=== PATIENT | female | born 1960 | race Two or more races ===

== ENCOUNTER 2024-07-08 17:43 | Inpatient (IN) | payer BC, OTHER ==
[~2024-07-08] VITALS: Ht 160 cm; Wt 73.6 kg
[2024-07-08 17:43] VITALS: PULSE 0; RESP 0; O2SAT 0
[~2024-07-08 17:43] MED LIST: ALBU108A5 IN; ALPR1TAB PO; DIGO0.25 PO; DILT60TA PO; ESCI5TAB PO; FURO20TA3 PO; GABA-1308 PO; HYDR-4798 PO; IPRA0.00 NEB; LOSA-534 PO; MONT-8 PO; TRAZ-228 PO; WARF-115 PO
--- NOTE | 2024-07-08 18:02 | ED.PDOC ---
CPR-HPI HPI Comments PMHx: Unkown. PSHx: Unknown. Social hx: Unknown. Meds: Unknown. Allergies: Unknown. Vitals T: Unobtainable. RR: Unobtainable. HR: 33, 60 after pacing BP: Unobtainable. O2: 96% on nonrebreather mask EMS received call at 1712, arrived on scene at 1723. EMS arrived to ED at 1743. BS on scene 87. GCS 3. Pt was found in front of a house on the concrete. Patient arrived not in a C-collar and not intubated. Patient did not receive any medications in route. They said that the heart rate was in the 30s and they started cardiac pacing right away. Blood pressure was not measurable in route REVIEW OF SYSTEMS: Unknown PHYSICAL EXAM: General: Unresponsive, GCS three Head: normocephalic, atraumatic. Neck: supple, trachea is midline, no swelling. Throat: Dry oral mucosa Eyes:, no erythema, no purulent discharge, no proptosis, no icterus. Pupils are fixed and dilated and nonreactive to light Heart: No pulse and CPR was initiated immediately. Please see code sheet. Lungs: Patient arrived not in a C-collar and not intubated, Clear to auscultation bilaterally. Abdomen: Slightly distended, soft, Noted old abdominal surgical scar and sternotomy and bilateral breast implants. Neuro: GCS 3 unresponsive Skin: no petechia, no purpura, no cyanosis, slightly-pale, slightly jaundice. Lower extremities: --no - Pitting edema no deformity, no focal swelling, no calf TTP. Face: no apparent facial droop. Patient was evaluated immediately upon arrival. Patient was immediately intubated with a GlideScope ET tube placed successfully from 1st attempt. We were unable to palpate a pulse, CPR was initiated and epinephrine was given. Please see code sheet. Patient was given atropine throughout her code process goes after she has rock her heart rate started to drop quickly. Given that she was already very bradycardic in the field and no atropine was given, we gave 1 mg here in the ED. we do not know her medication list. Patient was given 1 g of glucagon IV for treatment of bradycardia. EKG was obtained and case discussed with Dr. Diaz to the core loader. No apparent heart block. We continued our resuscitation effort. Patient required eventually multiple pressors to maintain her blood pressure. She was 1st started on dopamine then dobutamine was added then epinephrine then Levophed. She had an episode of VFib that required shocking one time. Patient received amiodarone bolus of 300 mg IV. She was very hypotensive and received a L of normal saline bolus during initial resuscitation. ROSC was obtained. Schmidt scans were obtained. Patient was given a dose of empiric antibiotics. There was a major delay in lab results return. Patient never required any sedation as she continued to be GCS three with a fixed and dilated pupils that are not reactive to light. No family members available at bedside. No records available on our computer system. The catheter and NG tube were placed. Rectal temperature obtained. Later repeat rectal temperature was low per nurse. Bear hugger was placed. CT scan of maxillofacial was obtained later per radiologist's recommendation. Findings state possibly iatrogenic foci in the vasculature. Patient had IV access in the field an IV access here in the ED. no other vasculature access was obtained prior to this maxillofacial. Right femoral central line was placed after the CT scan report. Patient has not produce any urine in the Allen catheter bag after the 1 L of fluids. Given the chest x-ray findings to suggest possible vascular congestion, I ordered some Lasix and added an additional bag of 1 L normal saline bolus to help with hydration and urine production. Chief Complaint: CPR Time Seen by MD: 17:43 Reviewed Notes: Nurses Notes, Sled Maker Notes, Medications, Allergies Allergies: Coded Allergies: UNOBTAINABLE (Unverified , 07/08/24) Information Source: Emergency Med Personnel Mode of Arrival: EMS Brought in by: EMS Timing: Minutes Duration: Down time prior EMS: (unknown) Onset: Unknown Available Hx: Unknown Inital rhythm: PEA Treatment: CPR, Other Associated signs and symptoms: Other Past Medical History PAST MEDICAL HISTORY: Unknown Surgical History: Unknown MANAGER STAFFING History: Unknown Family History Family History: Unknown Social History Smoker: Unknown Alcohol: Unknown Drugs: Unknown Lives In: Unknown Was a procedure done? 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), Name of refrigeration brazer/solderer (Dr Mtz) Indication: Other (on multiple vasopressors) Room prepared for procedure: Yes Train Master performed hand hygien: Yes Maximal sterile barrier precau: Mask/Eye shield, Sterile gown, Cap, Sterlie gloves, Large sterlie drape Skin Preparation: Chlorhexidine gluconate Skin preparation completely dr: Yes Insertion site: Right, Femoral Central line catheter type: Mec-[id number]-cca dialysis Number of lumens: 3 Central line exchanged over a: No Post Assessment: Proper placement Informed consent obtained: No (pt unresponsive, emergency, no family available) Risks/benefits/alt described: No (pt unresponsive) Notes Dr Manning was present during all critical points of this procedure. Intubation Indication: Respiratory Insufficiency, Altered Mental Status, Airway Protection Prep: Preoxygenation Pretreated with: Nothing Medicated with: Nothing Intubation Approach: Orotracheal Informed consent obtained: No (pt unresponsive, emergency, no family available) Risks/benefits/alt described: No (pt unresponsive) Differential Dx CPR Differential Diagnosis: Cardiopulmonary arrest, Cardiogenic shock, Electrolyte disorder, Heart Block, Myocardial Infarction, Pneumothorax, Pulmonary Embolus, Respiratory Failure, Ruptured Aortic Aneurysm X-Ray, Labs, Meds, VS Vital Signs Date Time Temp Pulse Resp B/P (MAP) Pulse Ox O2 Delivery O2 Flow Rate FiO2 07/08/24 22:15 115 24 126/67 (86) 100 30 07/08/24 21:01 102 20 107/61 (76) 100 40 07/08/24 21:00 106 07/08/24 20:15 105/49 07/08/24 20:00 95/50 07/08/24 19:48 Ambu-Bag 07/08/24 19:41 110 Ambu-Bag 07/08/24 19:30 79/55 07/08/24 19:20 88 16 99 Mechanical Ventilator+ 50 50 07/08/24 19:15 93.6 86 16 84/46 (59) 100 93.6 07/08/24 19:00 84/58 07/08/24 19:00 84/58 07/08/24 19:00 84/45 07/08/24 19:00 93.6 86 16 84/45 (58) 100 93.6 07/08/24 18:58 86 07/08/24 18:45 85 16 83/39 (54) 100 07/08/24 18:25 71 16 69/26 (40) 100 07/08/24 18:22 65 16 65/25 (38) 100 07/08/24 18:20 55 16 71/23 (39) 100 07/08/24 18:20 77 16 83/39 (54) 100 07/08/24 18:18 73/56 07/08/24 18:16 55 16 76/30 (45) 07/08/24 18:07 55/21 07/08/24 18:06 98.1 51 55/21 (32) 98.1 07/08/24 18:05 55/21 07/08/24 18:01 57 07/08/24 17:44 0 0 0/0 (0) 0 07/08/24 17:43 0 0 0 T-piece 15 N/A Lab Test 07/08/24 22:00 07/08/24 19:30 07/08/24 19:00 07/08/24 18:01 Range/Units Urine Color Colorless Yellow Urine Clarity Turbid H Clear Urine pH 8.5 5.0-9.0 Urine Specific [place] 1.006 1.001-1.035 Urine Protein 2+ H Negative Urine Ketones Negative Negative Urine Blood 3+ H Negative /uL Urine Nitrite Negative Negative Urine Bilirubin Negative Negative Urine Urobilinogen Normal Negative mg/dL Urine Leukocyte Esterase Negative Negative /uL Urine RBC 22 0 - 4 /hpf Urine WBC 26 0 - 5 /hpf Urine Squamous Epithelial Cells Few <5 /hpf Urine Bacteria Few H None Seen /hpf Urine Glucose 3+ H Normal mg/dL Lactic Acid Level 6.3 *H 13.8 *H 0.4-2.0 mmol/L Troponin I High Sensitivity 1154 *H 135 *H 19 </=34 ng/L Urine Opiates Screen Neg NEGATIVE Urine Fentanyl Screen Neg NEGATIVE Urine Barbiturates Screen Neg NEGATIVE Urine Phencyclidine Screen Neg NEGATIVE Urine Amphetamines Screen Neg NEGATIVE Urine Benzodiazepines Screen Neg NEGATIVE Urine Cocaine Screen Neg NEGATIVE Urine Cannabinoids Screen Pos NEGATIVE Sodium Level 137 136-145 mmol/L Potassium Level 4.4 3.5-5.1 mmol/L Chloride Level 101 98-107 mmol/L Carbon Dioxide Level 19 L 20-31 mmol/L Anion Gap 17 H 5-15 Blood Urea Nitrogen 13 9-23 mg/dL Creatinine 1.15 H 0.550-1.02 mg/dL Glomerular Filtration Rate Calc 54 >90 mL/min BUN/Creatinine Ratio 11.3 10.0-20.0 Serum Glucose 348 H 74-106 mg/dL Calcium Level 8.8 8.7-10.4 mg/dL Total Bilirubin 2.8 H 0.2-1.0 mg/dL Aspartate Amino Transferase (AST) 146 H 13-40 U/L Alanine Aminotransferase (ALT) 72 H 7-40 U/L Alkaline Phosphatase 58 46-116 U/L Total Protein 6.2 5.7-8.2 g/dL Albumin 3.8 3.2-4.8 g/dL Blood Gas Specimen Type Arterial Blood Gas Sample Site Left radial Blood Gas Patient Temperature 37.0 Arterial Blood Date Drawn [id number] Arterial Blood pH 7.168 *L 7.350-7.450 Arterial Blood Partial Pressure CO2 53.8 H 32.0-45.0 mmHg Arterial Blood Partial Pressure O2 > 529.9 *H 83.0-108.0 mmHg Arterial Blood HCO3 19.1 L 21.0-28.0 mmol/L Arterial Blood Oxygen Saturation 99.7 H 94.0-98.0 % Arterial Blood Base Excess -9.3 L -2.0-3.0 mmol/L Arterial Blood Oxyhemoglobin 97.6 94.0-98.0 % Arterial Blood Carboxyhemoglobin 1.2 0.5-1.5 % Arterial Blood Methemoglobin 0.9 0.0-1.5 % Luiz Test Modified Blood Gas Total Hemoglobin 9.90 L 12.0-16.0 g/dL Blood Gas Set Respiration Rate 16.0 Blood Gas Modality Vent - ac FiO2 % 100.0 Blood Gas Tidal Volume 400.0 Blood Gas PEEP or CPAP 0 Blood Gas Critical Value Read Back Yes Blood Gas Notified Whom Dr. shanique manning Blood Gas Notified Time [id number] Blood Gas Notified By Rt sherry crowley White Blood Count 6.4 4.4-10.8 10^3/uL Red Blood Count 2.96 L 4.0-5.20 10^6/uL Hemoglobin 9.2 L 12.2-16.2 g/dL Hematocrit 29.3 L 36.0-46.0 % Mean Corpuscular Volume 99.1 80.0-100.0 fL Mean Corpuscular Hemoglobin 31.0 28.0-32.0 pg Mean Corpuscular Hemoglobin Concent 31.3 L 32.0-36.0 g/dL Red Cell Distribution Width 16.6 H 11.8-14.3 % Platelet Count 167 140-450 10^3/uL Mean Platelet Volume 9.3 6.9-10.8 fL Neutrophils (%) (Auto) 45.1 37.0-80.0 % Lymphocytes (%) (Auto) 45.3 10.0-50.0 % Monocytes (%) (Auto) 7.3 0.0-12.0 % Eosinophils (%) (Auto) 1.6 0.0-7.0 % Basophils (%) (Auto) 0.7 0.0-2.0 % Neutrophils # (Auto) 2.9 1.6-8.6 10 ^3/uL Lymphocytes # (Auto) 2.9 0.4-5.4 10 ^3/uL Monocytes # (Auto) 0.5 0-1.3 10 ^3/uL Eosinophils # (Auto) 0.1 0-0.8 10 ^3/uL Basophils # (Auto) 0 0-0.2 10 ^3/uL Nucleated Red Blood Cells 1.2 % Magnesium Level 2.6 1.6-2.6 mg/dL Current Medications Medications (Trade) Dose Ordered Sig/Perez Route Start Time Stop Time Status Last Admin Dopamine HCl/ Dextrose 250 ml @ 13.125 mls/ hr Q19H3M ONCE IV 07/08/24 18:15 07/09/24 13:17 07/08/24 18:05 Sodium Bicarbonate 100 ml ONCE ONCE IV 07/08/24 19:15 07/08/24 19:39 DC 07/08/24 19:15 Dobutamine HCl/ Dextrose 250 ml @ 21 mls/hr [id number] IV 07/08/24 19:30 07/08/24 18:07 Epinephrine HCl 250 ml @ 7.5 mls/hr Q24H IV 07/08/24 19:30 07/08/24 18:18 Norepinephrine Bitartrate 250 ml @ 3.75 mls/hr Q24H IV 07/08/24 20:00 07/08/24 20:00 Ceftriaxone Sodium 50 ml @ 100 mls/hr ONCE ONCE IV 07/08/24 20:15 07/08/24 20:44 DC 07/08/24 20:15 Sodium Chloride 1,000 ml @ 1,000 mls/hr Q1H ONCE IV 07/08/24 20:15 07/08/24 21:14 DC 07/08/24 20:15 Furosemide (Lasix Injection) 40 mg ONCE ONCE IV 07/08/24 20:15 07/08/24 20:17 DC 07/08/24 20:[address] [address] Ph: [phone] DIAGNOSTIC IMAGING Diagnostic Imaging Report : [id number] Signed PATIENT: Elizabeth Wren ACCT: [id number] UNIT: [id number] : 1960 LOC: ER ROOM / BED: / AGE / SEX: 63 / F ADM STATUS: REG ER SERVICE 18 ORDERING PHYSICIAN: ANEUDY MANNING DO PROCEDURE(s): CXR1 - CHEST XRAY 1 VIEW REASON: POST INTUBATION ORDER NUMBER(s): [id number], ACCESSION NUMBER(s): [id number] CHEST RADIOGRAPH Indication: POST INTUBATION Technique: Single frontal view of the chest was obtained Comparison: No prior chest x-rays for comparison FINDINGS: Lines and Tubes: Endotracheal tube in place 4.4 cm above the zachary. Enteric tube below the diaphragm in the stomach. Sternal wire sutures in place. Lungs: Increased pulmonary vascular in extending from the hilar regions bilaterally. Pleura: No effusion. No pneumothorax. Cardiomediastinal contours: Cardiac size upper normal. Bones: No acute osseous abnormality. IMPRESSION: 1. Endotracheal tube 4.4 cm above the zachary. 2. Enteric tube below the left diaphragm in the stomach. 3. Cardiac size upper limits of normal with probable findings of congestive failure. ATED BY: JAYLIN TUCKER Jr., DO DICTATED DATE/TIME: 07/08/241850 SIGNED BY: JAYLIN TUCKER Jr., SIGNED DATE/TIME: 07/08/241850 CC: [address] [id number] Ph: [phone] DIAGNOSTIC IMAGING Diagnostic Imaging Report : [id number] Signed PATIENT: Elizabeth Wren ACCT: [id number] UNIT: [id number] : 1960 LOC: ER ROOM / BED: / AGE / SEX: 63 / F ADM STATUS: REG ER SERVICE 19 ORDERING PHYSICIAN: ANEUDY MANNING DO PROCEDURE(s): HWOCT - HEAD WITHOUT CONTRAST REASON: aloc ORDER NUMBER(s): [id number], ACCESSION NUMBER(s): [id number] EXAM: CT HEAD WITHOUT CONTRAST INDICATION: aloc TECHNIQUE: CT of the head without intravenous contrast. Radiation Dose Information: CT Dose: CTDI volume is 53.11 mGy. Dose-length product is 940.46 mGy*cm The dose indicators for CT are the volume Computed Tomography (CT) Dose Index (CTDIvol) and the Dose Length Product (DLP), and are measured in units of mGy and mGy-cm, respectively. These indicators are not patient dose, but values generated from the CT scanner acquisition factors. The report includes radiation exposure data for exposures received during this examination. COMPARISON: None FINDINGS: There is no evidence of acute intracranial hemorrhage, extra-axial collection, mass effect, midline shift, herniation or hydrocephalus. The ventricles, sulci and cisterns are age appropriate. The mendoza-white differentiation is intact. Patchy periventricular and subcortical white matter hypoattenuation is nonspecific but may be related to small vessel ischemic disease. The visualized paranasal sinuses and mastoid air cells are clear. The surrounding soft tissues and osseous structures are unremarkable. IMPRESSION: 1. No acute intracranial hemorrhage. 2. No CT findings of territorial ischemia. ATED BY: JAYLIN TUCKER Jr., DO DICTATED DATE/TIME: 07/08/241911 SIGNED BY: JAYLIN TUCKER Jr., SIGNED DATE/TIME: 07/08/241911 CC: [place] [address] Ph: [phone] DIAGNOSTIC IMAGING Diagnostic Imaging Report : [id number] Signed PATIENT: Elizabeth Wren ACCT: [id number] UNIT: [id number] : 1960 LOC: ER ROOM / BED: / AGE / SEX: 63 / F ADM STATUS: REG ER SERVICE 19 ORDERING PHYSICIAN: ANEUDY MANNING DO PROCEDURE(s): CS2 - CERVICAL WITHOUT CONTRAST REASON: aloc ORDER NUMBER(s): [id number], ACCESSION NUMBER(s): [id number] EXAM: CT CERVICAL WITHOUT CONTRAST INDICATION: aloc EXAM DATE: 07/08/2024 06:39 PM COMPARISON: None TECHNIQUE: Multiple axial CT images of the cervical spine were obtained using bone algorithm. Axial and coronal reformatting was done. Bone and soft tissue windows were reviewed. Radiation Dose Information: CT Dose: CTDI volume is 13.25 mGy. Dose-length product is 314.43 mGy*cm FINDINGS: Minimal dextrocurvature of the cervical spine, possibly positional. No acute cervical spine fracture is identified. The vertebral body heights are intact. No suspicious osseous lesions are identified. Multilevel mild intervertebral disc space narrowing with vacuum phenomenon. Posterior disc osteophyte complex at C5-6. Small calcification of the anterior longitudinal ligament at C6-7. Mild degenerative changes of the atlantoaxial j oint. There is no prevertebral soft tissue swelling. Partially visualized endotracheal and enteric tubes. Tiny foci of subcutaneous emphysema noted adjacent to the left lateral pterygoid process and left maxillary sinus wall. IMPRESSION: 1. No evidence of acute cervical spine fracture or traumatic malalignment. 2. Tiny foci of subcutaneous emphysema adjacent to the left pterygoid process in the left maxillary sinus wall. Findings raise suspicion for possible facial fracture versus other. Recommend correlation with maxillofacial CT. 3. Degenerative changes as described. 4. All CT scans at this medical facility are performed using dose modulation techniques as appropriate to a performed exam including the following: Automated exposure control was utilized; adjustment of the MA and/or KV according to patient size; and use of iterative reconstruction technique. HS:Y ATED BY: KYARA VICKERS DO DICTATED DATE/TIME: 07/08/241913 SIGNED BY: KYARA VICKERS DO SIGNED DATE/TIME: 07/08/241913 CC: [place] [address] Ph: [phone] DIAGNOSTIC IMAGING Diagnostic Imaging Report : [id number] Signed PATIENT: Elizabeth Wren ACCT: [id number] UNIT: [id number] : 1960 LOC: ER ROOM / BED: / AGE / SEX: 63 / F ADM STATUS: REG ER SERVICE 1820 ORDERING PHYSICIAN: ANEUDY MANNING DO PROCEDURE(s): CTCAP - CHST AB PEL WO CON-NO IV/ORAL REASON: aloc ORDER NUMBER(s): [id number], ACCESSION NUMBER(s): [id number] Exam: CT CHST AB PEL WO CON-NO IV/ORAL History: aloc Comparison Study: None Technique: Multidetector spiral CT of the chest, abdomen and pelvis without contrast. Axial, coronal and sagittal multiplanar reformats were obtained from the axial data set by the technologist. Radiation Dose : Chest/ Abdomen/Pelvis: CTDIvol 6.14 mGy, DLP 434.64 mGy*cm. Findings: Chest: The thyroid gland is unremarkable. Endotracheal tube terminates above the zachary. Enteric tube terminates within the stomach. Severe cardiomegaly with significant prominence of the right and left atrium. Aortic aneurysm. Dilatation of the pulmonary trunk up to 38 mm. Mediastinal lymphadenopathy measuring up to 1.1 cm. Mild emphysematous changes of the bilateral lungs. Scattered bilateral lung atelectasis /scarring. Scattered calcified granulomas within the lungs. Left lateral upper lobe pleural nodularity trace right-sided pleural effusion with associated atelectasis. No pneumothorax. Bilateral breast implants with peripheral calcifications. Midline sternotomy wires are noted. Abdomen and pelvis: Hepatosplenomegaly. Otherwise liver, spleen, gallbladder, adrenal glands unremarkable. Limited evaluation of the pancreas given noncontrast imaging. 1 cm hypodense lesion measuring up to -7 Hounsfield units which may represent a cyst versus angiomyolipoma. No hydronephrosis bilaterally. No renal calculi. Urinary bladder is decompressed with Allen catheter looped within the urinary bladder. Uterus is not definitely visualized. Question hysterectomy. Stomach is unremarkable. Small bowel loops unremarkable. Appendix is not definitely visualized. Large amount of fecal material within the ascending and transverse colons. The large bowel is otherwise unremarkable. No evidence of intraperitoneal free air or free fluid. No evidence of aortic aneurysm. Mild atherosclerotic calcification of the aorta. No significant lymphadenopathy. Mild soft tissue edema. Right sided paraumbilical subcutaneous fat thickening extending to the skin and adjacent ventral abdominal musculature. No destructive osseous lesions are noted. IMPRESSION: Limited noncontrast imaging . Trace right-sided pleural effusion with associated atelectasis. Scattered b ilateral lung atelectasis/scarring with scattered bilateral lung calcified granulomas pleural nodularity of the left upper lobe. Mediastinal lymphadenopathy which may be reactive/neoplastic. Severe cardiomegaly with prominence of the right atrium and right ventricle. No evidence of acute abdominopelvic abnormalities. The appendix is not definitely visualized. Without visualization of the appendix, can not exclude acute appendicitis. Additional findings as above. ATED BY: LEYLA HERNANDEZ DO DICTATED DATE/TIME: 07/08/241932 SIGNED BY: LEYLA HERNANDEZ DO SIGNED DATE/TIME: 07/08/241932 CC: [place] [address] Ph: [phone] DIAGNOSTIC IMAGING Diagnostic Imaging Report : [id number] Signed PATIENT: ELIZABETH WREN ACCT: [id number] UNIT: [id number] : 1960 LOC: ER ROOM / BED: / AGE / SEX: 63 / F ADM STATUS: REG ER SERVICE 26 ORDERING PHYSICIAN: ANEUDY MANNING DO PROCEDURE(s): FAC2C - MAXILLOFACIAL WITHOUT REASON: ALOC ORDER NUMBER(s): [id number], ACCESSION NUMBER(s): [id number] Procedure: CT MAXILLOFACIAL WITHOUT Study Date and Requested Time: 07/08/2024 06:39 PM History: ALOC Comparison: CT cervical spine 07/08/2024 Dose: CTDI: 13.25 mGy DLP: 314.43 mGycm Technique: Multiplanar images obtained through the face without intravenous contrast. Findings: No evidence of acute fracture or other significant osseous abnormality. Orbits and globes grossly unremarkable. Paranasal sinuses and mastoids clear. Nasal septum midline position. Nasal cavity and visualized nasopharynx and oropharynx grossly unremarkable with no evidence of focal lesion. Endotracheal tube is partially visualized. Foci of air over posterior to the left submandibular gland region , over the left pterygoid muscle and posterior to the left maxillary sinus Minimal soft tissue. Impression: No evidence of acute traumatic fractures. The foci of air over the left pterygoid musculature, posterior to the left maxillary sinus and posterior to the left submandibular gland appear to be within vasculatures and may represent iatrogenic foci of air within venous struc tures. Additional foci of air are noted posterior to bilateral clavicles on the comparison CT cervical spine which also appear to be within vasculature. Minimal soft tissue edema ATED BY: LEYLA HERNANDEZ DO DICTATED DATE/TIME: 07/08/242117 SIGNED BY: LEYLA HERNANDEZ DO SIGNED DATE/TIME: 07/08/242117 CC: Time of 1ST Reevaluation: 18:13 Reevaluation 1ST: Unchanged Time of 2ND Reevaluation: 23:12 (Patient started to make urine. Patient has not required any sedation or paralytics. ) Reevaluation 2ND: Unchanged Patient Education/Counseling: Pt Unresponsive Family Education/Counseling: No Family Present Departure 1 Departure Time of Disposition: 19:14 Impression: Primary Impression: Cardiopulmonary arrest Additional Impressions: Cardiomegaly Hepatosplenomegaly Lymphadenopathy Abnormal finding on CT scan Elevated troponin Anemia Elevated lactic acid level NSTEMI (non-ST elevated myocardial infarction) Disposition: ADMITTED INPATIENT Admit to: ICU Condition: Critical Discharged With: Self Critical Care Note Critical Care Time?: Yes (90 min-critical care time only) Heart Score Heart Score: Heart Score Response (Comments) Value History N/A 0 EKG Normal 0 Age 45-64 1 Risk Factors N/A 0 Troponin >3 x's Normal limit 2 Total 3 I personally scribed for ANEUDY MANNING DO ([email or web address]) on 07/08/24 at 18:02. Electronically submitted by Ysabel Ortiz ([facility]). I personally scribed for ANEUDY MANNING DO ([email or web address]) on 07/08/24 at 18:11. Electronically submitted by Ysabel Ortiz ([facility]). I personally scribed for ANEUDY MANNING DO ([email or web address]) on 07/08/24 at 19:43. Electronically submitted by Ysabel Ortiz ([facility]). I personally scribed for ANEUDY MANNING DO ([email or web address]) on 07/08/24 at 21:08. Electronically submitted by Ysabel Ortiz ([facility]). I personally scribed for ANEUDY MANNING DO ([facility]) on 07/08/24 at 21:45. Electronically submitted by Ysabel Ortiz ([facility]). I personally scribed for ANEUDY MANNING DO ([facility]) on 07/08/24 at 22:03. Electronically submitted by Ysabel Ortiz ([facility]). ANEUDY MANNING DO Jul 08, 2024 18:02
[2024-07-08] MEDS: DOBUTamine 1000MCG/ML 250 ML IV ONE (18:04)
[2024-07-08] MEDS: DOPamine 1600MCG/ML D5W 250 ML IV ONE (18:05)
[2024-07-08] MEDS: DOBUTamine 1000MCG/ML 250 ML IV SCH (18:07)
[2024-07-08] MEDS: GLUCAGON EMERG KIT 1mg/1ml ONE (18:07)
[2024-07-08] MEDS: EPINEPHrine HCL 250 ML IV ONE (18:12)
[2024-07-08] MEDS: EPINEPHrine HCL 250 ML IV SCH (18:18)
[2024-07-08 18:26] LABS: Basophils # (auto) 0 10 ^3/uL (0-0.2); Basophils % (auto) 0.7 % (0.0-2.0); Eosinophils # (auto) 0.1 10 ^3/uL (0-0.8); Eosinophils % (auto) 1.6 % (0.0-7.0); Hematocrit 29.3 % (36.0-46.0); Hemoglobin 9.2 g/dL (12.2-16.2); Lymphocytes # (auto) 2.9 10 ^3/uL (0.4-5.4); Lymphocytes % (auto) 45.3 % (10.0-50.0); Mean Corpuscular Hgb Conc. 31.3 g/dL (32.0-36.0); Mean Corpuscular Volume 99.1 fL (80.0-100.0); Monocytes # (auto) 0.5 10 ^3/uL (0-1.3); Monocytes % (auto) 7.3 % (0.0-12.0); Neutrophils # (auto) 2.9 10 ^3/uL (1.6-8.6); Neutrophils % (auto) 45.1 % (37.0-80.0); Nucleated Red Blood Cells % 1.2 %; Platelet Count (auto) 167 10^3/uL (140-450); Red Blood Cells 2.96 10^6/uL (4.0-5.20); Red Cell Distribution Width 16.6 % (11.8-14.3); White Blood Cell 6.4 10^3/uL (4.4-10.8)
--- NOTE | 2024-07-08 18:53 | DVH ---
CHEST RADIOGRAPH Indication: POST INTUBATION Technique: Single frontal view of the chest was obtained Comparison: No prior chest x-rays for comparison FINDINGS: Lines and Tubes: Endotracheal tube in place 4.4 cm above the zachary. Enteric tube below the diaphrag m in the stomach. Sternal wire sutures in place. Lungs: Increased pulmonary vascular in extending from the hilar regions bilaterally. Pleura: No effusion. No pneumothorax. Cardiomediastinal contours: Cardiac size upper normal. Bones: No acute osseous abnormality. IMPRESSION: 1. Endotracheal tube 4.4 cm above the zachary. 2. Enteric tube below the left diaphragm in the stomach. 3. Cardiac size upper limits of normal with probable findings of congestive failure.
[2024-07-08 19:09] LABS: Base Excess -9.3 mmol/L (-2.0-3.0)
[2024-07-08] MEDS: SODIUM BICARB 8.4% 50Meq/50ml SYR Vial IV ONE (19:15)
--- NOTE | 2024-07-08 19:15 | DVH ---
EXAM: CT HEAD WITHOUT CONTRAST INDICATION: aloc TECHNIQUE: CT of the head without intravenous contrast. Radiation Dose Information: CT Dose: CTDI volume is 53.11 mGy. Dose-length product is 940.46 mGy*cm The dose indicators for CT are the volume Computed Tomography (CT) Dose Index (CTDIvol) and the Dose Length Product (DLP), and are measured in units of mGy and mGy-cm, respectively. These indicators are not patient dose, but values generated from the CT scanner acquisition factors. The report includes radiation exposure data for exposures received during this examination. COMPARISON: None FINDINGS: There is no evidence of acute intracranial hemorrhage, extra-axial collection, mass effect, midline s hift, herniation or hydrocephalus. The ventricles, sulci and cisterns are age appropriate. The mendoza-white differentiation is intact. Patchy periventricular and subcortical white matter hypoattenuation is nonspecific but may be related to small vessel ischemic disease. The visualized paranasal sinuses and mastoid air cells are clear. The surrounding soft tissues and osseous structures are unremarkable. IMPRESSION: 1. No acute intracranial hemorrhage. 2. No CT findings of territorial ischemia.
--- NOTE | 2024-07-08 19:17 | DVH ---
EXAM: CT CERVICAL WITHOUT CONTRAST INDICATION: aloc EXAM DATE: 07/08/2024 06:39 PM COMPARISON: None TECHNIQUE: Multiple axial CT images of the cervical spine were obtained using bone algorithm. Axial a nd coronal reformatting was done. Bone and soft tissue windows were reviewed. Radiation Dose Information: CT Dose: CTDI volume is 13.25 mGy. Dose-length product is 314.43 mGy*cm FINDINGS: Minimal dextrocurvature of the cervical spine, possibly positional. No acute cervical spine fracture is identified. The vertebral body heights are intact. No suspicious osseous lesions are identified. Multilevel mild intervertebral disc space narrowing with vacuum phenomenon. Posterior disc osteophyte complex at C5-6. Small calcification of the anterior longitudinal ligament at C6-7. Mild degenerativ e changes of the atlantoaxial joint. There is no prevertebral soft tissue swelling. Partially visualized endotracheal and enteric tubes. Tiny foci of subcutaneous emphysema noted adjacent to the left lateral pterygoid process and left max illary sinus wall. IMPRESSION: 1. No evidence of acute cervical spine fracture or traumatic malalignment. 2. Tiny foci of subcutaneous emphysema adjacent to the left pterygoid process in the left maxillary s inus wall. Findings raise suspicion for possible facial fracture versus other. Recommend correlation with maxillofacial CT. 3. Degenerative changes as described. 4. All CT scans at this medical facility are performed using dose modulation techniques as appropriat e to a performed exam including the following: Automated exposure control was utilized; adjustment of the MA and/or KV according to patient size; and use of iterative reconstruction technique. HS:Y
[2024-07-08 19:20] VITALS: PULSE 88; RESP 16; O2SAT 99
--- NOTE | 2024-07-08 19:26 | ECG ---
[facility] Test Date: 2024-07-08 Test Time: 18:01:38 Pat Name: ELIZABETH ROUSSEAU Department: er Room: [address] [place] [address] Gender: F Time Study Technician: dr AWAD: 1960 Requested By: ANEUDY MANNING Order Number: [id number] Reading MD: Lamont Cheng Measurements Intervals [place] Rate: 57 P: 0 OK: 0 QRS: -43 QRSD: 118 T: 126 QT: 401 QTc: 391 Interpretive Statements AV block, complete (third degree) Nonspecific IVCD with LAD Low voltage, precordial leads Abnrm T, consider ischemia, anterolateral lds Minimal ST elevation, lateral leads Baseline wander in lead(s) V1 Electronically Signed On 07-09-2024 8:28:13 PST by Lamont Cheng Please click the below link to view image of tracing.
[2024-07-08] MEDS: NOREPINEPHRINE 8 MG/250ML KIT 250 ML IV SCH (19:30)
[2024-07-08] MEDS: NOREPINEPHRINE 8 MG/250ML KIT 250 ML IV ONE (19:34)
--- NOTE | 2024-07-08 19:35 | DVH ---
Exam: CT CHST AB PEL WO CON-NO IV/ORAL History: aloc Comparison Study: None Technique: Multidetector spiral CT of the chest, abdomen and pelvis without contrast. Axial, coronal and sagittal multiplanar reformats were obtained from the axial data set by the technologist. Radiation Dose : Chest/ Abdomen/Pelvis: CTDIvol 6.14 mGy, DLP 434.64 mGy*cm. Findings: Chest: The thyroid gland is unremarkable. Endotracheal tube terminates above the zachary. Enteric tube terminates within the stomach. Severe cardiomegaly with significant prominence of the right and left atrium. Aortic aneurysm. Dilata tion of the pulmonary trunk up to 38 mm. Mediastinal lymphadenopathy measuring up to 1.1 cm. Mild emphysematous changes of the bilateral lungs. Scattered bilateral lung atelectasis /scarring. S cattered calcified granulomas within the lungs. Left lateral upper lobe pleural nodularity trace righ t-sided pleural effusion with associated atelectasis. No pneumothorax. Bilateral breast implants with peripheral calcifications. Midline sternotomy wires are noted. Abdomen and pelvis: Hepatosplenomegaly. Otherwise liver, spleen, gallbladder, adrenal glands unremarkable. Limited eval uation of the pancreas given noncontrast imaging. 1 cm hypodense lesion measuring up to -7 Hounsfield units which may represent a cyst versus angiomyol ipoma. No hydronephrosis bilaterally. No renal calculi. Urinary bladder is decompressed with Allen catheter looped within the urinary bladder. Uterus is not definitely visualized. Question hysterectomy. Stomach is unremarkable. Small bowel loops unremarkable. Appendix is not definitely visualized. Larg e amount of fecal material within the ascending and transverse colons. The large bowel is otherwise u nremarkable. No evidence of intraperitoneal free air or free fluid. No evidence of aortic aneurysm. Mild atherosclerotic calcification of the aorta. No significant lymphadenopathy. Mild soft tissue edema. Right sided paraumbilical subcutaneous fat thickening extending to the skin a nd adjacent ventral abdominal musculature. No destructive osseous lesions are noted. IMPRESSION: Limited noncontrast imaging . Trace right-sided pleural effusion with associated atelectasis. Scattered bilateral lung atelectasis /scarring with scattered bilateral lung calcified granulomas pleural nodularity of the left upper lob e. Mediastinal lymphadenopathy which may be reactive/neoplastic. Severe cardiomegaly with prominence of the right atrium and right ventricle. No evidence of acute abdominopelvic abnormalities. The appendix is not definitely visualized. Without visualization of the appendix, can not exclude acu te appendicitis. Additional findings as above.
--- NOTE | 2024-07-08 19:41 | RESUS ---
CODE BLUE ASSESSSMENT History of Events History of Events: INITIAL CALL TO EMS WAS REPORTED UNRESPONSIVE PATIENT, BRADYCARDIC. PER EMS, PATIENT BECAME PULSELESS UPON ARRIVAL TO ER. PATIENT TO ER BED 9, CPR CONTINUED. DR MANNING, NURSING STAFF AND RT STAFF AT BEDSIDE Initial Information Date: Jul 08, 2024 Time: 17:46 Location of Arrest: In Field Arrest Witnessed: Yes CPR started by whom: EMS Pre-Hospital Care: ACLS Type of arrest: Cardiac Spontaneous Respirations: No Pulse Present: No Monitoring: Pulse Oximetry, Capnography Crash Cart Opened and Supplies: Yes Airway Ventilation Breathing at Onset: Apneic Oxygen Delivery Method: Ambu-Bag Intubation Time: 17:47 Intubation Size: 8.0 cuffed Intubated by: DR MANNING Intubation Attempts: 1 Intubated orally: Yes Tube secured at: 24 CO2 indicator used: Yes Confirmation: Auscultation, Exhaled CO2 Suctioning (Oral/Tracheal): Yes Circulation Circulation #1: Time: 17:48 Circulation Comment: PEA Circulation #2: Time: 17:50 Circulation Comment: PEA (DOPPLER USED) Circulation #3: Time: 17:52 Pulse Rate (adult): 110 Circulation Comment: SINUS TACHYCARDIA Medications & Response Medications and Responses #1: Medication Time: 17:47 ADULT Medications Given ADULT: Epinephrine 1 mg, Sodium Bacarbinate 50 meq Route of Administration: IV EKG Rhythm: PEA Medications and Responses #2: Medication Time: 17:50 ADULT Medications Given ADULT: Epinephrine 1 mg Route of Administration: IV EKG Rhythm: PEA Medications and Responses #3: ADULT Medications Given ADULT: Narcan 1 mg Route of Administration: IV Medication Comment: NARCAN 2 MG GIVEN Nurses Notes [place] Coma Scale Eye Opening: None (1) [place] Coma Scale Verbal: None (1) [place] Coma Scale Motor: None (1) Pupil Reaction: Non Reactive Bedside Blood Glucose: 160 EKG Rhythm: Sinus Tachycardia Time Code Ended Time Code Ended: 17:52 Post Arrest Status: Ventilated Outcome of code: Successful Code Team Present: DR NIGEL PASTRANA RN Post Resuscitation [facility] Pupil Size: 6 Comment: 6MM ROSC Time of ROSC: 17:52 Duyen Phipps Jul 08, 2024 19:41
--- NOTE | 2024-07-08 19:48 | RESUS ---
CODE BLUE ASSESSSMENT History of Events History of Events: 2ND CODE FOR THIS PATIENT AFTER ROSC. REFER TO PREVIOUS CODE SHEET Initial Information Date: Jul 08, 2024 Time: 17:53 Location of Arrest: ER Arrest Witnessed: Yes CPR started by whom: Hospital Staff Pre-Hospital Care: ACLS Type of arrest: Cardiac Spontaneous Respirations: No Pulse Present: No Monitoring: Pulse Oximetry, Telemetry Crash Cart Opened and Supplies: Yes Airway Ventilation Breathing at Onset: Assisted Oxygen Delivery Method: Ambu-Bag Artificial Ventilation: Bag/Mask Comments: 2ND CODE. PATIENT WAS INTUBATED DURING INITIAL CODE BLUE. REFER TO PREVIOUS CODE BLUE SHEET Circulation Circulation : Time: 17:53 Circulation Comment: V FIB NOTED ON MONITOR Defibrillation Defbrillation : EKG Rhythm: V-Fibrillation Compressions: Manual Time Defibrillator Shocked Pt.: 17:53 Defib. Joules: 120 Pulse Present: Yes EKG Rhythm: Sinus Bradycardia Medications & Response Medications and Responses #1: Medication Time: 17:54 ADULT Medications Given ADULT: Atropine 1 mg Route of Administration: IV EKG Rhythm: Sinus Bradycardia Medications and Responses #2: Medication Time: 17:56 ADULT Medications Given ADULT: Magnesium Sulfate 2 gm Route of Administration: IV EKG Rhythm: Sinus Rhythm Nurses Notes [place] Coma Scale Eye Opening: None (1) [place] Coma Scale Verbal: None (1) [place] Coma Scale Motor: None (1) Pupil Reaction: Non Reactive Bedside Blood Glucose: 160 EKG Rhythm: Sinus Rhythm, Sinus Tachycardia Time Code Ended Time Code Ended: 17:56 Post Arrest Status: Unconscious, Ventilated Outcome of code: Successful Code Team Present: DR NIGEL RAYMUNDO Post Resuscitation [facility]rolog[facility] Pupil Size: 6 Comment: 6MM ROSC Time of ROSC: 17:56 Duyen Phipps Jul 08, 2024 19:48
[2024-07-08 20:02] LABS: Lactic Acid w/Reflex 13.8 mmol/L (0.4-2.0)
[2024-07-08] MEDS: SODIUM CHLORIDE 0.9% 1,000 ML IV ONE (20:15)
[2024-07-08] MEDS: FUROSEMIDE 40 MG/4 ML VIAL IV ONE (20:15)
[2024-07-08] MEDS: cefTRIAXone 1GM/50ML D5W 50 ML IV ONE (20:15)
[2024-07-08 20:32] LABS: Chloride 101 mmol/L (98-107); Potassium 4.4 mmol/L (3.5-5.1); Sodium 137 mmol/L (136-145)
[2024-07-08 20:34] LABS: Anion Gap 17 (5-15); Carbon Dioxide 19 mmol/L (20-31)
[2024-07-08 20:35] LABS: Calcium 8.8 mg/dL (8.7-10.4)
[2024-07-08 20:40] LABS: Alkaline Phosphatase 58 U/L (46-116); BUN/Creatinine Ratio 11.3 (10.0-20.0); Blood Urea Nitrogen 13 mg/dL (9-23); Glucose 348 mg/dL (74-106)
[2024-07-08 20:41] LABS: Alanine Aminotransferase 72 U/L (7-40); Aspartate Aminotransferase 146 U/L (13-40)
[2024-07-08 20:42] LABS: Albumin 3.8 g/dL (3.2-4.8); Bilirubin, Total 2.8 mg/dL (0.2-1.0); Total Protein 6.2 g/dL (5.7-8.2)
--- NOTE | 2024-07-08 21:21 | DVH ---
Procedure: CT MAXILLOFACIAL WITHOUT Study Date and Requested Time: 07/08/2024 06:39 PM History: ALOC Comparison: CT cervical spine 07/08/2024 Dose: CTDI: 13.25 mGy DLP: 314.43 mGycm Technique: Multiplanar images obtained through the face without intravenous contrast. Findings: No evidence of acute fracture or other significant osseous abnormality. Orbits and globes grossly unr emarkable. Paranasal sinuses and mastoids clear. Nasal septum midline position. Nasal cavity and visu alized nasopharynx and oropharynx grossly unremarkable with no evidence of focal lesion. Endotracheal tube is partially visualized. Foci of air over posterior to the left submandibular gland region , over the left pterygoid muscle an d posterior to the left maxillary sinus Minimal soft tissue. Impression: No evidence of acute traumatic fractures. The foci of air over the left pterygoid musculature, posterior to the left maxillary sinus and heel burnisher ior to the left submandibular gland appear to be within vasculatures and may represent iatrogenic foc i of air within venous structures. Additional foci of air are noted posterior to bilateral clavicles on the comparison CT cervical spine which also appear to be within vasculature. Minimal soft tissue edema
[2024-07-08 22:41] LABS: Urine Bacteria FEW /hpf (None Seen); Urine Blood 3+ /uL (Negative); Urine Clarity Turbid (Clear); Urine Color Colorless (Yellow); Urine Protein, UAD 2+ (Negative); Urine Specific Gravity 1.006 (1.001-1.035); Urine Squamous Epithelial Cell FEW /hpf (<5); Urine Urobilinogen Normal (Negative); Urine WBC 26 /hpf (0 - 5); Urine pH 8.5 (5.0-9.0)
[2024-07-08 22:42] LABS: Amphetamine Screen, Urine Neg (NEGATIVE); Barbiturate Scree,Urine Neg (NEGATIVE); Benzodiazephine Screen, Urine Neg (NEGATIVE); Cocaine Screen, Urine Neg (NEGATIVE); Opiate Scree,Urine Neg (NEGATIVE)
[2024-07-08 22:43] LABS: Cannabinoid Screen, Urine Pos (NEGATIVE); Phencyclidine Screen, Urine Neg (NEGATIVE)
[2024-07-08] MEDS ORDERED: ONDANSETRON HCL 4 MG/2 ML VIAL IV PRN (22:45)
[2024-07-08] MEDS ORDERED: MORPHINE SULFATE INJ 2 MG/ml SYRG IV PRN (22:45)
[2024-07-08] MEDS ORDERED: NITROGLYCERIN 0.4 MG SL TAB SL PRN (22:45)
[2024-07-08] MEDS: SODIUM CHLORIDE 0.9% 1,000 ML IV SCH (22:45)
[2024-07-08 23:44] LABS: INR 1.56 (0.9-1.15); Partial Thromboplastin Time 26.8 SEC (24.5-34.5)
[2024-07-09] VITALS (15 sets, daily range): BP systolic 78–126; BP diastolic 39–72; PULSE 115–130; RESP 17–29; TEMP 93.6; O2SAT 91–100
--- NOTE | 2024-07-09 00:34 | DVH ---
CHEST RADIOGRAPH Indication: intubated Technique: Single frontal view of the chest was obtained Comparison: XY CHEST XRAY 1 VIEW on DOS: 07/08/24 Findings/ IMPRESSION: Endotracheal tube is projected 6.5 cm superior to the zachary. Enteric tube is projecting below the GE junction without visualization of side port or tip. Overlying breast tissue limits evaluation. No fo tutu consolidation or pneumothorax. No pleural effusions.
[2024-07-09] MEDS: MIDAZOLAM DRIP 50 mg/50mL 50 ML IV SCH (02:30)
[2024-07-09] MEDS: DOPamine 1600MCG/ML D5W 250 ML IV SCH (03:00)
[2024-07-09] MEDS: DOPamine 1600MCG/ML D5W 250 ML IV ONE ×2 (03:09→09:17)
[2024-07-09] MEDS: ACETAMINOPHEN 325 MG TAB PO PRN (04:34)
[2024-07-09] MEDS: PIPERACILLIN-TAZOB 3.375GM 100 ML IV SCH (06:03)
[2024-07-09 06:25] LABS: Base Excess 3.3 mmol/L (-2.0-3.0)
--- NOTE | 2024-07-09 06:28 | DVHHP2 ---
History of Present Illness Reason for Visit: Altered mental status History of Present Illness 63-year-old female presents for evaluation of cardiopulmonary arrest. Patient was found unresponsive in front of a house. Patient was coded EN route per ACLS protocol. Patient arrived intubated. Patient currently off sedation pupils dilated and fixed. No further history could be obtained at the moment. Past Medical History Unknown Past Surgical History Unknown Family History Unknown Review of Systems Review of Systems Unable to complete review of systems patient is sedated and intubated. Allergies: Coded Allergies: UNOBTAINABLE (Unverified , 07/08/24) Medications Current Medications Medications Dose Ordered Sig/Perez Route Start Time Stop Time Status Last Admin Dose Admin Dobutamine HCl/ Dextrose 250 ml @ 21 mls/hr [id number] IV 07/08/24 19:30 07/08/24 18:07 84 MLS/HR Epinephrine HCl 250 ml @ 7.5 mls/hr Q24H IV 07/08/24 19:30 07/08/24 18:18 37.5 MLS/HR Norepinephrine Bitartrate 250 ml @ 3.75 mls/hr Q24H IV 07/08/24 20:00 07/08/24 20:00 11.25 MLS/HR Piperacillin Sod/ Tazobactam Sod 100 ml @ 25 mls/hr Q8HR IV 07/09/24 06:00 07/09/24 06:03 25 MLS/HR Sodium Chloride 1,000 ml @ 80 mls/hr [id number] IV 07/08/24 22:45 07/08/24 22:45 80 MLS/HR Ondansetron HCl 4 mg Q4HP PRN IV 07/08/24 22:45 Enoxaparin Sodium 40 mg DAILY SC 07/09/24 10:00 Acetaminophen 650 mg Q6HP PRN PO 07/08/24 22:45 07/09/24 04:34 650 MG Nitroglycerin 0.4 mg Q5MINP PRN SL 07/08/24 22:45 Morphine Sulfate 2 mg Q30M PRN IV 07/08/24 22:45 Midazolam HCl 50 ml @ 1 mls/hr Q24H IV 07/09/24 02:30 07/09/24 02:30 1 MLS/HR Dopamine HCl/ Dextrose 250 ml @ 13.125 mls/ hr Q19H3M IV 07/09/24 03:00 07/09/24 03:00 52.5 MLS/HR Exam Vital Signs Vital Signs Date Time Temp Pulse Resp B/P (MAP) Pulse Ox O2 Delivery O2 Flow Rate FiO2 07/09/24 05:56 122 26 98/60 (73) 99 30 07/09/24 05:34 98.8 07/08/24 19:48 Ambu-Bag 07/08/24 17:43 15 Exam Gen: 63-year-old female in moderate distress Skin: Warm, dry, normal color and texture, no rash. HEENT: Normocephalic atraumatic, mucous membranes moist and pink. Neck: Cervical and supraclavicular nodes normal without enlargement, trachea is midline, thyroid gland is normal without masses. Pulmonary: Intubated, diminished breath sounds bilaterally Cardiac: Regular rate and rhythm. No murmur Abdomen: Soft, nontender, nondistended, bowel sounds present all 4 quadrants, no guarding, no rigidity, no organomegaly. Extremities: No cyanosis, clubbing, no edema Neuro: Patient is currently sedated Labs/Xrays ORDERING PHYSICIAN: ANEUDY MANNING DO PROCEDURE(s): CS2 - CERVICAL WITHOUT CONTRAST REASON: [facility] ORDER NUMBER(s): [id number], ACCESSION NUMBER(s): [id number] EXAM: CT CERVICAL WITHOUT CONTRAST INDICATION: [facility] EXAM DATE: 07/08/2024 06:39 PM COMPARISON: None TECHNIQUE: Multiple axial CT images of the cervical spine were obtained using bone algorithm. Axial and coronal reformatting was done. Bone and soft tissue windows were reviewed. Radiation Dose Information: CT Dose: CTDI volume is 13.25 mGy. Dose-length product is 314.43 mGy*cm FINDINGS: Minimal dextrocurvature of the cervical spine, possibly positional. No acute cervical spine fracture is identified. The vertebral body heights are intact. No suspicious osseous lesions are identified. Multilevel mild intervertebral disc space narrowing with vacuum phenomenon. Posterior disc osteophyte complex at C5-6. Small calcification of the anterior longitudinal ligament at C6-7. Mild degenerative changes of the atlantoaxial joint. There is no prevertebral soft tissue swelling. Partially visualized endotracheal and enteric tubes. Tiny foci of subcutaneous emphysema noted adjacent to the left lateral pterygoid process and left maxillary sinus wall. IMPRESSION: 1. No evidence of acute cervical spine fracture or traumatic malalignment. 2. Tiny foci of subcutaneous emphysema adjacent to the left pterygoid process in the left maxillary sinus wall. Findings raise suspicion for possible facial fracture versus other. Recommend correlation with maxillofacial CT. 3. Degenerative changes as described. 4. All CT scans at this medical facility are performed using dose modulation techniques as appropriate to a performed exam including the following: Automated exposure control was utilized; adjustment of the MA and/or KV according to patient size; and use of iterative reconstruction technique. HS:Y RING PHYSICIAN: ANEUDY MANNING DO PROCEDURE(s): HWOCT - HEAD WITHOUT CONTRAST REASON: [facility] ORDER NUMBER(s): [id number], ACCESSION NUMBER(s): [id number] EXAM: CT HEAD WITHOUT CONTRAST INDICATION: [facility] TECHNIQUE: CT of the head without intravenous contrast. Radiation Dose Information: CT Dose: CTDI volume is 53.11 mGy. Dose-length product is 940.46 mGy*cm The dose indicators for CT are the volume Computed Tomography (CT) Dose Index (CTDIvol) and the Dose Length Product (DLP), and are measured in units of mGy and mGy-cm, respectively. These indicators are not patient dose, but values generated from the CT scanner acquisition factors. The report includes radiation exposure data for exposures received during this examination. COMPARISON: None FINDINGS: There is no evidence of acute intracranial hemorrhage, extra-axial collection, mass effect, midline shift, herniation or hydrocephalus. The ventricles, sulci and cisterns are age appropriate. The mendoza-white differentiation is intact. Patchy periventricular and subcortical white matter hypoattenuation is nonspecific but may be related to small vessel ischemic disease. The visualized paranasal sinuses and mastoid air cells are clear. The surrounding soft tissues and osseous structures are unremarkable. IMPRESSION: 1. No acute intracranial hemorrhage. 2. No CT findings of territorial ischemia. ATED BY: JAYLIN TUCKER Jr., DO DICTATED DATE/TIME: 07/08/241911 ORDERING PHYSICIAN: ANEUDY MANNING DO PROCEDURE(s): CTCAP - CHST AB PEL WO CON-NO IV/ORAL REASON: [facility] ORDER NUMBER(s): [id number], ACCESSION NUMBER(s): [id number] Exam: CT CHST AB PEL WO CON-NO IV/ORAL History: aloc Comparison Study: None Technique: Multidetector spiral CT of the chest, abdomen and pelvis without contrast. Axial, coronal and sagittal multiplanar reformats were obtained from the axial data set by the technologist. Radiation Dose : Chest/ Abdomen/Pelvis: CTDIvol 6.14 mGy, DLP 434.64 mGy*cm. Findings: Chest: The thyroid gland is unremarkable. Endotracheal tube terminates above the zachary. Enteric tube terminates within the stomach. Severe cardiomegaly with significant prominence of the right and left atrium. Aortic aneurysm. Dilatation of the pulmonary trunk up to 38 mm. Mediastinal lymphadenopathy measuring up to 1.1 cm. Mild emphysematous changes of the bilateral lungs. Scattered bilateral lung atelectasis /scarring. Scattered calcified granulomas within the lungs. Left lateral upper lobe pleural nodularity trace right-sided pleural effusion with associated atelectasis. No pneumothorax. Bilateral breast implants with peripheral calcifications. Midline sternotomy wires are noted. Abdomen and pelvis: Hepatosplenomegaly. Otherwise liver, spleen, gallbladder, adrenal glands unremarkable. Limited evaluation of the pancreas given noncontrast imaging. 1 cm hypodense lesion measuring up to -7 Hounsfield units which may represent a cyst versus angiomyolipoma. No hydronephrosis bilaterally. No renal calculi. Urinary bladder is decompressed with Allen catheter looped within the urinary bladder. Uterus is not definitely visualized. Question hysterectomy. Stomach is unremarkable. Small bowel loops unremarkable. Appendix is not definitely visualized. Large amount of fecal material within the ascending and transverse colons. The large bowel is otherwise unremarkable. No evidence of intraperitoneal free air or free fluid. No evidence of aortic aneurysm. Mild atherosclerotic calcification of the aorta. No significant lymphadenopathy. Mild soft tissue edema. Right sided paraumbilical subcutaneous fat thickening extending to the skin and adjacent ventral abdominal musculature. No destructive osseous lesions are noted. IMPRESSION: Limited noncontrast imaging . Trace right-sided pleural effusion with associated atelectasis. Scattered bilateral lung atelectasis/scarring with scattered bilateral lung calcified granulomas pleural nodularity of the left upper lobe. Mediastinal lymphadenopathy which may be reactive/neoplastic. Severe cardiomegaly with prominence of the right atrium and right ventricle. No evidence of acute abdominopelvic abnormalities. The appendix is not definitely visualized. Without visualization of the appendix, can not exclude acute appendicitis. Additional findings as above. ATED BY: LEYLA HERNANDEZ DO Labs Test 07/08/24 23:34 07/08/24 22:00 07/08/24 19:30 07/08/24 19:00 Range/Units POC Glucose 306 H 70-106 mg/dl Urine Color Colorless Yellow Urine Clarity Turbid H Clear Urine pH 8.5 5.0-9.0 Urine Specific Marcellus 1.006 1.001-1.035 Urine Protein 2+ H Negative Urine Ketones Negative Negative Urine Blood 3+ H Negative /uL Urine Nitrite Negative Negative Urine Bilirubin Negative Negative Urine Urobilinogen Normal Negative mg/dL Urine Leukocyte Esterase Negative Negative /uL Urine RBC 22 0 - 4 /hpf Urine WBC 26 0 - 5 /hpf Urine Squamous Epithelial Cells Few <5 /hpf Urine Bacteria Few H None Seen /hpf Urine Glucose 3+ H Normal mg/dL Lactic Acid Level 6.3 *H 0.4-2.0 mmol/L Troponin I High Sensitivity 1154 *H </=34 ng/L Urine Opiates Screen Neg NEGATIVE Urine Fentanyl Screen Neg NEGATIVE Urine Barbiturates Screen Neg NEGATIVE Urine Phencyclidine Screen Neg NEGATIVE Urine Amphetamines Screen Neg NEGATIVE Urine Benzodiazepines Screen Neg NEGATIVE Urine Cocaine Screen Neg NEGATIVE Urine Cannabinoids Screen Pos NEGATIVE Prothrombin Time 16.0 H 9.3-11.8 sec Prothrombin Time INR 1.56 H 0.9-1.15 Activated Partial Thromboplast Time 26.8 24.5-34.5 SEC Sodium Level 137 136-145 mmol/L Potassium Level 4.4 3.5-5.1 mmol/L Chloride Level 101 98-107 mmol/L Carbon Dioxide Level 19 L 20-31 mmol/L Anion Gap 17 H 5-15 Blood Urea Nitrogen 13 9-23 mg/dL Creatinine 1.15 H 0.550-1.02 mg/dL Glomerular Filtration Rate Calc 54 >90 mL/min BUN/Creatinine Ratio 11.3 10.0-20.0 Serum Glucose 348 H 74-106 mg/dL Calcium Level 8.8 8.7-10.4 mg/dL Total Bilirubin 2.8 H 0.2-1.0 mg/dL Aspartate Amino Transferase (AST) 146 H 13-40 U/L Alanine Aminotransferase (ALT) 72 H 7-40 U/L Alkaline Phosphatase 58 46-116 U/L Total Protein 6.2 5.7-8.2 g/dL Albumin 3.8 3.2-4.8 g/dL Blood Gas Specimen Type Arterial Blood Gas Sample Site Left radial Blood Gas Patient Temperature 37.0 Arterial Blood Date Drawn [id number] Arterial Blood pH 7.168 *L 7.350-7.450 Arterial Blood Partial Pressure CO2 53.8 H 32.0-45.0 mmHg Arterial Blood Partial Pressure O2 > 529.9 *H 83.0-108.0 mmHg Arterial Blood HCO3 19.1 L 21.0-28.0 mmol/L Arterial Blood Oxygen Saturation 99.7 H 94.0-98.0 % Arterial Blood Base Excess -9.3 L -2.0-3.0 mmol/L Arterial Blood Oxyhemoglobin 97.6 94.0-98.0 % Arterial Blood Carboxyhemoglobin 1.2 0.5-1.5 % Arterial Blood Methemoglobin 0.9 0.0-1.5 % Luiz Test Modified Blood Gas Total Hemoglobin 9.90 L 12.0-16.0 g/dL Blood Gas Set Respiration Rate 16.0 Blood Gas Modality Vent - ac FiO2 % 100.0 Blood Gas Tidal Volume 400.0 Blood Gas PEEP or CPAP 0 Blood Gas Critical Value Read Back Yes Blood Gas Notified Whom Dr. shanique manning Blood Gas Notified Time [id number] Blood Gas Notified By Rt sherry crowley Test 07/08/24 18:01 Range/Units White Blood Count 6.4 4.4-10.8 10^3/uL Red Blood Count 2.96 L 4.0-5.20 10^6/uL Hemoglobin 9.2 L 12.2-16.2 g/dL Hematocrit 29.3 L 36.0-46.0 % Mean Corpuscular Volume 99.1 80.0-100.0 fL Mean Corpuscular Hemoglobin 31.0 28.0-32.0 pg Mean Corpuscular Hemoglobin Concent 31.3 L 32.0-36.0 g/dL Red Cell Distribution Width 16.6 H 11.8-14.3 % Platelet Count 167 140-450 10^3/uL Mean Platelet Volume 9.3 6.9-10.8 fL Neutrophils (%) (Auto) 45.1 37.0-80.0 % Lymphocytes (%) (Auto) 45.3 10.0-50.0 % Monocytes (%) (Auto) 7.3 0.0-12.0 % Eosinophils (%) (Auto) 1.6 0.0-7.0 % Basophils (%) (Auto) 0.7 0.0-2.0 % Neutrophils # (Auto) 2.9 1.6-8.6 10 ^3/uL Lymphocytes # (Auto) 2.9 0.4-5.4 10 ^3/uL Monocytes # (Auto) 0.5 0-1.3 10 ^3/uL Eosinophils # (Auto) 0.1 0-0.8 10 ^3/uL Basophils # (Auto) 0 0-0.2 10 ^3/uL Nucleated Red Blood Cells 1.2 % Magnesium Level 2.6 1.6-2.6 mg/dL Assessment/Plan Assessment/Plan Assessment Cardiopulmonary arrest Questionable enoxaparin injury Possible sepsis Plan Admit the patient to ICU to the hospitalist Cardiology consultation Nephrology consult Zosyn Maintenance IV fluids Continue treatment per orders. Total critical care time excluding procedures performed this 55 minutes. Plan discussed with: Other My Orders Orders - MONE SANTIAGOStefan Procedure Category Date Status Time Blood Culture ANH 07/08/24 In Process 22:39 Piperacillin-Tazob PHA 07/09/24 In Process 3.375gm (Zosyn 3.375g 06:00 Sodium Chloride 0.9% PHA 07/08/24 In Process 22:45 * Cardiology Consult CONS 07/08/24 Transmitted 22:39 * Neurology Consult CONS 07/08/24 Transmitted 22:39 Chest Xray 1 View XY 07/09/24 Resulted 04:00 Accucheck BD 07/09/24 Transmitted 00:00 Accucheck BD 07/09/24 Transmitted 06:00 Accucheck BD 07/09/24 Transmitted 12:00 Accucheck BD 07/09/24 Transmitted 18:00 Admit ADMIT 07/08/24 Transmitted 22:39 Ondansetron Hcl PHA 07/08/24 In Process (Zofran) 22:45 Enoxaparin Sodium PHA 07/09/24 In Process (Lovenox) 10:00 Complete Blood Count LAB 07/09/24 Logged 04:00 Comprehensive LAB 07/09/24 Logged Metabolic Panel 04:00 Echo 2d Mode Cardiac US 07/08/24 Logged DOP 22:39 Condition: Unstable KALPESH 07/08/24 In Process 22:39 Acetaminophen Tablet PHA 07/08/24 In Process (Tylenol Tablet) 22:45 Maintain Bed Rest KALPESH 07/08/24 In Process 22:39 Sequential KALPESH 07/08/24 In Process Compression Device Nitroglycerin PHA 07/08/24 In Process Sublingual (Ntrostat 22:45 Morphine Sulfate PHA 07/08/24 In Process Injection 22:45 Stat Ekg For Chest [facility]ALPES[facility] 07/08/24 In Process Pain 22:39 Notify Of Changes [facility] 07/08/24 In Process From Base 22:39 Safety And Health Manager For [facility] 07/08/24 In Process 24 Hours 22:39 Emergency Dysrhythmia [facility] 07/08/24 In Process Protocol 22:39 Rhythm Strips Once [facility] 07/08/24 In Process Every Shift 22:39 Oxygen By Nasal RT 07/08/24 Transmitted Cannula 22:39 Midazolam Drip 50 PHA 07/09/24 In Process Mg/50ml (Versed Drip 5 02:30 Rass Sedation Scale [facility] 07/09/24 In Process 02:26 Date of Service: Jul 08, 2024 Billing Provider: MONE SANTIAGO Common Visit Codes: [id number] CARE 30-74 MIN MONE SANTIAGO Jul 09, 2024 06:28
[2024-07-09 07:20] LABS: Basophils # (auto) 0.1 10 ^3/uL (0-0.2); Basophils % (auto) 0.4 % (0.0-2.0); Eosinophils # (auto) 0 10 ^3/uL (0-0.8); Hematocrit 32.9 % (36.0-46.0); Hemoglobin 11.1 g/dL (12.2-16.2); Lymphocytes # (auto) 0.5 10 ^3/uL (0.4-5.4); Lymphocytes % (auto) 2.4 % (10.0-50.0); Mean Corpuscular Hemoglobin 30.8 pg (28.0-32.0); Mean Corpuscular Hgb Conc. 33.6 g/dL (32.0-36.0); Mean Corpuscular Volume 91.7 fL (80.0-100.0); Monocytes # (auto) 1.9 10 ^3/uL (0-1.3); Monocytes % (auto) 9.2 % (0.0-12.0); Neutrophils # (auto) 18.7 10 ^3/uL (1.6-8.6); Nucleated Red Blood Cells % 0.1 %; Platelet Count (auto) 212 10^3/uL (140-450); Red Blood Cells 3.59 10^6/uL (4.0-5.20); Red Cell Distribution Width 15.9 % (11.8-14.3); White Blood Cell 21.2 10^3/uL (4.4-10.8)
[2024-07-09 07:34] LABS: Alanine Aminotransferase 84 U/L (7-40); Albumin 3.6 g/dL (3.2-4.8); Alkaline Phosphatase 53 U/L (46-116); Anion Gap 11 (5-15); Aspartate Aminotransferase 256 U/L (13-40); BUN/Creatinine Ratio 12.3 (10.0-20.0); Bilirubin, Total 1.7 mg/dL (0.2-1.0); Calcium 8.6 mg/dL (8.7-10.4); Carbon Dioxide 28 mmol/L (20-31); Chloride 100 mmol/L (98-107); Glucose 109 mg/dL (74-106); Potassium 3.2 mmol/L (3.5-5.1); Sodium 139 mmol/L (136-145); Total Protein 6.1 g/dL (5.7-8.2)
[2024-07-09 07:36] LABS: Blood Urea Nitrogen 24 mg/dL (9-23)
[2024-07-09] MEDS: SODIUM CHLORIDE 0.9% 1,000 ML IV ONE (10:00)
[2024-07-09] MEDS ORDERED: VANCOMYCIN PER PHARMACY 0 MG IV SCH (10:00)
--- NOTE | 2024-07-09 10:21 | DVHINCON2 ---
Date Seen: Jul 09, 2024 Referring Physician JESUS Watts Reason for Consultation Cardiac arrest History of Present Illness This is a 63-year-old female patient who presents to the emergency room with cardiopulmonary arrest. At the time of assessment, there is no family at bedside. The patient is chemically sedated and mechanically ventilated. Attempted to call next of kin: daughter (Alie) and mother (Shena) as these numbers are listed in patient's chart, no answer when attempted to call both numbers. Per ER documentation, the patient was found unresponsive by neighbors in front of her house. Unknown downtime per EMS report. Patient was brought to the emergency room without a pulse, it was unclear what kind of rhythm the patient was in at time of emergency room arrival. CPR was initiated at time of emergency room arrival. The patient was also emergently intubated. Return of spontaneous circulation was achieved. Cardiology has now been consulted for further evaluation. Initial twelve lead electrocardiogram reveals sinus bradycardia with nonspecific ST depression to lateral leads (machine reads EKG as complete heart block). Initial troponin level of 19ng/L with significant up trend thereafter and peak level at 1154ng/L. Unable to obtain accurate significant past medical history given that patient is chemically sedated and mechanically intubated and no family at bedside. Patient noted to have midsternal scar. Unclear what kind of surgery patient has had. Patient has no previous visits to this facility per medical records. External medication list notable for Warfarin, digoxin, diltiazem, and losartan. We will confirm with family when able to reach them. Past Medical History Unable to obtain at this time Past Surgical History Unable to obtain at this time Family History Unable to obtain Social History Toxicology report positive for cannabinoids. Allergies: Coded Allergies: UNOBTAINABLE (Unverified , 07/08/24) Current Medications Current Medications Medications (Trade) Dose Ordered Sig/Perez Route PRN Reason Start Time Stop Time Status Last Admin Dobutamine HCl/ Dextrose 250 ml @ 21 mls/hr [id number] IV 07/08/24 19:30 07/09/24 08:49 Epinephrine HCl 250 ml @ 7.5 mls/hr Q24H IV 07/08/24 19:30 07/08/24 18:18 Norepinephrine Bitartrate 250 ml @ 3.75 mls/hr Q24H IV 07/08/24 20:00 07/09/24 08:20 Piperacillin Sod/ Tazobactam Sod 100 ml @ 25 mls/hr Q8HR IV 07/09/24 06:00 07/09/24 06:03 Sodium Chloride 1,000 ml @ 80 mls/hr [id number] IV 07/08/24 22:45 07/08/24 22:45 Ondansetron HCl (Zofran) 4 mg Q4HP PRN IV NAUSEA / VOMITING 07/08/24 22:45 Enoxaparin Sodium (Lovenox) 40 mg DAILY SC 07/09/24 10:00 Acetaminophen (Tylenol Tablet) 650 mg Q6HP PRN PO PAIN SCALE 1-3 OR TEMP>100.4 07/08/24 22:45 07/09/24 04:34 Nitroglycerin (Ntrostat Sublingual) 0.4 mg Q5MINP PRN SL FOR CHEST PAIN 07/08/24 22:45 Morphine Sulfate 2 mg Q30M PRN IV FOR CHEST PAIN 07/08/24 22:45 Midazolam HCl 50 ml @ 1 mls/hr Q24H IV 07/09/24 02:30 07/09/24 02:30 Dopamine HCl/ Dextrose 250 ml @ 13.125 mls/ hr Q19H3M IV 07/09/24 03:00 07/09/24 08:15 Pantoprazole Sodium (Protonix) 40 mg DAILY IV 07/09/24 10:00 UNV Vancomycin HCl 0 ml @ 0 mls/hr UD IV 07/09/24 10:00 UNV Review of Systems Constitutional: No symptom reported Ears, Nose, & Throat: No symptom reported Eyes: No symptom reported Neurological: No symptoms reported Pulmonary/Respiratory: Cardiopulmonary arrest Cardiovascular: Cardiopulmonary arrest Gastrointestinal: No symptom reported Genitourinary: No symptom reported Musculoskeletal: No symptom reported Skin: No symptom reported Psychiatric: No symptom reported Endocrine: No symptom reported Hematologic/Lymphatic: No symptom reported Vital Signs Vital Signs Date Time Temp Pulse Resp B/P (MAP) Pulse Ox O2 Delivery O2 Flow Rate FiO2 07/09/24 09:38 128 24 84/51 (62) 98 30 07/09/24 07:50 99.7 99.7 07/09/24 07:50 Mechanical Ventilator+ 07/08/24 17:43 15 Physical Exam General Appearance: Calm, relaxed. Pulmonary/Respiratory: Mechanically ventilated, clear bilateral lung sounds. Cardiovascular/Chest: Regular rate and rhythm. Peripheral Pulses: 2+ Radial (R). 2+ Radial (L). 2+ Pedal (R). 2+ Pedal (L) Abdominal Exam: Normal bowel sounds. Ankle Exam: Negative ankle edema Lower extremities: Negative lower extremity edema Neuro/Mental Status: Chemically sedated. Pupils 3mm and fixed bilaterally. No cough or gag reflex Thoughts/Psych: Deferred Appearance: No acute distress. Skin Exam: Normal inspection. Vertical midsternal scar noted. Normal color. Warm and dry. Labs/Diagnostic Data Labs Test 07/09/24 06:34 07/09/24 06:18 07/08/24 23:34 07/08/24 22:00 Range/Units White Blood Count 21.2 #H 4.4-10.8 10^3/uL Red Blood Count 3.59 L 4.0-5.20 10^6/uL Hemoglobin 11.1 #L 12.2-16.2 g/dL Hematocrit 32.9 #L 36.0-46.0 % Mean Corpuscular Volume 91.7 # 80.0-100.0 fL Mean Corpuscular Hemoglobin 30.8 28.0-32.0 pg Mean Corpuscular Hemoglobin Concent 33.6 32.0-36.0 g/dL Red Cell Distribution Width 15.9 H 11.8-14.3 % Platelet Count 212 140-450 10^3/uL Mean Platelet Volume 8.3 6.9-10.8 fL Neutrophils (%) (Auto) 88.0 H 37.0-80.0 % Lymphocytes (%) (Auto) 2.4 L 10.0-50.0 % Monocytes (%) (Auto) 9.2 0.0-12.0 % Eosinophils (%) (Auto) 0.0 0.0-7.0 % Basophils (%) (Auto) 0.4 0.0-2.0 % Neutrophils # (Auto) 18.7 H 1.6-8.6 10 ^3/uL Lymphocytes # (Auto) 0.5 0.4-5.4 10 ^3/uL Monocytes # (Auto) 1.9 H 0-1.3 10 ^3/uL Eosinophils # (Auto) 0 0-0.8 10 ^3/uL Basophils # (Auto) 0.1 0-0.2 10 ^3/uL Nucleated Red Blood Cells 0.1 % Sodium Level 139 136-145 mmol/L Potassium Level 3.2 L 3.5-5.1 mmol/L Chloride Level 100 98-107 mmol/L Carbon Dioxide Level 28 20-31 mmol/L Anion Gap 11 5-15 Blood Urea Nitrogen 24 #H 9-23 mg/dL Creatinine 1.95 #H 0.550-1.02 mg/dL Glomerular Filtration Rate Calc 29 >90 mL/min BUN/Creatinine Ratio 12.3 10.0-20.0 Serum Glucose 109 H 74-106 mg/dL Calcium Level 8.6 L 8.7-10.4 mg/dL Total Bilirubin 1.7 H 0.2-1.0 mg/dL Aspartate Amino Transferase (AST) 256 H 13-40 U/L Alanine Aminotransferase (ALT) 84 H 7-40 U/L Alkaline Phosphatase 53 46-116 U/L Total Protein 6.1 5.7-8.2 g/dL Albumin 3.6 3.2-4.8 g/dL Blood Gas Specimen Type Arterial Blood Gas Sample Site Right radial Blood Gas Patient Temperature 37.0 Arterial Blood Date Drawn [id number] Arterial Blood pH 7.508 H 7.350-7.450 Arterial Blood Partial Pressure CO2 33.6 32.0-45.0 mmHg Arterial Blood Partial Pressure O2 89.3 83.0-108.0 mmHg Arterial Blood HCO3 26.1 21.0-28.0 mmol/L Arterial Blood Oxygen Saturation 96.9 94.0-98.0 % Arterial Blood Base Excess 3.3 H -2.0-3.0 mmol/L Arterial Blood Oxyhemoglobin 94.7 94.0-98.0 % Arterial Blood Carboxyhemoglobin 1.4 0.5-1.5 % Arterial Blood Methemoglobin 0.9 0.0-1.5 % Luiz Test Modified Blood Gas Total Hemoglobin 11.30 L 12.0-16.0 g/dL Blood Gas Set Respiration Rate 16.0 Blood Gas Modality Vent - ac FiO2 % 30.0 Blood Gas Tidal Volume 400.0 Blood Gas PEEP or CPAP 0 POC Glucose 306 H 70-106 mg/dl Urine Color Colorless Yellow Urine Clarity Turbid H Clear Urine pH 8.5 5.0-9.0 Urine Specific Condon 1.006 1.001-1.035 Urine Protein 2+ H Negative Urine Ketones Negative Negative Urine Blood 3+ H Negative /uL Urine Nitrite Negative Negative Urine Bilirubin Negative Negative Urine Urobilinogen Normal Negative mg/dL Urine Leukocyte Esterase Negative Negative /uL Urine RBC 22 0 - 4 /hpf Urine WBC 26 0 - 5 /hpf Urine Squamous Epithelial Cells Few <5 /hpf Urine Bacteria Few H None Seen /hpf Urine Glucose 3+ H Normal mg/dL Lactic Acid Level 6.3 *H 0.4-2.0 mmol/L Troponin I High Sensitivity 1154 *H </=34 ng/L Urine Opiates Screen Neg NEGATIVE Urine Fentanyl Screen Neg NEGATIVE Urine Barbiturates Screen Neg NEGATIVE Urine Phencyclidine Screen Neg NEGATIVE Urine Amphetamines Screen Neg NEGATIVE Urine Benzodiazepines Screen Neg NEGATIVE Urine Cocaine Screen Neg NEGATIVE Urine Cannabinoids Screen Pos NEGATIVE Test 07/08/24 19:30 07/08/24 19:00 07/08/24 18:01 Range/Units Prothrombin Time 16.0 H 9.3-11.8 sec Prothrombin Time INR 1.56 H 0.9-1.15 Activated Partial Thromboplast Time 26.8 24.5-34.5 SEC Blood Gas Critical Value Read Back Yes Blood Gas Notified Whom Dr. shanique santa Blood Gas Notified Time [id number] Blood Gas Notified By Rt sherry crowley Magnesium Level 2.6 1.6-2.6 mg/dL Assessment Cardiopulmonary arrest status post CPR with return of spontaneous circulation NSTEMI type II secondary to above Rule out structural heart disease Possible sepsis Hypokalemia Acute kidney injury Plan/Recommendation We will continue with following plan/recommendations (Dr. Batista): * Echocardiogram to evaluate cardiac function * Vasopressors for hemodynamic support * Cardiac surveillance: Notify cardio team immediately for any arrhythmias or AV blocks * Monitor and replete electrolytes as needed * DVT/VTE prophylaxis * Consider brain MRI Patient seen and examined at bedside with . Patient has fixed pupils and no cough or gag reflex. We will recommend a brain MRI to rule out anoxic brain injury. At this time we will continue with conservative medical management. Thank you for allowing us to care for this patient. Please call with any questions or concerns. Critical care time spent: 41 minutes This medical document was created using an electronic medical record system with voice recognition software and computerized dictation system. Although this d ocument has been carefully reviewed, there might still be some phonetic and typographical errors. Occasional wrong-word or ``sound-alike substitutions may have occurred due to the inherent limitations of voice recognition software. These areas are purely typographical due to imperfections of the software programs and do not reflect any compromise in the patient's medical care. Please read the chart carefully and recognize, using context, where these substitutions have occurred. Plan discussed with: Other (Bedside RN) Date of Service: Jul 09, 2024 Billing Provider: MG BATISTA MD Cardiology Common Codes: 16784-PQUOZJE INP/OBS CARE (High) Cardiology Consultation Codes: 66816-JDHJWRSSM CONSULT <45MIN LEOBARDO DARNELL Jul 09, 2024 10:21
[2024-07-09 10:53] LABS: Triglycerides 49 mg/dL (< 150)
[2024-07-09 10:54] LABS: LDL Cholesterol 59 mg/dL (< 100)
[2024-07-09 10:55] LABS: Cholesterol 163 mg/dL (< 200); HDL Cholesterol 81 mg/dL (40-59)
[2024-07-09] MEDS: PANTOPRAZOLE 40 MG/10 ML VIAL INJ IV SCH ×2 (11:00→17:50)
[2024-07-09] MEDS: ENOXAPARIN SOD 40 MG/0.4 ML SYRINGE SC SCH (11:01)
[2024-07-09] MEDS: POTASSIUM CHL 20MEQ/100ML 100 ML IV SCH (11:03)
[2024-07-09] MEDS: VANCOMYCIN 1GM/250ML KIT 200 ML IV ONE (11:24)
--- NOTE | 2024-07-09 11:26 | DVHSR ---
APPROVED REPORT EXAM: Two-dimensional and M-mode echocardiogram with Doppler and color Doppler. Blood Pressure: 93/48 mmHg INDICATION EF RISK FACTORS Height: 63, Weight: 154 DIMENSIONS LVDd3.7 (3.8-5.7cm)LA (2D)5.8 (1.9-4.0cm)Aortic Root3.6 (2.0-3.7cm) LVDs2.5 (2.5-4.0cm)LA (MM) (1.9-4.0cm)Aortic Cusp Exc1.9 (1.5-2.0cm) EF (%) 63.0 (55-70%)Rt. Atrium3.7 (1.9-4.0cm)Asc. Aorta cm IVSd1.3 (0.7-1.1cm)RV (D) (1.8-2.4cm) PWd1.3 (0.7-1.1cm) Mitral Valve MitralMitral Stenosis E wavem/sMV Mean GR.4mmHg A wavem/sMV Peak GR.65mmHg E/A ratio0.02D MVAcm2 Aortic Valve Aortic ValveAortic Stenosis V11.11m/Felipa Mean GR.4mmHg V21.51m/Felipa Peak GR.9mmHg LVOT Diameter2.0 (1.8-2.4cm)Doppler AVA2.31cm2 Pulmonic Valve V20.99m/s Tricuspid Valve TR Velocity2.73m/s [id number] Other Information Technically limited study due to body habitus, patient position, high heart rate, patient had large breast implants and on a vent. Conclusion Normal left ventricular size and dimension. Borderline Normal left ventricular systolic function est imated ejection [id number]%. Normal right ventricular size and dimension. Normal right ventricular systolic function. Moderately elevated right ventricular systolic pressure 40 mm of mercury. Severely dilated right and left atria. The aortic valve is mildly thickened and sclerotic no significant stenosis or regurgitation. The mitral valve appears to have old mitral annular ring as well as mitral valve repair there is no s ignificant stenosis or regurgitation. The pulmonary valve is grossly normal. No pericardial effusion.
[2024-07-09 12:25] LABS: COVID19 ANTIGEN SOFIA FIA NEGATIVE (NEGATIVE); Rapid Influenza A Negative (Negative); Rapid Influenza B Negative (Negative)
--- NOTE | 2024-07-09 12:25 | ECG ---
[facility] Test Date: 2024-07-08 Test Time: 18:58:44 Pat Name: ELIZABETH ROUSSEAU Department: er Room: [address] [place] [address] A Gender: F Transplanter Orchid: dr AWAD: 1960 Requested By: ANEUDY MANNING Order Number: [id number] Reading MD: Lamont Cheng Measurements Intervals Gary Rate: 86 P: 266 MN: 114 QRS: -9 QRSD: 100 T: 118 QT: 458 QTc: 548 Interpretive Statements Sinus or ectopic atrial rhythm Borderline short MN interval LVH with secondary repolarization abnormality Prolonged QT interval Baseline wander in lead(s) I,II,aVR Electronically Signed On 07-10-2024 14:13:32 PST by Lamont Cheng Please click the below link to view image of tracing.
[2024-07-09] MEDS: VASOPRESSIN 40 UNITS in D5W 5% 198 ML IV SCH (13:26)
--- NOTE | 2024-07-09 13:42 | DVH ---
Date: 07/09/2024 12:19 PM Examination: XY KUB ABDOMEN SINGLE VIEW History: Abd distention Comparison: None TECHNIQUE: Frontal views of the abdomen was obtained. FINDINGS: Bowel gas pattern is unremarkable. NG tube in stomach. Right CVC Right aspect of l5 The lung bases are unremarkable. No acute osseous abnormality identified. IMPRESSION: Nonobstructive bowel gas pattern.
[2024-07-09] MEDS: ACCU-CHEK COMFORT CURVE STRIP VI ONE (14:30)
[2024-07-09] MEDS: PANTOPRAZOLE 40mg/50ML NS AE 50 ML IV SCH (15:00)
[2024-07-09] MEDS: fentaNYL Drip 2500mCg/250mlNS 250 ML IV SCH (15:00)
[2024-07-09] MEDS: InsuLIN REG 1unit/0.01ml Soln (100units/ml) SC ONE (15:25)
[2024-07-09] MEDS: VASOPRESSIN 20 UNITS in SODIUM CHL 0.9% 99 ML IV SCH (15:38)
[2024-07-09] MEDS: ACETAMINOPHEN 650 MG RECT SUPP PR PRN (15:54)
--- NOTE | 2024-07-09 16:06 | DVHPNRES ---
Progress Note Date Seen: Jul 09, 2024 Resident Creating Document: EDGAR CÁRDENAS THADDEUS Has the PT tested + for MRSA If YES, has PT been informed?: No Medical Necessity Reason Pt with a Central, PICC or Fol: Yes The following are medically ne: Central Line Subjective Review of Systems This is a 63-year-old female with past medical history of asthma, COPD, tension, paroxysmal atrial fibrillation, IBS, generalized anxiety, chronic pain and insomnia brought to the hospital after loss of consciousness. Per the patient's daughter, she had lost consciousness out of house, witnessed by the bystanders, called EMS, which found asystole, performed CPR for 20 minutes. As per bystander the patient had shortness of breaths before passing out. On arrival to the emergency room the patient had BP of 50s, and put on mechanical ventilation. PMHx: Asthma, COPD, tension, paroxysmal atrial fibrillation, IBS, generalized anxiety, chronic pain and insomnia PSHx: Noncontributing Family history: Noncontributing Social history: She lives with the daughter at home Home medication: Escitalopram 5 mg, gabapentin 100 mg, warfarin 10 mg, ferrous sulfate 325 mg, budesonide/glycopyrrolate/formoterol, losartan 50 mg, digoxin 0.25 mg, albuterol nebulizer, hydrocodone/acetaminophen, furosemide 40 mg, diltiazem 1 Unique entity mg, cetirizine 10 mg, cholecalciferol 25 mcg, dicyclomine 10 mg, Entresto , Allergic history: Patient has history of allergic asthma Patient reports: No new complaints Changes from previous H/P or p: No Changes Objective vital signs Vital Sign Date Time Temp Pulse Resp B/P (MAP) Pulse Ox O2 Delivery O2 Flow Rate FiO2 07/09/24 15:54 101.9 07/09/24 15:38 102/59 07/09/24 15:00 121 16 100 07/09/24 13:48 40 07/09/24 07:50 Mechanical Ventilator+ 07/08/24 17:43 15 Total Intake and Output 07/08/24 07/08/24 07/09/24 15:00 23:00 07:00 Intake Total 1727.20 ml 1718.35 ml Output Total 1100 ml Balance 1727.20 ml 618.35 ml medications Current Medications Medications Dose Ordered Sig/Perez Route Start Time Stop Time Status Last Admin Dose Admin Epinephrine HCl 250 ml @ 7.5 mls/hr Q24H IV 07/08/24 19:30 07/08/24 18:18 37.5 MLS/HR Norepinephrine Bitartrate 250 ml @ 3.75 mls/hr Q24H IV 07/08/24 20:00 07/09/24 15:21 56.25 MLS/HR Piperacillin Sod/ Tazobactam Sod 100 ml @ 25 mls/hr Q8HR IV 07/09/24 06:00 07/09/24 15:36 25 MLS/HR Ondansetron HCl 4 mg Q4HP PRN IV 07/08/24 22:45 Enoxaparin Sodium 40 mg DAILY SC 07/09/24 10:00 07/09/24 11:01 40 MG Acetaminophen 650 mg Q6HP PRN PO 07/08/24 22:45 07/09/24 04:34 650 MG Nitroglycerin 0.4 mg Q5MINP PRN SL 07/08/24 22:45 Morphine Sulfate 2 mg Q30M PRN IV 07/08/24 22:45 Midazolam HCl 50 ml @ 1 mls/hr Q24H IV 07/09/24 02:30 07/09/24 02:30 1 MLS/HR Pantoprazole Sodium 40 mg DAILY IV 07/09/24 10:00 07/09/24 11:00 40 MG Vancomycin HCl 0 ml @ 0 mls/hr UD IV 07/09/24 10:00 Acetaminophen 650 mg Q6HP PRN NM 07/09/24 11:00 07/09/24 15:54 650 MG Fentanyl Citrate 250 ml @ 2.5 mls/hr Q24H IV 07/09/24 12:15 07/09/24 15:00 2.5 MLS/HR Vasopressin 20 units/Sodium Chloride 100 ml @ 9 mls/hr Q11H7M IV 07/09/24 14:00 07/09/24 15:38 9 MLS/HR Hydrocortisone Sodium Succinate 100 mg Q12HR IV 07/09/24 22:00 Insulin Glargine 15 units HS SC 07/09/24 22:00 Examination General Appearance: Patient is intubated and on mechanical ventilation, rise minus HEENT: Atraumatic, PERRLA, EOMI, Mucous membrane moist/pink Respiratory: Clear to auscultation, Normal air movement Cardiovascular: Regular rate, Normal S1, Normal S2, No murmurs, no chest wall tenderness Abdominal: Normal bowel sounds, Soft, No tenderness, No hepatospenomegaly, No masses Extremities: No clubbing, No cyanosis, No edema, Normal pulses, No tenderness/swelling Skin: No rashes, No breakdown, No significant lesion Neuro: Bilateral pupils are mid dilated and fixed, nonreactive to light laboratory and microbiology Laboratory Tests 07/09/24 06:34 Test 07/09/24 06:34 Range/Units Serum Glucose 109 H 74-106 mg/dL Labs and/or images reviewed: Labs reviewed by me, Image(s) reviewed by me Problem List/Assessment/Plan Problem List/Assessment/Plan NEURO: Acute metabolic encephalopathy, likely due to sepsis/possible anoxic brain injury due to cardiac arrest Patient is sedated, and on mechanical ventilation Status post cardiac arrest Possible Cerebral edema, likely due to cardiac arrest Head CT scan shows less prominent sulci, likely due to cerebral edema We will consider head CT scan after 48 hour for the monitoring of possible cerebral edema Neurology is on the board CARDIOVASCULAR: Status post cardiac arrest Patient has history of paroxysmal atrial fibrillation Non ST-elevation GA, type 2, likely due to cardiac arrest and CPR Circulation shock, likely septic likely due to pneumonia Troponin is raised, up trending EKG shows sinus tachycardia, with no significant ST or T-wave changes Cardiology on the board, recommended conservative management Echocardiogram shows Borderline Normal left ventricular systolic function estimated ejection [id number] Moderately elevated right ventricular systolic pressure 40 mm of mercury. Cardiology Is on the board, suggested conservative management Patient is on Levophed, vasopressin and epinephrine PULMONARY: Patient is sedated, and on mechanical ventilator, RASS (-4, unresponsive) with ventilator setting of( Vt 350, RR 16, FiO2 30%, peep 5) Acute hypoxic respiratory failure likely due to pneumonia/COPD exacerbation Pneumonia likely due to Gram-positive/Gram-negative Septic shock likely due to pneumonia ABGs showed respiratory alkalosis with (pH 7.5, pCO2 33.6, PO2 99.3, HC03 26.1) Chest x-ray shows prominent bronchovascular marking WBCs raised at 21.2 Lactate is raised at 13.8, downtrending Patient is on Levophed, vasopressin and epinephrine Discontinued Dobutamine and dopamine Continue normal saline at 125 mL/hour Continue vancomycin and Zosyn Hydrocortisone 100 mg b.i.d. Albuterol and ipratropium nebulization every 6 hours COVID-19 and influenza antigens are negative MRSA nares screening Sputum culture Blood culture GI: Possible Upper GI bleeding, unspecified location Transaminitis, likely due to ischemia secondary to cardiac arrest NG tube shows black drainage likely due to upper GI bleeding GI consulted Gastric occult blood test Protonix b.i.d. Discontinue Lovenox RENAL: NAOMI, no previous records available Nephrology on the board IV fluid Hypokalemia Supplemented Magnesium is within normal limits UTI, unspecified location UA shows UTI picture Patient is on vancomycin and Zosyn Urine culture DVT prophylaxis Due to possible upper GI bleeding, Lovenox is not indicated SCD LINES/DRAINS/ACCESS: ETT tube, intubated on 07/08/2024 Transurethral catheter, placed on 07/08/2024 IV Access through right femoral vein (CVC), placed on 07/08/2024 Levophed 30 Vasopressin 0.03 Epinephrine 10 Fentanyl 25 CODE STATUS: Full code Case discussed with the daughter of the patient at the bedside, the daughter was also consulted regarding unfavorable prognosis due to possible cerebral edema and post cardiac arrest status Critical time spent more than 45 minutes, including patient care, chart review and updating the family. excluding any procedures. Case discussed with Dr. De Souza Plan discussed with: Patient, Daughter My Orders My Orders Orders - EDGAR CÁRDENAS RESDIANASTASIA Procedure Category Date Status Time Mrsa Screen ANH 07/09/24 In Process 09:46 Pantoprazole PHA 07/09/24 In Process (Protonix) 10:00 Vancomycin Per PHA 07/09/24 In Process Pharmacy 10:00 Sodium Chloride 0.9% PHA 07/09/24 In Process 11:00 Acetaminophen PHA 07/09/24 In Process Suppository (Tylenol 11:00 Sodium Chl 0.9% PHA 07/09/24 In Process (So... W/Vasopressin 14:00 Hydrocortisone PHA 07/09/24 In Process Succinate Inj 22:00 Insulin Lantus PHA 07/09/24 In Process (Glargine) (Lantus) 22:00 Full Code KALPESH 07/09/24 In Process 14:33 Code Status CODE 07/09/24 Transmitted 14:33 Date of Service: Jul 09, 2024 Billing Provider: MARIE DE SOUZA MD Common Visit Codes: [id number] CARE 30-74 MIN EDGAR CÁRDENAS Jul 09, 2024 16:06 MARIE DE SOUZA MD Jul 11, 2024 13:39
[2024-07-09] MEDS: DEXTROSE (50%) 50ML SYRG IV ONE (16:19)
[2024-07-09 17:10] LABS: Hematocrit 30.1 % (36.0-46.0); Hemoglobin 9.8 g/dL (12.2-16.2); Mean Corpuscular Hemoglobin 30.3 pg (28.0-32.0); Mean Corpuscular Hgb Conc. 32.6 g/dL (32.0-36.0); Mean Corpuscular Volume 92.8 fL (80.0-100.0); Platelet Count (auto) 231 10^3/uL (140-450); Red Blood Cells 3.25 10^6/uL (4.0-5.20); Red Cell Distribution Width 16.2 % (11.8-14.3); White Blood Cell 20.8 10^3/uL (4.4-10.8)
[2024-07-09 17:14] LABS: Basophils % (manual) 0 (0.0-2.0); Blast Cells 0; Eosinophils % (manual) 0 (0-7); Myelocytes % 0; Promyelocytes % 0; Reactive Lymphocytes 0
[2024-07-09 17:46] LABS: Band Neutrophils % (manual) 33; Lymphocytes % (manual) 7 (10.0-50.0); Monocytes % (manual) 8 (0-12)
[2024-07-09 17:47] LABS: Metamyelocytes % 1; Platelet Estimate Adequate
[2024-07-09] MEDS: SODIUM CHLORIDE 0.9% 1,500 ML IV ONE (18:15)
[2024-07-09] MEDS: HYDROCORTISONE SOD SUCC 100 MG/2ML INJ VIAL IV SCH (18:42)
[2024-07-09] MEDS ORDERED: HYDROCORTISONE SOD SUCC 100 MG/2ML INJ VIAL IV SCH ×2 (22:00)
[2024-07-09] MEDS: INSULIN LANTUS (GLARGINE) 1 /0.01ml (100units/ml) SC SCH (22:55)
[2024-07-09] MEDS: PHENYLEPHRINE IV 250 ML IV SCH (23:30)
[2024-07-10] VITALS (83 sets, daily range): BP systolic 87–129; BP diastolic 35–73; PULSE 100–129; RESP 15–32; TEMP 96.5–103.3; O2SAT 88–100
[2024-07-10] MEDS: ALBUTEROL SULF 2.5 MG/0.5ML(0.5%) NEB SOLN NEB SCH (00:35)
[2024-07-10] MEDS: IPRATROPIUM BROM 0.5 MG/2.5ML INH SOL NEB SCH (00:35)
[2024-07-10 04:21] LABS: Hematocrit 29.5 % (36.0-46.0); Hemoglobin 9.6 g/dL (12.2-16.2); Mean Corpuscular Hemoglobin 30.2 pg (28.0-32.0); Mean Corpuscular Hgb Conc. 32.6 g/dL (32.0-36.0); Mean Corpuscular Volume 92.8 fL (80.0-100.0); Platelet Count (auto) 240 10^3/uL (140-450); Red Blood Cells 3.18 10^6/uL (4.0-5.20); Red Cell Distribution Width 16.3 % (11.8-14.3); White Blood Cell 27.2 10^3/uL (4.4-10.8)
[2024-07-10 04:24] LABS: Basophils % (manual) 0 (0.0-2.0); Blast Cells 0; Eosinophils % (manual) 0 (0-7); Metamyelocytes % 0; Myelocytes % 0; Promyelocytes % 0; Reactive Lymphocytes 0
[2024-07-10 04:41] LABS: Alanine Aminotransferase 78 U/L (7-40); Albumin 3.2 g/dL (3.2-4.8); Alkaline Phosphatase 33 U/L (46-116); Anion Gap 11 (5-15); Aspartate Aminotransferase 228 U/L (13-40); BUN/Creatinine Ratio 11.8 (10.0-20.0); Carbon Dioxide 24 mmol/L (20-31); Chloride 102 mmol/L (98-107); Glucose 104 mg/dL (74-106); Sodium 137 mmol/L (136-145)
[2024-07-10 04:42] LABS: Bilirubin, Total 1.3 mg/dL (0.2-1.0); Total Protein 5.4 g/dL (5.7-8.2)
[2024-07-10 04:44] LABS: Blood Urea Nitrogen 47 mg/dL (9-23); Potassium 5.3 mmol/L (3.5-5.1)
[2024-07-10] MEDS: SODIUM CHLORIDE 0.9% 1,000 ML IV SCH (04:48)
--- NOTE | 2024-07-10 05:48 | DVHINCON2 ---
GI Consult Consult Note Date of Consultation: 07/10/2024 Chief Complaint: GI bleed Referring Physician: Renate H&P: Patient was a 63-year-old female with a known past medical history, unknown past surgical history, unknown medication usage who was found down and brought in by EMS. Patient coded. Underwent CPR and was resuscitated. Patient was currently intubated, nonresponsive despite being off sedation with dilated and fixed pupils. GI consultation was obtained for anemia and dark NG tube output. There was no family at bedside. Past Medical History: Not known Past Surgical History: Not known Social History: Not known Family History: Unobtainable Review of Systems: Unobtainable at this time Current Medications Medications (Trade) Dose Ordered Sig/Perez Route PRN Reason Start Time Stop Time Status Last Admin Piperacillin Sod/ Tazobactam Sod 100 ml @ 25 mls/hr Q8HR IV 07/09/24 06:00 07/09/24 22:13 Enoxaparin Sodium (Lovenox) 40 mg DAILY SC 07/09/24 10:00 07/09/24 16:36 DC 07/09/24 11:01 Pantoprazole Sodium (Protonix) 40 mg DAILY IV 07/09/24 10:00 07/09/24 16:36 DC 07/09/24 11:00 Vancomycin HCl 0 ml @ 0 mls/hr UD IV 07/09/24 10:00 Potassium Chloride 100 ml @ 50 mls/hr Q2H IV 07/09/24 10:15 07/09/24 14:14 DC 07/09/24 13:12 Acetaminophen (Tylenol Suppository) 650 mg Q6HP PRN AK TEMP GREATER THAN 100.4 07/09/24 11:00 07/09/24 15:54 Vasopressin 40 units/Dextrose 200 ml @ 60 mls/hr Q3H20M IV 07/09/24 12:15 07/09/24 14:17 DC 07/09/24 13:26 Fentanyl Citrate 250 ml @ 2.5 mls/hr Q24H IV 07/09/24 12:15 07/09/24 15:00 Hydrocortisone Sodium Succinate (Solu-CORTEF INJECTION) 120 mg Q12HR IV 07/09/24 22:00 07/09/24 14:17 DC Vasopressin 20 units/Sodium Chloride 100 ml @ 9 mls/hr Q11H7M IV 07/09/24 14:00 07/10/24 01:00 Hydrocortisone Sodium Succinate (Solu-CORTEF INJECTION) 100 mg Q12HR IV 07/09/24 22:00 07/09/24 18:14 DC Insulin Glargine (Lantus) 15 units HS SC 07/09/24 22:00 Pantoprazole Sodium (Protonix) 40 mg Q12HP IV 07/09/24 16:45 07/09/24 18:26 DC 07/09/24 17:50 Hydrocortisone Sodium Succinate (Solu-CORTEF INJECTION) 100 mg Q12HR IV 07/09/24 18:15 07/09/24 22:12 Pantoprazole Sodium 50 ml @ 10 mls/hr Q5H IV 07/09/24 10:00 07/09/24 21:00 Albuterol (Ventolin Medneb) 1.25 mg Q6HR NEB 07/10/24 00:00 07/10/24 00:35 Ipratropium [place] (Atrovent Medneb) 0.5 mg Q6HR NEB 07/10/24 00:00 07/10/24 00:35 Phenylephrine HCl 250 ml @ 30 mls/hr Q8H20M IV 07/09/24 23:30 07/09/24 23:30 Sodium Chloride 1,000 ml @ 125 mls/hr Q8H IV 07/10/24 04:45 08/09/24 04:40 07/10/24 04:48 Vital Signs Date Time Temp Pulse Resp B/P (MAP) Pulse Ox O2 Delivery O2 Flow Rate FiO2 07/10/24 05:00 117 17 91/55 (67) 95 07/10/24 04:27 35 07/10/24 01:00 102.0 102.0 07/09/24 21:15 Mechanical Ventilator+ 07/08/24 17:43 15 Physical exam: General: Intubated unresponsive HEENT: Normocephalic atraumatic, pupils fixed and dilated Neck: Supple without enlargement of the thyroid, or lymphadenopathy. Chest: Clear to auscultation Heart: RRR, Abdomen: non-distended, no ascites Extremities: no edema, no cyanosis Neurological: Nonresponsive Skin: No rashes, No jaundice Labs: Labs Test 07/10/24 03:55 07/09/24 22:06 07/09/24 10:30 07/09/24 06:34 Range/Units White Blood Count 27.2 #H 4.4-10.8 10^3/uL Red Blood Count 3.18 L 4.0-5.20 10^6/uL Hemoglobin 9.6 L 12.2-16.2 g/dL Hematocrit 29.5 L 36.0-46.0 % Mean Corpuscular Volume 92.8 80.0-100.0 fL Mean Corpuscular Hemoglobin 30.2 28.0-32.0 pg Mean Corpuscular Hemoglobin Concent 32.6 32.0-36.0 g/dL Red Cell Distribution Width 16.3 H 11.8-14.3 % Platelet Count 240 140-450 10^3/uL Mean Platelet Volume 8.4 6.9-10.8 fL Neutrophils (%) (Auto) 37.0-80.0 % Lymphocytes (%) (Auto) 10.0-50.0 % Monocytes (%) (Auto) 0.0-12.0 % Basophils (%) (Auto) 0.0-2.0 % Neutrophils # (Auto) 1.6-8.6 10 ^3/uL Lymphocytes # (Auto) 0.4-5.4 10 ^3/uL Monocytes # (Auto) 0-1.3 10 ^3/uL Sodium Level 137 136-145 mmol/L Potassium Level 5.3 #H 3.5-5.1 mmol/L Chloride Level 102 98-107 mmol/L Carbon Dioxide Level 24 20-31 mmol/L Anion Gap 11 5-15 Blood Urea Nitrogen 47 #H 9-23 mg/dL Creatinine 3.99 #H 0.550-1.02 mg/dL Glomerular Filtration Rate Calc 12 >90 mL/min BUN/Creatinine Ratio 11.8 10.0-20.0 Serum Glucose 104 74-106 mg/dL Calcium Level 7.0 L 8.7-10.4 mg/dL Total Bilirubin 1.3 H 0.2-1.0 mg/dL Aspartate Amino Transferase (AST) 228 H 13-40 U/L Alanine Aminotransferase (ALT) 78 H 7-40 U/L Alkaline Phosphatase 33 L 46-116 U/L Total Protein 5.4 L 5.7-8.2 g/dL Albumin 3.2 3.2-4.8 g/dL Random Vancomycin Level < 3.0 L 5-10 ug/mL POC Glucose 98 70-106 mg/dl Influenza Type A Antigen Negative Negative Influenza Type B Antigen Negative Negative SARS-CoV-2 Antigen (Rapid) Negative NEGATIVE Eosinophils (%) (Auto) 0.0 0.0-7.0 % Eosinophils # (Auto) 0 0-0.8 10 ^3/uL Basophils # (Auto) 0.1 0-0.2 10 ^3/uL Nucleated Red Blood Cells 0.1 % Hemoglobin A1c < 3.8 <5.7 % A1C Triglycerides Level 49 < 150 mg/dL Cholesterol Level 163 < 200 mg/dL LDL Cholesterol 59 < 100 mg/dL HDL Cholesterol 81 H 40-59 mg/dL Thyroid Stimulating Hormone (TSH) 0.92 0.55-4.78 uIU/mL Test 07/09/24 06:18 07/08/24 22:00 07/08/24 19:30 07/08/24 19:00 Range/Units Blood Gas Specimen Type Arterial Blood Gas Sample Site Right radial Blood Gas Patient Temperature 37.0 Arterial Blood Date Drawn [id number] Arterial Blood pH 7.508 H 7.350-7.450 Arterial Blood Partial Pressure CO2 33.6 32.0-45.0 mmHg Arterial Blood Partial Pressure O2 89.3 83.0-108.0 mmHg Arterial Blood HCO3 26.1 21.0-28.0 mmol/L Arterial Blood Oxygen Saturation 96.9 94.0-98.0 % Arterial Blood Base Excess 3.3 H -2.0-3.0 mmol/L Arterial Blood Oxyhemoglobin 94.7 94.0-98.0 % Arterial Blood Carboxyhemoglobin 1.4 0.5-1.5 % Arterial Blood Methemoglobin 0.9 0.0-1.5 % Luiz Test Modified Blood Gas Total Hemoglobin 11.30 L 12.0-16.0 g/dL Blood Gas Set Respiration Rate 16.0 Blood Gas Modality Vent - ac FiO2 % 30.0 Blood Gas Tidal Volume 400.0 Blood Gas PEEP or CPAP 0 Urine Color Colorless Yellow Urine Clarity Turbid H Clear Urine pH 8.5 5.0-9.0 Urine Specific [place] 1.006 1.001-1.035 Urine Protein 2+ H Negative Urine Ketones Negative Negative Urine Blood 3+ H Negative /uL Urine Nitrite Negative Negative Urine Bilirubin Negative Negative Urine Urobilinogen Normal Negative mg/dL Urine Leukocyte Esterase Negative Negative /uL Urine RBC 22 0 - 4 /hpf Urine WBC 26 0 - 5 /hpf Urine Squamous Epithelial Cells Few <5 /hpf Urine Bacteria Few H None Seen /hpf Urine Glucose 3+ H Normal mg/dL Lactic Acid Level 6.3 *H 0.4-2.0 mmol/L Troponin I High Sensitivity 1154 *H </=34 ng/L Urine Opiates Screen Neg NEGATIVE Urine Fentanyl Screen Neg NEGATIVE Urine Barbiturates Screen Neg NEGATIVE Urine Phencyclidine Screen Neg NEGATIVE Urine Amphetamines Screen Neg NEGATIVE Urine Benzodiazepines Screen Neg NEGATIVE Urine Cocaine Screen Neg NEGATIVE Urine Cannabinoids Screen Pos NEGATIVE Prothrombin Time 16.0 H 9.3-11.8 sec Prothrombin Time INR 1.56 H 0.9-1.15 Activated Partial Thromboplast Time 26.8 24.5-34.5 SEC Blood Gas Critical Value Read Back Yes Blood Gas Notified Whom Dr. shanique santa Blood Gas Notified Time [id number] Blood Gas Notified By Rt b keo Test 07/08/24 18:01 Range/Units Magnesium Level 2.6 1.6-2.6 mg/dL Microbiology Date/Time Source Procedure Growth Status 07/09/24 00:07 Blood Blood Culture - Preliminary NO GROWTH AFTER 24 HOURS OF INCUBATION. Resulted Imaging: Vital Signs Date Time Temp Pulse Resp B/P (MAP) Pulse Ox O2 Delivery O2 Flow Rate FiO2 07/10/24 05:00 117 17 91/55 (67) 95 07/10/24 05:00 91/55 07/10/24 05:00 91/55 07/10/24 04:45 99/55 07/10/24 04:45 117 17 99/55 (70) 93 07/10/24 04:40 97/57 07/10/24 04:30 117 16 97/53 (68) 93 07/10/24 04:27 117 27 102/58 (73) 94 35 07/10/24 04:25 93/52 07/10/24 04:25 93/52 07/10/24 04:15 117 17 89/52 (64) 93 07/10/24 04:00 117 17 87/55 (66) 93 07/10/24 04:00 87/55 07/10/24 04:00 87/55 07/10/24 04:00 87/55 07/10/24 03:55 97/53 07/10/24 03:45 117 17 93/58 (70) 91 07/10/24 03:30 116 18 94/58 (70) 88 07/10/24 03:15 117 17 102/56 (71) 88 07/10/24 03:00 117 17 101/60 (74) 90 07/10/24 03:00 96/59 07/10/24 03:00 96/59 07/10/24 03:00 96/59 07/10/24 02:45 118 18 93/56 (68) 91 07/10/24 02:30 118 18 103/60 (74) 97 07/10/24 02:29 117 27 103/56 (72) 94 30 07/10/24 02:15 118 18 103/60 (74) 97 07/10/24 02:00 118 18 103/62 (76) 95 07/10/24 02:00 107/61 07/10/24 02:00 107/61 07/10/24 02:00 107/61 07/10/24 01:45 119 17 100/63 (75) 96 07/10/24 01:30 108/65 07/10/24 01:30 120 18 108/65 (79) 97 07/10/24 01:15 120 18 109/64 (79) 97 07/10/24 01:00 102.0 119 18 111/58 (75) 96 102.0 07/10/24 01:00 110/67 07/10/24 01:00 111/58 07/10/24 01:00 110/67 07/10/24 00:45 118 18 109/70 (83) 99 07/10/24 00:35 118 28 117/70 (86) 97 40 07/10/24 00:30 119 18 117/68 (84) 98 07/10/24 00:15 119 18 117/69 (85) 98 07/10/24 00:00 118/73 07/10/24 00:00 118/73 07/10/24 00:00 118/73 07/10/24 00:00 118/73 07/10/24 00:00 101.8 119 18 118/73 (88) 97 101.8 07/09/24 23:55 118/73 07/09/24 23:50 119/70 07/09/24 23:45 118/69 07/09/24 23:40 116/69 07/09/24 23:35 116/71 07/09/24 23:32 101.5 07/09/24 23:30 116/71 07/09/24 23:30 115/70 07/09/24 23:25 114/69 07/09/24 23:20 117/66 07/09/24 23:15 114/68 07/09/24 23:15 114/68 07/09/24 23:00 115/70 07/09/24 23:00 115/70 07/09/24 23:00 115/70 07/09/24 23:00 115/70 07/09/24 22:45 120 18 115/70 (85) 97 07/09/24 22:41 120 24 113/63 (80) 97 40 07/09/24 22:30 120 18 113/63 (80) 97 07/09/24 22:29 101.3 07/09/24 22:15 121 18 103/60 (74) 96 07/09/24 22:00 101.3 121 18 105/57 (73) 96 101.3 07/09/24 22:00 105/57 07/09/24 22:00 105/57 07/09/24 22:00 105/57 07/09/24 22:00 105/57 07/09/24 21:45 121 18 100/56 (71) 95 07/09/24 21:30 121 18 99/55 (70) 95 07/09/24 21:15 121 18 98/53 (68) 95 07/09/24 21:15 98/53 07/09/24 21:15 98/53 07/09/24 21:15 98/53 07/09/24 21:15 98/53 07/09/24 21:15 121 18 95 Mechanical Ventilator+ 40 40 07/09/24 21:00 101.1 120 18 95/52 (66) 94 101.1 07/09/24 20:45 120 18 94/47 (63) 93 07/09/24 20:30 120 18 100/50 (67) 92 07/09/24 20:15 120 18 94/48 (63) 92 07/09/24 20:00 101.1 120 17 94/49 (64) 95 101.1 07/09/24 20:00 120 24 95/50 (65) 95 40 07/09/24 20:00 120 22 Mechanical Ventilator+ 40 40 07/09/24 19:45 120 17 94/50 (65) 95 07/09/24 19:31 90/51 07/09/24 19:30 101.5 120 17 82/45 (57) 95 101.5 07/09/24 19:30 90/51 07/09/24 19:15 101.5 121 17 89/44 (59) 94 101.5 07/09/24 19:00 80/45 07/09/24 19:00 80/45 07/09/24 19:00 80/45 07/09/24 19:00 80/45 07/09/24 19:00 101.8 120 18 80/45 (57) 94 101.8 07/09/24 18:45 102.2 121 17 78/37 (51) 94 102.2 07/09/24 18:30 102.6 121 17 77/37 (50) 100 102.6 07/09/24 18:15 121 20 78/42 (54) 97 40 07/09/24 18:15 102.7 122 18 71/34 (46) 100 102.7 07/09/24 18:00 102.9 121 17 68/38 (48) 100 102.9 07/09/24 18:00 68/38 07/09/24 18:00 68/38 07/09/24 18:00 68/38 07/09/24 18:00 68/38 07/09/24 17:48 64/34 07/09/24 17:45 102.9 121 17 64/28 (40) 100 102.9 07/09/24 17:45 64/28 07/09/24 17:43 64/28 07/09/24 17:40 60/30 07/09/24 17:34 64/28 07/09/24 17:30 102.7 121 17 70/35 (47) 100 102.7 07/09/24 17:15 102.6 122 17 65/37 (46) 100 102.6 07/09/24 17:00 102.6 121 17 147/111 (123) 100 102.6 07/09/24 17:00 65/37 07/09/24 17:00 65/37 07/09/24 17:00 65/37 07/09/24 16:54 102.6 07/09/24 16:45 102.4 121 17 79/39 (52) 100 102.4 07/09/24 16:30 102.2 120 16 90/42 (58) 100 102.2 07/09/24 16:15 102.2 120 17 94/53 (67) 100 102.2 07/09/24 16:00 102.0 119 17 92/57 (69) 100 102.0 07/09/24 16:00 120 07/09/24 16:00 92/57 07/09/24 16:00 92/57 07/09/24 16:00 92/57 07/09/24 15:54 101.9 07/09/24 15:46 119 17 97/53 (68) 91 40 07/09/24 15:45 101.8 119 17 106/63 (77) 100 101.8 07/09/24 15:38 102/59 07/09/24 15:35 102/59 07/09/24 15:30 101.6 120 17 106/63 (77) 100 101.6 07/09/24 15:21 81/47 07/09/24 15:15 101.3 120 16 106/63 (77) 100 101.3 07/09/24 15:00 111/64 07/09/24 15:00 121 16 111/64 (80) 100 07/09/24 14:45 121 16 108/55 (72) 100 07/09/24 14:30 122 16 108/55 (72) 100 07/09/24 14:30 116/54 07/09/24 14:20 54/34 07/09/24 14:15 123 16 108/55 (72) 100 07/09/24 14:00 120/58 07/09/24 14:00 120/58 07/09/24 14:00 100.0 124 19 120/58 (78) 100 100.0 07/09/24 13:48 123 18 95/62 (73) 91 40 07/09/24 13:45 100.4 124 19 105/63 (77) 96 100.4 07/09/24 13:30 97.9 129 17 75/37 (50) 96 97.9 07/09/24 13:30 75/37 07/09/24 13:26 75/37 07/09/24 13:15 97.9 129 16 77/40 (52) 97 97.9 07/09/24 13:12 77/40 07/09/24 13:06 78/36 07/09/24 13:00 73/39 07/09/24 13:00 73/39 07/09/24 13:00 98.0 130 16 73/39 (50) 95 98.0 07/09/24 12:51 73/36 07/09/24 12:45 98.1 130 17 69/34 (46) 94 98.1 07/09/24 12:35 67/37 07/09/24 12:30 67/37 07/09/24 12:30 97.9 131 19 70/34 (46) 93 97.9 07/09/24 12:15 99.7 131 14 78/43 (55) 94 99.7 07/09/24 12:00 129 07/09/24 12:00 78/40 07/09/24 12:00 81/45 07/09/24 12:00 99.9 129 17 78/40 (53) 92 99.9 07/09/24 11:53 130 22 81/39 (53) 94 40 07/09/24 11:52 81/39 07/09/24 11:52 81/39 07/09/24 11:45 99.9 130 17 77/46 (56) 94 99.9 07/09/24 11:31 85/46 07/09/24 11:31 85/46 07/09/24 11:31 85/46 07/09/24 11:30 99.7 128 17 77/40 (52) 90 99.7 07/09/24 11:15 99.9 129 14 78/42 (54) 88 99.9 07/09/24 11:00 79/45 07/09/24 11:00 83/47 07/09/24 11:00 99.9 130 14 79/45 (56) 98 99.9 07/09/24 10:55 79/45 07/09/24 10:45 100.6 128 21 80/44 (56) 98 100.6 07/09/24 10:30 100.7 128 18 85/48 (60) 98 100.7 07/09/24 10:30 90/46 07/09/24 10:15 100.6 129 18 86/45 (59) 98 100.6 07/09/24 10:00 100.6 128 20 85/49 (61) 98 100.6 07/09/24 10:00 86/47 07/09/24 10:00 86/47 07/09/24 10:00 86/47 07/09/24 10:00 86/47 07/09/24 09:45 100.6 128 22 81/49 (60) 98 100.6 07/09/24 09:38 128 24 84/51 (62) 98 30 07/09/24 09:30 100.4 127 24 82/52 (62) 98 100.4 07/09/24 09:23 80/51 07/09/24 09:15 100.2 127 25 82/51 (61) 100 100.2 07/09/24 09:05 78/48 07/09/24 09:00 84/51 07/09/24 09:00 80/49 07/09/24 09:00 100.0 127 27 84/51 (62) 100 100.0 07/09/24 08:49 77/47 07/09/24 08:45 100.0 126 25 83/48 (60) 100 100.0 07/09/24 08:42 83/48 07/09/24 08:30 83/48 07/09/24 08:30 99.9 125 26 79/45 (56) 100 99.9 07/09/24 08:20 77/47 07/09/24 08:15 77/47 07/09/24 08:15 99.7 125 28 79/55 (63) 100 99.7 07/09/24 08:00 89/50 07/09/24 08:00 125 07/09/24 08:00 99.7 125 24 89/50 (63) 100 99.7 07/09/24 07:50 99.7 124 22 93/48 (63) 100 99.7 07/09/24 07:50 124 22 100 Mechanical Ventilator+ 30 30 11/26/24 07:30 99.7 124 21 91/54 (66) 100 99.7 07/09/24 07:30 91/54 07/09/24 07:30 91/54 07/09/24 07:30 91/54 07/09/24 07:25 124 29 91/54 (66) 100 30 07/09/24 07:00 99.7 117 20 88/55 (66) 100 99.7 07/09/24 06:45 99.7 115 18 96/58 (71) 100 99.7 07/09/24 06:30 96/71 07/09/24 06:30 91/76 07/09/24 06:30 96/71 07/09/24 06:30 96/58 07/09/24 06:30 99.7 118 20 96/58 (71) 99 99.7 07/09/24 06:15 99.5 122 21 96/63 (74) 99 99.5 07/09/24 06:00 98/60 07/09/24 06:00 98.6 122 22 98/60 (73) 99 98.6 07/09/24 05:56 122 26 98/60 (73) 99 30 Lab Test 07/10/24 03:55 07/09/24 22:06 07/09/24 17:00 07/09/24 15:26 Range/Units White Blood Count 27.2 #H 20.8 H 4.4-10.8 10^3/uL Red Blood Count 3.18 L 3.25 L 4.0-5.20 10^6/uL Hemoglobin 9.6 L 9.8 L 12.2-16.2 g/dL Hematocrit 29.5 L 30.1 L 36.0-46.0 % Mean Corpuscular Volume 92.8 92.8 80.0-100.0 fL Mean Corpuscular Hemoglobin 30.2 30.3 28.0-32.0 pg Mean Corpuscular Hemoglobin Concent 32.6 32.6 32.0-36.0 g/dL Red Cell Distribution Width 16.3 H 16.2 H 11.8-14.3 % Platelet Count 240 231 140-450 10^3/uL Mean Platelet Volume 8.4 8.1 6.9-10.8 fL Neutrophils (%) (Auto) 37.0-80.0 % Lymphocytes (%) (Auto) 10.0-50.0 % Monocytes (%) (Auto) 0.0-12.0 % Basophils (%) (Auto) 0.0-2.0 % Neutrophils # (Auto) 1.6-8.6 10 ^3/uL Lymphocytes # (Auto) 0.4-5.4 10 ^3/uL Monocytes # (Auto) 0-1.3 10 ^3/uL Differential Total Cells Counted Pending 100.0 100 Neutrophils % (Manual) Pending 51 37.0-80.0 Band Neutrophils % (Manual) Pending 33 Lymphocytes % (Manual) Pending 7 L 10.0-50.0 Monocytes % (Manual) Pending 8 0-12 Eosinophils % (Manual) Pending 0 0-7 Basophils % (Manual) Pending 0 0.0-2.0 Metamyelocytes % (manual) Pending 1 Myelocytes % (Manual) Pending 0 Promyelocytes % (Manual) Pending 0 Blast Cells % (Manual) Pending 0 Reactive Lymphocytes Pending 0 Platelet Estimate Pending Adequate Sodium Level 137 136-145 mmol/L Potassium Level 5.3 #H 3.5-5.1 mmol/L Chloride Level 102 98-107 mmol/L Carbon Dioxide Level 24 20-31 mmol/L Anion Gap 11 5-15 Blood Urea Nitrogen 47 #H 9-23 mg/dL Creatinine 3.99 #H 0.550-1.02 mg/dL Glomerular Filtration Rate Calc 12 >90 mL/min BUN/Creatinine Ratio 11.8 10.0-20.0 Serum Glucose 104 74-106 mg/dL Calcium Level 7.0 L 8.7-10.4 mg/dL Total Bilirubin 1.3 H 0.2-1.0 mg/dL Aspartate Amino Transferase (AST) 228 H 13-40 U/L Alanine Aminotransferase (ALT) 78 H 7-40 U/L Alkaline Phosphatase 33 L 46-116 U/L Total Protein 5.4 L 5.7-8.2 g/dL Albumin 3.2 3.2-4.8 g/dL Random Vancomycin Level < 3.0 L 5-10 ug/mL POC Glucose 98 122 H 70-106 mg/dl Test 07/09/24 10:30 07/09/24 06:34 07/09/24 06:18 Range/Units Influenza Type A Antigen Negative Negative Influenza Type B Antigen Negative Negative SARS-CoV-2 Antigen (Rapid) Negative NEGATIVE White Blood Count 21.2 #H 4.4-10.8 10^3/uL Red Blood Count 3.59 L 4.0-5.20 10^6/uL Hemoglobin 11.1 #L 12.2-16.2 g/dL Hematocrit 32.9 #L 36.0-46.0 % Mean Corpuscular Volume 91.7 # 80.0-100.0 fL Mean Corpuscular Hemoglobin 30.8 28.0-32.0 pg Mean Corpuscular Hemoglobin Concent 33.6 32.0-36.0 g/dL Red Cell Distribution Width 15.9 H 11.8-14.3 % Platelet Count 212 140-450 10^3/uL Mean Platelet Volume 8.3 6.9-10.8 fL Neutrophils (%) (Auto) 88.0 H 37.0-80.0 % Lymphocytes (%) (Auto) 2.4 L 10.0-50.0 % Monocytes (%) (Auto) 9.2 0.0-12.0 % Eosinophils (%) (Auto) 0.0 0.0-7.0 % Basophils (%) (Auto) 0.4 0.0-2.0 % Neutrophils # (Auto) 18.7 H 1.6-8.6 10 ^3/uL Lymphocytes # (Auto) 0.5 0.4-5.4 10 ^3/uL Monocytes # (Auto) 1.9 H 0-1.3 10 ^3/uL Eosinophils # (Auto) 0 0-0.8 10 ^3/uL Basophils # (Auto) 0.1 0-0.2 10 ^3/uL Nucleated Red Blood Cells 0.1 % Sodium Level 139 136-145 mmol/L Potassium Level 3.2 L 3.5-5.1 mmol/L Chloride Level 100 98-107 mmol/L Carbon Dioxide Level 28 20-31 mmol/L Anion Gap 11 5-15 Blood Urea Nitrogen 24 #H 9-23 mg/dL Creatinine 1.95 #H 0.550-1.02 mg/dL Glomerular Filtration Rate Calc 29 >90 mL/min BUN/Creatinine Ratio 12.3 10.0-20.0 Serum Glucose 109 H 74-106 mg/dL Hemoglobin A1c < 3.8 <5.7 % A1C Calcium Level 8.6 L 8.7-10.4 mg/dL Total Bilirubin 1.7 H 0.2-1.0 mg/dL Aspartate Amino Transferase (AST) 256 H 13-40 U/L Alanine Aminotransferase (ALT) 84 H 7-40 U/L Alkaline Phosphatase 53 46-116 U/L Total Protein 6.1 5.7-8.2 g/dL Albumin 3.6 3.2-4.8 g/dL Triglycerides Level 49 < 150 mg/dL Cholesterol Level 163 < 200 mg/dL LDL Cholesterol 59 < 100 mg/dL HDL Cholesterol 81 H 40-59 mg/dL Thyroid Stimulating Hormone (TSH) 0.92 0.55-4.78 uIU/mL Blood Gas Specimen Type Arterial Blood Gas Sample Site Right radial Blood Gas Patient Temperature 37.0 Arterial Blood Date Drawn [id number] Arterial Blood pH 7.508 H 7.350-7.450 Arterial Blood Partial Pressure CO2 33.6 32.0-45.0 mmHg Arterial Blood Partial Pressure O2 89.3 83.0-108.0 mmHg Arterial Blood HCO3 26.1 21.0-28.0 mmol/L Arterial Blood Oxygen Saturation 96.9 94.0-98.0 % Arterial Blood Base Excess 3.3 H -2.0-3.0 mmol/L Arterial Blood Oxyhemoglobin 94.7 94.0-98.0 % Arterial Blood Carboxyhemoglobin 1.4 0.5-1.5 % Arterial Blood Methemoglobin 0.9 0.0-1.5 % Luiz Test Modified Blood Gas Total Hemoglobin 11.30 L 12.0-16.0 g/dL Blood Gas Set Respiration Rate 16.0 Blood Gas Modality Vent - ac FiO2 % 30.0 Blood Gas Tidal Volume 400.0 Blood Gas PEEP or CPAP 0 Current Medications Medications (Trade) Dose Ordered Sig/Perez Route Start Time Stop Time Status Last Admin Piperacillin Sod/ Tazobactam Sod 100 ml @ 25 mls/hr Q8HR IV 07/09/24 06:00 07/09/24 22:13 Enoxaparin Sodium (Lovenox) 40 mg DAILY SC 07/09/24 10:00 07/09/24 16:36 DC 07/09/24 11:01 Pantoprazole Sodium (Protonix) 40 mg DAILY IV 07/09/24 10:00 07/09/24 16:36 DC 07/09/24 11:00 Potassium Chloride 100 ml @ 50 mls/hr Q2H IV 07/09/24 10:15 07/09/24 14:14 DC 07/09/24 13:12 Vancomycin HCl 200 ml @ 200 mls/hr ONCE ONCE IV 07/09/24 11:00 07/09/24 11:59 DC 07/09/24 11:24 Sodium Chloride 1,000 ml @ 125 mls/hr Q8H ONCE IV 07/09/24 11:00 07/09/24 18:59 DC 07/09/24 10:00 Acetaminophen (Tylenol Suppository) 650 mg Q6HP PRN AK 07/09/24 11:00 07/09/24 15:54 Vasopressin 40 units/Dextrose 200 ml @ 60 mls/hr Q3H20M IV 07/09/24 12:15 07/09/24 14:17 DC 07/09/24 13:26 Fentanyl Citrate 250 ml @ 2.5 mls/hr Q24H IV 07/09/24 12:15 07/09/24 15:00 Vasopressin 20 units/Sodium Chloride 100 ml @ 9 mls/hr Q11H7M IV 07/09/24 14:00 07/10/24 01:00 Diagnostic Test (Pha) (Accu-Chek Comfort Curve T) 1 strip ONCE ONCE 07/09/24 14:30 07/09/24 14:40 DC 07/09/24 14:30 Pantoprazole Sodium (Protonix) 40 mg Q12HP IV 07/09/24 16:45 07/09/24 18:26 DC 07/09/24 17:50 Hydrocortisone Sodium Succinate (Solu-CORTEF INJECTION) 100 mg Q12HR IV 07/09/24 18:15 07/09/24 22:12 Pantoprazole Sodium 50 ml @ 10 mls/hr Q5H IV 07/09/24 10:00 07/09/24 21:00 Sodium Chloride 1,500 ml @ 1,000 mls/hr Q1H30M ONCE IV 07/09/24 18:15 07/09/24 19:44 DC 07/09/24 18:15 Albuterol (Ventolin Medneb) 1.25 mg Q6HR NEB 07/10/24 00:00 07/10/24 00:35 Ipratropium [place] (Atrovent Medneb) 0.5 mg Q6HR NEB 07/10/24 00:00 07/10/24 00:35 Phenylephrine HCl 250 ml @ 30 mls/hr Q8H20M IV 07/09/24 23:30 07/09/24 23:30 Sodium Chloride 1,000 ml @ 125 mls/hr Q8H IV 07/10/24 04:45 08/09/24 04:40 07/10/24 04:48 CT scan findings IMPRESSION: Limited noncontrast imaging . Trace right-sided pleural effusion with associated atelectasis. Scattered bila teral lung atelectasis/scarring with scattered bilateral lung calcified granulomas pleural nodularity of the left upper lobe. Mediastinal lymphadenopathy which may be reactive/neoplastic. Severe cardiomegaly with prominence of the right atrium and right ventricle. No evidence of acute abdominopelvic abnormalities. The appendix is not definitely visualized. Without visualization of the appendix, can not exclude acute appendicitis. Additional findings as above. Assessment: # cardiopulmonary arrest # GI bleed # cardiomegaly # NSTEMI Plan: 1. Neurology consultation patient's overall prognosis is poor, consider supportive care/comfort care 2. Continue Protonix 3.Follow H&H 4. No GI intervention at this time Date of Service: Jul 10, 2024 Billing Provider: JEAN PIERRE FONSECA MD Common Visit Codes: [id number] INP/OBS CARE (HIGH) Consultation Codes: [id number] CONSULT <60MIN JEAN PIERRE FONSECA MD Jul 10, 2024 05:48
[2024-07-10 06:29] LABS: Base Excess -5.1 mmol/L (-2.0-3.0)
[2024-07-10 06:55] LABS: Band Neutrophils % (manual) 18; Lymphocytes % (manual) 1 (10.0-50.0); Monocytes % (manual) 2 (0-12)
[2024-07-10 06:56] LABS: Platelet Estimate Adequate
[2024-07-10 06:57] LABS: Giant Platelets Few
[2024-07-10] MEDS: FUROSEMIDE 20 MG/2 ML VIAL IV ONE (07:02)
[2024-07-10] MEDS: CALCIUM GLUC 1,000mg/50ml-NS 50 ML IV ONE (07:03)
--- NOTE | 2024-07-10 07:33 | DVH ---
CLINICAL INFORMATION: 63 years old, Female; pneumonia. TECHNIQUE: Single AP portable chest radiograph was obtained. COMPARISON: XY CHEST XRAY 1 VIEW on DOS: 07/09/24, XY CHEST XRAY 1 VIEW on DOS: 07/08/24 FINDINGS: Stable satisfactory positioning of the endotracheal tube and enteric tube. Overlying soft tissue dens ity from the patient's breasts, partially obscures visualization of the lungs. There are mild interst itial opacities. No dense focal consolidation visualized. No pneumothorax. Grossly stable appearing cardiomegaly and stable postsurgical changes. No other significant interval change. IMPRESSION: No significant interval change as detailed above.
--- NOTE | 2024-07-10 09:20 | DVHPN2 ---
Consult Progress Note Date Seen: Jul 10, 2024 Subjective Other Systems: No overnight cardiac events reported Objective vital signs Vital Sign Date Time Temp Pulse Resp B/P (MAP) Pulse Ox O2 Delivery O2 Flow Rate FiO2 07/10/24 07:12 110 30 105/63 (77) 95 35 07/10/24 07:00 101.7 101.7 07/09/24 21:15 Mechanical Ventilator+ 07/08/24 17:43 15 Total Intake and Output 07/09/24 07/09/24 07/10/24 15:00 23:00 07:00 Intake Total 1338.105 ml 2653.875 ml 1467.00 ml Output Total 800 ml Balance 538.105 ml 2653.875 ml 1467.00 ml medications Current Medications Medications Dose Ordered Sig/Perez Route Start Time Stop Time Status Last Admin Dose Admin Epinephrine HCl 250 ml @ 7.5 mls/hr Q24H IV 07/08/24 19:30 07/09/24 17:34 7.5 MLS/HR Norepinephrine Bitartrate 250 ml @ 3.75 mls/hr Q24H IV 07/08/24 20:00 07/10/24 04:45 56.25 MLS/HR Piperacillin Sod/ Tazobactam Sod 100 ml @ 25 mls/hr Q8HR IV 07/09/24 06:00 07/10/24 05:58 25 MLS/HR Ondansetron HCl 4 mg Q4HP PRN IV 07/08/24 22:45 Acetaminophen 650 mg Q6HP PRN PO 07/08/24 22:45 07/09/24 22:29 650 MG Nitroglycerin 0.4 mg Q5MINP PRN SL 07/08/24 22:45 Morphine Sulfate 2 mg Q30M PRN IV 07/08/24 22:45 Midazolam HCl 50 ml @ 1 mls/hr Q24H IV 07/09/24 02:30 07/09/24 02:30 1 MLS/HR Vancomycin HCl 0 ml @ 0 mls/hr UD IV 07/09/24 10:00 Acetaminophen 650 mg Q6HP PRN VA 07/09/24 11:00 07/09/24 15:54 650 MG Fentanyl Citrate 250 ml @ 2.5 mls/hr Q24H IV 07/09/24 12:15 07/09/24 15:00 2.5 MLS/HR Vasopressin 20 units/Sodium Chloride 100 ml @ 9 mls/hr Q11H7M IV 07/09/24 14:00 07/10/24 01:00 9 MLS/HR Insulin Glargine 15 units HS SC 07/09/24 22:00 Hydrocortisone Sodium Succinate 100 mg Q12HR IV 07/09/24 18:15 07/09/24 22:12 100 MG Pantoprazole Sodium 50 ml @ 10 mls/hr Q5H IV 07/09/24 10:00 07/10/24 05:57 10 MLS/HR Albuterol 1.25 mg Q6HR NEB 07/10/24 00:00 07/10/24 05:53 1.25 MG Ipratropium [place] 0.5 mg Q6HR NEB 07/10/24 00:00 07/10/24 05:52 0.5 MG Phenylephrine HCl 250 ml @ 30 mls/hr Q8H20M IV 07/09/24 23:30 07/09/24 23:30 30 MLS/HR Sodium Chloride 1,000 ml @ 125 mls/hr Q8H IV 07/10/24 04:45 08/09/24 04:40 07/10/24 04:48 125 MLS/HR Examination: GENERAL:Abnormal, LUNGS:Abnormal (Mechanically ventilated FiO2 at 35% PEEP 5.0), CVS:Abnormal (On multiple vasopressors), NEURO:Abnormal (Bilateral blown dilated pupils L>R, -cough reflex, +clenching of hands) laboratory and microbiology Laboratory Tests 07/10/24 03:55 Test 07/10/24 03:55 Range/Units Serum Glucose 104 74-106 mg/dL Problem List/Assessment/Plan Problem List/Assessment/Plan Cardiopulmonary arrest status post CPR with ROSC NSTEMI type II secondary to above Rule out anoxic brain injury Paroxysmal atrial fibrillation, on Cardizem and digoxin Status post mitral valve repair, ?mechanical, on Coumadin Elevated LFTs Acute kidney injury Plan/Recommendation (Dr. Batista) Echocardiogram revealed LVEF of 50%. Moderately elevated right ventricular systolic pressures at 40 mmHg. Severely dilated right and left atria. The aortic valve is mildly thickened and sclerotic with no significant stenosis or regurgitation. 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 as well as mitral valve repair, there is no significant stenosis or regurgitation. Continue vasopressors for hemodynamic support. Initiate cooling measures given temperature above [address] given signs of anoxic brain injury. Initiate therapeutic Lovenox, renal dose. Consider goals of care. Critical prognosis. Thank you for allowing us to participate in this patient's care. Please call if you have any questions or concerns. Critical care time: 30 min. This medical document was created using an electronic medical record system with voice recognition software and computerized dictation system. Although this document has been carefully reviewed, there might still be some phonetic and typographical errors. Occasional wrong-word or ``sound-alike substitutions may have occurred due to the inherent limitations of voice recognition software. These areas are purely typographical due to imperfections of the software programs and do not reflect any compromise in the patient's medical care. Please read the chart carefully and recognize, using context, where these substitutions have occurred. Plan discussed with: Other Date of Service: Jul 10, 2024 Billing Provider: MG BATISTA MD Cardiology Common Codes: 39123-[id number] CARE 30-74 MIN RADHA FRANCIS [facility] Jul 10, 2024 09:20
--- NOTE | 2024-07-10 09:30 | DVH ---
EXAM: CT HEAD WITHOUT CONTRAST HISTORY: Rule out brain anoxia COMPARISON: CT CERVICAL WITHOUT CONTRAST on DOS: 07/08/24, CT HEAD WITHOUT CONTRAST on DOS: 07/08/24 TECHNIQUE: Axial images of the head were obtained and reformatted in coronal and sagittal planes. All CT scans at this medical facility are performed using dose modulation techniques as appropriate t o a performed exam including the following: Automated exposure control was utilized; adjustment of th e MA and/or KV according to patient size; and use of iterative reconstruction technique. CT Dose: CTDI volume is 52.78 mGy. Dose-length product is 934.77 mGy*cm FINDINGS: There are hypodense changes of the bilateral lentiform nuclei which is new in comparison to prior jazmine dy. There is no evidence of acute intracranial hemorrhage. There is no mass, mass effect or midline s hift. There is no hydrocephalus or significant extra-axial fluid collection. Again seen are a few sma ll calcifications in the right basal ganglia. There is no evidence of acute intracranial hemorrhage, mass, mass effect midline shift. There is no h ydrocephalus or extra-axial fluid collection. Saha-white matter differentiation is maintained.. The visualized paranasal sinuses and mastoid air cells are clear. The calvarium is intact. IMPRESSION: 1. Interval hypodense changes of the bilateral lentiform nuclei. The etiology is nonspecific. Clinica l correlation and further evaluation with MRI brain with contrast is recommended. HS:Y
[2024-07-10] MEDS: ENOXAPARIN SOD 80 MG/0.8ML SYRINGE SC SCH (10:20)
[2024-07-10] MEDS: SODIUM CHLORIDE 0.9% 1,000 ML IV ONE (11:45)
--- NOTE | 2024-07-10 11:47 | ECG ---
[facility] Test Date: 2024-07-08 Test Time: 21:00:31 Pat Name: ELIZABETH ROUSSEAU Department: ED Room: [address] [place] [address] Gender: F Hepatology Physician: AMELIE : 1960 Requested By: ANEUDY MANNING Order Number: [id number] Reading MD: Lamont Cheng Measurements Intervals [place] Rate: 106 P: 0 OH: 0 QRS: 26 QRSD: 84 T: 206 QT: 376 QTc: 500 Interpretive Statements Junctional tachycardia Repol abnrm suggests ischemia, anterolateral Baseline wander in lead(s) V5 Electronically Signed On 07-10-2024 14:13:37 PST by Lamont Cheng Please click the below link to view image of tracing.
[2024-07-10] MEDS: VANCOMYCIN 750mg/150ml 150 ML IV ONE (12:16)
--- NOTE | 2024-07-10 13:20 | DVHCONRES ---
Date Seen: Jul 10, [address] Dewitt Reason for Consultation NAOMI History of Present Illness Patient is 63-year-old female with past medical history of asthma, Chronic obstructive pulmonary disease, paroxysmal AFib, IBS, surgical history of mitral valve repair who brought to the hospital via EMS after she was found to have loss of consciousness. At the initial evaluation EMS, patient found to ER s ystolic, CPR was done for 20 minutes and patient was intubated in emergency department. Over the course of last three days of hospitalization, patient coded three time, ROSC achieved all three time. Patient has been ICU status, nephrology consultation was done for acute kidney injury. All medical information obtained from EMR. Home medication: Furosemide, Entresto, losartan, digoxin, [place], diltiazem, warfarin, gabapentin, escitalopram. Past Medical History Asthma, Chronic obstructive pulmonary disease, paroxysmal atrial fibrillation, IBS, valvular disease. Past Surgical History Mitral valve repair Allergies: Coded Allergies: UNOBTAINABLE (Unverified , 07/08/24) Current Medications Current Medications Medications (Trade) Dose Ordered Sig/Perez Route PRN Reason Start Time Stop Time Status Last Admin Hydrocortisone Sodium Succinate (Solu-CORTEF INJECTION) 120 mg Q12HR IV 07/09/24 22:00 07/09/24 14:17 DC Vasopressin 20 units/Sodium Chloride 100 ml @ 9 mls/hr Q11H7M IV 07/09/24 14:00 07/10/24 01:00 Hydrocortisone Sodium Succinate (Solu-CORTEF INJECTION) 100 mg Q12HR IV 07/09/24 22:00 07/09/24 18:14 DC Insulin Glargine (Lantus) 15 units HS SC 07/09/24 22:00 Pantoprazole Sodium (Protonix) 40 mg Q12HP IV 07/09/24 16:45 07/09/24 18:26 DC 07/09/24 17:50 Hydrocortisone Sodium Succinate (Solu-CORTEF INJECTION) 100 mg Q12HR IV 07/09/24 18:15 07/10/24 10:07 Albuterol (Ventolin Medneb) 1.25 mg Q6HR NEB 07/10/24 00:00 07/10/24 11:08 Ipratropium [place] (Atrovent Medneb) 0.5 mg Q6HR NEB 07/10/24 00:00 07/10/24 11:08 Phenylephrine HCl 250 ml @ 30 mls/hr Q8H20M IV 07/09/24 23:30 07/09/24 23:30 Sodium Chloride 1,000 ml @ 125 mls/hr Q8H IV 07/10/24 04:45 08/09/24 04:40 07/10/24 04:48 Enoxaparin Sodium (Lovenox) 70 mg DAILY SC 07/10/24 10:20 Review of Systems ROS can not be obtained given patient is intubated Vital Signs Vital Signs Date Time Temp Pulse Resp B/P (MAP) Pulse Ox O2 Delivery O2 Flow Rate FiO2 07/10/24 11:08 104 28 112/60 (77) 99 50 07/10/24 07:00 101.7 101.7 07/09/24 21:15 Mechanical Ventilator+ 07/08/24 17:43 15 Physical Exam General Appearance: Sedated, intubated on ventilator. Head Exam: Normal inspection Neck Exam: Normal inspection. Non-tender. Normal alignment Pulmonary/Respiratory: Chest non-tender. Clear bilateral breath sounds Cardiovascular/Chest: Regular rate and rhythm. No murmurs. No JVD. Peripheral Pulses: 2+ Radial (R). 2+ Radial (L). 2+ Pedal (R). 2+ Pedal (L) Abdominal Exam: Normal bowel sounds. Soft. Nontender. No hepatospenomegaly. No masses Ankle Exam: Negative ankle edema Lower extremities: Negative lower extremity edema Neuro/Mental Status: Fixed, dilated pupils, no pupillary reflex. Labs/Diagnostic Data Labs Test 07/10/24 06:20 07/10/24 03:55 07/09/24 22:06 07/09/24 10:30 Range/Units Blood Gas Specimen Type Arterial Blood Gas Sample Site Left radial Blood Gas Patient Temperature 37.0 Arterial Blood Date Drawn [id number] Arterial Blood pH 7.237 *L 7.350-7.450 Arterial Blood Partial Pressure CO2 54.1 H 32.0-45.0 mmHg Arterial Blood Partial Pressure O2 49.0 *L 83.0-108.0 mmHg Arterial Blood HCO3 22.5 21.0-28.0 mmol/L Arterial Blood Oxygen Saturation 79.2 *L 94.0-98.0 % Arterial Blood Base Excess -5.1 L -2.0-3.0 mmol/L Arterial Blood Oxyhemoglobin 77.1 L 94.0-98.0 % Arterial Blood Carboxyhemoglobin 1.7 H 0.5-1.5 % Arterial Blood Methemoglobin 1.0 0.0-1.5 % Luiz Test Modified Blood Gas Total Hemoglobin 10.60 L 12.0-16.0 g/dL Blood Gas Set Respiration Rate 16.0 Blood Gas Modality Vent - ac FiO2 % 35.0 Blood Gas Tidal Volume 350.0 Blood Gas PEEP or CPAP 5.0 Blood Gas Critical Value Read Back Yes Blood Gas Notified Whom Atilio mills np Blood Gas Notified Time [id number] Blood Gas Notified By Jamilah carpenter rt White Blood Count 27.2 #H 4.4-10.8 10^3/uL Red Blood Count 3.18 L 4.0-5.20 10^6/uL Hemoglobin 9.6 L 12.2-16.2 g/dL Hematocrit 29.5 L 36.0-46.0 % Mean Corpuscular Volume 92.8 80.0-100.0 fL Mean Corpuscular Hemoglobin 30.2 28.0-32.0 pg Mean Corpuscular Hemoglobin Concent 32.6 32.0-36.0 g/dL Red Cell Distribution Width 16.3 H 11.8-14.3 % Platelet Count 240 140-450 10^3/uL Mean Platelet Volume 8.4 6.9-10.8 fL Neutrophils (%) (Auto) 37.0-80.0 % Lymphocytes (%) (Auto) 10.0-50.0 % Monocytes (%) (Auto) 0.0-12.0 % Basophils (%) (Auto) 0.0-2.0 % Neutrophils # (Auto) 1.6-8.6 10 ^3/uL Lymphocytes # (Auto) 0.4-5.4 10 ^3/uL Monocytes # (Auto) 0-1.3 10 ^3/uL Differential Total Cells Counted 100.0 100 Neutrophils % (Manual) 79 37.0-80.0 Band Neutrophils % (Manual) 18 Lymphocytes % (Manual) 1 L 10.0-50.0 Monocytes % (Manual) 2 0-12 Eosinophils % (Manual) 0 0-7 Basophils % (Manual) 0 0.0-2.0 Metamyelocytes % (manual) 0 Myelocytes % (Manual) 0 Promyelocytes % (Manual) 0 Blast Cells % (Manual) 0 Reactive Lymphocytes 0 Platelet Estimate Adequate Giant Platelets Few Schistocytes Many Sodium Level 137 136-145 mmol/L Potassium Level 5.3 #H 3.5-5.1 mmol/L Chloride Level 102 98-107 mmol/L Carbon Dioxide Level 24 20-31 mmol/L Anion Gap 11 5-15 Blood Urea Nitrogen 47 #H 9-23 mg/dL Creatinine 3.99 #H 0.550-1.02 mg/dL Glomerular Filtration Rate Calc 12 >90 mL/min BUN/Creatinine Ratio 11.8 10.0-20.0 Serum Glucose 104 74-106 mg/dL Calcium Level 7.0 L 8.7-10.4 mg/dL Total Bilirubin 1.3 H 0.2-1.0 mg/dL Aspartate Amino Transferase (AST) 228 H 13-40 U/L Alanine Aminotransferase (ALT) 78 H 7-40 U/L Alkaline Phosphatase 33 L 46-116 U/L Total Protein 5.4 L 5.7-8.2 g/dL Albumin 3.2 3.2-4.8 g/dL Random Vancomycin Level < 3.0 L 5-10 ug/mL POC Glucose 98 70-106 mg/dl Influenza Type A Antigen Negative Negative Influenza Type B Antigen Negative Negative SARS-CoV-2 Antigen (Rapid) Negative NEGATIVE Test 07/09/24 06:34 07/08/24 22:00 07/08/24 19:30 07/08/24 18:01 Range/Units Eosinophils (%) (Auto) 0.0 0.0-7.0 % Eosinophils # (Auto) 0 0-0.8 10 ^3/uL Basophils # (Auto) 0.1 0-0.2 10 ^3/uL Nucleated Red Blood Cells 0.1 % Hemoglobin A1c < 3.8 <5.7 % A1C Triglycerides Level 49 < 150 mg/dL Cholesterol Level 163 < 200 mg/dL LDL Cholesterol 59 < 100 mg/dL HDL Cholesterol 81 H 40-59 mg/dL Thyroid Stimulating Hormone (TSH) 0.92 0.55-4.78 uIU/mL Urine Color Colorless Yellow Urine Clarity Turbid H Clear Urine pH 8.5 5.0-9.0 Urine Specific [place] 1.006 1.001-1.035 Urine Protein 2+ H Negative Urine Ketones Negative Negative Urine Blood 3+ H Negative /uL Urine Nitrite Negative Negative Urine Bilirubin Negative Negative Urine Urobilinogen Normal Negative mg/dL Urine Leukocyte Esterase Negative Negative /uL Urine RBC 22 0 - 4 /hpf Urine WBC 26 0 - 5 /hpf Urine Squamous Epithelial Cells Few <5 /hpf Urine Bacteria Few H None Seen /hpf Urine Glucose 3+ H Normal mg/dL Lactic Acid Level 6.3 *H 0.4-2.0 mmol/L Troponin I High Sensitivity 1154 *H </=34 ng/L Urine Opiates Screen Neg NEGATIVE Urine Fentanyl Screen Neg NEGATIVE Urine Barbiturates Screen Neg NEGATIVE Urine Phencyclidine Screen Neg NEGATIVE Urine Amphetamines Screen Neg NEGATIVE Urine Benzodiazepines Screen Neg NEGATIVE Urine Cocaine Screen Neg NEGATIVE Urine Cannabinoids Screen Pos NEGATIVE Prothrombin Time 16.0 H 9.3-11.8 sec Prothrombin Time INR 1.56 H 0.9-1.15 Activated Partial Thromboplast Time 26.8 24.5-34.5 SEC Magnesium Level 2.6 1.6-2.6 mg/dL Microbiology Date/Time Source Procedure Growth Status 07/09/24 10:30 Nose MRSA Screen - Final Complete 07/09/24 00:07 Blood Blood Culture - Preliminary NO GROWTH AFTER 24 HOURS OF INCUBATION. Resulted Assessment NAOMI secondary to hemodynamically mediated likely ischemic ATN Septic shock due to pneumonia Pneumonia NSTEMI type 2 likely due to above Cardiopulmonary arrest status post CPR with ROSC Paroxysmal atrial fibrillation Elevated liver function ? Anoxic brain injury Upper GI bleeding Plan/recommendation Dr. Haywood -continue IV fluid with 125 mL/hour, recommended 1 L bolus and one time dose of Lasix 80 mg. -currently on vasopressor Levophed, vasopressin, phenylephrine for hemodynamic support -currently on antibiotics Zosyn, vancomycin, monitor vancomycin serum level. -strict I&O -continue to monitor kidney function, electrolytes -possible anoxic brain injury, neurology consultation recommended -given possible anoxic brain injury, poor prognosis, dialysis is not recommended at this point. Patient seen and examined by myself with the medicien resident, I agree with the assessment and plan documented in the consult note Plan discussed with: Other YO CEJA Jul 10, 2024 13:20 ASIF HAYWOOD MD Jul 10, 2024 13:31
[2024-07-10] MEDS: FUROSEMIDE 100 MG/10ML VIAL IV ONE (13:48)
[2024-07-10 14:07] LABS: Base Excess -10.1 mmol/L (-2.0-3.0)
--- NOTE | 2024-07-10 15:08 | BSKYNEURO ---
[place] [facility] Note # Demographics Consult Type: General Neurology Patient Location: Emergency Room First Name: ELIZABETH Last Name: ONELIA Date of : 1960 Age: 63 Gender: Female Facility: [facility] Time of Initial Page (): 07/10/2024, 12:11 Time of Return Call (): 07/10/2024, 12:15 Phone Only Consult: 63F with recent cardiac arrest with ROSC after 20 minutes, with course complicated by septic shock, NAOMI, and upper GI bleed, with CT head showing signs of cerebral edema. On exam, pupils are 5mm and non-reactive, no reflexes on brainstem exam or movement to noxious stimulation. Phone Agreement: - phone consult deemed mutually sufficient for patient care # Data Time Head CT personally read by me (): 07/10/2024, 12:[address]: Diffuse loss of hernandez-white differentiation, consistent with a severe anoxic brain injury # Assessment Impression: Hypoxic ischemic encephalopathy/anoxic brain injury Cardiac arrest Concern for possible progression to brain # Plan Additional Recommendations: - The declaration of brain cannot be made via telemedicine examination. I would recommend proceeding with brain declaration in accordance with state law and hospital policy once the following conditions are met: [employer] depressant drug effects are absent, no evidence of residual paralytics, absence of severe acid-base, electrolyte, and endocrine abnormalities, core temperature maintained above 36C, SBP >100mmHg, no spontaneous respirations. Use of ancillary testing is acceptable if allowed by hospital policy and state law. # Logistics Attestation of consult completion: The patient is located at: [facility]. I performed this phone consultation from my offsite office Total time spent in telemedicine encounter: I spent 10 minutes in reviewing clinical data and/or imaging, obtaining history, communicating with the onsite care team, and in preparation of this report. Electronically signed at 07/10/2024 15:08 () by MD Finesse Solis BAXTER B MD Jul 10, 2024 15:08
[2024-07-10 18:04] LABS: Base Excess -10.4 mmol/L (-2.0-3.0)
--- NOTE | 2024-07-10 22:03 | DVHPNRES ---
Progress Note Date Seen: Jul 10, 2024 Resident Creating Document: EDGAR CÁRDENAS THADDEUS Has the PT tested + for MRSA If YES, has PT been informed?: No Medical Necessity Reason Pt with a Central, PICC or Fol: Yes The following are medically ne: Central Line Subjective Review of Systems Patient seen and examined at the bedside. Patient is sedated and on mechanical ventilation. Review of systems could not obtain. Patient reports: No new complaints Changes from previous H/P or p: No Changes Objective vital signs Vital Sign Date Time Temp Pulse Resp B/P (MAP) Pulse Ox O2 Delivery O2 Flow Rate FiO2 07/10/24 20:00 30 07/10/24 20:00 27 97 Mechanical Ventilator+ 07/10/24 20:00 105 07/10/24 19:49 116/56 07/10/24 18:45 99.5 99.5 07/08/24 17:43 15 Total Intake and Output 07/09/24 07/09/24 07/10/24 15:00 23:00 07:00 Intake Total 1338.105 ml 2653.875 ml 1467.00 ml Output Total 800 ml Balance 538.105 ml 2653.875 ml 1467.00 ml medications Current Medications Medications Dose Ordered Sig/Perez Route Start Time Stop Time Status Last Admin Dose Admin Epinephrine HCl 250 ml @ 7.5 mls/hr Q24H IV 07/08/24 19:30 07/09/24 17:34 7.5 MLS/HR Norepinephrine Bitartrate 250 ml @ 3.75 mls/hr Q24H IV 07/08/24 20:00 07/10/24 19:49 37.5 MLS/HR Piperacillin Sod/ Tazobactam Sod 100 ml @ 25 mls/hr Q8HR IV 07/09/24 06:00 07/10/24 15:17 25 MLS/HR Ondansetron HCl 4 mg Q4HP PRN IV 07/08/24 22:45 Acetaminophen 650 mg Q6HP PRN PO 07/08/24 22:45 07/09/24 22:29 650 MG Nitroglycerin 0.4 mg Q5MINP PRN SL 07/08/24 22:45 Morphine Sulfate 2 mg Q30M PRN IV 07/08/24 22:45 Midazolam HCl 50 ml @ 1 mls/hr Q24H IV 07/09/24 02:30 07/10/24 15:30 1 MLS/HR Vancomycin HCl 0 ml @ 0 mls/hr UD IV 07/09/24 10:00 Acetaminophen 650 mg Q6HP PRN ID 07/09/24 11:00 07/09/24 15:54 650 MG Fentanyl Citrate 250 ml @ 2.5 mls/hr Q24H IV 07/09/24 12:15 07/09/24 15:00 2.5 MLS/HR Vasopressin 20 units/Sodium Chloride 100 ml @ 9 mls/hr Q11H7M IV 07/09/24 14:00 07/10/24 15:30 9 MLS/HR Insulin Glargine 15 units HS SC 07/09/24 22:00 Hydrocortisone Sodium Succinate 100 mg Q12HR IV 07/09/24 18:15 07/10/24 10:07 100 MG Pantoprazole Sodium 50 ml @ 10 mls/hr Q5H IV 07/09/24 10:00 07/10/24 21:14 10 MLS/HR Albuterol 1.25 mg Q6HR NEB 07/10/24 00:00 07/10/24 17:31 1.25 MG Ipratropium [place] 0.5 mg Q6HR NEB 07/10/24 00:00 07/10/24 17:31 0.5 MG Phenylephrine HCl 250 ml @ 30 mls/hr Q8H20M IV 07/09/24 23:30 07/09/24 23:30 30 MLS/HR Sodium Chloride 1,000 ml @ 125 mls/hr Q8H IV 07/10/24 04:45 08/09/24 04:40 07/10/24 15:30 125 MLS/HR Examination General Appearance: Sedated and on mechanical ventilation. RASS score -5 HEENT: Atraumatic, PERRLA, EOMI, Mucous membrane moist/pink Respiratory: Clear to auscultation, Normal air movement Cardiovascular: Regular rate, Normal S1, Normal S2, No murmurs, no chest wall tenderness Abdominal: Normal bowel sounds, Soft, No tenderness, No hepatospenomegaly, No masses Extremities: No clubbing, No cyanosis, No edema, Normal pulses, No tenderness/swelling Skin: No rashes, No breakdown, No significant lesion laboratory and microbiology Laboratory Tests 11/27/24 03:55 Test 07/10/24 03:55 Range/Units Serum Glucose 104 74-106 mg/dL Microbiology Date/Time Source Procedure Growth Status 07/09/24 10:30 Nose MRSA Screen - Final Complete 07/09/24 00:07 Blood Blood Culture - Preliminary NO GROWTH AFTER 24 HOURS OF INCUBATION. Resulted 07/08/24 22:00 Voided Urine Urine Culture - Preliminary Resulted Labs and/or images reviewed: Labs reviewed by me, Image(s) reviewed by me Problem List/Assessment/Plan Problem List/Assessment/Plan NEURO: Acute metabolic encephalopathy, likely due to sepsis/possible anoxic brain injury due to cardiac arrest Patient is sedated, and on mechanical ventilation, place, and Status post cardiac arrest Possible Cerebral edema, likely due to cardiac arrest Head CT scan shows less prominent sulci, likely due to cerebral edema We will consider head CT scan after 48 hour for the monitoring of possible cerebral edema Neurology is on the board and has consulted the daughter of the patient regarding poor prognosis CARDIOVASCULAR: Status post cardiac arrest Patient has history of paroxysmal atrial fibrillation Non ST-elevation UT, type 2, likely due to cardiac arrest and CPR Circulation shock, likely septic likely due to pneumonia Troponin is raised, up trending EKG shows sinus tachycardia, with no significant ST or T-wave changes Cardiology on the board, recommended conservative management Echocardiogram shows Borderline Normal left ventricular systolic function estimated ejection [id number]%. Moderately elevated right ventricular systolic pressure 40 mm of mercury. Cardiology Is on the board, suggested conservative management Patient is on Levophed, vasopressin and epinephrine PULMONARY: Patient is sedated, and on mechanical ventilator, RASS (-4, unresponsive) with ventilator setting of( Vt 500, RR 26, FiO2 30%, peep 5) Acute hypoxic respiratory failure likely due to pneumonia/COPD exacerbation Pneumonia likely due to Gram-positive/Gram-negative Septic shock likely due to pneumonia/UTI ABGs showed respiratory alkalosis with (pH 7.5, pCO2 33.6, PO2 99.3, HC03 26.1) Chest x-ray shows prominent bronchovascular marking WBCs raised at 21.2 Lactate is raised at 13.8, downtrending Patient is on Levophed, vasopressin and epinephrine Discontinued Dobutamine and dopamine Continue normal saline at 125 mL/hour Continue vancomycin and Zosyn Hydrocortisone 100 mg b.i.d. Albuterol and ipratropium nebulization every 6 hours DEBBI-19 and influenza antigens are negative MRSA nares screening negative Sputum culture Blood culture after 24 hours shows no growth GI: Possible Upper GI bleeding, unspecified location Transaminitis, likely due to ischemia secondary to cardiac arrest NG tube shows black drainage likely due to upper GI bleeding GI consulted Gastric occult blood test Protonix b.i.d. Discontinue Lovenox RENAL: NAOMI, no previous records available Nephrology on the board, given poor prognosis do not recommended hemodialysis IV fluid at 125 mL/hour Hypokalemia Supplemented Magnesium is within normal limits UTI, unspecified location UA shows UTI picture Patient is on vancomycin and Zosyn Urine culture Cannabinoid use disorder UDS shows cannabis positive DVT prophylaxis Due to possible upper GI bleeding, Lovenox is not indicated SCD LINES/DRAINS/ACCESS: ETT tube, intubated on 07/08/2024 Transurethral catheter, placed on 07/08/2024 IV Access through right femoral vein (CVC), placed on 07/08/2024 Levophed 30 Vasopressin 0.03 Epinephrine 10 Fentanyl 200 Versed 4 CODE STATUS: Full code Case discussed with the daughter of the patient at the bedside, the daughter was also consulted regarding unfavorable prognosis due to possible cerebral edema and post cardiac arrest status Critical time spent more than 55 minutes, including patient care, chart review and updating the family. excluding any procedures. Case discussed with Dr. De Souza Plan discussed with: Patient, Daughter, Other (Mother and RN) My Orders My Orders Orders - EDGAR CÁRDENAS RESDIANASTASIA Procedure Category Date Status Time Sodium Chloride 0.9% PHA 07/10/24 In Process 04:45 Vancomycin,Random LAB 07/11/24 Verified 04:00 Basic Metabolic Panel LAB 07/11/24 Verified 04:00 * Program Associate CONS 07/10/24 Transmitted Consult Mrsa Screen ANH 07/10/24 In Process 13:58 Rapid Influenza A&B LAB 07/10/24 Logged 13:58 Covid19 Antigen Pita LAB 07/10/24 Logged Respiratory Culture ANH 07/10/24 Logged W/ Gs 13:58 Ventilator Orders RT 07/10/24 Transmitted 15:35 Complete Blood Count LAB 07/11/24 Verified 04:00 Comprehensive LAB 07/11/24 Verified Metabolic Panel 04:00 Chest Xray 1 View XY 07/11/24 Logged 04:00 Abg W/ Co-Ox RT 07/11/24 Logged 04:00 Abg W/ Co-Ox RT 07/10/24 Logged 18:00 Date of Service: Jul 10, 2024 Billing Provider: MARIE DE SOUZA MD Common Visit Codes: [id number] CARE 30-74 MIN EDGAR CÁRDENAS RESDIENT Jul 10, 2024 22:03 MARIE DE SOUZA MD Jul 11, 2024 13:53
[2024-07-11] VITALS (106 sets, daily range): BP systolic 93–124; BP diastolic 51–81; PULSE 106–117; RESP 21–30; TEMP 97–100.2; O2SAT 97–100
[2024-07-11 03:59] LABS: Hemoglobin 8.6 g/dL (12.2-16.2)
[2024-07-11 04:02] LABS: Hematocrit 27.5 % (36.0-46.0); Mean Corpuscular Hemoglobin 30.2 pg (28.0-32.0); Mean Corpuscular Hgb Conc. 31.4 g/dL (32.0-36.0); Mean Corpuscular Volume 96.3 fL (80.0-100.0); Platelet Count (auto) 168 10^3/uL (140-450); Red Blood Cells 2.85 10^6/uL (4.0-5.20); Red Cell Distribution Width 16.2 % (11.8-14.3); White Blood Cell 25.2 10^3/uL (4.4-10.8)
[2024-07-11 04:14] LABS: Basophils % (manual) 0 (0.0-2.0); Blast Cells 0; Eosinophils % (manual) 0 (0-7); Metamyelocytes % 0; Myelocytes % 0; Promyelocytes % 0; Reactive Lymphocytes 0
[2024-07-11 04:26] LABS: Anion Gap 16 (5-15); BUN/Creatinine Ratio 12.9 (10.0-20.0); Chloride 105 mmol/L (98-107); Sodium 137 mmol/L (136-145)
[2024-07-11 04:27] LABS: Bilirubin, Total 1.1 mg/dL (0.2-1.0)
[2024-07-11 04:29] LABS: Alanine Aminotransferase 85 U/L (7-40); Albumin 3.1 g/dL (3.2-4.8); Alkaline Phosphatase 26 U/L (46-116); Aspartate Aminotransferase 200 U/L (13-40); Blood Urea Nitrogen 67 mg/dL (9-23); Calcium 6.7 mg/dL (8.7-10.4); Carbon Dioxide 16 mmol/L (20-31); Glucose 117 mg/dL (74-106); Total Protein 5.5 g/dL (5.7-8.2)
[2024-07-11 04:35] LABS: Potassium 5.7 mmol/L (3.5-5.1)
[2024-07-11 04:59] LABS: Band Neutrophils % (manual) 8; Lymphocytes % (manual) 2 (10.0-50.0); Monocytes % (manual) 7 (0-12)
[2024-07-11 05:00] LABS: Platelet Estimate Adequate
[2024-07-11] MEDS: InsuLIN REG 1unit/0.01ml Soln (100units/ml) IV ONE (05:12)
[2024-07-11] MEDS: SODIUM ZIRCONIUM CYCL 10 GM PAK PO ONE (05:12)
[2024-07-11] MEDS: DEXTROSE (50%) 50ML SYRG IV ONE (05:13)
--- NOTE | 2024-07-11 05:42 | DVH ---
CHEST RADIOGRAPH Indication: Pneumonia Technique: Single frontal view of the chest was obtained Comparison: XY CHEST XRAY 1 VIEW on DOS: 07/10/24, XY CHEST XRAY 1 VIEW on DOS: 07/09/24, XY CHEST XR AY 1 VIEW on DOS: 07/08/24 IMPRESSION: There is cardiomegaly with median sternotomy wires and prosthetic cardiac valve. No sizable effusion or airspace opacity. Prominent interstitial markings. Support lines and tubes appear unchanged in sa tisfactory position. No significant interval change.
[2024-07-11 06:44] LABS: Base Excess -11.4 mmol/L (-2.0-3.0)
--- NOTE | 2024-07-11 09:27 | PRN ---
Misceleneous Note Note Note Subjective, no change in patient's neurologic status. No further bleeding. Current Medications Medications (Trade) Dose Ordered Sig/Perez Route Start Time Stop Time Status Last Admin Dose Admin Epinephrine HCl 250 ml @ 7.5 mls/hr Q24H IV 07/08/24 19:30 07/09/24 17:34 7.5 MLS/HR Norepinephrine Bitartrate 250 ml @ 3.75 mls/hr Q24H IV 07/08/24 20:00 07/11/24 03:44 18.75 MLS/HR Piperacillin Sod/ Tazobactam Sod 100 ml @ 25 mls/hr Q8HR IV 07/09/24 06:00 07/11/24 05:39 25 MLS/HR Ondansetron HCl (Zofran) 4 mg Q4HP PRN IV 07/08/24 22:45 Acetaminophen (Tylenol Tablet) 650 mg Q6HP PRN PO 07/08/24 22:45 07/09/24 22:29 650 MG Nitroglycerin (Ntrostat Sublingual) 0.4 mg Q5MINP PRN SL 07/08/24 22:45 Morphine Sulfate 2 mg Q30M PRN IV 07/08/24 22:45 Midazolam HCl 50 ml @ 1 mls/hr Q24H IV 07/09/24 02:30 07/11/24 06:29 6 MLS/HR Vancomycin HCl 0 ml @ 0 mls/hr UD IV 07/09/24 10:00 Acetaminophen (Tylenol Suppository) 650 mg Q6HP PRN OK 07/09/24 11:00 07/09/24 15:54 650 MG Fentanyl Citrate 250 ml @ 2.5 mls/hr Q24H IV 07/09/24 12:15 07/11/24 08:33 22.5 MLS/HR Vasopressin 20 units/Sodium Chloride 100 ml @ 9 mls/hr Q11H7M IV 07/09/24 14:00 07/11/24 02:16 9 MLS/HR Insulin Glargine (Lantus) 15 units HS SC 07/09/24 22:00 Hydrocortisone Sodium Succinate (Solu-CORTEF INJECTION) 100 mg Q12HR IV 07/09/24 18:15 07/10/24 21:59 100 MG Pantoprazole Sodium 50 ml @ 10 mls/hr Q5H IV 07/09/24 10:00 07/11/24 06:28 10 MLS/HR Albuterol (Ventolin Medneb) 1.25 mg Q6HR NEB 07/10/24 00:00 07/11/24 05:37 1.25 MG Ipratropium [place] (Atrovent Medneb) 0.5 mg Q6HR NEB 07/10/24 00:00 07/11/24 05:37 0.5 MG Phenylephrine HCl 250 ml @ 30 mls/hr Q8H20M IV 07/09/24 23:30 07/09/24 23:30 30 MLS/HR Sodium Chloride 1,000 ml @ 125 mls/hr Q8H IV 07/10/24 04:45 08/09/24 04:40 07/11/24 06:31 125 MLS/HR Zirconium Oxide (Lokelma) 10 gm BID PO 07/11/24 10:00 07/13/24 22:01 Vital Signs Date Time Temp Pulse Resp B/P (MAP) Pulse Ox O2 Delivery O2 Flow Rate FiO2 07/11/24 08:36 107/57 07/11/24 08:05 113 26 100 30 07/11/24 07:00 98.4 209.1 07/11/24 06:00 Mechanical Ventilator+ Physical exam: Unchanged, patient unresponsive Labs reviewed: Hemoglobin stable Assessment: Cardiopulmonary arrest Acute kidney injury Respiratory failure GI bleed UTI Recommendations: 1. Consider hospice 2. Continue Protonix 3. Signing off, reconsult. As needed JEAN PIERRE FONSECA MD Jul 11, 2024 09:27
[2024-07-11] MEDS: SODIUM ZIRCONIUM CYCL 10 GM PAK PO SCH (10:00)
[2024-07-11] MEDS: VANCOMYCIN 500mg/100mL 100 ML IV ONE (12:05)
[2024-07-11] MEDS: BUMETANIDE INJECTION 25 MG in GIVE UN-DILUTED 0 ML IV SCH (12:23)
--- NOTE | 2024-07-11 12:45 | DVHPN2 ---
Progress Note Date Seen: Jul 11, 2024 Has the PT tested + for MRSA If YES, has PT been informed?: No Medical Necessity Reason Pt with a Central, PICC or Fol: Yes The following are medically ne: Central Line Subjective Patient reports: Other (Events noted family bedside patient remains intubated and on several pressors, pupils are dilated and fixed no reflexes) Review of Systems: Deferred Objective vital signs Vital Sign Date Time Temp Pulse Resp B/P (MAP) Pulse Ox O2 Delivery O2 Flow Rate FiO2 07/11/24 12:23 99/58 07/11/24 11:45 99.7 114 28 98 211.5 07/11/24 10:07 30 07/11/24 10:00 Mechanical Ventilator+ Total Intake and Output 07/10/24 07/10/24 07/11/24 15:00 23:00 07:00 Intake Total 2792.00 ml 1773.75 ml 1571.00 ml Output Total 450 ml Balance 2792.00 ml 1323.75 ml 1571.00 ml medications Current Medications Medications Dose Ordered Sig/Perez Route Start Time Stop Time Status Last Admin Dose Admin Epinephrine HCl 250 ml @ 7.5 mls/hr Q24H IV 07/08/24 19:30 07/09/24 17:34 7.5 MLS/HR Norepinephrine Bitartrate 250 ml @ 3.75 mls/hr Q24H IV 07/08/24 20:00 07/11/24 03:44 18.75 MLS/HR Piperacillin Sod/ Tazobactam Sod 100 ml @ 25 mls/hr Q8HR IV 07/09/24 06:00 07/11/24 05:39 25 MLS/HR Ondansetron HCl 4 mg Q4HP PRN IV 07/08/24 22:45 Acetaminophen 650 mg Q6HP PRN PO 07/08/24 22:45 07/09/24 22:29 650 MG Nitroglycerin 0.4 mg Q5MINP PRN SL 07/08/24 22:45 Morphine Sulfate 2 mg Q30M PRN IV 07/08/24 22:45 Midazolam HCl 50 ml @ 1 mls/hr Q24H IV 07/09/24 02:30 07/11/24 06:29 6 MLS/HR Vancomycin HCl 0 ml @ 0 mls/hr UD IV 07/09/24 10:00 Acetaminophen 650 mg Q6HP PRN OR 07/09/24 11:00 07/09/24 15:54 650 MG Fentanyl Citrate 250 ml @ 2.5 mls/hr Q24H IV 07/09/24 12:15 07/11/24 08:33 22.5 MLS/HR Vasopressin 20 units/Sodium Chloride 100 ml @ 9 mls/hr Q11H7M IV 07/09/24 14:00 07/11/24 02:16 9 MLS/HR Hydrocortisone Sodium Succinate 100 mg Q12HR IV 07/09/24 18:15 07/11/24 10:36 100 MG Albuterol 1.25 mg Q6HR NEB 07/10/24 00:00 07/11/24 05:37 1.25 MG Ipratropium [place] 0.5 mg Q6HR NEB 07/10/24 00:00 07/11/24 05:37 0.5 MG Phenylephrine HCl 250 ml @ 30 mls/hr Q8H20M IV 07/09/24 23:30 07/09/24 23:30 30 MLS/HR Bumetanide 25 mg/ Miscellaneous 100 ml @ 4 mls/hr Q24H IV 07/11/24 09:45 07/11/24 12:23 4 MLS/HR Pantoprazole Sodium 40 mg BID IV 07/11/24 22:00 UNV Examination: GENERAL:Abnormal, HEENT:Abnormal, LUNGS:Abnormal, MSK:Abnormal, NEURO:Abnormal laboratory and microbiology Laboratory Tests 07/11/24 03:29 Test 07/11/24 03:29 Range/Units Serum Glucose 117 H 74-106 mg/dL Microbiology Date/Time Source Procedure Growth Status 07/09/24 10:30 Nose MRSA Screen - Final Complete 07/09/24 00:07 Blood Blood Culture - Preliminary NO GROWTH AFTER 48 HOURS OF INCUBATION. Resulted 07/08/24 22:00 Voided Urine Urine Culture - Preliminary Resulted Problem List/Assessment/Plan Problem List/Assessment/Plan NAOMI secondary to likely ischemic ATN Septic shock due to pneumonia Hyperkalemia Pneumonia NSTEMI type 2 likely due to above Cardiopulmonary arrest status post CPR with ROSC Paroxysmal atrial fibrillation Transaminitis ? Anoxic brain injury Upper GI bleeding Recommendations DC IV fluids Bumex drip IV as ordered Sodium bicarbonate IV as ordered Poor prognosis Patient has fixed dilated pupils and no reflexes We will not recommend renal replacement therapy given poor prognosis Plan discussed with: Other My Orders My Orders Orders - RADHA LEVIN MD Procedure Category Date Status Time Give Un-Diluted PHA 07/11/24 In Process (Gi... W/Bumetanide 09:45 Sodium Bicarb PHA 07/11/24 Logged 50meq/50ml Vial 12:45 Critical Care Time (mins): 39 RADHA LEVIN MD Jul 11, 2024 12:45
[2024-07-11] MEDS: SODIUM BICARB 8.4% 50Meq/50ml SYR Vial IV ONE (14:44)
--- NOTE | 2024-07-11 16:35 | DVHPN2 ---
Consult Progress Note Date Seen: Jul 11, 2024 Subjective Other Systems: No cardiac events reported Objective vital signs Vital Sign Date Time Temp Pulse Resp B/P (MAP) Pulse Ox O2 Delivery O2 Flow Rate FiO2 07/11/24 16:16 117 28 117/68 (84) 97 30 07/11/24 11:45 99.7 211.5 07/11/24 10:00 Mechanical Ventilator+ Total Intake and Output 07/10/24 07/10/24 07/11/24 15:00 23:00 07:00 Intake Total 2792.00 ml 1773.75 ml 1571.00 ml Output Total 450 ml Balance 2792.00 ml 1323.75 ml 1571.00 ml medications Current Medications Medications Dose Ordered Sig/Perez Route Start Time Stop Time Status Last Admin Dose Admin Epinephrine HCl 250 ml @ 7.5 mls/hr Q24H IV 07/08/24 19:30 07/09/24 17:34 7.5 MLS/HR Norepinephrine Bitartrate 250 ml @ 3.75 mls/hr Q24H IV 07/08/24 20:00 07/11/24 03:44 18.75 MLS/HR Ondansetron HCl 4 mg Q4HP PRN IV 07/08/24 22:45 Acetaminophen 650 mg Q6HP PRN PO 07/08/24 22:45 07/09/24 22:29 650 MG Nitroglycerin 0.4 mg Q5MINP PRN SL 07/08/24 22:45 Morphine Sulfate 2 mg Q30M PRN IV 07/08/24 22:45 Midazolam HCl 50 ml @ 1 mls/hr Q24H IV 07/09/24 02:30 07/11/24 06:29 6 MLS/HR Vancomycin HCl 0 ml @ 0 mls/hr UD IV 07/09/24 10:00 Acetaminophen 650 mg Q6HP PRN [place] 07/09/24 11:00 07/09/24 15:54 650 MG Fentanyl Citrate 250 ml @ 2.5 mls/hr Q24H IV 07/09/24 12:15 07/11/24 08:33 22.5 MLS/HR Vasopressin 20 units/Sodium Chloride 100 ml @ 9 mls/hr Q11H7M IV 07/09/24 14:00 07/11/24 15:02 9 MLS/HR Hydrocortisone Sodium Succinate 100 mg Q12HR IV 07/09/24 18:15 07/11/24 10:36 100 MG Albuterol 1.25 mg Q6HR NEB 07/10/24 00:00 07/11/24 12:45 1.25 MG Ipratropium [place] 0.5 mg Q6HR NEB 07/10/24 00:00 07/11/24 12:45 0.5 MG Phenylephrine HCl 250 ml @ 30 mls/hr Q8H20M IV 07/09/24 23:30 07/09/24 23:30 30 MLS/HR Bumetanide 25 mg/ Miscellaneous 100 ml @ 4 mls/hr Q24H IV 07/11/24 09:45 07/11/24 12:23 4 MLS/HR Pantoprazole Sodium 40 mg BID IV 07/11/24 22:00 Piperacillin Sod/ Tazobactam Sod 100 ml @ 25 mls/hr Q12H IV 07/12/24 02:00 Examination: LUNGS:Abnormal (Mechanically ventilated), CVS:Abnormal (On dual- vasopressor), NEURO:Abnormal (-Cough relex, bilateral blown dilated pupils) laboratory and microbiology Laboratory Tests 07/11/24 03:29 Test 07/11/24 03:29 Range/Units Serum Glucose 117 H 74-106 mg/dL Problem List/Assessment/Plan Problem List/Assessment/Plan Cardiopulmonary arrest status post CPR with ROSC NSTEMI type II secondary to above Rule out anoxic brain injury Paroxysmal atrial fibrillation, on Cardizem and digoxin Status post mitral valve repair, ?mechanical, on Coumadin Elevated LFTs Acute kidney injury Plan/Recommendation (Dr. Batista) Echocardiogram revealed LVEF of 50%. Moderately elevated right ventricular systolic pressures at 40 mmHg. Severely dilated right and left atria. The aortic valve is mildly thickened and sclerotic with no significant stenosis or regurgitation. 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 as well as mitral valve repair, there is no significant stenosis or regurgitation. Continue vasopressors for hemodynamic support. Continue cooling measures as necessary. Continue Neurology and Nephrology recommendations. Hold AC therapy given GI bleed. Given the patient's critical prognosis including a major brain insult, we will hold off from invasive work-up and sign off at this time. Kindly call if in need to re-consult. Thank you for allowing us to participate in this patient's care. Critical care time: 30 min. This medical document was created using an electronic medical record system with voice recognition software and computerized dictation system. Although this document has been carefully reviewed, there might still be some phonetic and typographical errors. Occasional wrong-word or ``sound-alike substitutions may have occurred due to the inherent limitations of voice recognition software. These areas are purely typographical due to imperfections of the software programs and do not reflect any compromise in the patient's medical care. Please read the chart carefully and recognize, using context, where these substitutions have occurred. Plan discussed with: Daughter, Other (Mother) Dietary Evaluation Review Comments: Patient is not receiving nutrition. If GI is accessible, consider EN nutrition - Jevity 1.2 @ 55 mL/hr as tolerated. If patient remains NPO for more than 7 days, initiate TPN to meet 75% of estimated needs. Advance patient diet when medically feasible to a cardiac diet if renal function is sufficient. Expected Outcomes/Goals: Patient to receive nutrition support within 7 days of NPO status. Patient diet to advance F/u in 2-3 days Date of Service: Jul 11, 2024 Billing Provider: MG BATISTA MD Cardiology Common Codes: [id number] CARE 30-74 MIN RADHA FRANCIS Jul 11, 2024 16:35
--- NOTE | 2024-07-11 17:55 | DVHPNRES ---
Progress Note Date Seen: Jul 11, 2024 Resident Creating Document: EDGAR CÁRDENAS THADDEUS Has the PT tested + for MRSA If YES, has PT been informed?: No Medical Necessity Reason Pt with a Central, PICC or Fol: Yes The following are medically ne: Central Line Subjective Review of Systems Patient seen and examined at the bedside. Patient is sedated and on mechanical ventilation. Review of systems could not obtain. Objective vital signs Vital Sign Date Time Temp Pulse Resp B/P (MAP) Pulse Ox O2 Delivery O2 Flow Rate FiO2 07/11/24 17:11 112/71 07/11/24 17:00 100.0 116 27 97 212.0 07/11/24 16:16 30 07/11/24 14:00 Mechanical Ventilator+ Total Intake and Output 07/10/24 07/10/24 07/11/24 15:00 23:00 07:00 Intake Total 2792.00 ml 1773.75 ml 1571.00 ml Output Total 450 ml Balance 2792.00 ml 1323.75 ml 1571.00 ml medications Current Medications Medications Dose Ordered Sig/Perez Route Start Time Stop Time Status Last Admin Dose Admin Epinephrine HCl 250 ml @ 7.5 mls/hr Q24H IV 07/08/24 19:30 07/09/24 17:34 7.5 MLS/HR Norepinephrine Bitartrate 250 ml @ 3.75 mls/hr Q24H IV 07/08/24 20:00 07/11/24 03:44 18.75 MLS/HR Ondansetron HCl 4 mg Q4HP PRN IV 07/08/24 22:45 Acetaminophen 650 mg Q6HP PRN PO 07/08/24 22:45 07/09/24 22:29 650 MG Nitroglycerin 0.4 mg Q5MINP PRN SL 07/08/24 22:45 Morphine Sulfate 2 mg Q30M PRN IV 07/08/24 22:45 Midazolam HCl 50 ml @ 1 mls/hr Q24H IV 07/09/24 02:30 07/11/24 17:11 4 MLS/HR Vancomycin HCl 0 ml @ 0 mls/hr UD IV 07/09/24 10:00 Acetaminophen 650 mg Q6HP PRN OR 07/09/24 11:00 07/09/24 15:54 650 MG Fentanyl Citrate 250 ml @ 2.5 mls/hr Q24H IV 07/09/24 12:15 07/11/24 08:33 22.5 MLS/HR Vasopressin 20 units/Sodium Chloride 100 ml @ 9 mls/hr Q11H7M IV 07/09/24 14:00 07/11/24 15:02 9 MLS/HR Hydrocortisone Sodium Succinate 100 mg Q12HR IV 07/09/24 18:15 07/11/24 10:36 100 MG Albuterol 1.25 mg Q6HR NEB 07/10/24 00:00 07/11/24 12:45 1.25 MG Ipratropium [place] 0.5 mg Q6HR NEB 07/10/24 00:00 07/11/24 12:45 0.5 MG Phenylephrine HCl 250 ml @ 30 mls/hr Q8H20M IV 07/09/24 23:30 07/09/24 23:30 30 MLS/HR Bumetanide 25 mg/ Miscellaneous 100 ml @ 4 mls/hr Q24H IV 07/11/24 09:45 07/11/24 12:23 4 MLS/HR Pantoprazole Sodium 40 mg BID IV 07/11/24 22:00 Piperacillin Sod/ Tazobactam Sod 100 ml @ 25 mls/hr Q12H IV 07/12/24 02:00 Examination General Appearance: Sedated and on mechanical ventilation. RASS score -5 HEENT: Atraumatic, PERRLA, EOMI, Mucous membrane moist/pink Respiratory: Clear to auscultation, Normal air movement Cardiovascular: Regular rate, Normal S1, Normal S2, No murmurs, no chest wall tenderness Abdominal: Normal bowel sounds, Soft, No tenderness, No hepatospenomegaly, No masses Extremities: No clubbing, No cyanosis, No edema, Normal pulses, No tenderness/swelling Skin: No rashes, No breakdown, No significant lesion laboratory and microbiology Laboratory Tests 07/11/24 03:29 Test 07/11/24 03:29 Range/Units Serum Glucose 117 H 74-106 mg/dL Microbiology Date/Time Source Procedure Growth Status 07/10/24 15:20 Nose MRSA Screen - Final Complete 07/09/24 00:07 Blood Blood Culture - Preliminary NO GROWTH AFTER 48 HOURS OF INCUBATION. Resulted 07/08/24 22:00 Voided Urine Urine Culture - Preliminary Resulted Labs and/or images reviewed: Labs reviewed by me, Image(s) reviewed by me Problem List/Assessment/Plan Problem List/Assessment/Plan NEURO: Acute metabolic encephalopathy, likely due to sepsis/possible anoxic brain injury due to cardiac arrest Patient is sedated, and on mechanical ventilation, place, and Status post cardiac arrest Possible Cerebral edema, likely due to cardiac arrest Head CT scan shows less prominent sulci, likely due to cerebral edema We will consider head CT scan after 48 hour for the monitoring of possible cerebral edema Neurology is on the board and has consulted the daughter of the patient regarding poor prognosis Head CT scan for tomorrow morning CARDIOVASCULAR: Status post cardiac arrest Patient has history of paroxysmal atrial fibrillation Non ST-elevation [place], type 2, likely due to cardiac arrest and CPR Circulation shock, likely septic likely due to pneumonia Troponin is raised, up trending EKG shows sinus tachycardia, with no significant ST or T-wave changes Cardiology on the board, recommended conservative management Echocardiogram shows Borderline Normal left ventricular systolic function estimated ejection [id number]%. Moderately elevated right ventricular systolic pressure 40 mm of mercury. Cardiology Is on the board, suggested conservative management Patient is on Levophed, vasopressin and epinephrine PULMONARY: Patient is sedated, and on mechanical ventilator, RASS (-4, unresponsive) with ventilator setting of( Vt 500, RR 26, FiO2 30%, peep 5) Acute hypoxic respiratory failure likely due to pneumonia/COPD exacerbation/asthma exacerbation Pneumonia likely due to Gram-positive/Gram-negative Septic shock likely due to pneumonia/UTI ABGs showed respiratory alkalosis with (pH 7.5, pCO2 33.6, PO2 99.3, HC03 26.1) Chest x-ray shows prominent bronchovascular marking WBCs raised at 21.2 Lactate is raised at 13.8, downtrending Patient is on Levophed, vasopressin and epinephrine Discontinued Dobutamine and dopamine Continue normal saline at 125 mL/hour Stopped vancomycin Continue Zosyn Hydrocortisone 100 mg b.i.d. Albuterol and ipratropium nebulization every 6 hours COVID-19 and influenza antigens are negative MRSA nares screening negative Sputum culture Blood culture after 24 hours shows no growth GI: Possible Upper GI bleeding, unspecified location Transaminitis, likely due to ischemia secondary to cardiac arrest NG tube shows black drainage likely due to upper GI bleeding GI consulted Gastric occult blood test Protonix b.i.d. Discontinue Lovenox RENAL: NAOMI, no previous records available Nephrology on the board, given poor prognosis do not recommended hemodialysis Stopped fluids Bumex drip Bicarbonate Hypokalemia Supplemented Magnesium is within normal limits Hyperkalemia Potassium increased at 5.7 Hyperkalemia protocol including insulin has given UTI, unspecified location UA shows UTI picture Patient is on vancomycin and Zosyn Urine culture Cannabinoid use disorder UDS shows cannabis positive DVT prophylaxis Due to possible upper GI bleeding, Lovenox is not indicated SCD LINES/DRAINS/ACCESS: ETT tube, intubated on 07/08/2024 Transurethral catheter, placed on 07/08/2024 IV Access through right femoral vein (CVC), placed on 07/08/2024 Levophed 30 Vasopressin 0.03 Epinephrine 10 Fentanyl 200 Versed 4 CODE STATUS: Full code Case discussed with the daughter of the patient at the bedside, the daughter was also consulted regarding unfavorable prognosis due to possible cerebral edema and post cardiac arrest status Critical time spent more than 535 minutes, including patient care, chart review and updating the family. excluding any procedures. Case discussed with Dr. De Souza Plan discussed with: Daughter (RN) My Orders My Orders Orders - EDGAR CÁRDENAS RESDIANASTASIA Procedure Category Date Status Time Vancomycin,Random LAB 07/12/24 Verified 04:00 Dietary Evaluation Review Comments: Patient is not receiving nutrition. If GI is accessible, consider EN nutrition - Jevity 1.2 @ 55 mL/hr as tolerated. If patient remains NPO for more than 7 days, initiate TPN to meet 75% of estimated needs. Advance patient diet when medically feasible to a cardiac diet if renal function is sufficient. Expected Outcomes/Goals: Patient to receive nutrition support within 7 days of NPO status. Patient diet to advance F/u in 2-3 days Date of Service: Jul 11, 2024 Billing Provider: MARIE DE SOUZA MD Common Visit Codes: [id number] CARE 30-74 MIN EDGAR CÁRDENAS RESDIENT Jul 11, 2024 17:55 MARIE DE SOUZA MD Jul 12, 2024 13:20
[2024-07-11] MEDS: PANTOPRAZOLE 40 MG/10 ML VIAL INJ IV SCH (21:58)
[2024-07-12] VITALS (105 sets, daily range): BP systolic 99–140; BP diastolic 60–92; PULSE 116–127; RESP 18–36; TEMP 96.4–100.2; O2SAT 99–100
[2024-07-12 01:04] LABS: Lymphocytes # (auto) 0.2 10 ^3/uL (0.4-5.4); Lymphocytes % (auto) 0.9 % (10.0-50.0); Monocytes # (auto) 0.7 10 ^3/uL (0-1.3); Monocytes % (auto) 3.3 % (0.0-12.0); Red Blood Cells 2.75 10^6/uL (4.0-5.20)
[2024-07-12 01:06] LABS: Basophils # (auto) 0.3 10 ^3/uL (0-0.2); Basophils % (auto) 1.2 % (0.0-2.0); Eosinophils # (auto) 0 10 ^3/uL (0-0.8); Hematocrit 25.6 % (36.0-46.0); Hemoglobin 8.2 g/dL (12.2-16.2); Mean Corpuscular Hemoglobin 29.9 pg (28.0-32.0); Mean Corpuscular Hgb Conc. 32.1 g/dL (32.0-36.0); Mean Corpuscular Volume 93.1 fL (80.0-100.0); Neutrophils # (auto) 21.4 10 ^3/uL (1.6-8.6); Neutrophils % (auto) 94.6 % (37.0-80.0); Nucleated Red Blood Cells % 0.1 %; Platelet Count (auto) 104 10^3/uL (140-450); Red Cell Distribution Width 16.1 % (11.8-14.3); White Blood Cell 22.6 10^3/uL (4.4-10.8)
[2024-07-12] MEDS: PIPERACILLIN-TAZOB 3.375GM 100 ML IV SCH (01:32)
[2024-07-12 01:49] LABS: Alanine Aminotransferase 71 U/L (7-40); Albumin 3.2 g/dL (3.2-4.8); Alkaline Phosphatase 26 U/L (46-116); Anion Gap 21 (5-15); Aspartate Aminotransferase 130 U/L (13-40); BUN/Creatinine Ratio 12.9 (10.0-20.0); Blood Urea Nitrogen 76 mg/dL (9-23); Calcium 6.7 mg/dL (8.7-10.4); Carbon Dioxide 13 mmol/L (20-31); Chloride 105 mmol/L (98-107); Glucose 131 mg/dL (74-106); Magnesium 2.2 mg/dL (1.6-2.6); Potassium 4.6 mmol/L (3.5-5.1); Sodium 139 mmol/L (136-145)
[2024-07-12 01:50] LABS: Total Protein 5.5 g/dL (5.7-8.2)
--- NOTE | 2024-07-12 05:57 | DVH ---
CHEST RADIOGRAPH Indication: RE-CHECK CARDIOMEGALY Technique: Single frontal view of the chest was obtained Comparison: XY CHEST XRAY 1 VIEW on DOS: 07/11/24, XY CHEST XRAY 1 VIEW on DOS: 07/10/24, XY CHEST XR AY 1 VIEW on DOS: 07/09/24 IMPRESSION: The cardiac silhouette is enlarged with median sternotomy wires and prosthetic cardiac valve. Suppor t lines and tubes appear unchanged in satisfactory position. No sizable effusion or pneumothorax. Pa tchy airspace opacity in the right mid lung.
[2024-07-12 06:51] LABS: Base Excess -11.4 mmol/L (-2.0-3.0)
--- NOTE | 2024-07-12 11:55 | DVH ---
EXAM: CT HEAD WITHOUT CONTRAST INDICATION: Cerebral edema TECHNIQUE: CT of the head without intravenous contrast. Coronal and sagittal reformatted images are submitted. Radiation Dose : 1. Head: CT Dose: CTDI volume is 53.71 mGy. Dose-length product is 861.04 mGy*cm The dose indicators for CT are the volume Computed Tomography (CT) Dose Index (CTDIvol) and the Dose Length Product (DLP), and are measured in units of mGy and mGy-cm, respectively. These indicators are not patient dose, but values generated from the CT scanner acquisition factors. The report includes radiation exposure data for exposures received during this examination. All CT scans at this medical facility are performed using dose modulation techniques as appropriate to a performed exam including the following: Automated exposure control was utilized; adjustment of the MA and/or KV according to patient size; and use of iterative reconstruction technique. COMPARISON: CT HEAD WITHOUT CONTRAST on DOS: 07/10/24 FINDINGS: There is no evidence of acute intracranial hemorrhage, extra-axial collection, mass effect, midline s hift, herniation or hydrocephalus. The ventricles, sulci and cisterns are age appropriate. There is subtle diffuse loss of mendoza-white matter differentiation when compared to the prior CT from 07/08/2024. There are symmetric hypodensities in the bilateral lentiform nuclei which are similar to the prior CT from 07/10/2024. There is new hypodensity in the bilateral thalami. The visualized paranasal sinuses and mastoid air cells are clear. No depressed calvarial fracture. The surrounding soft tissues are unremarkable. IMPRESSION: 1. Symmetric hypodensities in the lentiform nuclei, similar to prior study. Hypodensities in the bila teral thalami new since prior CT scan of the head from 07/10/2024. Additionally, there is subtle los s of mendoza-white matter differentiation since the prior CT from 07/08/2024 for which intracerebral mita ma is not excluded. Correlation for toxic metabolic or ischemic insult or other etiology is recommend ed. MRI of the brain without contrast is recommended for further evaluation. 2. No evidence of acute intracranial hemorrhage.
[2024-07-12] MEDS: SODIUM BICARB 8.4% 50Meq/50ml SYR Vial IV ONE (13:08)
[2024-07-12] MEDS ORDERED: PROPOFOL 10 MG/ML 20 ML IV ONE (15:15)
[2024-07-12] MEDS: PROPOFOL 100 ML IV SCH (15:32)
--- NOTE | 2024-07-12 17:06 | DVHPNRES ---
Progress Note Date Seen: Jul 12, 2024 Resident Creating Document: EDGAR CÁRDENAS THADDEUS Has the PT tested + for MRSA If YES, has PT been informed?: No Medical Necessity Reason Pt with a Central, PICC or Fol: Yes The following are medically ne: Central Line Subjective Review of Systems Patient seen and examined at the bedside. Patient is sedated and on mechanical ventilation. Review of systems could not obtain. Objective vital signs Vital Sign Date Time Temp Pulse Resp B/P (MAP) Pulse Ox O2 Delivery O2 Flow Rate FiO2 07/12/24 16:00 28 100 Mechanical Ventilator+ 30 30 07/12/24 16:00 99.3 119 133/86 (102) 210.7 Total Intake and Output 07/11/24 07/11/24 07/12/24 15:00 23:00 07:00 Intake Total 849.50 ml 379.75 ml 359.50 ml Output Total 125 ml 210 ml Balance 849.50 ml 254.75 ml 149.50 ml medications Current Medications Medications Dose Ordered Sig/Perez Route Start Time Stop Time Status Last Admin Dose Admin Epinephrine HCl 250 ml @ 7.5 mls/hr Q24H IV 07/08/24 19:30 07/09/24 17:34 7.5 MLS/HR Norepinephrine Bitartrate 250 ml @ 3.75 mls/hr Q24H IV 07/08/24 20:00 07/11/24 18:07 11.25 MLS/HR Ondansetron HCl 4 mg Q4HP PRN IV 07/08/24 22:45 Acetaminophen 650 mg Q6HP PRN PO 07/08/24 22:45 07/09/24 22:29 650 MG Nitroglycerin 0.4 mg Q5MINP PRN SL 07/08/24 22:45 Morphine Sulfate 2 mg Q30M PRN IV 07/08/24 22:45 Midazolam HCl 50 ml @ 1 mls/hr Q24H IV 07/09/24 02:30 07/12/24 04:15 2 MLS/HR Acetaminophen 650 mg Q6HP PRN CA 07/09/24 11:00 07/09/24 15:54 650 MG Fentanyl Citrate 250 ml @ 2.5 mls/hr Q24H IV 07/09/24 12:15 07/12/24 05:50 17.5 MLS/HR Vasopressin 20 units/Sodium Chloride 100 ml @ 9 mls/hr Q11H7M IV 07/09/24 14:00 07/11/24 15:02 9 MLS/HR Hydrocortisone Sodium Succinate 100 mg Q12HR IV 07/09/24 18:15 07/12/24 07:59 100 MG Albuterol 1.25 mg Q6HR NEB 07/10/24 00:00 07/12/24 12:18 1.25 MG Ipratropium [place] 0.5 mg Q6HR NEB 07/10/24 00:00 07/12/24 12:18 0.5 MG Phenylephrine HCl 250 ml @ 30 mls/hr Q8H20M IV 07/09/24 23:30 07/09/24 23:30 30 MLS/HR Bumetanide 25 mg/ Miscellaneous 100 ml @ 4 mls/hr Q24H IV 07/11/24 09:45 07/12/24 05:51 4 MLS/HR Pantoprazole Sodium 40 mg BID IV 07/11/24 22:00 07/12/24 07:59 40 MG Piperacillin Sod/ Tazobactam Sod 100 ml @ 25 mls/hr Q12H IV 07/12/24 02:00 07/12/24 12:01 25 MLS/HR Propofol 100 ml @ 1.902 mls/ hr Q24H IV 07/12/24 15:15 07/12/24 15:32 1.902 MLS/HR Examination General Appearance: Sedated and on mechanical ventilation. RASS score -5 HEENT: Atraumatic, PERRLA, EOMI, Mucous membrane moist/pink Respiratory: Clear to auscultation, Normal air movement Cardiovascular: Regular rate, Normal S1, Normal S2, No murmurs, no chest wall tenderness Abdominal: Normal bowel sounds, Soft, No tenderness, No hepatospenomegaly, No masses Extremities: No clubbing, No cyanosis, No edema, Normal pulses, No tenderness/swelling Skin: No rashes, No breakdown, No significant lesion laboratory and microbiology Laboratory Tests 07/12/24 00:48 Test 07/12/24 00:48 Range/Units Serum Glucose 131 H 74-106 mg/dL Microbiology Date/Time Source Procedure Growth Status 07/10/24 15:20 Nose MRSA Screen - Final Complete 07/09/24 00:07 Blood Blood Culture - Preliminary NO GROWTH AFTER 72 HOURS OF INCUBATION. Resulted 07/08/24 22:00 Voided Urine Urine Culture - Final Complete Labs and/or images reviewed: Labs reviewed by me, Image(s) reviewed by me Problem List/Assessment/Plan Problem List/Assessment/Plan NEURO: Acute metabolic encephalopathy, likely due to sepsis/possible anoxic brain injury due to cardiac arrest Patient is sedated, and on mechanical ventilation, place, and Status post cardiac arrest Possible Cerebral edema, likely due to cardiac arrest Head CT scan shows less prominent sulci, likely due to cerebral edema We will consider head CT scan after 48 hour for the monitoring of possible cerebral edema Neurology is on the board and has consulted the daughter of the patient regarding poor prognosis Head CT scan of 07/12/2024 shows changes but could not exclude brain edema Brain MRI CARDIOVASCULAR: Status post cardiac arrest Patient has history of paroxysmal atrial fibrillation Non ST-elevation [place], type 2, likely due to cardiac arrest and CPR Circulation shock, likely septic likely due to pneumonia Troponin is raised, up trending EKG shows sinus tachycardia, with no significant ST or T-wave changes Cardiology on the board, recommended conservative management Echocardiogram shows Borderline Normal left ventricular systolic function estimated ejection [id number]%. Moderately elevated right ventricular systolic pressure 40 mm of mercury. Cardiology Is on the board, suggested conservative management Patient's blood pressure has been improved, and discontinued vasopressors PULMONARY: Patient is sedated, and on mechanical ventilator, RASS (-4, unresponsive) with ventilator setting of( Vt 500, RR 26, FiO2 30%, peep 5) Acute hypoxic respiratory failure likely due to pneumonia/COPD exacerbation/asthma exacerbation Pneumonia likely due to Gram-positive/Gram-negative Septic shock likely due to pneumonia/UTI Patient has history of multiple hospital admission, including intubated for 2 months in [place] in 2007, mitral valve repair and also has been admitted in [facility] ABGs showed respiratory alkalosis with (pH 7.5, pCO2 33.6, PO2 99.3, HC03 26.1) Chest x-ray shows prominent bronchovascular marking WBCs raised at 21.2 Lactate is raised at 13.8, downtrending Patient is on Levophed, vasopressin and epinephrine Discontinued Dobutamine and dopamine Continue normal saline at 125 mL/hour Stopped vancomycin Continue Zosyn Hydrocortisone 100 mg b.i.d. Albuterol and ipratropium nebulization every 6 hours COVID-19 and influenza antigens are negative MRSA nares screening negative Sputum culture Blood culture after 24 hours shows no growth GI: Possible Upper GI bleeding, unspecified location Transaminitis, likely due to ischemia secondary to cardiac arrest NG tube shows black drainage likely due to upper GI bleeding GI consulted Gastric occult blood test Protonix b.i.d. Discontinue Lovenox RENAL: NAOMI, no previous records available Nephrology on the board, given poor prognosis do not recommended hemodialysis Stopped fluids Bumex drip Bicarbonate Hypokalemia Supplemented Magnesium is within normal limits Hyperkalemia Potassium increased at 5.7 Hyperkalemia protocol including insulin has given UTI, unspecified location UA shows UTI picture Patient is on vancomycin and Zosyn Urine culture Cannabinoid use disorder UDS shows cannabis positive DVT prophylaxis Due to possible upper GI bleeding, Lovenox is not indicated SCD LINES/DRAINS/ACCESS: ETT tube, intubated on 07/08/2024 Transurethral catheter, placed on 07/08/2024 IV Access through right femoral vein (CVC), placed on 07/08/2024 Drips: Fentanyl 200 Versed 4 CODE STATUS: Full code Case discussed with the daughter of the patient at the bedside, the daughter was also consulted regarding unfavorable prognosis due to possible cerebral edema and post cardiac arrest status. Critical time spent more than 535 minutes, including patient care, chart review and updating the family. excluding any procedures. Today CT scan of the head repeated, shows changes and could not exclude brain edema, brain MRI ordered. As per patient's daughter requested psychotherapist social worker has been consulted for arrangement of patient is transferred to the [facility]. Case discussed with Dr. De Souza Plan discussed with: Daughter, Other (Mother and RN) My Orders My Orders Orders - EDGAR CÁRDENAS RESDIANASTASIA Procedure Category Date Status Time Abg W/ Co-Ox RT 07/12/24 Logged 04:[address] 07/12/24 Resulted 08:00 Ventilator Orders RT 07/12/24 Transmitted 05:23 * Business Analyst CONS 07/12/24 Transmitted Consult Brain Head Wo Contrast MRI 07/12/24 Logged 15:02 Propofol (Diprivan) PHA 07/12/24 In Process 15:15 Rass Sedation Scale [id number] 07/12/24 In Process 15:14 Communication Order ORDERS 07/12/24 Transmitted 15:41 Complete Blood Count LAB 07/13/24 Verified 04:00 Comprehensive LAB 07/13/24 Verified Metabolic Panel 04:00 Chest Xray 1 View XY 07/13/24 Logged 04:00 Abg W/ Co-Ox RT 07/13/24 Logged 04:00 Dietary Evaluation Review Comments: Patient is not receiving nutrition. If GI is accessible, consider EN nutrition - Jevity 1.2 @ 55 mL/hr as tolerated. If patient remains NPO for more than 7 days, initiate TPN to meet 75% of estimated needs. Advance patient diet when medically feasible to a cardiac diet if renal function is sufficient. Expected Outcomes/Goals: Patient to receive nutrition support within 7 days of NPO status. Patient diet to advance F/u in 2-3 days Date of Service: Jul 12, 2024 Billing Provider: MARIE DE SOUZA MD Common Visit Codes: [id number] CARE 30-74 MIN EDGAR CÁRDENAS RESDIENT Jul 12, 2024 17:06 MARIE DE SOUZA MD Jul 19, 2024 13:17
--- NOTE | 2024-07-12 19:22 | DVHPN2 ---
Progress Note Date Seen: Jul 12, 2024 Has the PT tested + for MRSA If YES, has PT been informed?: No Medical Necessity Reason Pt with a Central, PICC or Fol: Yes The following are medically ne: Central Line Subjective Patient reports: Other (intubated) Review of Systems: Deferred Objective vital signs Vital Sign Date Time Temp Pulse Resp B/P (MAP) Pulse Ox O2 Delivery O2 Flow Rate FiO2 07/12/24 18:05 119 28 113/78 (90) 100 30 07/12/24 18:00 97.3 207.1 07/12/24 18:00 Mechanical Ventilator+ Total Intake and Output 07/11/24 07/11/24 07/12/24 15:00 23:00 07:00 Intake Total 849.50 ml 379.75 ml 359.50 ml Output Total 125 ml 210 ml Balance 849.50 ml 254.75 ml 149.50 ml medications Current Medications Medications Dose Ordered Sig/Perez Route Start Time Stop Time Status Last Admin Dose Admin Epinephrine HCl 250 ml @ 7.5 mls/hr Q24H IV 07/08/24 19:30 07/09/24 17:34 7.5 MLS/HR Norepinephrine Bitartrate 250 ml @ 3.75 mls/hr Q24H IV 07/08/24 20:00 07/11/24 18:07 11.25 MLS/HR Ondansetron HCl 4 mg Q4HP PRN IV 07/08/24 22:45 Acetaminophen 650 mg Q6HP PRN PO 07/08/24 22:45 07/09/24 22:29 650 MG Nitroglycerin 0.4 mg Q5MINP PRN SL 07/08/24 22:45 Morphine Sulfate 2 mg Q30M PRN IV 07/08/24 22:45 Midazolam HCl 50 ml @ 1 mls/hr Q24H IV 07/09/24 02:30 07/12/24 04:15 2 MLS/HR Acetaminophen 650 mg Q6HP PRN NV 07/09/24 11:00 07/09/24 15:54 650 MG Fentanyl Citrate 250 ml @ 2.5 mls/hr Q24H IV 07/09/24 12:15 07/12/24 05:50 17.5 MLS/HR Vasopressin 20 units/Sodium Chloride 100 ml @ 9 mls/hr Q11H7M IV 07/09/24 14:00 07/11/24 15:02 9 MLS/HR Hydrocortisone Sodium Succinate 100 mg Q12HR IV 07/09/24 18:15 07/12/24 07:59 100 MG Albuterol 1.25 mg Q6HR NEB 07/10/24 00:00 07/12/24 18:24 1.25 MG Ipratropium [place] 0.5 mg Q6HR NEB 07/10/24 00:00 07/12/24 18:24 0.5 MG Phenylephrine HCl 250 ml @ 30 mls/hr Q8H20M IV 07/09/24 23:30 07/09/24 23:30 30 MLS/HR Bumetanide 25 mg/ Miscellaneous 100 ml @ 4 mls/hr Q24H IV 07/11/24 09:45 07/12/24 05:51 4 MLS/HR Pantoprazole Sodium 40 mg BID IV 07/11/24 22:00 07/12/24 07:59 40 MG Piperacillin Sod/ Tazobactam Sod 100 ml @ 25 mls/hr Q12H IV 07/12/24 02:00 07/12/24 12:01 25 MLS/HR Propofol 100 ml @ 1.902 mls/ hr Q24H IV 07/12/24 15:15 07/12/24 15:32 1.902 MLS/HR Examination: HEENT:Abnormal, NEURO:Abnormal laboratory and microbiology Laboratory Tests 07/12/24 00:48 Test 07/12/24 00:48 Range/Units Serum Glucose 131 H 74-106 mg/dL Microbiology Date/Time Source Procedure Growth Status 07/10/24 15:20 Nose MRSA Screen - Final Complete 07/09/24 00:07 Blood Blood Culture - Preliminary NO GROWTH AFTER 72 HOURS OF INCUBATION. Resulted 07/08/24 22:00 Voided Urine Urine Culture - Final Complete Problem List/Assessment/Plan Problem List/Assessment/Plan NAOMI secondary to likely ischemic ATN Septic shock due to pneumonia Hyperkalemia Pneumonia NSTEMI type 2 likely due to above Cardiopulmonary arrest status post CPR with ROSC Paroxysmal atrial fibrillation Transaminitis ? Anoxic brain injury Upper GI bleeding Recommendations DC IV fluids Bumex drip IV as ordered Sodium bicarbonate IV as ordered Poor prognosis Patient has fixed dilated pupils and no reflexes We will not recommend renal replacement therapy given poor prognosis Plan discussed with: Other (mom) Dietary Evaluation Review Comments: Patient is not receiving nutrition. If GI is accessible, consider EN nutrition - Jevity 1.2 @ 55 mL/hr as tolerated. If patient remains NPO for more than 7 days, initiate TPN to meet 75% of estimated needs. Advance patient diet when medically feasible to a cardiac diet if renal function is sufficient. Expected Outcomes/Goals: Patient to receive nutrition support within 7 days of NPO status. Patient diet to advance F/u in 2-3 days RADHA LEVIN MD Jul 12, 2024 19:22
[2024-07-12] MEDS: ALBUTEROL SULF 2.5 MG/0.5ML(0.5%) NEB SOLN NEB PRN (23:56)
[2024-07-13] VITALS (107 sets, daily range): BP systolic 100–145; BP diastolic 65–92; PULSE 120–148; RESP 21–39; TEMP 97.2–99.7; O2SAT 99–100
[2024-07-13 03:50] LABS: Hemoglobin 8.3 g/dL (12.2-16.2)
[2024-07-13 03:56] LABS: Hematocrit 25.3 % (36.0-46.0); Mean Corpuscular Hgb Conc. 32.8 g/dL (32.0-36.0); Mean Corpuscular Volume 91.5 fL (80.0-100.0); Platelet Count (auto) 69 10^3/uL (140-450); Red Blood Cells 2.77 10^6/uL (4.0-5.20)
[2024-07-13 04:04] LABS: Basophils % (manual) 0 (0.0-2.0); Blast Cells 0; Eosinophils % (manual) 0 (0-7); Metamyelocytes % 0; Myelocytes % 0; Promyelocytes % 0; Reactive Lymphocytes 0
[2024-07-13 04:10] LABS: Anion Gap 23 (5-15); BUN/Creatinine Ratio 13.4 (10.0-20.0); Bilirubin, Total 0.9 mg/dL (0.2-1.0); Chloride 104 mmol/L (98-107); Magnesium 2.3 mg/dL (1.6-2.6); Potassium 4.1 mmol/L (3.5-5.1); Sodium 142 mmol/L (136-145)
[2024-07-13 04:11] LABS: Alanine Aminotransferase 63 U/L (7-40); Albumin 3.1 g/dL (3.2-4.8); Alkaline Phosphatase 31 U/L (46-116); Aspartate Aminotransferase 83 U/L (13-40); Calcium 7.1 mg/dL (8.7-10.4); Carbon Dioxide 15 mmol/L (20-31); Glucose 149 mg/dL (74-106); Total Protein 5.4 g/dL (5.7-8.2)
[2024-07-13 04:15] LABS: Blood Urea Nitrogen 94 mg/dL (9-23)
[2024-07-13 05:28] LABS: Band Neutrophils % (manual) 1; Lymphocytes % (manual) 2 (10.0-50.0); Monocytes % (manual) 4 (0-12); Platelet Estimate Decreased
--- NOTE | 2024-07-13 05:59 | DVH ---
CHEST RADIOGRAPH Indication: Pneumonia Technique: Single frontal view of the chest was obtained Comparison: XY CHEST PORTABLE on DOS: 07/12/24, XY CHEST XRAY 1 VIEW on DOS: 07/11/24, XY CHEST XRAY 1 VIEW on DOS: 07/10/24 IMPRESSION: There is cardiomegaly. Median sternotomy wires and prosthetic cardiac valve. No sizable effusion or pneumothorax. Mild pulmonary congestion and interstitial prominence.
[2024-07-13 08:18] LABS: Base Excess -7.5 mmol/L (-2.0-3.0)
--- NOTE | 2024-07-13 10:40 | DVHPN2 ---
Subjective Intubated and sedated Reviewed: Care Plan, H&P, Labs, Medications, Previous Orders, Radiology, Other (Consultations) Changes from previous H/P or p: No Changes (Intubated and sedated) Objective Vitals Vital Signs Date Time Temp Pulse Resp B/P (MAP) Pulse Ox O2 Delivery O2 Flow Rate FiO2 07/13/24 10:01 124 28 124/75 (91) 100 30 07/13/24 09:00 99.1 210.4 07/13/24 08:00 Mechanical Ventilator+ Intake/Output Intake and Output 07/13/24 07:00 Intake Total 877.964 ml Output Total 750 ml Balance 127.964 ml IV Total 877.964 ml Output Urine Total 650 ml Stool Total 0 ml Gastric Drainage Total 0 ml Other 100 ml General Appearance: Other (Intubated and sedated) HEENT: Atraumatic Lungs: Other (Mechanical ventilation breathing sounds) Cardiovascular: Normal S1, Normal S2, Other (Tachycardia) Abdomen: Other (Hypoactive bowel sound) Genitourinary: Other (Allen's catheter) Neuro: Other (Sedated) Psych/Mental Status: Other (Sedated) Medications Current Medications Medications Dose Ordered Sig/Perez Route Start Time Stop Time Status Last Admin Dose Admin Epinephrine HCl 250 ml @ 7.5 mls/hr Q24H IV 07/08/24 19:30 07/09/24 17:34 7.5 MLS/HR Norepinephrine Bitartrate 250 ml @ 3.75 mls/hr Q24H IV 07/08/24 20:00 07/11/24 18:07 11.25 MLS/HR Ondansetron HCl 4 mg Q4HP PRN IV 07/08/24 22:45 Acetaminophen 650 mg Q6HP PRN PO 07/08/24 22:45 07/09/24 22:29 650 MG Nitroglycerin 0.4 mg Q5MINP PRN SL 07/08/24 22:45 Morphine Sulfate 2 mg Q30M PRN IV 07/08/24 22:45 Midazolam HCl 50 ml @ 1 mls/hr Q24H IV 07/09/24 02:30 07/12/24 04:15 2 MLS/HR Acetaminophen 650 mg Q6HP PRN [place] 07/09/24 11:00 07/09/24 15:54 650 MG Fentanyl Citrate 250 ml @ 2.5 mls/hr Q24H IV 07/09/24 12:15 07/13/24 08:46 20 MLS/HR Vasopressin 20 units/Sodium Chloride 100 ml @ 9 mls/hr Q11H7M IV 07/09/24 14:00 07/11/24 15:02 9 MLS/HR Hydrocortisone Sodium Succinate 100 mg Q12HR IV 07/09/24 18:15 07/13/24 09:37 100 MG Albuterol 1.25 mg Q6HR NEB 07/10/24 00:00 07/13/24 06:14 1.25 MG Ipratropium [place] 0.5 mg Q6HR NEB 07/10/24 00:00 07/13/24 06:14 0.5 MG Phenylephrine HCl 250 ml @ 30 mls/hr Q8H20M IV 07/09/24 23:30 07/09/24 23:30 30 MLS/HR Bumetanide 25 mg/ Miscellaneous 100 ml @ 4 mls/hr Q24H IV 07/11/24 09:45 07/13/24 08:41 4 MLS/HR Pantoprazole Sodium 40 mg BID IV 07/11/24 22:00 07/13/24 09:37 40 MG Piperacillin Sod/ Tazobactam Sod 100 ml @ 25 mls/hr Q12H IV 07/12/24 02:00 07/13/24 01:02 25 MLS/HR Propofol 100 ml @ 1.902 mls/ hr Q24H IV 07/12/24 15:15 07/13/24 06:32 13.314 MLS/HR Albuterol 2.5 mg Q4HPRN PRN NEB 07/12/24 22:00 07/13/24 10:01 2.5 MG Laboratory Results Laboratory Tests 07/13/24 03:22 Chemistry Test 07/13/24 03:22 Albumin 3.1 g/dL (3.2-4.8) L Calcium Level 7.1 mg/dL (8.7-10.4) L Magnesium Level 2.3 mg/dL (1.6-2.6) Total Protein 5.4 g/dL (5.7-8.2) L LFT Test 07/13/24 03:22 Alanine Aminotransferase (ALT) 63 U/L (7-40) H Alkaline Phosphatase 31 U/L (46-116) L Aspartate Amino Transferase (AST) 83 U/L (13-40) H Total Bilirubin 0.9 mg/dL (0.2-1.0) Urinalysis Test 07/08/24 22:00 Urine Color Colorless (Yellow) Urine Clarity Turbid (Clear) H Urine pH 8.5 (5.0-9.0) Urine Specific [place] 1.006 (1.001-1.035) Urine Protein 2+ (Negative) H Urine Ketones Negative (Negative) Urine Blood 3+ /uL (Negative) H Urine Nitrite Negative (Negative) Urine Bilirubin Negative (Negative) Urine Urobilinogen Normal mg/dL (Negative) Urine Leukocyte Esterase Negative /uL (Negative) Urine RBC 22 /hpf (0 - 4) Urine WBC 26 /hpf (0 - 5) Urine Squamous Epithelial Cells Few /hpf (<5) Urine Bacteria Few /hpf (None Seen) H Urine Glucose 3+ mg/dL (Normal) H Blood Gas Results Test 07/13/24 07:50 Arterial Blood pH 7.432 (7.350-7.450) FiO2 % 30.0 Microbiology Microbiology Date/Time Source Procedure Growth Status 07/10/24 15:20 Nose MRSA Screen - Final Complete 07/09/24 00:07 Blood Blood Culture - Preliminary NO GROWTH AFTER 72 HOURS OF INCUBATION. Resulted 07/08/24 22:00 Voided Urine Urine Culture - Final Complete Labs and/or images reviewed: Labs reviewed by me, Image(s) reviewed by me Assessment/Plan Assessment/Plan Covering Dr. Ludwig / Dr. Liang: #Cardiopulmonary arrest status post CPR with ROSC #NSTEMI type II secondary to above #Suspected severe anoxic brain injury #Paroxysmal atrial fibrillation, on Cardizem and digoxin #Status post mitral valve repair, ?mechanical, on Coumadin #Septic shock due to suspected aspiration pneumonia #Acute hypoxic respiratory failure due to suspected aspiration pneumonia #Acute metabolic/toxic encephalopathy due to septic shock and cardiopulmonary arrest #Elevated LFTs due to septic shock #NAOMI secondary to likely ischemic ATN/vasomotor nephropathy #Hyperkalemia due to NAOMI #GI bleed Reviewed the available imaging studies including chest x-rays and head CT Reviewed EKGs and follow cardiology recommendations; continue telemetry Reviewed the available studies including ABGs and cultures Continue IV pressors as indicated Continue oxygen therapy via mechanical ventilation as per pulmonology Avoid nephrotoxic agents; correct electrolytes as indicated and follow nephrology recommendations Brain MRI ordered; follow neurology recommendations Continue IV antibiotics Holding anticoagulation; follow GI recommendations Continue close monitoring Goals of care discussed for 20 minutes; full code 120 minutes of critical care time This medical document was created using an electronic medical record system with computerized dictation system. Although this document has been carefully reviewed, there might still be some phonetic and typographical errors. These areas are purely typographical due to imperfections of the software programs, and do not reflect any compromise in the patient's medical care. Plan discussed with: Other (Sister; nurse) Date of Service: Jul 13, 2024 Billing Provider: JANETH DARLING MD Common Visit Codes: 62355-AZACTLFO CARE 30-74 MIN (120 minutes of critical care time), 82092-NRONUXDT CARE-EACH +30MIN Secondary Visit Codes: 66312-OHMGBNQM CARE PLAN 30 MINUTES (20 minutes) JANETH DARLING MD Jul 13, 2024 10:40
[2024-07-13] MEDS: IPRATROPIUM BROM 0.5 MG/2.5ML INH SOL NEB SCH (14:04)
[2024-07-13] MEDS: ALBUTEROL SULF 2.5 MG/0.5ML(0.5%) NEB SOLN NEB SCH (14:05)
--- NOTE | 2024-07-13 15:40 | DVHPN2 ---
Progress Note Date Seen: Jul 13, 2024 Has the PT tested + for MRSA If YES, has PT been informed?: No Medical Necessity Reason Pt with a Central, PICC or Fol: Yes The following are medically ne: Central Line Subjective Patient reports: Other (Events noted remains intubated) Objective vital signs Vital Sign Date Time Temp Pulse Resp B/P (MAP) Pulse Ox O2 Delivery O2 Flow Rate FiO2 07/13/24 14:05 123 28 135/83 (100) 100 30 07/13/24 14:00 99.1 210.4 07/13/24 14:00 Mechanical Ventilator+ Total Intake and Output 07/12/24 07/12/24 07/13/24 15:00 23:00 07:00 Intake Total 253.0 ml 240.472 ml 421.806 ml Output Total 325 ml 425 ml Balance 253.0 ml -84.528 ml -3.194 ml medications Current Medications Medications Dose Ordered Sig/Perez Route Start Time Stop Time Status Last Admin Dose Admin Epinephrine HCl 250 ml @ 7.5 mls/hr Q24H IV 07/08/24 19:30 07/09/24 17:34 7.5 MLS/HR Norepinephrine Bitartrate 250 ml @ 3.75 mls/hr Q24H IV 07/08/24 20:00 07/11/24 18:07 11.25 MLS/HR Ondansetron HCl 4 mg Q4HP PRN IV 07/08/24 22:45 Acetaminophen 650 mg Q6HP PRN PO 07/08/24 22:45 07/09/24 22:29 650 MG Nitroglycerin 0.4 mg Q5MINP PRN SL 07/08/24 22:45 Morphine Sulfate 2 mg Q30M PRN IV 07/08/24 22:45 Midazolam HCl 50 ml @ 1 mls/hr Q24H IV 07/09/24 02:30 07/12/24 04:15 2 MLS/HR Acetaminophen 650 mg Q6HP PRN [place] 07/09/24 11:00 07/09/24 15:54 650 MG Fentanyl Citrate 250 ml @ 2.5 mls/hr Q24H IV 07/09/24 12:15 07/13/24 08:46 20 MLS/HR Vasopressin 20 units/Sodium Chloride 100 ml @ 9 mls/hr Q11H7M IV 07/09/24 14:00 07/11/24 15:02 9 MLS/HR Hydrocortisone Sodium Succinate 100 mg Q12HR IV 07/09/24 18:15 07/13/24 09:37 100 MG Phenylephrine HCl 250 ml @ 30 mls/hr Q8H20M IV 07/09/24 23:30 07/09/24 23:30 30 MLS/HR Bumetanide 25 mg/ Miscellaneous 100 ml @ 4 mls/hr Q24H IV 07/11/24 09:45 07/13/24 08:41 4 MLS/HR Pantoprazole Sodium 40 mg BID IV 07/11/24 22:00 07/13/24 09:37 40 MG Piperacillin Sod/ Tazobactam Sod 100 ml @ 25 mls/hr Q12H IV 07/12/24 02:00 07/13/24 13:15 25 MLS/HR Propofol 100 ml @ 1.902 mls/ hr Q24H IV 07/12/24 15:15 07/13/24 13:28 13.314 MLS/HR Albuterol 2.5 mg Q4HPRN PRN NEB 07/12/24 22:00 07/13/24 10:01 2.5 MG Albuterol 1.25 mg Q4HR NEB 07/13/24 14:00 07/13/24 14:05 1.25 MG Ipratropium [place] 0.5 mg Q4HR NEB 07/13/24 14:00 07/13/24 14:04 0.5 MG Examination: MSK:Abnormal, SKIN:Abnormal, NEURO:Abnormal laboratory and microbiology Laboratory Tests 07/13/24 03:22 Test 07/13/24 03:22 Range/Units Serum Glucose 149 H 74-106 mg/dL Microbiology Date/Time Source Procedure Growth Status 07/10/24 15:20 Nose MRSA Screen - Final Complete 07/09/24 00:07 Blood Blood Culture - Preliminary NO GROWTH AFTER 72 HOURS OF INCUBATION. Resulted 07/08/24 22:00 Voided Urine Urine Culture - Final Complete Problem List/Assessment/Plan Problem List/Assessment/Plan NAOMI secondary to likely ischemic ATN Septic shock due to pneumonia Hyperkalemia Pneumonia NSTEMI type 2 likely due to above Cardiopulmonary arrest status post CPR with ROSC Paroxysmal atrial fibrillation Transaminitis ? Anoxic brain injury Upper GI bleeding Recommendations BUN high secondary to steroids, diuretics Bumex drip IV as ordered--urine output slightly better Sodium bicarbonate IV as ordered Poor prognosis Patient has fixed dilated pupils and no reflexes We will not recommend renal replacement therapy given poor prognosis Plan discussed with: Other Dietary Evaluation Review Comments: Patient is not receiving nutrition. If GI is accessible, consider EN nutrition - Jevity 1.2 @ 55 mL/hr as tolerated. If patient remains NPO for more than 7 days, initiate TPN to meet 75% of estimated needs. Advance patient diet when medically feasible to a cardiac diet if renal function is sufficient. Expected Outcomes/Goals: Patient to receive nutrition support within 7 days of NPO status. Patient diet to advance F/u in 2-3 days RADHA LEVIN MD Jul 13, 2024 15:39
--- NOTE | 2024-07-13 23:23 | DVHINCON2 ---
Date of service: Jul 13, 2024 Referring Physician Denis Pierre MD Reason for Consultation Acute hypoxic respiratory failure requiring vent support History of Present Illness Patient is a 63-year-old woman with past medical history of asthma, chronic obstructive pulmonary disease, paroxysmal AFib, IBS, and mitral valve repair who was brought to the hospital on 07/09/24 via EMS after an episode of unresponsiveness. Patient was coded en route per ACLS protocol. Patient was intubated in the ED. Over the course of three days of hospitalization, patient coded three times, ROSC achieved all three times. Patient has been ICU status. All medical information obtained from EMR. Pulmonary consultation is requested for evaluation and management of acute hypoxic respiratory failure requiring vent support. Review of Systems: Unable to be obtained d/t intubated status. Past Medical History: Asthma, chronic obstructive pulmonary disease, paroxysmal atrial fibrillation, IBS, valvular disease. Past Surgical History: Mitral valve repair Medications: Home medications: Furosemide, Entresto, losartan, digoxin, [place], diltiazem, warfarin, gabapentin, escitalopram. Allergies: No known drug allergies. Family History: No family history of premature CAD. No family history of lung disorders. Social History: Nonsmoker. No alcohol or illicit drug use. Family History: Patient reports no known family medical history. Allergies: Coded Allergies: UNOBTAINABLE (Unverified , 07/08/24) Home Meds Reported Medications Montelukast Sodium (MONTELUKAST SODIUM) 10 Mg Tab, 1 TAB PO QPM for 90 Days, #90 07/10/24 Diltiazem Hcl (Diltiazem Hcl) 60 Mg Tab, 120 MG PO DAILY for 90 Days, #90 07/10/24 Escitalopram Oxalate (Lexapro) 5 Mg Tab, 0.5 TAB PO DAILY for 90 Days, #45 07/10/24 Furosemide (Furosemide) 20 Mg Tab, 1 TAB PO DAILY for 90 Days, #90 07/10/24 Losartan Potassium (Losartan Potassium) 50 Mg Tab, 1 TAB PO DAILY for 90 Days, #90 07/10/24 Hydrocodone-Acetaminophen (Hydrocodone Bitartrate/AC 10-325 mg) 1 Tab Tab, 1 TAB PO Q6HR PRN for CHRONIC PAIN SYNDROME for 30 Days, #120 07/10/24 Warfarin Sodium (Warfarin Sodium) 10 Mg Tab, 1 TAB PO DAILY for 90 Days, #90 07/10/24 Ipratropium-Albuterol (Ipratropium [place]/Albut) 1 Manuela Manuela, 3 ML NEB Q6HR PRN for 30 Days, #360 07/10/24 Albuterol Sulfate (Albuterol Sulfate Hfa) 108 Mcg/Act Aer, 2 PUFF IN Q4HR PRN for WHEEZING/SHORTNESS OF BREATH for 30 Days, #17 07/10/24 Digoxin (Digoxin) 250 Mcg Tab, 1 TAB PO DAILY for 90 Days, #90 07/10/24 Gabapentin (Gabapentin) 100 Mg Cap, 1 TAB PO QID for 30 Days, #90 07/10/24 Trazodone Hcl (Trazodone Hcl) 100 Mg Tab, 2 TAB PO QHSP for 30 Days, #60 07/10/24 Alprazolam (Xanax Xr) 1 Mg Tab, 1 TAB PO DAILY for 30 Days, #30 07/10/24 Current Medications Current Medications Medications (Trade) Dose Ordered Sig/Perez Route PRN Reason Start Time Stop Time Status Last Admin Albuterol (Ventolin Medneb) 1.25 mg Q4HR NEB 07/13/24 14:00 07/13/24 22:09 Ipratropium [place] (Atrovent Medneb) 0.5 mg Q4HR NEB 07/13/24 14:00 07/13/24 22:09 Vital Signs Vital Signs Date Time Temp Pulse Resp B/P (MAP) Pulse Ox O2 Delivery O2 Flow Rate FiO2 07/13/24 22:10 122 28 131/84 (100) 100 30 07/13/24 18:45 99.5 211.1 07/13/24 18:00 Mechanical Ventilator+ Physical Exam Gen.: Patient lying in bed in medical ICU. Sedated, intubated on mechanical ventilator. Head: Normocephalic, atraumatic. Eyes: PERRLA. Ears: Normal external anatomy. Throat: Endotracheal tube and orogastric tube in place. Neck: Supple, trachea midline. Chest: Transmitted breath sounds bilaterally. Decreased air entry bilaterally. No wheezing. Bibasilar crackles. Cardiovascular: Positive S1, positive S2. Regular rate and rhythm. Abdomen: Positive bowel sounds in all 4 quadrants. Soft, nontender, nondistended. : Allen in place. Normal external genitalia. Rectal: Deferred. Skin: Warm, dry. Intact. Extremities: 2+ radial pulses bilaterally. No lower extremity edema. Neuro: Sedated. Labs/Diagnostic Data Labs Test 07/13/24 07:50 07/13/24 03:22 07/12/24 00:48 07/11/24 06:36 Range/Units Blood Gas Specimen Type Arterial Blood Gas Sample Site Left radial Blood Gas Patient Temperature 37.0 Arterial Blood Date Drawn [id number] Arterial Blood pH 7.432 7.350-7.450 Arterial Blood Partial Pressure CO2 24.0 L 32.0-45.0 mmHg Arterial Blood Partial Pressure O2 134.6 H 83.0-108.0 mmHg Arterial Blood HCO3 15.6 L 21.0-28.0 mmol/L Arterial Blood Oxygen Saturation 98.5 H 94.0-98.0 % Arterial Blood Base Excess -7.5 L -2.0-3.0 mmol/L Arterial Blood Oxyhemoglobin 97.5 94.0-98.0 % Arterial Blood Carboxyhemoglobin 0.8 0.5-1.5 % Arterial Blood Methemoglobin 0.2 0.0-1.5 % Luiz Test Modified Blood Gas Total Hemoglobin 8.70 L 12.0-16.0 g/dL Blood Gas Set Respiration Rate 28.0 Blood Gas Modality Vent - ac FiO2 % 30.0 Blood Gas Tidal Volume 500.0 Blood Gas PEEP or CPAP 5.0 White Blood Count 19.0 H 4.4-10.8 10^3/uL Red Blood Count 2.77 L 4.0-5.20 10^6/uL Hemoglobin 8.3 L 12.2-16.2 g/dL Hematocrit 25.3 L 36.0-46.0 % Mean Corpuscular Volume 91.5 80.0-100.0 fL Mean Corpuscular Hemoglobin 30.0 28.0-32.0 pg Mean Corpuscular Hemoglobin Concent 32.8 32.0-36.0 g/dL Red Cell Distribution Width 16.0 H 11.8-14.3 % Platelet Count 69 L 140-450 10^3/uL Mean Platelet Volume 10.2 6.9-10.8 fL Neutrophils (%) (Auto) 37.0-80.0 % Lymphocytes (%) (Auto) 10.0-50.0 % Monocytes (%) (Auto) 0.0-12.0 % Basophils (%) (Auto) 0.0-2.0 % Neutrophils # (Auto) 1.6-8.6 10 ^3/uL Lymphocytes # (Auto) 0.4-5.4 10 ^3/uL Monocytes # (Auto) 0-1.3 10 ^3/uL Differential Total Cells Counted 100.0 100 Neutrophils % (Manual) 93 H 37.0-80.0 Band Neutrophils % (Manual) 1 Lymphocytes % (Manual) 2 L 10.0-50.0 Monocytes % (Manual) 4 0-12 Eosinophils % (Manual) 0 0-7 Basophils % (Manual) 0 0.0-2.0 Metamyelocytes % (manual) 0 Myelocytes % (Manual) 0 Promyelocytes % (Manual) 0 Blast Cells % (Manual) 0 Reactive Lymphocytes 0 Platelet Estimate Decreased Sodium Level 142 136-145 mmol/L Potassium Level 4.1 3.5-5.1 mmol/L Chloride Level 104 98-107 mmol/L Carbon Dioxide Level 15 L 20-31 mmol/L Anion Gap 23 H 5-15 Blood Urea Nitrogen 94 #*H 9-23 mg/dL Creatinine 7.01 H 0.550-1.02 mg/dL Glomerular Filtration Rate Calc 6 >90 mL/min BUN/Creatinine Ratio 13.4 10.0-20.0 Serum Glucose 149 H 74-106 mg/dL Calcium Level 7.1 L 8.7-10.4 mg/dL Magnesium Level 2.3 1.6-2.6 mg/dL Total Bilirubin 0.9 0.2-1.0 mg/dL Aspartate Amino Transferase (AST) 83 H 13-40 U/L Alanine Aminotransferase (ALT) 63 H 7-40 U/L Alkaline Phosphatase 31 L 46-116 U/L Total Protein 5.4 L 5.7-8.2 g/dL Albumin 3.1 L 3.2-4.8 g/dL Eosinophils (%) (Auto) 0.0 0.0-7.0 % Eosinophils # (Auto) 0 0-0.8 10 ^3/uL Basophils # (Auto) 0.3 H 0-0.2 10 ^3/uL Nucleated Red Blood Cells 0.1 % Random Vancomycin Level 19.4 H 5-10 ug/mL Blood Gas Critical Value Read Back Yes Blood Gas Notified Whom tanna Dewitt md Blood Gas Notified Time [id number] Blood Gas Notified By Treasury Assistant tom bazzi Test 07/11/24 03:29 07/10/24 14:00 07/10/24 03:55 07/09/24 22:06 Range/Units Schistocytes Few Blood Gas Spontaneous Rate 26 Giant Platelets Few Creatine Kinase 4345 H 34-145 U/L POC Glucose 98 70-106 mg/dl Test 07/09/24 10:30 07/09/24 06:34 07/08/24 22:00 07/08/24 19:30 Range/Units Influenza Type A Antigen Negative Negative Influenza Type B Antigen Negative Negative SARS-CoV-2 Antigen (Rapid) Negative NEGATIVE Hemoglobin A1c < 3.8 <5.7 % A1C Triglycerides Level 49 < 150 mg/dL Cholesterol Level 163 < 200 mg/dL LDL Cholesterol 59 < 100 mg/dL HDL Cholesterol 81 H 40-59 mg/dL Thyroid Stimulating Hormone (TSH) 0.92 0.55-4.78 uIU/mL Urine Color Colorless Yellow Urine Clarity Turbid H Clear Urine pH 8.5 5.0-9.0 Urine Specific [place] 1.006 1.001-1.035 Urine Protein 2+ H Negative Urine Ketones Negative Negative Urine Blood 3+ H Negative /uL Urine Nitrite Negative Negative Urine Bilirubin Negative Negative Urine Urobilinogen Normal Negative mg/dL Urine Leukocyte Esterase Negative Negative /uL Urine RBC 22 0 - 4 /hpf Urine WBC 26 0 - 5 /hpf Urine Squamous Epithelial Cells Few <5 /hpf Urine Bacteria Few H None Seen /hpf Urine Glucose 3+ H Normal mg/dL Lactic Acid Level 6.3 *H 0.4-2.0 mmol/L Troponin I High Sensitivity 1154 *H </=34 ng/L Urine Opiates Screen Neg NEGATIVE Urine Fentanyl Screen Neg NEGATIVE Urine Barbiturates Screen Neg NEGATIVE Urine Phencyclidine Screen Neg NEGATIVE Urine Amphetamines Screen Neg NEGATIVE Urine Benzodiazepines Screen Neg NEGATIVE Urine Cocaine Screen Neg NEGATIVE Urine Cannabinoids Screen Pos NEGATIVE Prothrombin Time 16.0 H 9.3-11.8 sec Prothrombin Time INR 1.56 H 0.9-1.15 Activated Partial Thromboplast Time 26.8 24.5-34.5 SEC Microbiology Date/Time Source Procedure Growth Status 07/10/24 15:20 Nose MRSA Screen - Final Complete 07/09/24 00:07 Blood Blood Culture - Preliminary NO GROWTH AFTER 72 HOURS OF INCUBATION. Resulted 07/08/24 22:00 Voided Urine Urine Culture - Final Complete Assessment Impression: Acute hypoxic respiratory failure On mechanical ventilator NAOMI secondary to hemodynamically mediated, likely ischemic ATN Septic shock due to pneumonia Pneumonia NSTEMI type 2, likely due to above Cardiopulmonary arrest status post CPR with ROSC Paroxysmal atrial fibrillation Elevated liver function tests ? Anoxic brain injury Upper GI bleed Plan: s/p intubation on mechanical ventilator. On AC mode RR 28, VT 500, PEEP 5, FiO2 30%. Titrate FIO2 to keep O2 saturation above 90%. VAP bundle. Daily ABG and CXR while intubated Sedate for ventilator synchrony - On Propofol, Fentanyl. Off Levophed, hemodynamically stable. Continue bronchodilators q.4 hours Continue antibiotics. Completed steroid course. Diurese w/ Bumex drip. Monitor renal function Monitor electrolytes. Supplement as necessary. Monitor ins and outs. GI prophylaxis. DVT prophylaxis. Prognosis: Poor given patient's multiple co-morbidities. Condition: Critical Rest of plan per hospitalist and other consultants. A total of 35 minutes of critical care time was spent reviewing the patient r ecord, examining the patient, making a diagnostic and therapeutic plan, discussing this plan with the medical personnel, following up on diagnostic studies and following the patient for clinical stability excluding any and all procedures. At least 50% of this time was spent in direct, [id number] contact. Thank you Dr. Denis Pierre MD, for allowing me to participate in this p atient's care. Further recommendations will depend on the patient's clinical course. Please do not hesitate to contact me if you have any questions or concerns. This medical document was created using an electronic medical record system with [employer] dictation system. Although these documentations are being carefully reviewed, there may still be some phonetic and typographical changes. The errors are purely typographical, due to imperfection on the software program, and do not reflect any compromise in the patient's medical care. Plan discussed with: Other (MD Gabby Ortiz) MARISOL CRUZ MD Jul 13, 2024 23:23
[2024-07-14] VITALS (106 sets, daily range): BP systolic 84–132; BP diastolic 48–90; PULSE 121–128; RESP 20–48; TEMP 96.8–98; O2SAT 99–100
[2024-07-14 04:06] LABS: Platelet Count (auto) 70 10^3/uL (140-450)
[2024-07-14 04:09] LABS: Hematocrit 23.8 % (36.0-46.0); Mean Corpuscular Hemoglobin 30.1 pg (28.0-32.0); Mean Corpuscular Hgb Conc. 33.6 g/dL (32.0-36.0); Mean Corpuscular Volume 89.7 fL (80.0-100.0); Red Blood Cells 2.66 10^6/uL (4.0-5.20); Red Cell Distribution Width 15.9 % (11.8-14.3); White Blood Cell 14.8 10^3/uL (4.4-10.8)
[2024-07-14 04:13] LABS: Band Neutrophils % (manual) 0; Basophils % (manual) 0 (0.0-2.0); Blast Cells 0; Eosinophils % (manual) 0 (0-7); Metamyelocytes % 0; Myelocytes % 0; Promyelocytes % 0; Reactive Lymphocytes 0
[2024-07-14 04:24] LABS: Anion Gap 21 (5-15); BUN/Creatinine Ratio 13.8 (10.0-20.0); Chloride 105 mmol/L (98-107); Magnesium 2.4 mg/dL (1.6-2.6); Potassium 3.7 mmol/L (3.5-5.1); Sodium 142 mmol/L (136-145)
[2024-07-14 04:25] LABS: Bilirubin, Total 0.9 mg/dL (0.2-1.0)
[2024-07-14 04:38] LABS: Alanine Aminotransferase 55 U/L (7-40); Albumin 3.1 g/dL (3.2-4.8); Alkaline Phosphatase 28 U/L (46-116); Aspartate Aminotransferase 76 U/L (13-40); Blood Urea Nitrogen 109 mg/dL (9-23); Carbon Dioxide 16 mmol/L (20-31); Glucose 137 mg/dL (74-106); Total Protein 5.3 g/dL (5.7-8.2)
[2024-07-14 05:08] LABS: Lymphocytes % (manual) 2 (10.0-50.0); Monocytes % (manual) 5 (0-12); Platelet Estimate Decreased
--- NOTE | 2024-07-14 07:59 | DVH ---
XY CHEST PORTABLE, HISTORY: Intubated. Thank You! COMPARISON: XY CHEST XRAY 1 VIEW on DOS: 07/13/24, XY CHEST PORTABLE on DOS: 07/12/24, XY CHEST XRAY 1 VIEW on DOS: 07/11/24 XY CHEST XRAY 1 VIEW on DOS: 07/13/24, XY CHEST PORTABLE on DOS: 07/12/24, XY CHEST XRAY 1 VIEW on DO S: 07/11/24 TECHNICAL DATA: 1 view of the chest was obtained. FINDINGS: Lines and tubes: ET in the mid thoracic trachea. NG in stomach. Cardiomediastinal silhouette: prominent Pulmonary vasculature: prominent Lung expansion: normal Lung airspace: normal Lung interstitium: prominent Pleura: normal Pneumothorax: no Bones: Unremarkable Other: no IMPRESSION: Tubes positioned, as above. Similar lung aeration with mild interstitial prominence.
[2024-07-14 08:25] LABS: Base Excess -6.6 mmol/L (-2.0-3.0)
--- NOTE | 2024-07-14 09:07 | ECG ---
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
--- NOTE | 2024-07-14 09:07 | ECG ---
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
--- NOTE | 2024-07-14 09:08 | ECG ---
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
--- NOTE | 2024-07-14 09:08 | ECG ---
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
--- NOTE | 2024-07-14 09:08 | ECG ---
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
[2024-07-14] MEDS ORDERED: BUMETANIDE INJECTION 25 MG in GIVE UN-DILUTED 0 ML IV SCH (12:00)
[2024-07-14] MEDS: BUMETANIDE INJECTION 25 MG in GIVE UN-DILUTED 0 ML IV SCH (15:13)
[2024-07-14] MEDS: SODIUM CHLORIDE 0.9% 1,000 ML IV ONE (15:36)
[2024-07-14] MEDS: SODIUM CHLORIDE 0.9% 1,000 ML IV SCH (15:36)
--- NOTE | 2024-07-14 15:41 | DVH ---
EXAM: MRI BRAIN HEAD WO CONTRAST CLINICAL HISTORY: cerebral edema COMPARISON: CT HEAD WITHOUT CONTRAST on DOS: 07/12/24, CT HEAD WITHOUT CONTRAST on DOS: 07/10/24, CT HEAD WITHOUT CONTRAST on DOS: 07/08/24 TECHNIQUE: Multiplanar, multisequence magnetic resonance imaging of the brain was performed after the administra tion of intravenous contrast. FINDINGS: There is normal brain volume and formation. The cerebral edema noted on prior cTs appears less eviden t on MRI. There is T2/FLAIR hyperintensity of the lentiform nucleus hypothalamic region, cerebral peduncle, andrey vargas midbrain , dorsal liberty and dorsal medulla with symmetric focus of diffusion restriction over the dorsal medulla. There are no hemorrhages, masses, mass effect, midline shift, or herniation. There is no intra-axial or extra-axial fluid collections. There is no evidence of hydrocephalus. The basal cisterns are paten t. The vascular flow voids are maintained. The pituitary gland, sella and parasellar regions unremarkable. The cerebellar tonsils are in normal position. The cerebellum is unremarkable. The orbits and globes are unremarkable. Minimal mucoperiosteal thickening of the posterior ethmoid ai r cells. Otherwise, the paranasal sinuses are clear. Bilateral mastoid effusion. No worrisome calvar ial lesions are noted. Secretions are noted over the nasopharynx. IMPRESSION: There is T2/FLAIR hyperintensity involving the lentiform nucleus, hypothalamic region, cerebral pedun uzma, dorsal midbrain , dorsal liberty and dorsal medulla with symmetric bilateral dorsal medulla small f ocus of diffusion restriction. Findings are nonspecific and may be seen with hypoxic ischemic enceph alopathy, metabolic or toxic disorders. Recommend clinical correlation.
--- NOTE | 2024-07-14 16:38 | DVHPN2 ---
Subjective Intubated and sedated Reviewed: Care Plan, H&P, Labs, Medications, Previous Orders, Radiology, Other (Consultations) Changes from previous H/P or p: No Changes Objective Vitals Vital Signs Date Time Temp Pulse Resp B/P (MAP) Pulse Ox O2 Delivery O2 Flow Rate FiO2 07/14/24 15:59 123 28 102/67 (79) 100 30 07/14/24 14:00 Mechanical Ventilator+ 07/14/24 13:30 97.9 208.2 Intake/Output Intake and Output 07/14/24 07:00 Intake Total 1132.850 ml Output Total 850 ml Balance 282.850 ml IV Total 1132.850 ml Output Urine Total 850 ml General Appearance: Other (Intubated and sedated) HEENT: Atraumatic Lungs: Other (Mechanical ventilation breathing sounds) Cardiovascular: Normal S1, Normal S2, Other (Tachycardia) Abdomen: Other (Hypoactive bowel sound) Genitourinary: Other (Allen's catheter) Neuro: Other (Sedated) Psych/Mental Status: Other (Sedated) Medications Current Medications Medications Dose Ordered Sig/Perez Route Start Time Stop Time Status Last Admin Dose Admin Epinephrine HCl 250 ml @ 7.5 mls/hr Q24H IV 07/08/24 19:30 07/09/24 17:34 7.5 MLS/HR Norepinephrine Bitartrate 250 ml @ 3.75 mls/hr Q24H IV 07/08/24 20:00 07/14/24 09:32 3.75 MLS/HR Ondansetron HCl 4 mg Q4HP PRN IV 07/08/24 22:45 Acetaminophen 650 mg Q6HP PRN PO 07/08/24 22:45 07/09/24 22:29 650 MG Nitroglycerin 0.4 mg Q5MINP PRN SL 07/08/24 22:45 Morphine Sulfate 2 mg Q30M PRN IV 07/08/24 22:45 Midazolam HCl 50 ml @ 1 mls/hr Q24H IV 07/09/24 02:30 07/12/24 04:15 2 MLS/HR Acetaminophen 650 mg Q6HP PRN MI 07/09/24 11:00 07/09/24 15:54 650 MG Fentanyl Citrate 250 ml @ 2.5 mls/hr Q24H IV 07/09/24 12:15 07/14/24 07:35 20 MLS/HR Vasopressin 20 units/Sodium Chloride 100 ml @ 9 mls/hr Q11H7M IV 07/09/24 14:00 07/11/24 15:02 9 MLS/HR Phenylephrine HCl 250 ml @ 30 mls/hr Q8H20M IV 07/09/24 23:30 07/09/24 23:30 30 MLS/HR Pantoprazole Sodium 40 mg BID IV 07/11/24 22:00 07/14/24 07:49 40 MG Piperacillin Sod/ Tazobactam Sod 100 ml @ 25 mls/hr Q12H IV 07/12/24 02:00 07/14/24 15:11 25 MLS/HR Propofol 100 ml @ 1.902 mls/ hr Q24H IV 07/12/24 15:15 07/14/24 09:58 13.314 MLS/HR Albuterol 2.5 mg Q4HPRN PRN NEB 07/12/24 22:00 07/13/24 22:09 2.5 MG Albuterol 1.25 mg Q4HR NEB 07/13/24 14:00 07/14/24 14:37 1.25 MG Ipratropium [place] 0.5 mg Q4HR NEB 07/13/24 14:00 07/14/24 14:37 0.5 MG Bumetanide 25 mg/ Miscellaneous 100 ml @ 1 mls/hr Q24H IV 07/14/24 12:15 07/14/24 15:13 1 MLS/HR Sodium Chloride 1,000 ml @ 75 mls/hr [id number] IV 07/14/24 15:30 07/14/24 15:36 75 MLS/HR Laboratory Results Laboratory Tests 07/14/24 03:15 Chemistry Test 07/14/24 03:15 Albumin 3.1 g/dL (3.2-4.8) L Calcium Level 8.0 mg/dL (8.7-10.4) L Magnesium Level 2.4 mg/dL (1.6-2.6) Total Protein 5.3 g/dL (5.7-8.2) L LFT Test 07/14/24 03:15 Alanine Aminotransferase (ALT) 55 U/L (7-40) H Alkaline Phosphatase 28 U/L (46-116) L Aspartate Amino Transferase (AST) 76 U/L (13-40) H Total Bilirubin 0.9 mg/dL (0.2-1.0) Urinalysis Test 07/08/24 22:00 Urine Color Colorless (Yellow) Urine Clarity Turbid (Clear) H Urine pH 8.5 (5.0-9.0) Urine Specific [place]lap 1.006 (1.001-1.035) Urine Protein 2+ (Negative) H Urine Ketones Negative (Negative) Urine Blood 3+ /uL (Negative) H Urine Nitrite Negative (Negative) Urine Bilirubin Negative (Negative) Urine Urobilinogen Normal mg/dL (Negative) Urine Leukocyte Esterase Negative /uL (Negative) Urine RBC 22 /hpf (0 - 4) Urine WBC 26 /hpf (0 - 5) Urine Squamous Epithelial Cells Few /hpf (<5) Urine Bacteria Few /hpf (None Seen) H Urine Glucose 3+ mg/dL (Normal) H Blood Gas Results Test 07/14/24 07:32 Arterial Blood pH 7.450 (7.350-7.450) FiO2 % 30.0 Microbiology Microbiology Date/Time Source Procedure Growth Status 07/10/24 15:20 Nose MRSA Screen - Final Complete 07/09/24 00:07 Blood Blood Culture - Final NO GROWTH AFTER 5 DAYS OF INCUBATION. Complete 07/08/24 22:00 Voided Urine Urine Culture - Final Complete Labs and/or images reviewed: Labs reviewed by me, Image(s) reviewed by me Assessment/Plan Assessment/Plan Covering Dr. Ludwig / Dr. Liang: #Cardiopulmonary arrest status post CPR with ROSC #NSTEMI type II secondary to above #Suspected severe anoxic brain injury #Paroxysmal atrial fibrillation, on Cardizem and digoxin #Status post mitral valve repair, ?mechanical, on Coumadin #Septic shock due to suspected aspiration pneumonia #Acute hypoxic respiratory failure due to suspected aspiration pneumonia #Acute metabolic/toxic encephalopathy due to septic shock and cardiopulmonary arrest #Elevated LFTs due to septic shock #NAOMI secondary to likely ischemic ATN/vasomotor nephropathy #Hyperkalemia due to NAOMI #GI bleed Reviewed the available imaging studies including chest x-rays and head CT Reviewed EKGs and follow cardiology recommendations; continue telemetry Reviewed the available studies including ABGs and cultures Continue IV pressors as indicated Continue oxygen therapy via mechanical ventilation as per pulmonology Avoid nephrotoxic agents; correct electrolytes as indicated and follow nephrology recommendations Reviewed Brain MRI results that were nonspecific; will follow neurology recommendations Continue IV antibiotics Holding anticoagulation; follow GI recommendations Continue close monitoring July 14, 2024 Brain MRI: There is T2/FLAIR hyperintensity involving the lentiform nucleus, hypothalamic region, cerebral peduncle, dorsal midbrain , dorsal liberty and dorsal medulla with symmetric bilateral dorsal medulla small focus of diffusion restriction. Findings are nonspecific and may be seen with hypoxic ischemic encephalopathy, metabolic or toxic disorders. Recommend clinical correlation. 66 minutes of critical care time Late Entry This medical document was created using an electronic medical record system with computerized dictation system. Although this document has been carefully reviewed, there might still be some phonetic and typographical errors. These areas are purely typographical due to imperfections of the software programs, and do not reflect any compromise in the patient's medical care. Plan discussed with: Other (Nurse) My Orders Orders - JANETH DARLING MD Procedure Category Date Status Time Complete Blood Count LAB 07/15/24 Verified 04:00 Comprehensive LAB 07/15/24 Verified Metabolic Panel 04:00 Magnesium LAB 07/15/24 Verified 04:00 1 View Decubitus XY 07/15/24 Logged Chest Xray 07:00 Abg W/ Co-Ox RT 07/15/24 Logged 06:00 Date of Service: Jul 14, 2024 Billing Provider: JANETH DARLING MD Common Visit Codes: 96661-ONTIYJEA CARE 30-74 MIN (66 minutes) JANETH DARLING MD Jul 14, 2024 16:38
--- NOTE | 2024-07-14 16:53 | DVHPN2 ---
Progress Note Date Seen: Jul 14, 2024 Has the PT tested + for MRSA If YES, has PT been informed?: No Medical Necessity Reason Pt with a Central, PICC or Fol: Yes The following are medically ne: Central Line Subjective Patient reports: Other (intubated) Review of Systems: Deferred Objective vital signs Vital Sign Date Time Temp Pulse Resp B/P (MAP) Pulse Ox O2 Delivery O2 Flow Rate FiO2 07/14/24 16:30 123 28 108/70 (83) 100 07/14/24 16:00 30 07/14/24 16:00 98.0 98.0 07/14/24 16:00 Mechanical Ventilator+ Total Intake and Output 07/13/24 07/13/24 07/14/24 15:00 23:00 07:00 Intake Total 435.826 ml 298.512 ml 398.512 ml Output Total 400 ml 450 ml Balance 435.826 ml -101.488 ml -51.488 ml medications Current Medications Medications Dose Ordered Sig/Perez Route Start Time Stop Time Status Last Admin Dose Admin Epinephrine HCl 250 ml @ 7.5 mls/hr Q24H IV 07/08/24 19:30 07/09/24 17:34 7.5 MLS/HR Norepinephrine Bitartrate 250 ml @ 3.75 mls/hr Q24H IV 07/08/24 20:00 07/14/24 09:32 3.75 MLS/HR Ondansetron HCl 4 mg Q4HP PRN IV 07/08/24 22:45 Acetaminophen 650 mg Q6HP PRN PO 07/08/24 22:45 07/09/24 22:29 650 MG Nitroglycerin 0.4 mg Q5MINP PRN SL 07/08/24 22:45 Morphine Sulfate 2 mg Q30M PRN IV 07/08/24 22:45 Midazolam HCl 50 ml @ 1 mls/hr Q24H IV 07/09/24 02:30 07/12/24 04:15 2 MLS/HR Acetaminophen 650 mg Q6HP PRN LA 07/09/24 11:00 07/09/24 15:54 650 MG Fentanyl Citrate 250 ml @ 2.5 mls/hr Q24H IV 07/09/24 12:15 07/14/24 07:35 20 MLS/HR Vasopressin 20 units/Sodium Chloride 100 ml @ 9 mls/hr Q11H7M IV 07/09/24 14:00 07/11/24 15:02 9 MLS/HR Phenylephrine HCl 250 ml @ 30 mls/hr Q8H20M IV 07/09/24 23:30 07/09/24 23:30 30 MLS/HR Pantoprazole Sodium 40 mg BID IV 07/11/24 22:00 07/14/24 07:49 40 MG Piperacillin Sod/ Tazobactam Sod 100 ml @ 25 mls/hr Q12H IV 07/12/24 02:00 07/14/24 15:11 25 MLS/HR Propofol 100 ml @ 1.902 mls/ hr Q24H IV 07/12/24 15:15 07/14/24 16:42 13.314 MLS/HR Albuterol 2.5 mg Q4HPRN PRN NEB 07/12/24 22:00 07/13/24 22:09 2.5 MG Albuterol 1.25 mg Q4HR NEB 07/13/24 14:00 07/14/24 14:37 1.25 MG Ipratropium [place] 0.5 mg Q4HR NEB 07/13/24 14:00 07/14/24 14:37 0.5 MG Bumetanide 25 mg/ Miscellaneous 100 ml @ 1 mls/hr Q24H IV 07/14/24 12:15 07/14/24 15:13 1 MLS/HR Sodium Chloride 1,000 ml @ 75 mls/hr [id number] IV 07/14/24 15:30 07/14/24 15:36 75 MLS/HR Examination: GENERAL:Abnormal, LUNGS:Abnormal, MSK:Abnormal, NEURO:Abnormal laboratory and microbiology Laboratory Tests 07/14/24 03:15 Test 07/14/24 03:15 Range/Units Serum Glucose 137 H 74-106 mg/dL Microbiology Date/Time Source Procedure Growth Status 07/10/24 15:20 Nose MRSA Screen - Final Complete 07/09/24 00:07 Blood Blood Culture - Final NO GROWTH AFTER 5 DAYS OF INCUBATION. Complete 07/08/24 22:00 Voided Urine Urine Culture - Final Complete Problem List/Assessment/Plan Problem List/Assessment/Plan NAOMI secondary to likely ischemic ATN likely ?hypoxic/Anoxic encephalopathy Septic shock due to pneumonia Hyperkalemia Pneumonia NSTEMI type 2 likely due to above Cardiopulmonary arrest status post CPR with ROSC Paroxysmal atrial fibrillation Transaminitis ? Anoxic brain injury Upper GI bleeding Recommendations BUN high secondary to steroids, diuretics Bumex drip IV as ordered--urine output slightly better with bumex drip---today will give trial of ivf to augment urine volumes Poor prognosis Patient has fixed dilated pupils and no reflexes We will not recommend renal replacement therapy at this point given poor prognosis--informed mother MRI brain today Plan discussed with: Other My Orders My Orders Orders - RADHA LEVIN MD Procedure Category Date Status Time Give Un-Diluted PHA 07/14/24 In Process (Gi... W/Bumetanide 12:15 Sodium Chloride 0.9% PHA 07/14/24 In Process 12:15 Sodium Chloride 0.9% PHA 07/14/24 In Process 15:30 Dietary Evaluation Review Comments: Patient is not receiving nutrition. If GI is accessible, consider EN nutrition - Jevity 1.2 @ 55 mL/hr as tolerated. If patient remains NPO for more than 7 days, initiate TPN to meet 75% of estimated needs. Advance patient diet when medically feasible to a cardiac diet if renal function is sufficient. Expected Outcomes/Goals: Patient to receive nutrition support within 7 days of NPO status. Patient diet to advance F/u in 2-3 days RADHA LEVIN MD Jul 14, 2024 16:53
--- NOTE | 2024-07-14 23:10 | DVHPN2 ---
Progress Note - Dictate Date Seen: Jul 14, 2024 Has the PT tested + for MRSA If YES, has PT been informed?: No Medical Necessity Reason Pt with a Central, PICC or Fol: Yes The following are medically ne: Central Line, Jones Catheter Reason for jones catheter: Strict I&O Subjective Patient seen and examined at bedside. Sedated, intubated on mechanical ventilator. Overnight events reviewed. vital signs Vital Sign Date Time Temp Pulse Resp B/P (MAP) Pulse Ox O2 Delivery O2 Flow Rate FiO2 07/14/24 22:45 123 28 100/70 (80) 100 07/14/24 22:07 30 07/14/24 22:00 Mechanical Ventilator+ 07/14/24 20:00 98.0 98.0 Total Intake and Output 07/13/24 07/13/24 07/14/24 15:00 23:00 07:00 Intake Total 435.826 ml 298.512 ml 398.512 ml Output Total 400 ml 450 ml Balance 435.826 ml -101.488 ml -51.488 ml medications Current Medications Medications Dose Ordered Sig/Perez Route Start Time Stop Time Status Last Admin Dose Admin Epinephrine HCl 250 ml @ 7.5 mls/hr Q24H IV 07/08/24 19:30 07/09/24 17:34 7.5 MLS/HR Norepinephrine Bitartrate 250 ml @ 3.75 mls/hr Q24H IV 07/08/24 20:00 07/14/24 09:32 3.75 MLS/HR Ondansetron HCl 4 mg Q4HP PRN IV 07/08/24 22:45 Acetaminophen 650 mg Q6HP PRN PO 07/08/24 22:45 07/09/24 22:29 650 MG Nitroglycerin 0.4 mg Q5MINP PRN SL 07/08/24 22:45 Morphine Sulfate 2 mg Q30M PRN IV 07/08/24 22:45 Midazolam HCl 50 ml @ 1 mls/hr Q24H IV 07/09/24 02:30 07/12/24 04:15 2 MLS/HR Acetaminophen 650 mg Q6HP PRN MT 07/09/24 11:00 07/09/24 15:54 650 MG Fentanyl Citrate 250 ml @ 2.5 mls/hr Q24H IV 07/09/24 12:15 07/14/24 17:38 20 MLS/HR Vasopressin 20 units/Sodium Chloride 100 ml @ 9 mls/hr Q11H7M IV 07/09/24 14:00 07/11/24 15:02 9 MLS/HR Phenylephrine HCl 250 ml @ 30 mls/hr Q8H20M IV 07/09/24 23:30 07/09/24 23:30 30 MLS/HR Pantoprazole Sodium 40 mg BID IV 07/11/24 22:00 07/14/24 21:47 40 MG Piperacillin Sod/ Tazobactam Sod 100 ml @ 25 mls/hr Q12H IV 07/12/24 02:00 07/14/24 15:11 25 MLS/HR Propofol 100 ml @ 1.902 mls/ hr Q24H IV 07/12/24 15:15 07/14/24 16:42 13.314 MLS/HR Albuterol 2.5 mg Q4HPRN PRN NEB 07/12/24 22:00 07/13/24 22:09 2.5 MG Albuterol 1.25 mg Q4HR NEB 07/13/24 14:00 07/14/24 22:06 1.25 MG Ipratropium [place] 0.5 mg Q4HR NEB 07/13/24 14:00 07/14/24 22:06 0.5 MG Bumetanide 25 mg/ Miscellaneous 100 ml @ 1 mls/hr Q24H IV 07/14/24 12:15 07/14/24 15:13 1 MLS/HR Sodium Chloride 1,000 ml @ 75 mls/hr [id number] IV 07/14/24 15:30 07/14/24 15:36 75 MLS/HR objective Gen.: Patient lying in bed in medical ICU. Sedated, intubated on mechanical ventilator. Head: Normocephalic, atraumatic. Eyes: PERRLA. Ears: Normal external anatomy. Throat: Endotracheal tube and orogastric tube in place. Neck: Supple, trachea midline. Chest: Transmitted breath sounds bilaterally. Decreased air entry bilaterally. No wheezing. Bibasilar crackles. Cardiovascular: Positive S1, positive S2. Regular rate and rhythm. Abdomen: Positive bowel sounds in all 4 quadrants. Soft, nontender, nondistended. : Jones in place. Normal external genitalia. Rectal: Deferred. Skin: Warm, dry. Intact. Extremities: 2+ radial pulses bilaterally. No lower extremity edema. Neuro: Sedated. laboratory and microbiology Laboratory Tests 07/14/24 03:15 Test 07/14/24 03:15 Range/Units Serum Glucose 137 H 74-106 mg/dL Assessment/Plan Impression: Acute hypoxic respiratory failure On mechanical ventilator NAOMI secondary to hemodynamically mediated, likely ischemic ATN Septic shock due to pneumonia Pneumonia NSTEMI type 2, likely due to above Cardiopulmonary arrest status post CPR with ROSC Paroxysmal atrial fibrillation Elevated liver function tests ? Anoxic brain injury Upper GI bleed Events: Remains on vent support On AC mode RR 28, VT 500, PEEP 5, FiO2 30%. Sedated on Propofol, Fentanyl On pressors for hemodynamic support Levophed 2 mcg/min Titrate to keep mean arterial pressure greater than 65 mmHg. Continue antibiotics Bumex drip for diuresis Monitor renal function Labs and imaging reviewed. Rest of plan as noted below. Plan: s/p intubation on mechanical ventilator. On AC mode RR 28, VT 500, PEEP 5, FiO2 30%. Titrate FIO2 to keep O2 saturation above 90%. VAP bundle. Daily ABG and CXR while intubated Sedate for ventilator synchrony Off Levophed, hemodynamically stable. Continue bronchodilators q.4 hours Continue antibiotics. Completed steroid course. Diurese w/ Bumex drip. Monitor renal function Monitor electrolytes. Supplement as necessary. Monitor ins and outs. GI prophylaxis. DVT prophylaxis. Prognosis: Poor given patient's multiple co-morbidities. Condition: Critical Rest of plan per hospitalist and other consultants. A total of 35 minutes of critical care time was spent reviewing the patient record, examining the patient, making a diagnostic and therapeutic plan, discussing this plan with the medical personnel, following up on diagnostic studies and following the patient for clinical stability excluding any and all procedures. At least 50% of this time was spent in direct, [id number] contact. Thank you Dr. Denis Pierre MD, for allowing me to participate in this patient's care. Further recommendations will depend on the patient's clinical course. Please do not hesitate to contact me if you have any questions or concerns. This medical document was created using an electronic medical record system with ownCloudation system. Although these documentations are being carefully reviewed, there may still be some phonetic and typographical changes. The errors are purely typographical, due to imperfection on the software program, and do not reflect any compromise in the patient's medical care. Dietary Evaluation Review Comments: Patient is not receiving nutrition. If GI is accessible, consider EN nutrition - Jevity 1.2 @ 55 mL/hr as tolerated. If patient remains NPO for more than 7 days, initiate TPN to meet 75% of estimated needs. Advance patient diet when medically feasible to a cardiac diet if renal function is sufficient. Expected Outcomes/Goals: Patient to receive nutrition support within 7 days of NPO status. Patient diet to advance F/u in 2-3 days Plan discussed with: Other (MARIO Argueta) Critical Care Time(min): 35 MARISOL CRUZ MD Jul 14, 2024 23:10
[2024-07-15] VITALS (110 sets, daily range): BP systolic 83–154; BP diastolic 45–91; PULSE 122–135; RESP 16–34; TEMP 97.2–99.7; O2SAT 99–100
[2024-07-15 04:10] LABS: Anion Gap 21 (5-15); BUN/Creatinine Ratio 13.7 (10.0-20.0); Glucose 87 mg/dL (74-106); Magnesium 2.3 mg/dL (1.6-2.6); Potassium 3.6 mmol/L (3.5-5.1); Sodium 144 mmol/L (136-145)
[2024-07-15 04:11] LABS: Bilirubin, Total 0.8 mg/dL (0.2-1.0)
[2024-07-15 04:32] LABS: Alanine Aminotransferase 45 U/L (7-40); Albumin 2.8 g/dL (3.2-4.8); Alkaline Phosphatase 31 U/L (46-116); Aspartate Aminotransferase 68 U/L (13-40); Blood Urea Nitrogen 112 mg/dL (9-23); Calcium 8.3 mg/dL (8.7-10.4); Carbon Dioxide 16 mmol/L (20-31); Chloride 107 mmol/L (98-107); Total Protein 4.9 g/dL (5.7-8.2)
[2024-07-15 04:35] LABS: Basophils # (auto) 0 10 ^3/uL (0-0.2); Basophils % (auto) 0.1 % (0.0-2.0); Eosinophils # (auto) 0.2 10 ^3/uL (0-0.8); Eosinophils % (auto) 1.8 % (0.0-7.0); Hematocrit 22.6 % (36.0-46.0); Hemoglobin 7.5 g/dL (12.2-16.2); Lymphocytes # (auto) 0.7 10 ^3/uL (0.4-5.4); Lymphocytes % (auto) 5.8 % (10.0-50.0); Mean Corpuscular Hemoglobin 29.8 pg (28.0-32.0); Mean Corpuscular Hgb Conc. 33.4 g/dL (32.0-36.0); Mean Corpuscular Volume 89.3 fL (80.0-100.0); Monocytes # (auto) 0.7 10 ^3/uL (0-1.3); Monocytes % (auto) 5.6 % (0.0-12.0); Neutrophils % (auto) 86.7 % (37.0-80.0); Nucleated Red Blood Cells % 0.1 %; Platelet Count (auto) 80 10^3/uL (140-450); Red Blood Cells 2.53 10^6/uL (4.0-5.20); Red Cell Distribution Width 16.5 % (11.8-14.3); White Blood Cell 11.5 10^3/uL (4.4-10.8)
--- NOTE | 2024-07-15 04:35 | DVH ---
CHEST RADIOGRAPH Indication: Intubated. Thank You! Technique: Single frontal view of the chest was obtained COMPARISON: XY CHEST PORTABLE on DOS: 07/14/24, XY CHEST XRAY 1 VIEW on DOS: 07/13/24, XY CHEST PORTAB LE on DOS: 07/12/24 FINDINGS: Lines and Tubes: Endotracheal tube, enteric catheter in satisfactory position. Median sternotomy. Lungs: Multifocal airspace disease. Pleura: No effusion. No pneumothorax. Cardiomediastinal contours: Unremarkable Bones: Unremarkable IMPRESSION: Lines and tubes in satisfactory position. No significant interval change.
[2024-07-15 09:46] LABS: Base Excess -6.2 mmol/L (-2.0-3.0)
[2024-07-15] MEDS: SODIUM BICARB 8.4% 50Meq/50ml SYR Vial IV ONE (13:03)
--- NOTE | 2024-07-15 13:04 | DVHPN2 ---
Progress Note Date Seen: Jul 15, 2024 Resident Creating Document: YO CEJA RESIDENT Has the PT tested + for MRSA If YES, has PT been informed?: No Medical Necessity Reason Pt with a Central, PICC or Fol: Yes The following are medically ne: Central Line, Jones Catheter Reason for jones catheter: Strict I&O Subjective Review of Systems Patient is 63-year-old female with past medical history of asthma, Chronic obstructive pulmonary disease, paroxysmal AFib, IBS, surgical history of mitral valve repair who brought to the hospital via EMS after she was found to have loss of consciousness. At the initial evaluation EMS, patient found to ER systolic, CPR was done for 20 minutes and patient was intubated in emergency department. Over the course of last three days of hospitalization, patient coded three time, ROSC achieved all three time. Patient has been ICU status, nephrology consultation was done for acute kidney injury. All medical information obtained from EMR. Home medication: Furosemide, Entresto, losartan, digoxin, [place], diltiazem, warfarin, gabapentin, escitalopram. Past Medical History Asthma, Chronic obstructive pulmonary disease, paroxysmal atrial fibrillation, IBS, valvular disease. Patient seen and examined in ICU. Currently on mechanical ventilator and on vasopressors. Patient continued to have no pupillary reflex. Objective vital signs Vital Sign Date Time Temp Pulse Resp B/P (MAP) Pulse Ox O2 Delivery O2 Flow Rate FiO2 07/15/24 13:02 124/80 07/15/24 12:30 99.1 126 22 100 210.4 07/15/24 12:00 Mechanical Ventilator+ 30 30 07/14/24 22:07 0.0 Total Intake and Output 07/14/24 07/14/24 07/15/24 14:59 22:59 06:59 Intake Total 307.262 ml 1437.012 ml 1017.512 ml Output Total 440 ml 405 ml Balance 307.262 ml 997.012 ml 612.512 ml medications Current Medications Medications Dose Ordered Sig/Perez Route Start Time Stop Time Status Last Admin Dose Admin Epinephrine HCl 250 ml @ 7.5 mls/hr Q24H IV 07/08/24 19:30 07/09/24 17:34 7.5 MLS/HR Norepinephrine Bitartrate 250 ml @ 3.75 mls/hr Q24H IV 07/08/24 20:00 07/14/24 09:32 3.75 MLS/HR Ondansetron HCl 4 mg Q4HP PRN IV 07/08/24 22:45 Acetaminophen 650 mg Q6HP PRN PO 07/08/24 22:45 07/09/24 22:29 650 MG Nitroglycerin 0.4 mg Q5MINP PRN SL 07/08/24 22:45 Morphine Sulfate 2 mg Q30M PRN IV 07/08/24 22:45 Midazolam HCl 50 ml @ 1 mls/hr Q24H IV 07/09/24 02:30 07/12/24 04:15 2 MLS/HR Acetaminophen [address] 07/09/24 11:00 07/09/24 15:54 650 MG Fentanyl Citrate 250 ml @ 2.5 mls/hr Q24H IV 07/09/24 12:15 07/15/24 04:28 25 MLS/HR Vasopressin 20 units/Sodium Chloride 100 ml @ 9 mls/hr Q11H7M IV 07/09/24 14:00 07/11/24 15:02 9 MLS/HR Phenylephrine HCl 250 ml @ 30 mls/hr Q8H20M IV 07/09/24 23:30 07/09/24 23:30 30 MLS/HR Pantoprazole Sodium 40 mg BID IV 07/11/24 22:00 07/15/24 10:38 40 MG Piperacillin Sod/ Tazobactam Sod 100 ml @ 25 mls/hr Q12H IV 07/12/24 02:00 07/15/24 02:39 25 MLS/HR Propofol 100 ml @ 1.902 mls/ hr Q24H IV 07/12/24 15:15 07/15/24 13:02 13.314 MLS/HR Albuterol 2.5 mg Q4HPRN PRN NEB 07/12/24 22:00 07/13/24 22:09 2.5 MG Albuterol 1.25 mg Q4HR NEB 07/13/24 14:00 07/15/24 09:22 1.25 MG Ipratropium [place] 0.5 mg Q4HR NEB 07/13/24 14:00 07/15/24 09:22 0.5 MG Bumetanide 25 mg/ Miscellaneous 100 ml @ 1 mls/hr Q24H IV 07/14/24 12:15 07/14/24 15:13 1 MLS/HR Examination General Appearance: Sedated, intubated on ventilator. Head Exam: Normal inspection Neck Exam: Normal inspection. Non-tender. Normal alignment Pulmonary/Respiratory: Chest non-tender. Clear bilateral breath sounds Cardiovascular/Chest: Regular rate and rhythm. No murmurs. No JVD. Peripheral Pulses: 2+ Radial (R). 2+ Radial (L). 2+ Pedal (R). 2+ Pedal (L) Abdominal Exam: Normal bowel sounds. Soft. Nontender. No hepatospenomegaly. No masses Ankle Exam: Negative ankle edema Lower extremities: Negative lower extremity edema Neuro/Mental Status: Fixed, dilated pupils, no pupillary reflex. laboratory and microbiology Laboratory Tests 07/15/24 03:00 Test 07/15/24 03:00 Range/Units Serum Glucose 87 74-106 mg/dL Microbiology Date/Time Source Procedure Growth Status 07/10/24 15:20 Nose MRSA Screen - Final Complete 07/09/24 00:07 Blood Blood Culture - Final NO GROWTH AFTER 5 DAYS OF INCUBATION. Complete 07/08/24 22:00 Voided Urine Urine Culture - Final Complete Problem List/Assessment/Plan Problem List/Assessment/Plan NAOMI secondary to hemodynamically mediated likely ischemic ATN Septic shock due to pneumonia Pneumonia NSTEMI type 2 likely due to above Cardiopulmonary arrest status post CPR with ROSC Paroxysmal atrial fibrillation Elevated liver function ? Anoxic brain injury Upper GI bleeding Plan/recommendation Dr. Turcios -continue Bumex drip, hold IV fluids. -currently on vasopressor for hemodynamic support -currently on antibiotics Zosyn, vancomycin, monitor vancomycin serum level. -strict I&O -continue to monitor kidney function, electrolytes -possible anoxic brain injury: Brain MRI result showed possible hypoxic encephalopathy. -given possible anoxic brain injury, poor prognosis, dialysis is not recommended at this point. Plan discussed with: Daughter, Other (RN) Dietary Evaluation Review Comments: Patient is not receiving nutrition. If GI is accessible, consider EN nutrition - Jevity 1.2 @ 55 mL/hr as tolerated. If patient remains NPO for more than 7 days, initiate TPN to meet 75% of estimated needs. Advance patient diet when medically feasible to a cardiac diet if renal function is sufficient. Expected Outcomes/Goals: Patient to receive nutrition support within 7 days of NPO status. Patient diet to advance F/u in 2-3 days YO CEJA RESIDENT Jul 15, 2024 13:04
--- NOTE | 2024-07-15 16:13 | DVHINCON2 ---
Date of service: Jul 15, [address] Foster Reason for Consultation Status post CPR History of Present Illness Ms. Wren is a 63 years old female with a history of sthma, COPD, paroxysmal atrial fibrillation, allergy to animal dander, smoking, she was brought to the [facility] on 07/08/2024 with a chief company of altered mental status. At that time, she was intubated, sedated, the history is obtained from her daughter, I have also reviewed the chart and talked to her nurse While she was waiting for her appointment at a [facility], she fell down and became nonresponsive, she was said to be pulseless, ambulance came in about 10 minutes and she was brought to the [facility], where she was coded twice, 07/08/241745 - 07/08/241752 (was intubated), 07/08/20241752 - 07/08/20241755, and was resuscitated, intubated, but since then, the patient was be nonresponsive Her voiced understanding her severe brain edema/injury, and possibly poor prognosis for recovery, but she is seeking for a higher level of care Arrived: 07/08/20241742 Code: 07/08/241745 - 07/08/241752 (was intubated), 07/08/20241752 - 07/08/20241755 UDS, 07/12/2024: Cannabinoids Urinalysis, 07/08/2024: WBC: 26, urine leukocyte esterase: Negative ABG, 07/08/2024: acidosis, WBC/HB/PLT/MCV, 07/15/2024: 11.5/75/80/89.3 PT/INR/PTT, 07/08/2024: 16/1.56/26.8 BUN/CR, 07/15/2024: 112/8.19 TBI/AST/ALT/AP, 07/15/2024: 0.8/68/45/31 CT head, 07/08/2024: 1. No acute intracranial hemorrhage. 2. No CT findings of territorial ischemia CT head, 07/12/2024: 1. Symmetric hypodensities in the lentiform nuclei, similar to prior study. Hypodensities in the bilateral thalami new since prior CT scan of the head from 07/10/2024. Additionally, there is subtle loss of mendoza-white matter differentiation since the prior CT from 07/08/2024 for which intracerebral edema is not excluded. Correlation for toxic metabolic or ischemic insult or other etiology is recommended. MRI of the brain without contrast is recommended for further evaluation. 2. No evidence of acute intracranial hemorrhag MRI head, 07/14/2024: There is T2/FLAIR hyperintensity involving the lentiform nucleus, hypothalamic region, cerebral peduncle, dorsal midbrain , dorsal liberty and dorsal medulla with symmetric bilateral dorsal medulla small focus of diffusion restriction. Findings are nonspecific and may be seen with hypoxic ischemic encephalopathy, metabolic or toxic disorders. Recommend clinical correlation Past Medical History Asthma, COPD, paroxysmal atrial fibrillation, allergy to animal dander, smoking Past Surgical History Mitral valve repair, hysterectomy Family History: Patient reports no known family medical history. Family History Cancer Social History She was a tobacco smoker, no history of alcohol or recreational substance abuse Allergies: Coded Allergies: UNOBTAINABLE (Unverified , 07/08/24) Home Meds Reported Medications Montelukast Sodium (MONTELUKAST SODIUM) 10 Mg Tab, 1 TAB PO QPM for 90 Days, #90 07/10/24 Diltiazem Hcl (Diltiazem Hcl) 60 Mg Tab, 120 MG PO DAILY for 90 Days, #90 07/10/24 Escitalopram Oxalate (Lexapro) 5 Mg Tab, 0.5 TAB PO DAILY for 90 Days, #45 07/10/24 Furosemide (Furosemide) 20 Mg Tab, 1 TAB PO DAILY for 90 Days, #90 07/10/24 Losartan Potassium (Losartan Potassium) 50 Mg Tab, 1 TAB PO DAILY for 90 Days, #90 07/10/24 Hydrocodone-Acetaminophen (Hydrocodone Bitartrate/AC 10-325 mg) 1 Tab Tab, 1 TAB PO Q6HR PRN for CHRONIC PAIN SYNDROME for 30 Days, #120 07/10/24 Warfarin Sodium (Warfarin Sodium) 10 Mg Tab, 1 TAB PO DAILY for 90 Days, #90 07/10/24 Ipratropium-Albuterol (Ipratropium [place]/Albut) 1 Manuela Manuela, 3 ML NEB Q6HR PRN for 30 Days, #360 07/10/24 Albuterol Sulfate (Albuterol Sulfate Hfa) 108 Mcg/Act Aer, 2 PUFF IN Q4HR PRN for WHEEZING/SHORTNESS OF BREATH for 30 Days, #17 07/10/24 Digoxin (Digoxin) 250 Mcg Tab, 1 TAB PO DAILY for 90 Days, #90 07/10/24 Gabapentin (Gabapentin) 100 Mg Cap, 1 TAB PO QID for 30 Days, #90 07/10/24 Trazodone Hcl (Trazodone Hcl) 100 Mg Tab, 2 TAB PO QHSP for 30 Days, #60 07/10/24 Alprazolam (Xanax Xr) 1 Mg Tab, 1 TAB PO DAILY for 30 Days, #30 07/10/24 Current Medications Current Medications Medications (Trade) Dose Ordered Sig/Perez Route PRN Reason Start Time Stop Time Status Last Admin Metoprolol Tartrate (Lopressor Tablet) 12.5 mg BID PO 07/15/24 22:00 Review of Systems As above, the other systems are negative Vital Signs Vital Signs Date Time Temp Pulse Resp B/P (MAP) Pulse Ox O2 Delivery O2 Flow Rate FiO2 07/15/24 15:36 130 24 91/52 (65) 100 30 07/15/24 14:30 99.7 211.5 07/15/24 14:00 Mechanical Ventilator+ 07/14/24 22:07 0.0 Physical Exam The patient is well-nourished and well-developed with no distress. The patient is intubated HEENT: Normocephalic, neck supple, no carotid bruits Lungs: Clear to auscultation Cardiovascular: Regular rate and region, S1, S2, no murmurs Abdomen: Soft, nontender, normal bowel sounds MENTAL STATUS: Not responsive to the surroundings, CRANIAL NERVES: Pupils are equal, round, 6mm and reactive. There are corneal reflexes and doll's eyes phenomenon. No signs of facial weakness. There are gagging or coughing reflexes SENSATION: No responses to pain stimuli. MOTOR: Normal tone in the upper and lower extremity. Normal muscle bulk. No fasciculations. No spontaneous movement. REFLEXES: Deep tendon reflexes are symmetrical. No pathological reflexes. CEREBELLAR/COORDINATION: Deferred GAIT/STATION: deferred. Labs/Diagnostic Data Labs Test 07/15/24 09:41 07/15/24 03:00 07/14/24 03:15 07/12/24 00:48 Range/Units Blood Gas Specimen Type Arterial Blood Gas Sample Site Right radial Blood Gas Patient Temperature 37.0 Arterial Blood Date Drawn Arterial Blood pH 7.457 H 7.350-7.450 Arterial Blood Partial Pressure CO2 24.1 L 32.0-45.0 mmHg Arterial Blood Partial Pressure O2 142.6 H 83.0-108.0 mmHg Arterial Blood HCO3 16.6 L 21.0-28.0 mmol/L Arterial Blood Oxygen Saturation 98.1 H 94.0-98.0 % Arterial Blood Base Excess -6.2 L -2.0-3.0 mmol/L Arterial Blood Oxyhemoglobin 97.2 94.0-98.0 % Arterial Blood Carboxyhemoglobin 0.3 L 0.5-1.5 % Arterial Blood Methemoglobin 0.6 0.0-1.5 % Luiz Test Modified Blood Gas Total Hemoglobin 8.60 L 12.0-16.0 g/dL Blood Gas Set Respiration Rate 28.0 Blood Gas Modality Vent - ac FiO2 % 30.0 Blood Gas Tidal Volume 500.0 Blood Gas PEEP or CPAP 5.0 White Blood Count 11.5 H 4.4-10.8 10^3/uL Red Blood Count 2.53 L 4.0-5.20 10^6/uL Hemoglobin 7.5 L 12.2-16.2 g/dL Hematocrit 22.6 L 36.0-46.0 % Mean Corpuscular Volume 89.3 80.0-100.0 fL Mean Corpuscular Hemoglobin 29.8 28.0-32.0 pg Mean Corpuscular Hemoglobin Concent 33.4 32.0-36.0 g/dL Red Cell Distribution Width 16.5 H 11.8-14.3 % Platelet Count 80 L 140-450 10^3/uL Mean Platelet Volume 10.1 6.9-10.8 fL Neutrophils (%) (Auto) 86.7 H 37.0-80.0 % Lymphocytes (%) (Auto) 5.8 L 10.0-50.0 % Monocytes (%) (Auto) 5.6 0.0-12.0 % Eosinophils (%) (Auto) 1.8 0.0-7.0 % Basophils (%) (Auto) 0.1 0.0-2.0 % Neutrophils # (Auto) 10.0 H 1.6-8.6 10 ^3/uL Lymphocytes # (Auto) 0.7 0.4-5.4 10 ^3/uL Monocytes # (Auto) 0.7 0-1.3 10 ^3/uL Eosinophils # (Auto) 0.2 0-0.8 10 ^3/uL Basophils # (Auto) 0 0-0.2 10 ^3/uL Nucleated Red Blood Cells 0.1 % Sodium Level 144 136-145 mmol/L Potassium Level 3.6 3.5-5.1 mmol/L Chloride Level 107 98-107 mmol/L Carbon Dioxide Level 16 L 20-31 mmol/L Anion Gap 21 H 5-15 Blood Urea Nitrogen 112 *H 9-23 mg/dL Creatinine 8.19 H 0.550-1.02 mg/dL Glomerular Filtration Rate Calc 5 >90 mL/min BUN/Creatinine Ratio 13.7 10.0-20.0 Serum Glucose 87 74-106 mg/dL Calcium Level 8.3 L 8.7-10.4 mg/dL Magnesium Level 2.3 1.6-2.6 mg/dL Total Bilirubin 0.8 0.2-1.0 mg/dL Aspartate Amino Transferase (AST) 68 H 13-40 U/L Alanine Aminotransferase (ALT) 45 H 7-40 U/L Alkaline Phosphatase 31 L 46-116 U/L Total Protein 4.9 L 5.7-8.2 g/dL Albumin 2.8 L 3.2-4.8 g/dL Differential Total Cells Counted 100.0 100 Neutrophils % (Manual) 93 H 37.0-80.0 Band Neutrophils % (Manual) 0 Lymphocytes % (Manual) 2 L 10.0-50.0 Monocytes % (Manual) 5 0-12 Eosinophils % (Manual) 0 0-7 Basophils % (Manual) 0 0.0-2.0 Metamyelocytes % (manual) 0 Myelocytes % (Manual) 0 Promyelocytes % (Manual) 0 Blast Cells % (Manual) 0 Reactive Lymphocytes 0 Platelet Estimate Decreased Random Vancomycin Level 19.4 H 5-10 ug/mL Test 07/11/24 06:36 07/11/24 03:29 07/10/24 14:00 07/10/24 03:55 Range/Units Blood Gas Critical Value Read Back Yes Blood Gas Notified Whom tanna Dewitt md Blood Gas Notified Time [id number] Blood Gas Notified By Railway Equipment Operator tom bazzi Schistocytes Few Blood Gas Spontaneous Rate 26 Giant Platelets Few Creatine Kinase 4345 H 34-145 U/L Test 07/09/24 22:06 07/09/24 10:30 07/09/24 06:34 07/08/24 22:00 Range/Units POC Glucose 98 70-106 mg/dl Influenza Type A Antigen Negative Negative Influenza Type B Antigen Negative Negative SARS-CoV-2 Antigen (Rapid) Negative NEGATIVE Hemoglobin A1c < 3.8 <5.7 % A1C Triglycerides Level 49 < 150 mg/dL Cholesterol Level 163 < 200 mg/dL LDL Cholesterol 59 < 100 mg/dL HDL Cholesterol 81 H 40-59 mg/dL Thyroid Stimulating Hormone (TSH) 0.92 0.55-4.78 uIU/mL Urine Color Colorless Yellow Urine Clarity Turbid H Clear Urine pH 8.5 5.0-9.0 Urine Specific [place] 1.006 1.001-1.035 Urine Protein 2+ H Negative Urine Ketones Negative Negative Urine Blood 3+ H Negative /uL Urine Nitrite Negative Negative Urine Bilirubin Negative Negative Urine Urobilinogen Normal Negative mg/dL Urine Leukocyte Esterase Negative Negative /uL Urine RBC 22 0 - 4 /hpf Urine WBC 26 0 - 5 /hpf Urine Squamous Epithelial Cells Few <5 /hpf Urine Bacteria Few H None Seen /hpf Urine Glucose 3+ H Normal mg/dL Lactic Acid Level 6.3 *H 0.4-2.0 mmol/L Troponin I High Sensitivity 1154 *H </=34 ng/L Urine Opiates Screen Neg NEGATIVE Urine Fentanyl Screen Neg NEGATIVE Urine Barbiturates Screen Neg NEGATIVE Urine Phencyclidine Screen Neg NEGATIVE Urine Amphetamines Screen Neg NEGATIVE Urine Benzodiazepines Screen Neg NEGATIVE Urine Cocaine Screen Neg NEGATIVE Urine Cannabinoids Screen Pos NEGATIVE Test 07/08/24 19:30 Range/Units Prothrombin Time 16.0 H 9.3-11.8 sec Prothrombin Time INR 1.56 H 0.9-1.15 Activated Partial Thromboplast Time 26.8 24.5-34.5 SEC Microbiology Date/Time Source Procedure Growth Status 07/10/24 15:20 Nose MRSA Screen - Final Complete 07/09/24 00:07 Blood Blood Culture - Final NO GROWTH AFTER 5 DAYS OF INCUBATION. Complete 07/08/24 22:00 Voided Urine Urine Culture - Final Complete Assessment Coma/diffuse brain edema Hypoxic encephalopathy Metabolic encephalopathy Cardiopulmonary arrest Acute respiratory failure Plan/Recommendation Monitoring Supportive treatment ICU care EEG Stabilize vitals/pressor drip Respiratory support/vent management Oxygen More recommendation per clinical course The patient is like to have a poor prognosis for meaningful recovery, higher level care transfer is unlike to change progresses Critical care time spent is 45-50 minutes This medical document was created using an electronic medical record system with Science dictation system. Although this document has been carefully reviewed, there may still be some phonetic and typographical errors. These areas are purely typographical due to imperfections of the software programs, and do not reflect any compromise in the patient's medical care. Plan discussed with: SUMAYA Kyle MD Jul 15, 2024 16:13
[2024-07-15] MEDS: METOPROLOL TARTRATE 25 MG TAB PO SCH (21:35)
--- NOTE | 2024-07-15 21:45 | DVHPNRES ---
Progress Note Date Seen: Jul 15, 2024 Resident Creating Document: EDGAR CÁRDENAS THADDEUS Has the PT tested + for MRSA If YES, has PT been informed?: No Medical Necessity Reason Pt with a Central, PICC or Fol: Yes The following are medically ne: Central Line, Jones Catheter Reason for jones catheter: Strict I&O Subjective Review of Systems This is a 63-year-old female with past medical history of allergic asthma, COPD, hypertension, paroxysmal atrial fibrillation, repaired mitral valve, IBS, generalized anxiety, chronic pain and insomnia brought to the hospital after loss of consciousness. Patient had lost consciousness out of house, witnessed by the bystanders, found asystole by EMS, performed CPR for 20 minutes and retained ROSC. Admitted on 07/09/2024. Patient seen and examined at the bedside. Patient is sedated and on mechanical ventilation. Review of system could not performed. Objective vital signs Vital Sign Date Time Temp Pulse Resp B/P (MAP) Pulse Ox O2 Delivery O2 Flow Rate FiO2 07/15/24 21:35 128 121/76 07/15/24 21:15 98.6 24 100 209.5 07/15/24 20:14 30 07/15/24 20:00 Mechanical Ventilator+ 07/14/24 22:07 0.0 Total Intake and Output 07/14/24 07/14/24 07/15/24 15:00 23:00 07:00 Intake Total 308.012 ml 1517.012 ml 1017.512 ml Output Total 440 ml 405 ml Balance 308.012 ml 1077.012 ml 612.512 ml medications Current Medications Medications Dose Ordered Sig/Perez Route Start Time Stop Time Status Last Admin Dose Admin Epinephrine HCl 250 ml @ 7.5 mls/hr Q24H IV 07/08/24 19:30 07/09/24 17:34 7.5 MLS/HR Norepinephrine Bitartrate 250 ml @ 3.75 mls/hr Q24H IV 07/08/24 20:00 07/14/24 09:32 3.75 MLS/HR Ondansetron HCl 4 mg Q4HP PRN IV 07/08/24 22:45 Acetaminophen 650 mg Q6HP PRN PO 07/08/24 22:45 07/09/24 22:29 650 MG Nitroglycerin 0.4 mg Q5MINP PRN SL 07/08/24 22:45 Morphine Sulfate 2 mg Q30M PRN IV 07/08/24 22:45 Acetaminophen 650 mg Q6HP PRN MS 07/09/24 11:00 07/09/24 15:54 650 MG Fentanyl Citrate 250 ml @ 2.5 mls/hr Q24H IV 07/09/24 12:15 07/15/24 04:28 25 MLS/HR Pantoprazole Sodium 40 mg BID IV 07/11/24 22:00 07/15/24 21:35 40 MG Piperacillin Sod/ Tazobactam Sod 100 ml @ 25 mls/hr Q12H IV 07/12/24 02:00 07/15/24 13:25 25 MLS/HR Propofol 100 ml @ 1.902 mls/ hr Q24H IV 07/12/24 15:15 07/15/24 20:25 13.314 MLS/HR Albuterol 2.5 mg Q4HPRN PRN NEB 07/12/24 22:00 07/13/24 22:09 2.5 MG Ipratropium [place] 0.5 mg Q4HR NEB 07/13/24 14:00 07/15/24 18:17 0.5 MG Bumetanide 25 mg/ Miscellaneous 100 ml @ 1 mls/hr Q24H IV 07/14/24 12:15 07/14/24 15:13 1 MLS/HR Metoprolol Tartrate 12.5 mg BID PO 07/15/24 22:00 07/15/24 21:35 12.5 MG Examination General: RASS -5, afebrile, mucosae are moist Cardiovascular: Normal S1 and S2. No murmurs, gallops or rubs Respiratory: Mechanically assisted ventilation, equal bilateral airway entree. Clear lung sounds on auscultation Abdomen: Soft, nontender, no organomegaly, normal bowel sounds MSK/skin: Mobilization of limbs cannot be evaluated. Skin is dry and warm. Neurological: Orientation cannot be assessed. No apparent motor no sensitive deficits. Bilateral pupils are dilated, fixed and nonreactive to the light. No cough reflex on deep suctioning laboratory and microbiology Laboratory Tests 07/15/24 03:00 Test 07/15/24 03:00 Range/Units Serum Glucose 87 74-106 mg/dL Microbiology Date/Time Source Procedure Growth Status 07/10/24 15:20 Nose MRSA Screen - Final Complete 07/09/24 00:07 Blood Blood Culture - Final NO GROWTH AFTER 5 DAYS OF INCUBATION. Complete 07/08/24 22:00 Voided Urine Urine Culture - Final Complete Labs and/or images reviewed: Labs reviewed by me, Image(s) reviewed by me Problem List/Assessment/Plan Problem List/Assessment/Plan This is a 63-year-old female with past medical history of allergic asthma, COPD, hypertension, paroxysmal atrial fibrillation, repaired mitral valve, IBS, generalized anxiety, chronic pain and insomnia brought to the hospital after loss of consciousness. Patient had lost consciousness out of house, witnessed by the bystanders, found asystole by EMS, performed CPR for 20 minutes and retained ROSC. Admitted on 07/09/2024. NEURO: Acute metabolic encephalopathy, likely due to sepsis/possible anoxic brain injury due to cardiac arrest Patient is sedated, and on mechanical ventilation, place, and Status post cardiac arrest Possible Cerebral edema, likely due to cardiac arrest Head CT scan shows less prominent sulci, likely due to cerebral edema We will consider head CT scan after 48 hour for the monitoring of possible cerebral edema Teleneurology consulted on 07/10 and has consulted the daughter of the patient regarding poor prognosis Head CT scan of 07/12/2024 shows changes but could not exclude brain edema Brain MRI shows nonspecific findings may be seen with hypoxic ischemic encephalopathy, metabolic or toxic disorders Neurology consulted back, and we will see the patient on bedside CARDIOVASCULAR: Status post cardiac arrest Patient has history of paroxysmal atrial fibrillation Non ST-elevation GA, type 2, likely due to cardiac arrest and CPR Circulation shock, likely septic likely due to pneumonia Patient has history of open heart surgery for mitral valve repair Troponin is raised, up trending EKG shows sinus tachycardia, with no significant ST or T-wave changes Cardiology on the board, recommended conservative management Echocardiogram shows Borderline Normal left ventricular systolic function estimated ejection [id number] Moderately elevated right ventricular systolic pressure 40 mm of mercury. Cardiology Is on the board, suggested conservative management Sinus tachycardia, started metoprolol 12.5 mg b.i.d. PULMONARY: Patient is sedated, and on mechanical ventilator, RASS (-4, unresponsive) with ventilator setting of( Vt 500, RR 26, FiO2 30%, peep 5) Acute hypoxic respiratory failure likely due to pneumonia/COPD exacerbation/asthma exacerbation Pneumonia likely due to Gram-positive/Gram-negative Septic shock likely due to pneumonia/UTI Patient has history of multiple hospital admission, including intubated for 2 months in [place] in 2007, mitral valve repair and also has been admitted in [facility] ABGs showed respiratory alkalosis with pH of 7.457 and carbon dioxide of 24.3 Chest x-ray shows prominent bronchovascular marking WBCs raised at 21.2, downtrending MRSA nares screening negative and stopped vancomycin COVID-19 and influenza antigens are negative Continue Zosyn, started on 07/12 Continue Hydrocortisone 100 mg b.i.d. Albuterol and ipratropium nebulization every 6 hours GI: Possible Upper GI bleeding, unspecified location Transaminitis, likely due to ischemia secondary to cardiac arrest NG tube showed black drainage on 06/29 and 06/30 likely due to upper GI bleeding GI consulted, recommended conservative management Continue Protonix b.i.d. Discontinue Lovenox due to severe anemia and possible upper GI bleeding RENAL: NAOMI, no previous records available Nephrology on the board, given poor prognosis do not recommended hemodialysis Stopped fluids Bumex drip UTI, unspecified location UA shows UTI picture Continue Zosyn Urine culture showed no bacterial growth ID: Urine and blood culture from 07/08 shows no bacterial growth Blood culture from 07/09 shows no bacterial growth MRSA screening on 07/09 negative, and discontinued vancomycin COVID-19 and influenza screening from 07/09 negative Continue Zosyn, started on 07/12 Cannabinoid use disorder UDS shows cannabis positive Metabolic: Hypokalemia, Supplemented Magnesium is within normal limits Hyperkalemia, normalized DVT prophylaxis Due to possible upper GI bleeding, Lovenox is not indicated SCD LINES/DRAINS/ACCESS: ETT tube, intubated on 07/08/2024 Transurethral catheter, placed on 07/08/2024 IV Access through right femoral vein (CVC), placed on 07/08/2024 Drips: Fentanyl 250 Levophed 2 Bumex drip Disposition: As per family request for the higher level of care transfer(preference [place]), rn social services has been consulted. CODE STATUS: Full code Case discussed with the daughter and mother of the patient at the bedside, the daughter was also consulted regarding unfavorable prognosis due to possible cerebral edema and post cardiac arrest status. Critical time spent more than 87 minutes, including patient care, chart review and updating the family, excluding any procedures. Case discussed with Dr. Hardy Plan discussed with: Patient, Daughter, Other (Mother and RN) My Orders My Orders Orders - EDGAR CÁRDENAS RESDIANASTASIA Procedure Category Date Status Time Ventilator Orders RT 07/15/24 Transmitted 09:59 Complete Blood Count LAB 07/16/24 Verified 04:00 Comprehensive LAB 07/16/24 Verified Metabolic Panel 04:00 Chest Xray 1 View XY 07/16/24 Logged 04:00 Abg W/ Co-Ox RT 07/16/24 Logged 04:00 Dietary Evaluation Review Comments: Patient is not receiving nutrition. If GI is accessible, consider EN nutrition - Jevity 1.2 @ 55 mL/hr as tolerated. If patient remains NPO for more than 7 days, initiate TPN to meet 75% of estimated needs. Advance patient diet when medically feasible to a cardiac diet if renal function is sufficient. Expected Outcomes/Goals: Patient to receive nutrition support within 7 days of NPO status. Patient diet to advance F/u in 2-3 days Date of Service: Jul 15, 2024 Billing Provider: MONE HARDY MD Common Visit Codes: 84526-RNDXNIQI CARE 30-74 MIN, 02034-[id number] CARE-EACH +30MIN EDGAR CÁRDENAS RESDIENT Jul 15, 2024 21:45 MONE HARDY MD Jul 16, 2024 14:28
[2024-07-16] VITALS (103 sets, daily range): BP systolic 73–140; BP diastolic 46–92; PULSE 115–126; RESP 16–32; TEMP 97.8–98.8; O2SAT 100
[2024-07-16 04:14] LABS: Basophils # (auto) 0 10 ^3/uL (0-0.2); Eosinophils # (auto) 0.3 10 ^3/uL (0-0.8); Platelet Count (auto) 120 10^3/uL (140-450)
[2024-07-16 04:28] LABS: Basophils % (auto) 0.1 % (0.0-2.0); Eosinophils % (auto) 2.7 % (0.0-7.0); Hematocrit 22.8 % (36.0-46.0); Hemoglobin 7.5 g/dL (12.2-16.2); Lymphocytes # (auto) 0.8 10 ^3/uL (0.4-5.4); Lymphocytes % (auto) 6.9 % (10.0-50.0); Mean Corpuscular Hemoglobin 29.5 pg (28.0-32.0); Mean Corpuscular Hgb Conc. 32.9 g/dL (32.0-36.0); Mean Corpuscular Volume 89.8 fL (80.0-100.0); Monocytes # (auto) 0.8 10 ^3/uL (0-1.3); Monocytes % (auto) 7.3 % (0.0-12.0); Neutrophils # (auto) 9.2 10 ^3/uL (1.6-8.6); Nucleated Red Blood Cells % 0.1 %; Red Blood Cells 2.54 10^6/uL (4.0-5.20); Red Cell Distribution Width 16.2 % (11.8-14.3); White Blood Cell 11.1 10^3/uL (4.4-10.8)
[2024-07-16 04:30] LABS: Alanine Aminotransferase 39 U/L (7-40); Alkaline Phosphatase 38 U/L (46-116); Anion Gap 22 (5-15); Calcium 8.8 mg/dL (8.7-10.4); Carbon Dioxide 19 mmol/L (20-31); Chloride 106 mmol/L (98-107); Glucose 85 mg/dL (74-106); Potassium 4.2 mmol/L (3.5-5.1); Sodium 147 mmol/L (136-145)
[2024-07-16 04:31] LABS: BUN/Creatinine Ratio 13.6 (10.0-20.0)
[2024-07-16 04:33] LABS: Albumin 2.8 g/dL (3.2-4.8); Aspartate Aminotransferase 68 U/L (13-40); Bilirubin, Total 0.7 mg/dL (0.2-1.0)
[2024-07-16 04:52] LABS: Blood Urea Nitrogen 115 mg/dL (9-23)
--- NOTE | 2024-07-16 04:52 | DVH ---
CHEST RADIOGRAPH Indication: Pneumonia Technique: Single frontal view of the chest was obtained Comparison: XY CHEST XRAY 1 VIEW on DOS: 07/15/24 FINDINGS: Lines and Tubes: The endotracheal tube terminates 4.5 cm above the zachary. The enteric tube courses b elow the left hemidiaphragm and the tip extends outside the field of view. Lungs: Mild bilateral interstitial prominence. Pleura: No effusion. No pneumothorax. Cardiomediastinal contours: Cardiomegaly. Status post median sternotomy. Bones: No acute osseous abnormality. IMPRESSION: 1. Support lines and tubes as described. 2. Mild bilateral interstitial prominence. Findings may reflect edema or atypical pneumonia.
[2024-07-16 07:28] LABS: Base Excess -4.5 mmol/L (-2.0-3.0)
--- NOTE | 2024-07-16 10:28 | DVHPN2 ---
Progress Note - Dictate Date Seen: Jul 16, 2024 Has the PT tested + for MRSA If YES, has PT been informed?: No Medical Necessity Reason Pt with a Central, PICC or Fol: Yes The following are medically ne: Central Line, Jones Catheter Reason for jones catheter: Strict I&O Subjective Ms. Wren is a 63 years old female with a history of asthma, COPD, paroxysmal atrial fibrillation, allergy to animal dander, smoking, she was brought to the [facility] on 07/08/2024 with a chief company of altered mental status. I have seen and examined the patient, I have talked to her nurse, she remained intubated, nonresponsive to stroke painful stimuli I did not meet her daughter this morning The case was discussed with Dr. Azul SPRAGUE, 07/12/2024: Cannabinoids Urinalysis, 07/08/2024: WBC: 26, urine leukocyte esterase: Negative ABG, 07/08/2024: acidosis, WBC/HB/PLT/MCV, 07/15/2024: 11.5/75/80/89.3 PT/INR/PTT, 07/08/2024: 16/1.56/26.8 BUN/CR, 07/15/2024: 112/8.19 TBI/AST/ALT/AP, 07/15/2024: 0.8/68/45/31 CT head, 07/08/2024: 1. No acute intracranial hemorrhage. 2. No CT findings of territorial ischemia CT head, 07/12/2024: 1. Symmetric hypodensities in the lentiform nuclei, similar to prior study. Hypodensities in the bilateral thalami new since prior CT scan of the head from 07/10/2024. Additionally, there is subtle loss of mendoza-white matter differentiation since the prior CT from 07/08/2024 for which intracerebral edema is not excluded. Correlation for toxic metabolic or ischemic insult or other etiology is recommended. MRI of the brain without contrast is recommended for further evaluation. 2. No evidence of acute intracranial hemorrhag MRI head, 07/14/2024: There is T2/FLAIR hyperintensity involving the lentiform nucleus, hypothalamic region, cerebral peduncle, dorsal midbrain , dorsal liberty and dorsal medulla with symmetric bilateral dorsal medulla small focus of diffusion restriction. Findings are nonspecific and may be seen with hypoxic ischemic encephalopathy, metabolic or toxic disorders. Recommend clinical correlation vital signs Vital Sign Date Time Temp Pulse Resp B/P (MAP) Pulse Ox O2 Delivery O2 Flow Rate FiO2 07/16/24 09:47 122 24 101/57 (72) 100 30 07/16/24 08:00 Mechanical Ventilator+ 07/16/24 04:30 98.4 209.1 07/14/24 22:07 0.0 Total Intake and Output 07/15/24 07/15/24 07/16/24 15:00 23:00 07:00 Intake Total 475.762 ml 378.262 ml 432.698 ml Output Total 575 ml 700 ml Balance 475.762 ml -196.738 ml -267.302 ml medications Current Medications Medications Dose Ordered Sig/Perez Route Start Time Stop Time Status Last Admin Dose Admin Epinephrine HCl 250 ml @ 7.5 mls/hr Q24H IV 07/08/24 19:30 07/09/24 17:34 7.5 MLS/HR Norepinephrine Bitartrate 250 ml @ 3.75 mls/hr Q24H IV 07/08/24 20:00 07/16/24 05:49 7.5 MLS/HR Ondansetron HCl 4 mg Q4HP PRN IV 07/08/24 22:45 Acetaminophen 650 mg Q6HP PRN PO 07/08/24 22:45 07/09/24 22:29 650 MG Nitroglycerin 0.4 mg Q5MINP PRN SL 07/08/24 22:45 Morphine Sulfate 2 mg Q30M PRN IV 07/08/24 22:45 Acetaminophen 650 mg Q6HP PRN ND 07/09/24 11:00 07/09/24 15:54 650 MG Fentanyl Citrate 250 ml @ 2.5 mls/hr Q24H IV 07/09/24 12:15 07/16/24 01:32 25 MLS/HR Pantoprazole Sodium 40 mg BID IV 07/11/24 22:00 07/15/24 21:35 40 MG Piperacillin Sod/ Tazobactam Sod 100 ml @ 25 mls/hr Q12H IV 07/12/24 02:00 07/16/24 01:38 25 MLS/HR Propofol 100 ml @ 1.902 mls/ hr Q24H IV 07/12/24 15:15 07/16/24 06:31 13.314 MLS/HR Albuterol 2.5 mg Q4HPRN PRN NEB 07/12/24 22:00 07/13/24 22:09 2.5 MG Ipratropium [place] 0.5 mg Q4HR NEB 07/13/24 14:00 07/16/24 09:46 0.5 MG Bumetanide 25 mg/ Miscellaneous 100 ml @ 1 mls/hr Q24H IV 07/14/24 12:15 07/14/24 15:13 1 MLS/HR Metoprolol Tartrate 12.5 mg BID PO 07/15/24 22:00 07/15/24 21:35 12.5 MG Hydrocortisone Sodium Succinate 100 mg Q12HR IV 07/16/24 10:00 objective The patient is well-nourished and well-developed with no distress. The patient is intubated MENTAL STATUS: For subjective CRANIAL NERVES: Pupils are equal, round, 6mm and reactive. There are corneal reflexes and questionable doll's eyes phenomenon. No signs of facial weakness. There are gagging or coughing reflexes SENSATION: No responses to pain stimuli. MOTOR: Normal tone in the upper and lower extremity. Normal muscle bulk. No fasciculations. No spontaneous movement. REFLEXES: Deep tendon reflexes are symmetrical. No pathological reflexes. CEREBELLAR/COORDINATION: Deferred GAIT/STATION: deferred laboratory and microbiology Laboratory Tests 07/16/24 03:47 Test 07/16/24 03:47 Range/Units Serum Glucose 85 74-106 mg/dL Problem List Coma/diffuse brain edema Hypoxic encephalopathy Metabolic encephalopathy Cardiopulmonary arrest Acute respiratory failure Assessment/Plan Monitoring Supportive treatment ICU care EEG Stabilize vitals/pressor drip Respiratory support/vent management Oxygen More recommendation per clinical course The patient is like to have a poor prognosis for meaningful recovery, higher level care transfer is unlike to change progresses This medical document was created using an electronic medical record system with [employer] dictation system. Although this document has been carefully reviewed, there may still be some phonetic and typographical errors. These areas are purely typographical due to imperfections of the software programs, and do not reflect any compromise in the patient's medical care Prognosis guarded Dietary Evaluation Review Comments: Patient is not receiving nutrition. If GI is accessible, consider EN nutrition - Jevity 1.2 @ 55 mL/hr as tolerated. If patient remains NPO for more than 7 days, initiate TPN to meet 75% of estimated needs. Advance patient diet when medically feasible to a cardiac diet if renal function is sufficient. Expected Outcomes/Goals: Patient to receive nutrition support within 7 days of NPO status. Patient diet to advance F/u in 2-3 days Plan discussed with: Other Critical Care Time(min): 40 SUMAYA ALVAREZ MD Jul 16, 2024 10:28
[2024-07-16] MEDS: METOPROLOL TARTRATE 25 MG TAB PO ONE (11:20)
[2024-07-16] MEDS: HYDROCORTISONE SOD SUCC 100 MG/2ML INJ VIAL IV SCH ×2 (13:03→22:10)
[2024-07-16] MEDS: FUROSEMIDE 100 MG/10ML VIAL IV ONE (13:04)
--- NOTE | 2024-07-16 13:29 | DVHPN2 ---
Progress Note Date Seen: Jul 16, 2024 Resident Creating Document: YO CEJA RESIDENT Has the PT tested + for MRSA If YES, has PT been informed?: No Medical Necessity Reason Pt with a Central, PICC or Fol: Yes The following are medically ne: Central Line, Jones Catheter Reason for jones catheter: Strict I&O Subjective Review of Systems Patient seen in ICU. Continue be on ventilator, requiring one vasopressors. No other new complaints. Objective vital signs Vital Sign Date Time Temp Pulse Resp B/P (MAP) Pulse Ox O2 Delivery O2 Flow Rate FiO2 07/16/24 13:04 116/79 07/16/24 12:00 123 24 100 07/16/24 11:17 30 07/16/24 10:00 Mechanical Ventilator+ 07/16/24 08:00 97.8 97.8 07/14/24 22:07 0.0 Total Intake and Output 07/15/24 07/15/24 07/16/24 15:00 23:00 07:00 Intake Total 475.762 ml 378.262 ml 479.512 ml Output Total 575 ml 700 ml Balance 475.762 ml -196.738 ml -220.488 ml medications Current Medications Medications Dose Ordered Sig/Perez Route Start Time Stop Time Status Last Admin Dose Admin Epinephrine HCl 250 ml @ 7.5 mls/hr Q24H IV 07/08/24 19:30 07/09/24 17:34 7.5 MLS/HR Norepinephrine Bitartrate 250 ml @ 3.75 mls/hr Q24H IV 07/08/24 20:00 07/16/24 05:49 7.5 MLS/HR Ondansetron HCl 4 mg Q4HP PRN IV 07/08/24 22:45 Acetaminophen 650 mg Q6HP PRN PO 07/08/24 22:45 07/09/24 22:29 650 MG Nitroglycerin 0.4 mg Q5MINP PRN SL 07/08/24 22:45 Morphine Sulfate 2 mg Q30M PRN IV 07/08/24 22:45 Acetaminophen 650 mg Q6HP PRN MI 07/09/24 11:00 07/09/24 15:54 650 MG Fentanyl Citrate 250 ml @ 2.5 mls/hr Q24H IV 07/09/24 12:15 07/16/24 11:22 25 MLS/HR Pantoprazole Sodium 40 mg BID IV 07/11/24 22:00 07/16/24 11:17 40 MG Piperacillin Sod/ Tazobactam Sod 100 ml @ 25 mls/hr Q12H IV 07/12/24 02:00 07/16/24 01:38 25 MLS/HR Propofol 100 ml @ 1.902 mls/ hr Q24H IV 07/12/24 15:15 07/16/24 06:31 13.314 MLS/HR Albuterol 2.5 mg Q4HPRN PRN NEB 07/12/24 22:00 07/13/24 22:09 2.5 MG Ipratropium [place] 0.5 mg Q4HR NEB 07/13/24 14:00 07/16/24 13:21 0.5 MG Metoprolol Tartrate 12.5 mg BID PO 07/15/24 22:00 07/15/24 21:35 12.5 MG Hydrocortisone Sodium Succinate 100 mg Q12HR IV 07/16/24 10:00 07/16/24 13:03 100 MG Examination General Appearance: Sedated, intubated on ventilator. Head Exam: Normal inspection Neck Exam: Normal inspection. Non-tender. Normal alignment Pulmonary/Respiratory: Chest non-tender. Clear bilateral breath sounds Cardiovascular/Chest: Regular rate and rhythm. No murmurs. No JVD. Peripheral Pulses: 2+ Radial (R). 2+ Radial (L). 2+ Pedal (R). 2+ Pedal (L) Abdominal Exam: Normal bowel sounds. Soft. Nontender. No hepatospenomegaly. No masses Ankle Exam: Negative ankle edema Lower extremities: Negative lower extremity edema Neuro/Mental Status: Fixed, dilated pupils, no pupillary reflex. laboratory and microbiology Laboratory Tests 07/16/24 03:47 Test 07/16/24 03:47 Range/Units Serum Glucose 85 74-106 mg/dL Microbiology Date/Time Source Procedure Growth Status 07/10/24 15:20 Nose MRSA Screen - Final Complete 07/09/24 00:07 Blood Blood Culture - Final NO GROWTH AFTER 5 DAYS OF INCUBATION. Complete 07/08/24 22:00 Voided Urine Urine Culture - Final Complete Problem List/Assessment/Plan Problem List/Assessment/Plan NAOMI secondary to hemodynamically mediated likely ischemic ATN Septic shock due to pneumonia Pneumonia NSTEMI type 2 likely due to above Cardiopulmonary arrest status post CPR with ROSC Paroxysmal atrial fibrillation Elevated liver function ? Anoxic brain injury Upper GI bleeding Plan/recommendation Dr. Turcios -stopped Bumex drip, start Lasix 80 mg once daily given low GFR, follow with urine output response. -currently on vasopressor for hemodynamic support -currently on antibiotics Zosyn, vancomycin, monitor vancomycin serum level. -strict I&O -continue to monitor kidney function, electrolytes -possible anoxic brain injury: Brain MRI result showed possible hypoxic encephalopathy. -given possible anoxic brain injury, poor prognosis, dialysis is not recommended at this point. -undergoing EEG, neurological evaluation. Plan discussed with: Other (RN) Dietary Evaluation Review Comments: Patient is not receiving nutrition. If GI is accessible, consider EN nutrition - Jevity 1.2 @ 55 mL/hr as tolerated. If patient remains NPO for more than 7 days, initiate TPN to meet 75% of estimated needs. Advance patient diet when medically feasible to a cardiac diet if renal function is sufficient. Expected Outcomes/Goals: Patient to receive nutrition support within 7 days of NPO status. Patient diet to advance F/u in 2-3 days YO CEJA RESIDENT Jul 16, 2024 13:29
--- NOTE | 2024-07-16 16:57 | DVHPN2 ---
Consult Progress Note Subjective Other Systems: Patient remains chemically sedated and mechanically ventilated. Patient in sinus tachycardia at time of assessment. Objective vital signs Vital Sign Date Time Temp Pulse Resp B/P (MAP) Pulse Ox O2 Delivery O2 Flow Rate FiO2 07/16/24 16:00 122 24 135/84 (101) 100 30 07/16/24 14:00 Mechanical Ventilator+ 07/16/24 12:15 98.1 98.1 07/14/24 22:07 0.0 Total Intake and Output 07/15/24 07/15/24 07/16/24 15:00 23:00 07:00 Intake Total 475.762 ml 378.262 ml 479.512 ml Output Total 575 ml 700 ml Balance 475.762 ml -196.738 ml -220.488 ml medications Current Medications Medications Dose Ordered Sig/Perez Route Start Time Stop Time Status Last Admin Dose Admin Epinephrine HCl 250 ml @ 7.5 mls/hr Q24H IV 07/08/24 19:30 07/09/24 17:34 7.5 MLS/HR Acetaminophen 650 mg Q6HP PRN PO 07/08/24 22:45 07/09/24 22:29 650 MG Nitroglycerin 0.4 mg Q5MINP PRN SL 07/08/24 22:45 Morphine Sulfate 2 mg Q30M PRN IV 07/08/24 22:45 Acetaminophen 650 mg Q6HP PRN AL 07/09/24 11:00 07/09/24 15:54 650 MG Fentanyl Citrate 250 ml @ 2.5 mls/hr Q24H IV 07/09/24 12:15 07/16/24 11:22 25 MLS/HR Pantoprazole Sodium 40 mg BID IV 07/11/24 22:00 07/16/24 11:17 40 MG Piperacillin Sod/ Tazobactam Sod 100 ml @ 25 mls/hr Q12H IV 07/12/24 02:00 07/16/24 14:59 25 MLS/HR Propofol 100 ml @ 1.902 mls/ hr Q24H IV 07/12/24 15:15 07/16/24 14:08 11.412 MLS/HR Albuterol 2.5 mg Q4HPRN PRN NEB 07/12/24 22:00 07/13/24 22:09 2.5 MG Ipratropium Castalia 0.5 mg Q4HR NEB 07/13/24 14:00 07/16/24 13:21 0.5 MG Metoprolol Tartrate 12.5 mg BID PO 07/15/24 22:00 Hold 07/15/24 21:35 12.5 MG Hydrocortisone Sodium Succinate 50 mg Q12HR IV 07/16/24 22:00 Enteral Nutritional Formula 1,000 ml 30ML/HR GT 07/16/24 14:45 Norepinephrine Bitartrate 250 ml @ 1.875 mls/ hr Q24H IV 07/16/24 15:45 Examination: GENERAL:Abnormal, LUNGS:Abnormal (Mechanically ventilated), CVS:Abnormal, NEURO:Abnormal (Chemically sedated; pupils fixed) laboratory and microbiology Laboratory Tests 07/16/24 03:47 Test 07/16/24 03:47 Range/Units Serum Glucose 85 74-106 mg/dL Problem List/Assessment/Plan Problem List/Assessment/Plan Cardiopulmonary arrest status post CPR with ROSC NSTEMI type II secondary to above Rule out anoxic brain injury Paroxysmal atrial fibrillation, on Cardizem and digoxin Status post mitral valve repair, ?mechanical, on Coumadin Pneumonia Elevated LFTs Acute kidney injury Plan/Recommendation (Dr. Batista) Echocardiogram revealed LVEF of 50%. Moderately elevated right ventricular systolic pressures at 40 mmHg. Severely dilated right and left atria. The aortic valve is mildly thickened and sclerotic with no significant stenosis or regurgitation. 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 as well as mitral valve repair, there is no significant stenosis or regurgitation. Continue vasopressors for hemodynamic support. Hold AC therapy given GI bleed. Cardiology team re-consulted regarding patient heart rate in 120's. Patient has episodes of atrial fibrillation over night with rapid ventricular response. At time of assessment, patient is in sinus tachycardia. We recommend to treat the underlying cause. If the patient goes back into atrial fibrillation we will recommend Digoxin therapy for rate control. Antibiotics per primary care team. Thank you for allowing us to participate in this patient's care. Critical care time: 30 min. This medical document was created using an electronic medical record system with voice recognition software and computerized dictation system. Although this document has been carefully reviewed, there might still be some phonetic and typographical errors. Occasional wrong-word or ``sound-alike substitutions may have occurred due to the inherent limitations of voice recognition software. These areas are purely typographical due to imperfections of the software programs and do not reflect any compromise in the patient's medical care. Please read the chart carefully and recognize, using context, where these substitutions have occurred. Plan discussed with: Other (Bedside RN Maegan) Dietary Evaluation Review Comments: Patient is not receiving nutrition. If GI is accessible, consider EN nutrition - Jevity 1.2 @ 55 mL/hr as tolerated. If patient remains NPO for more than 7 days, initiate TPN to meet 75% of estimated needs. Advance patient diet when medically feasible to a cardiac diet if renal function is sufficient. Expected Outcomes/Goals: Patient to receive nutrition support within 7 days of NPO status. Patient diet to advance F/u in 2-3 days Date of Service: Jul 16, 2024 Billing Provider: MG BATISTA MD Common Visit Codes: [id number] CARE 30-74 MIN LEOBARDO DARNELL Jul 16, 2024 16:57
--- NOTE | 2024-07-16 18:28 | DVHPNRES ---
Progress Note Date Seen: Jul 16, 2024 Resident Creating Document: EDGAR CÁRDENAS RESZARINA Has the PT tested + for MRSA If YES, has PT been informed?: No Medical Necessity Reason Pt with a Central, PICC or Fol: Yes The following are medically ne: Central Line, Jones Catheter Reason for jones catheter: Strict I&O Objective vital signs Vital Sign Date Time Temp Pulse Resp B/P (MAP) Pulse Ox O2 Delivery O2 Flow Rate FiO2 07/16/24 17:00 121 24 135/88 (104) 100 07/16/24 16:00 30 07/16/24 16:00 Mechanical Ventilator+ 07/16/24 16:00 98.6 98.6 07/14/24 22:07 0.0 Total Intake and Output 07/15/24 07/15/24 07/16/24 15:00 23:00 07:00 Intake Total 475.762 ml 378.262 ml 479.512 ml Output Total 575 ml 700 ml Balance 475.762 ml -196.738 ml -220.488 ml medications Current Medications Medications Dose Ordered Sig/Perez Route Start Time Stop Time Status Last Admin Dose Admin Epinephrine HCl 250 ml @ 7.5 mls/hr Q24H IV 07/08/24 19:30 07/09/24 17:34 7.5 MLS/HR Acetaminophen 650 mg Q6HP PRN PO 07/08/24 22:45 07/09/24 22:29 650 MG Nitroglycerin 0.4 mg Q5MINP PRN SL 07/08/24 22:45 Morphine Sulfate 2 mg Q30M PRN IV 07/08/24 22:45 Acetaminophen 650 mg Q6HP PRN IN 07/09/24 11:00 07/09/24 15:54 650 MG Fentanyl Citrate 250 ml @ 2.5 mls/hr Q24H IV 07/09/24 12:15 07/16/24 11:22 25 MLS/HR Pantoprazole Sodium 40 mg BID IV 07/11/24 22:00 07/16/24 11:17 40 MG Piperacillin Sod/ Tazobactam Sod 100 ml @ 25 mls/hr Q12H IV 07/12/24 02:00 07/16/24 14:59 25 MLS/HR Propofol 100 ml @ 1.902 mls/ hr Q24H IV 07/12/24 15:15 07/16/24 14:08 11.412 MLS/HR Albuterol 2.5 mg Q4HPRN PRN NEB 07/12/24 22:00 07/13/24 22:09 2.5 MG Ipratropium Ingram 0.5 mg Q4HR NEB 07/13/24 14:00 07/16/24 13:21 0.5 MG Metoprolol Tartrate 12.5 mg BID PO 07/15/24 22:00 Hold 07/15/24 21:35 12.5 MG Hydrocortisone Sodium Succinate 50 mg Q12HR IV 07/16/24 22:00 Enteral Nutritional Formula 1,000 ml 30ML/HR GT 07/16/24 14:45 Norepinephrine Bitartrate 250 ml @ 1.875 mls/ hr Q24H IV 07/16/24 15:45 Examination General: RASS -5, afebrile, mucosae are moist Cardiovascular: Normal S1 and S2. No murmurs, gallops or rubs Respiratory: Mechanically assisted ventilation, equal bilateral airway entree. Clear lung sounds on auscultation Abdomen: Soft, nontender, no organomegaly, normal bowel sounds MSK/skin: Mobilization of limbs cannot be evaluated. Skin is dry and warm. Neurological: Orientation cannot be assessed. No apparent motor no sensitive deficits. Bilateral pupils are dilated, fixed and nonreactive to the light. No cough reflex on deep suctioning laboratory and microbiology Laboratory Tests 07/16/24 03:47 Test 07/16/24 03:47 Range/Units Serum Glucose 85 74-106 mg/dL Microbiology Date/Time Source Procedure Growth Status 07/10/24 15:20 Nose MRSA Screen - Final Complete 07/09/24 00:07 Blood Blood Culture - Final NO GROWTH AFTER 5 DAYS OF INCUBATION. Complete 07/08/24 22:00 Voided Urine Urine Culture - Final Complete Labs and/or images reviewed: Labs reviewed by me, Image(s) reviewed by me Problem List/Assessment/Plan Problem List/Assessment/Plan This is a 63-year-old female with past medical history of allergic asthma, COPD, hypertension, paroxysmal atrial fibrillation, repaired mitral valve, IBS, generalized anxiety, chronic pain and insomnia brought to the hospital after loss of consciousness. Patient had lost consciousness out of house, witnessed by the bystanders, found asystole by EMS, performed CPR for 20 minutes and retained ROSC. Admitted on 07/09/2024. NEURO: Acute metabolic encephalopathy, likely due to sepsis/possible anoxic brain injury due to cardiac arrest Patient is sedated, and on mechanical ventilation, place, and Status post cardiac arrest Possible Cerebral edema, likely due to cardiac arrest Head CT scan shows less prominent sulci, likely due to cerebral edema We will consider head CT scan after 48 hour for the monitoring of possible cerebral edema Teleneurology consulted on 07/10 and has consulted the daughter of the patient regarding poor prognosis Head CT scan of 07/12/2024 shows changes but could not exclude brain edema Brain MRI shows nonspecific findings may be seen with hypoxic ischemic encephalopathy, metabolic or toxic disorders Chest x-ray does not shows any acute cardiopulmonary abnormality ABGs shows respiratory alkalosis with metabolic acidosis Neurology consulted back, and recommended that the patient have a poor prognosis for meaningful recovery, higher level care transfer is unlikely to change progresses CARDIOVASCULAR: Status post cardiac arrest Patient has history of paroxysmal atrial fibrillation Non ST-elevation PA, type 2, likely due to cardiac arrest and CPR Circulation shock, likely septic likely due to pneumonia Patient has history of open heart surgery for mitral valve repair Troponin is raised, up trending EKG shows sinus tachycardia, with no significant ST or T-wave changes Cardiology on the board, recommended conservative management Echocardiogram shows Borderline Normal left ventricular systolic function estimated ejection [id number] Moderately elevated right ventricular systolic pressure 40 mm of mercury. 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 as well as mitral valve repair Cardiology is on the board, suggested conservative management Sinus tachycardia Stopped metoprolol Due to paroxysmal atrial fibrillation and RVR, the Cardiology consulted back, recommended to use digoxin in case of atrial fibrillation recurrence PULMONARY: Patient is sedated, and on mechanical ventilator, RASS (-5, unresponsive) with ventilator setting of( Vt 450, RR 26, FiO2 30%, peep 5) Acute hypoxic respiratory failure likely due to pneumonia/COPD exacerbation/asthma exacerbation Pneumonia likely due to Gram-positive/Gram-negative Septic shock likely due to pneumonia/UTI Patient has history of multiple hospital admission, including intubated for 2 months in [place] in 2007, mitral valve repair and also has been admitted in [facility] ABGs showed respiratory alkalosis with pH of 7.457 and carbon dioxide of 24.3 Chest x-ray shows prominent bronchovascular marking WBCs raised at 21.2, downtrending Sputum culture MRSA nares screening negative and stopped vancomycin COVID-19 and influenza antigens are negative Continue Zosyn, started on 07/12 Continue Hydrocortisone 50 mg b.i.d., started on 07/09 Albuterol and ipratropium nebulization every 6 hours GI: Possible Upper GI bleeding, unspecified location Transaminitis, likely due to ischemia secondary to cardiac arrest NG tube showed black drainage on 06/29 and 06/30 likely due to upper GI bleeding GI consulted, recommended conservative management Continue Protonix b.i.d. Discontinue Lovenox due to severe anemia and possible upper GI bleeding RENAL: NAOMI, no previous records available Nephrology on the board, given poor prognosis do not recommended hemodialysis Stopped Bumex drip Injection Lasix 80 mg once UTI, unspecified location UA shows UTI picture Continue Zosyn Urine culture showed no bacterial growth ID: Urine and blood culture from 07/08 shows no bacterial growth Blood culture from 07/09 shows no bacterial growth MRSA screening on 07/09 negative, and discontinued vancomycin COVID-19 and influenza screening from 07/09 negative Continue Zosyn, started on 07/12 Cannabinoid use disorder UDS shows cannabis positive Metabolic: Hypokalemia, Supplemented Magnesium is within normal limits Hyperkalemia, normalized Mild Hypernatremia, monitoring DVT prophylaxis Due to possible upper GI bleeding, Lovenox is not indicated SCD LINES/DRAINS/ACCESS: ETT tube, intubated on 07/08/2024 Transurethral catheter, placed on 07/08/2024 IV Access through right femoral vein (CVC), placed on 07/08/2024 Drips: Fentanyl 250 Levophed 2 Bumex drip Diet: Start Nepro 30 mL/hour on 07/16 Disposition: As per family request for the higher level of care transfer(preference [place]), group social worker has been consulted. CODE STATUS: Full code Disposition: ICU status, kept in ICU Case discussed with the daughter and mother of the patient at the bedside. Critical time spent more than 82 minutes, including patient care, chart review and updating the family, excluding any procedures. Case discussed with Dr. Hardy Plan discussed with: Patient, Daughter, Other (Mother and RN) My Orders My Orders Orders - EDGAR CÁRDENAS RESDIANASTASIA Procedure Category Date Status Time Ventilator Orders RT 07/16/24 Transmitted 05:41 Nutritional PHA 07/16/24 In Process Supplements (Nepro 14:45 Dietary Evaluation Review Comments: Patient is not receiving nutrition. If GI is accessible, consider EN nutrition - Jevity 1.2 @ 55 mL/hr as tolerated. If patient remains NPO for more than 7 days, initiate TPN to meet 75% of estimated needs. Advance patient diet when medically feasible to a cardiac diet if renal function is sufficient. Expected Outcomes/Goals: Patient to receive nutrition support within 7 days of NPO status. Patient diet to advance F/u in 2-3 days Date of Service: Jul 16, 2024 Billing Provider: MONE HARDY MD Common Visit Codes: [id number] CARE 30-74 MIN, [id number] CARE-EACH +30MIN EDGAR CÁRDENAS RESDIENT Jul 16, 2024 18:28 MONE HARDY MD Jul 17, 2024 11:51
[2024-07-17] VITALS (109 sets, daily range): BP systolic 91–158; BP diastolic 61–93; PULSE 112–128; RESP 16–40; TEMP 97.4–99.4; O2SAT 98–100
--- NOTE | 2024-07-17 00:59 | DVHEEG2 ---
Neurology EEG Procedural Note Procedural Note EXAM DATE: 07/16/24 REFERRING DOCTOR: Dr. Alvarez TECHNIQUE: Eighteen channels of EEG, 2 channels of EOG, and 1 channel of EKG were recorded using the International 10/20 system. CLINICAL DATA: The patient was referred for an EEG evaluation for the evidence of seizure disorder. MEDICATIONS: See the chart BACKGROUND ACTIVITY: There was significant amount of electrode artifacts, this EEG appeared to be mixed low-amplitude delta and theta activity over both hemispheres, possibly reactive to external stimuli ACTIVATION: Hyperventilation: Not done Photic Stimulation: Not done Sleep: Unresponsiveness IMPRESSION: This is an inadequate but likely remarkably abnormal EEG, this EEG seen in severe cerebral dysfunction due to metabolic/hypoxic encephalopathy or medication effect, please correlate clinically The EKG channel showed a regular heart rate of 126/min. The CPT code of the study is 958 SUMAYA ALVAREZ MD Jul 17, 2024 00:59
[2024-07-17 04:17] LABS: Basophils # (auto) 0 10 ^3/uL (0-0.2); Eosinophils # (auto) 0 10 ^3/uL (0-0.8); Monocytes # (auto) 0.3 10 ^3/uL (0-1.3); Neutrophils % (auto) 94.2 % (37.0-80.0); Nucleated Red Blood Cells % 0.1 %
[2024-07-17 04:25] LABS: Hematocrit 23.5 % (36.0-46.0); Hemoglobin 7.7 g/dL (12.2-16.2); Lymphocytes # (auto) 0.4 10 ^3/uL (0.4-5.4); Lymphocytes % (auto) 3.1 % (10.0-50.0); Mean Corpuscular Hemoglobin 29.9 pg (28.0-32.0); Mean Corpuscular Hgb Conc. 32.9 g/dL (32.0-36.0); Mean Corpuscular Volume 90.9 fL (80.0-100.0); Monocytes % (auto) 2.7 % (0.0-12.0); Neutrophils # (auto) 10.9 10 ^3/uL (1.6-8.6); Platelet Count (auto) 159 10^3/uL (140-450); Red Blood Cells 2.58 10^6/uL (4.0-5.20); Red Cell Distribution Width 15.8 % (11.8-14.3); White Blood Cell 11.6 10^3/uL (4.4-10.8)
[2024-07-17 04:28] LABS: Alanine Aminotransferase 40 U/L (7-40); Alkaline Phosphatase 47 U/L (46-116); Anion Gap 23 (5-15); BUN/Creatinine Ratio 14.5 (10.0-20.0); Bilirubin, Total 0.8 mg/dL (0.2-1.0); Calcium 9.6 mg/dL (8.7-10.4); Chloride 105 mmol/L (98-107); Sodium 145 mmol/L (136-145)
--- NOTE | 2024-07-17 04:28 | DVH ---
CHEST RADIOGRAPH Indication: Pneumonia Technique: Single frontal view of the chest was obtained Comparison: XY CHEST XRAY 1 VIEW on DOS: 07/16/24 FINDINGS: Lines and Tubes: Endotracheal tube terminates 5.8 cm above the zachary. The enteric tube terminates b elow the left hemidiaphragm but the tip is obscured. Lungs: Bilateral interstitial prominence. Pleura: No effusion. No pneumothorax. Cardiomediastinal contours: Unremarkable. Cardiac valve prosthesis. Bones: No acute osseous abnormality. Status post median sternotomy. IMPRESSION: 1. .Mild pulmonary congestion versus pneumonia.
[2024-07-17 04:29] LABS: Total Protein 5.7 g/dL (5.7-8.2)
[2024-07-17 05:04] LABS: Albumin 3.2 g/dL (3.2-4.8); Aspartate Aminotransferase 63 U/L (13-40); Carbon Dioxide 17 mmol/L (20-31); Glucose 125 mg/dL (74-106); Potassium 5.3 mmol/L (3.5-5.1)
[2024-07-17 05:06] LABS: Blood Urea Nitrogen 126 mg/dL (9-23)
[2024-07-17] MEDS: DEXTROSE (50%) 50ML SYRG IV ONE (05:53)
[2024-07-17] MEDS: InsuLIN REG 1unit/0.01ml Soln (100units/ml) IV ONE (05:56)
[2024-07-17] MEDS: SODIUM ZIRCONIUM CYCL 10 GM PAK PO ONE (06:02)
[2024-07-17 06:38] LABS: Base Excess -7.9 mmol/L (-2.0-3.0)
--- NOTE | 2024-07-17 09:58 | DVHPN2 ---
Progress Note - Dictate Date Seen: Jul 17, 2024 Has the PT tested + for MRSA If YES, has PT been informed?: No Medical Necessity Reason Pt with a Central, PICC or Fol: Yes The following are medically ne: Central Line, Jones Catheter Reason for jones catheter: Strict I&O Subjective Ms. Wren is a 63 years old female with a history of asthma, COPD, paroxysmal atrial fibrillation, allergy to animal dander, smoking, she was brought to the [facility] on 07[facility]08[facility]2024 with a chief company of altered mental status. I have seen and examined the patient, I have talked to her nurse, she remained intubated, nonresponsive to strong painful stimuli The pupils are unequal and fixed UDS, 07/12/2024: Cannabinoids Urinalysis, 07/08/2024: WBC: 26, urine leukocyte esterase: Negative ABG, 07/08/2024: acidosis, WBC/HB/PLT/MCV, 07/15/2024: 11.5/75/80/89.3 PT/INR/PTT, 07/08/2024: 16/1.56/26.8 BUN/CR, 07/15/2024: 112/8.19 TBI/AST/ALT/AP, 07/15/2024: 0.8/68/45/31 EEG, 07/16/2024: Inadequate, but likely remarkably abnormal EEG CT head, 07/08/2024: 1. No acute intracranial hemorrhage. 2. No CT findings of territorial ischemia CT head, 07/12/2024: 1. Symmetric hypodensities in the lentiform nuclei, similar to prior study. Hypodensities in the bilateral thalami new since prior CT scan of the head from 07/10/2024. Additionally, there is subtle loss of mendoza-white matter differentiation since the prior CT from 07/08/2024 for which intracerebral edema is not excluded. Correlation for toxic metabolic or ischemic insult or other etiology is recommended. MRI of the brain without contrast is recommended for further evaluation. 2. No evidence of acute intracranial hemorrhag MRI head, 07/14/2024: There is T2/FLAIR hyperintensity involving the lentiform nucleus, hypothalamic region, cerebral peduncle, dorsal midbrain , dorsal liberty and dorsal medulla with symmetric bilateral dorsal medulla small focus of diffusion restriction. Findings are nonspecific and may be seen with hypoxic ischemic encephalopathy, metabolic or toxic disorders. Recommend clinical correlation vital signs Vital Sign Date Time Temp Pulse Resp B/P (MAP) Pulse Ox O2 Delivery O2 Flow Rate FiO2 07/17/24 09:50 117 24 135/84 (101) 100 30 07/17/24 08:00 Mechanical Ventilator+ 07/17/24 04:30 97.8 97.8 Total Intake and Output 07/16/24 07/16/24 07/17/24 15:00 23:00 07:00 Intake Total 396.502 ml 238.378 ml 510.706 ml Output Total 625 ml 850 ml Balance 396.502 ml -386.622 ml -339.294 ml medications Current Medications Medications Dose Ordered Sig/Perez Route Start Time Stop Time Status Last Admin Dose Admin Epinephrine HCl 250 ml @ 7.5 mls/hr Q24H IV 07/08/24 19:30 07/09/24 17:34 7.5 MLS/HR Acetaminophen 650 mg Q6HP PRN PO 07/08/24 22:45 07/09/24 22:29 650 MG Nitroglycerin 0.4 mg Q5MINP PRN SL 07/08/24 22:45 Morphine Sulfate 2 mg Q30M PRN IV 07/08/24 22:45 Acetaminophen 650 mg Q6HP PRN MN 07/09/24 11:00 07/09/24 15:54 650 MG Fentanyl Citrate 250 ml @ 2.5 mls/hr Q24H IV 07/09/24 12:15 07/17/24 04:56 5 MLS/HR Pantoprazole Sodium 40 mg BID IV 07/11/24 22:00 07/16/24 21:59 40 MG Piperacillin Sod/ Tazobactam Sod 100 ml @ 25 mls/hr Q12H IV 07/12/24 02:00 07/17/24 02:10 25 MLS/HR Propofol 100 ml @ 1.902 mls/ hr Q24H IV 07/12/24 15:15 07/16/24 14:08 11.412 MLS/HR Albuterol 2.5 mg Q4HPRN PRN NEB 07/12/24 22:00 07/13/24 22:09 2.5 MG Ipratropium Crawford 0.5 mg Q4HR NEB 07/13/24 14:00 07/17/24 09:50 0.5 MG Metoprolol Tartrate 12.5 mg BID PO 07/15/24 22:00 Hold 07/15/24 21:35 12.5 MG Hydrocortisone Sodium Succinate 50 mg Q12HR IV 07/16/24 22:00 07/16/24 22:10 50 MG Enteral Nutritional Formula 1,000 ml 30ML/HR GT 07/16/24 14:45 Norepinephrine Bitartrate 250 ml @ 1.875 mls/ hr Q24H IV 07/16/24 15:45 objective The patient is well-nourished and well-developed with no distress. The patient is intubated MENTAL STATUS: See subjective CRANIAL NERVES: Pupils are round, Rt: 5mm, Lt: 6mm and nonreactive. There are corneal reflexes and questionable doll's eyes phenomenon. No signs of facial weakness. There are no gagging or coughing reflexes SENSATION: No responses to pain stimuli. MOTOR: Normal tone in the upper and lower extremity. Normal muscle bulk. No fasciculations. No spontaneous movement. REFLEXES: Deep tendon reflexes are symmetrical. No pathological reflexes. CEREBELLAR/COORDINATION: Deferred GAIT/STATION: deferred laboratory and microbiology Laboratory Tests 07/17/24 03:46 Test 07/17/24 03:46 Range/Units Serum Glucose 125 H 74-106 mg/dL Problem List Coma/diffuse brain edema Hypoxic encephalopathy Metabolic encephalopathy Cardiopulmonary arrest Acute respiratory failure Unequal pupil size/brain herniation Assessment/Plan Monitoring Supportive treatment ICU care Stabilize vitals/pressor drip Respiratory support/vent management Oxygen More recommendation per clinical course The patient is like to have a poor prognosis for meaningful recovery, higher level care transfer is unlike to change progresses This medical document was created using an electronic medical record system with [employer] dictation system. Although this document has been carefully reviewed, there may still be some phonetic and typographical errors. These areas are purely typographical due to imperfections of the software programs, and do not reflect any compromise in the patient's medical care Prognosis Guarded Dietary Evaluation Review Comments: Patient is not receiving nutrition. If GI is accessible, consider EN nutrition - Jevity 1.2 @ 55 mL/hr as tolerated. If patient remains NPO for more than 7 days, initiate TPN to meet 75% of estimated needs. Advance patient diet when medically feasible to a cardiac diet if renal function is sufficient. Expected Outcomes/Goals: Patient to receive nutrition support within 7 days of NPO status. Patient diet to advance F/u in 2-3 days Plan discussed with: Other Critical Care Time(min): 30 SUMAYA ALVAREZ MD Jul 17, 2024 09:58
[2024-07-17] MEDS: SODIUM BICARB 8.4% 50Meq/50ml SYR Vial IV ONE (10:17)
[2024-07-17] MEDS: CALCIUM GLUC 1,000mg/50ml-NS 50 ML IV ONE (10:18)
--- NOTE | 2024-07-17 11:44 | DVHPN2 ---
Progress Note Date Seen: Jul 17, 2024 Resident Creating Document: YO CEJA RESIDENT Has the PT tested + for MRSA If YES, has PT been informed?: No Medical Necessity Reason Pt with a Central, PICC or Fol: Yes The following are medically ne: Central Line, Jones Catheter Reason for jones catheter: Strict I&O Subjective Review of Systems Patient seen in ICU. Continue be on ventilator, requiring one vasopressors. No other new complaints. Objective vital signs Vital Sign Date Time Temp Pulse Resp B/P (MAP) Pulse Ox O2 Delivery O2 Flow Rate FiO2 07/17/24 09:50 117 24 135/84 (101) 100 30 07/17/24 08:00 Mechanical Ventilator+ 07/17/24 04:30 97.8 97.8 Total Intake and Output 07/16/24 07/16/24 07/17/24 15:00 23:00 07:00 Intake Total 396.502 ml 238.378 ml 510.706 ml Output Total 625 ml 850 ml Balance 396.502 ml -386.622 ml -339.294 ml medications Current Medications Medications Dose Ordered Sig/Perez Route Start Time Stop Time Status Last Admin Dose Admin Epinephrine HCl 250 ml @ 7.5 mls/hr Q24H IV 07/08/24 19:30 07/09/24 17:34 7.5 MLS/HR Acetaminophen 650 mg Q6HP PRN PO 07/08/24 22:45 07/09/24 22:29 650 MG Nitroglycerin 0.4 mg Q5MINP PRN SL 07/08/24 22:45 Morphine Sulfate 2 mg Q30M PRN IV 07/08/24 22:45 Acetaminophen 650 mg Q6HP PRN [place] 07/09/24 11:00 07/09/24 15:54 650 MG Fentanyl Citrate 250 ml @ 2.5 mls/hr Q24H IV 07/09/24 12:15 07/17/24 04:56 5 MLS/HR Pantoprazole Sodium 40 mg BID IV 07/11/24 22:00 07/17/24 10:17 40 MG Piperacillin Sod/ Tazobactam Sod 100 ml @ 25 mls/hr Q12H IV 07/12/24 02:00 07/17/24 02:10 25 MLS/HR Propofol 100 ml @ 1.902 mls/ hr Q24H IV 07/12/24 15:15 07/16/24 14:08 11.412 MLS/HR Albuterol 2.5 mg Q4HPRN PRN NEB 07/12/24 22:00 07/13/24 22:09 2.5 MG Ipratropium [place] 0.5 mg Q4HR NEB 07/13/24 14:00 07/17/24 09:50 0.5 MG Metoprolol Tartrate 12.5 mg BID PO 07/15/24 22:00 Hold 07/15/24 21:35 12.5 MG Hydrocortisone Sodium Succinate 50 mg Q12HR IV 07/16/24 22:00 07/17/24 10:19 50 MG Enteral Nutritional Formula 1,000 ml 30ML/HR GT 07/16/24 14:45 Norepinephrine Bitartrate 250 ml @ 1.875 mls/ hr Q24H IV 07/16/24 15:45 Furosemide 80 mg DAILY IV 07/18/24 10:00 Examination General Appearance: Sedated, intubated on ventilator. Head Exam: Normal inspection Neck Exam: Normal inspection. Non-tender. Normal alignment Pulmonary/Respiratory: Chest non-tender. Clear bilateral breath sounds Cardiovascular/Chest: Regular rate and rhythm. No murmurs. No JVD. Peripheral Pulses: 2+ Radial (R). 2+ Radial (L). 2+ Pedal (R). 2+ Pedal (L) Abdominal Exam: Normal bowel sounds. Soft. Nontender. No hepatospenomegaly. No masses Ankle Exam: Negative ankle edema Lower extremities: Negative lower extremity edema Neuro/Mental Status: Fixed, dilated pupils, no pupillary reflex. laboratory and microbiology Laboratory Tests 07/17/24 03:46 Test 07/17/24 03:46 Range/Units Serum Glucose 125 H 74-106 mg/dL Microbiology Date/Time Source Procedure Growth Status 07/16/24 17:02 Trachea Gram Stain - Final Resulted 07/16/24 17:02 Trachea Respiratory Culture - Preliminary Resulted 07/09/24 00:07 Blood Blood Culture - Final NO GROWTH AFTER 5 DAYS OF INCUBATION. Complete 07/08/24 22:00 Voided Urine Urine Culture - Final Complete Problem List/Assessment/Plan Problem List/Assessment/Plan NAOMI secondary to hemodynamically mediated likely ischemic ATN Septic shock due to pneumonia Pneumonia NSTEMI type 2 likely due to above Cardiopulmonary arrest status post CPR with ROSC Paroxysmal atrial fibrillation Elevated liver function ? Anoxic brain injury Upper GI bleeding Plan/recommendation Dr. Turcios -Continue Lasix 80 mg once daily given low GFR, follow with urine output response. -larry dialysis catheter consent and insertion. HD treatment today and tomorrow. -currently on vasopressor for hemodynamic support -currently on antibiotics Zosyn, vancomycin, monitor vancomycin serum level. -strict I&O -continue to monitor kidney function, electrolytes -possible anoxic brain injury: Brain MRI result showed possible hypoxic encephalopathy. -given possible anoxic brain injury, poor prognosis, dialysis is not recommended at this point. -EEG:EEG seen in severe cerebral dysfunction due to metabolic/hypoxic encephalopathy or medication effect Plan discussed with: Patient, Other (RN) My Orders My Orders Orders - YO CEJA Procedure Category Date Status Time Furosemide Injection PHA 07/18/24 In Process (Lasix Injection) 10:00 Dietary Evaluation Review Comments: Patient is not receiving nutrition. If GI is accessible, consider EN nutrition - Jevity 1.2 @ 55 mL/hr as tolerated. If patient remains NPO for more than 7 days, initiate TPN to meet 75% of estimated needs. Advance patient diet when medically feasible to a cardiac diet if renal function is sufficient. Expected Outcomes/Goals: Patient to receive nutrition support within 7 days of NPO status. Patient diet to advance F/u in 2-3 days Critical Care Time (mins): 42 YO CEJA Jul 17, 2024 11:44 MARILYN TURCIOS MD Jul 17, 2024 20:49
[2024-07-17] MEDS: FUROSEMIDE 100 MG/10ML VIAL IV ONE (12:13)
[2024-07-17] MEDS: SODIUM CHL 0.9% 1000 ML BAG XX ONE (15:15)
--- NOTE | 2024-07-17 15:42 | DVHPN2 ---
Consult Progress Note Date Seen: Jul 17, 2024 Subjective Other Systems: Patient now off of all sedations, remains mechanically ventilated, FIO2 30%, PEEP 5. Pupils nonreactive bilterally. 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 Off of pressors at this time. Objective vital signs Vital Sign Date Time Temp Pulse Resp B/P (MAP) Pulse Ox O2 Delivery O2 Flow Rate FiO2 07/17/24 13:41 122 24 120/70 (87) 100 30 07/17/24 12:00 Mechanical Ventilator+ 07/17/24 04:30 97.8 97.8 Total Intake and Output 07/16/24 07/16/24 07/17/24 15:00 23:00 07:00 Intake Total 396.502 ml 238.378 ml 514.456 ml Output Total 625 ml 850 ml Balance 396.502 ml -386.622 ml -335.544 ml medications Current Medications Medications Dose Ordered Sig/Perez Route Start Time Stop Time Status Last Admin Dose Admin Acetaminophen 650 mg Q6HP PRN PO 07/08/24 22:45 07/09/24 22:29 650 MG Nitroglycerin 0.4 mg Q5MINP PRN SL 07/08/24 22:45 Morphine Sulfate 2 mg Q30M PRN IV 07/08/24 22:45 Acetaminophen 650 mg Q6HP PRN [place] 07/09/24 11:00 07/09/24 15:54 650 MG Fentanyl Citrate 250 ml @ 2.5 mls/hr Q24H IV 07/09/24 12:15 07/17/24 04:56 5 MLS/HR Pantoprazole Sodium 40 mg BID IV 07/11/24 22:00 07/17/24 10:17 40 MG Piperacillin Sod/ Tazobactam Sod 100 ml @ 25 mls/hr Q12H IV 07/12/24 02:00 07/17/24 02:10 25 MLS/HR Propofol 100 ml @ 1.902 mls/ hr Q24H IV 07/12/24 15:15 07/16/24 14:08 11.412 MLS/HR Albuterol 2.5 mg Q4HPRN PRN NEB 07/12/24 22:00 07/13/24 22:09 2.5 MG Ipratropium [place] 0.5 mg Q4HR NEB 07/13/24 14:00 12/4/24 13:41 0.5 MG Enteral Nutritional Formula 1,000 ml 30ML/HR GT 07/16/24 14:45 Norepinephrine Bitartrate 250 ml @ 1.875 mls/ hr Q24H IV 07/16/24 15:45 Furosemide 80 mg DAILY IV 07/18/24 10:00 Examination: GENERAL:Abnormal, LUNGS:Abnormal (Mechanically ventilated), CVS:Normal, NEURO:Abnormal (Off sedation, not responsive) laboratory and microbiology Laboratory Tests 07/17/24 03:46 Test 07/17/24 03:46 Range/Units Serum Glucose 125 H 74-106 mg/dL Problem List/Assessment/Plan Problem List/Assessment/Plan Cardiopulmonary arrest status post CPR with ROSC NSTEMI type II secondary to above Rule out anoxic brain injury Paroxysmal atrial fibrillation, on Cardizem and digoxin Status post mitral valve repair, ?mechanical, on Coumadin Pneumonia Elevated LFTs Acute kidney injury Plan/Recommendation (Dr. Batista) Echocardiogram revealed LVEF of 50%. Moderately elevated right ventricular systolic pressures at 40 mmHg. Severely dilated right and left atria. The aortic valve is mildly thickened and sclerotic with no significant stenosis or regurgitation. 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 as well as mitral valve repair, there is no significant stenosis or regurgitation. Hold AC therapy given GI bleed. At time of assessment, patient is in sinus tachycardia. We recommend to treat the underlying cause. If the patient goes back into atrial fibrillation we will recommend loading dose of Digoxin therapy followed by renal maintenance dose for rate control. Monitor and replete electrolytes as needed. There is no further inpatient cardiac workup indicated at this time. Kindly reconsult if needed. Thank you for allowing us to participate in this patient's care. Critical care time: 30 min. This medical document was created using an electronic medical record system with voice recognition software and computerized dictation system. Although this document has been carefully reviewed, there might still be some phonetic and typographical errors. Occasional wrong-word or ``sound-alike substitutions may have occurred due to the inherent limitations of voice recognition software. These areas are purely typographical due to imperfections of the software programs and do not reflect any compromise in the patient's medical care. Please read the chart carefully and recognize, using context, where these substitutions have occurred. Plan discussed with: Daughter, Other (side door workerMARIO Mccarthy ) Dietary Evaluation Review Comments: Patient is not receiving nutrition. If GI is accessible, consider EN nutrition - Jevity 1.2 @ 55 mL/hr as tolerated. If patient remains NPO for more than 7 days, initiate TPN to meet 75% of estimated needs. Advance patient diet when medically feasible to a cardiac diet if renal function is sufficient. Expected Outcomes/Goals: Patient to receive nutrition support within 7 days of NPO status. Patient diet to advance F/u in 2-3 days Date of Service: Jul 17, 2024 Billing Provider: MG BATISTA MD Cardiology Common Codes: 66538-[id number] CARE 30-74 MIN LEOBARDO DARNELL STORM SASH MAKER Jul 17, 2024 15:42
[2024-07-17] MEDS: NOREPINEPHRINE 8 MG/250ML KIT 250 ML IV SCH (15:45)
[2024-07-17] MEDS: HEPARIN 1,000 UNITS/ml 1ML VIAL ONE (16:00)
--- NOTE | 2024-07-17 18:24 | DVHNC2 ---
EDGAR CÁRDENAS RESDIENT 07/17/24 182: Procedure - Central Line Procedure Note Date and time: 07/17/2024 at 3:30pm Indication: Dialysis Access Central Line Location: Left Femoral Vein Procedure Production Assembly Supervisor: Resident Renate Attending Physician: Dr. Yancey Consent: Consent was obtained from Daughter prior to the procedure. Indications, risks and benefits were discussed prior to the procedure. Procedure Summary: A time out was performed. My hands were washed immediately prior to the procedure. I wore a surgical cap, mask with protective eye wear, full gown and sterile gloves throughout the procedure. The Left groin was prepped using chlorhexidine and draped in sterile fashion using a three quarter sheet drape and sterile towels. Skin preparation was allowed to dry prior to skin puncture. Anatomic landmarks were identified. Anesthesia was achieved over the vein using 10 ml of 1% lidocaine. Using real-time ultrasound, with sterile probe cover and sterile gel, the Left Femoral Vein was identified on ultrasound using the linear ultrasound probe in the transverse orientation. The femoral artery was identified and avoided utilizing color-flow. The Femoral Vein was then placed in the center of the ultrasound field and compressed for patency. The introducer needle was inserted into the vein under direct ultrasound visualization, and a movement artifact was identified as the needle was advanced through the skin toward the vessel. A real-time hyperechoic signal revealed visualization of vascular needle entry into the lumen as blood was noted to flashback in the syringe. The needle was then held in place, the syringe was removed, and the guide wire was advanced through the needle. Direct visualization of the guide wire location within the vein was noted on ultrasound, indicating proper placement. The needle was then removed. A small incision was made at the skin surface with a scalpel, and a skin dilator was advanced over the guide wire. After appropriate dilation was obtained, the dilator was removed, and a triple-lumen catheter was then advanced over the guide wire into proper position. The guide wire was removed and discarded. The ports were aspirated, which showed good blood return, and then carefully flushed with normal saline. The catheter was stabilized and sutured to the skin with 2-0 silk at two anchor points. A sterile op-site was placed over the catheter and biopatch. The patient tolerated the procedure without any hemodynamic compromise. The catheter was also carefully flushed with heparin 1000 ml/ml. Estimated blood loss: 5 ml MARISOL YANCEY MD 07/19/24 1722: EDGAR CÁRDENAS Jul 17, 2024 18:24 MARISOL YANCEY MD Jul 19, 2024 17:22
[2024-07-17 18:56] LABS: % Iron Saturation 27.9 % (15-50)
--- NOTE | 2024-07-17 19:06 | DVH ---
EXAM: XR Chest, 1 View CLINICAL INDICATION: POST DILAYSIS CATHETER TECHNIQUE: Frontal view of the chest. COMPARISON: XY CHEST XRAY 1 VIEW on DOS: 07/17/24, XY CHEST XRAY 1 VIEW on DOS: 07/16/24, XY CHEST XR AY 1 VIEW on DOS: 07/15/24 FINDINGS: LUNGS AND PLEURAL SPACES: See below. HEART: Cardiomegaly with moderate congestion. MEDIASTINUM: Unremarkable. Normal mediastinal contour. BONES/JOINTS: Unremarkable. No acute fracture. TUBES, LINES AND DEVICES: The endotracheal tube (ETT) is in satisfactory position. Enteric tube tip cannot be seen but is below the diaphragm. OTHER FINDINGS: . . IMPRESSION: Cardiomegaly with moderate congestion. HS:Y
--- NOTE | 2024-07-17 20:48 | DVHPNRES ---
Progress Note Date Seen: Jul 17, 2024 Resident Creating Document: EDGAR CÁRDENAS THADDEUS Has the PT tested + for MRSA If YES, has PT been informed?: No Medical Necessity Reason Pt with a Central, PICC or Fol: Yes The following are medically ne: Central Line, Jones Catheter Reason for jones catheter: Strict I&O Subjective Review of Systems This is a 63-year-old female with past medical history of allergic asthma, COPD, hypertension, paroxysmal atrial fibrillation, repaired mitral valve, IBS, generalized anxiety, chronic pain and insomnia brought to the hospital after loss of consciousness. Patient had lost consciousness out of house, witnessed by the bystanders, found asystole by EMS, performed CPR for 20 minutes and retained ROSC. Admitted on 07/09/2024. Today, patient seen and examined at the bedside. Patient is sedated and on mechanical ventilation. Review of systems could not obtain. Patient reports: No new complaints Changes from previous H/P or p: No Changes Objective vital signs Vital Sign Date Time Temp Pulse Resp B/P (MAP) Pulse Ox O2 Delivery O2 Flow Rate FiO2 07/17/24 19:15 124 23 138/81 (100) 100 07/17/24 18:54 30 07/17/24 18:00 Mechanical Ventilator+ 07/17/24 16:00 99.4 99.4 Total Intake and Output 07/16/24 07/16/24 07/17/24 15:00 23:00 07:00 Intake Total 396.502 ml 238.378 ml 514.456 ml Output Total 625 ml 850 ml Balance 396.502 ml -386.622 ml -335.544 ml medications Current Medications Medications Dose Ordered Sig/Perez Route Start Time Stop Time Status Last Admin Dose Admin Acetaminophen 650 mg Q6HP PRN PO 07/08/24 22:45 07/09/24 22:29 650 MG Nitroglycerin 0.4 mg Q5MINP PRN SL 07/08/24 22:45 Morphine Sulfate 2 mg Q30M PRN IV 07/08/24 22:45 Acetaminophen 650 mg Q6HP PRN [place] 07/09/24 11:00 07/09/24 15:54 650 MG Fentanyl Citrate 250 ml @ 2.5 mls/hr Q24H IV 07/09/24 12:15 07/17/24 04:56 5 MLS/HR Pantoprazole Sodium 40 mg BID IV 07/11/24 22:00 07/17/24 10:17 40 MG Piperacillin Sod/ Tazobactam Sod 100 ml @ 25 mls/hr Q12H IV 07/12/24 02:00 07/17/24 02:10 25 MLS/HR Propofol 100 ml @ 1.902 mls/ hr Q24H IV 07/12/24 15:15 07/16/24 14:08 11.412 MLS/HR Albuterol 2.5 mg Q4HPRN PRN NEB 07/12/24 22:00 07/13/24 22:09 2.5 MG Ipratropium [place] 0.5 mg Q4HR NEB 07/13/24 14:00 07/17/24 18:54 0.5 MG Enteral Nutritional Formula 1,000 ml 30ML/HR GT 07/16/24 14:45 Norepinephrine Bitartrate 250 ml @ 1.875 mls/ hr Q24H IV 07/16/24 15:45 Furosemide 80 mg DAILY IV 07/18/24 10:00 Examination General: RASS -5, afebrile, mucosae are moist Cardiovascular: Normal S1 and S2. No murmurs, gallops or rubs Respiratory: Mechanically assisted ventilation, equal bilateral airway entree. Clear lung sounds on auscultation Abdomen: Soft, nontender, no organomegaly, normal bowel sounds MSK/skin: Mobilization of limbs cannot be evaluated. Skin is dry and warm. Neurological: Orientation cannot be assessed. No apparent motor no sensitive deficits. Bilateral pupils are dilated, fixed and nonreactive to the light. No cough reflex on deep suctioning laboratory and microbiology Laboratory Tests 07/17/24 03:46 Test 07/17/24 03:46 Range/Units Serum Glucose 125 H 74-106 mg/dL Microbiology Date/Time Source Procedure Growth Status 07/16/24 17:02 Trachea Gram Stain - Final Resulted 07/16/24 17:02 Trachea Respiratory Culture - Preliminary Resulted 07/09/24 00:07 Blood Blood Culture - Final NO GROWTH AFTER 5 DAYS OF INCUBATION. Complete 07/08/24 22:00 Voided Urine Urine Culture - Final Complete Labs and/or images reviewed: Labs reviewed by me, Image(s) reviewed by me Problem List/Assessment/Plan Problem List/Assessment/Plan This is a 63-year-old female with past medical history of allergic asthma, COPD, hypertension, paroxysmal atrial fibrillation, repaired mitral valve, IBS, generalized anxiety, chronic pain and insomnia brought to the hospital after loss of consciousness. Patient had lost consciousness out of house, witnessed by the bystanders, found asystole by EMS, performed CPR for 20 minutes and retained ROSC. Admitted on 07/09/2024. NEURO: Acute metabolic encephalopathy, likely due to sepsis/possible anoxic brain injury due to cardiac arrest Patient is sedated, and on mechanical ventilation, place, and Status post cardiac arrest Possible Cerebral edema, likely due to cardiac arrest Head CT scan shows less prominent sulci, likely due to cerebral edema We will consider head CT scan after 48 hour for the monitoring of possible cerebral edema Teleneurology consulted on 07/10 and has consulted the daughter of the patient regarding poor prognosis Head CT scan of 07/12/2024 shows changes but could not exclude brain edema Brain MRI shows nonspecific findings may be seen with hypoxic ischemic encephalopathy, metabolic or toxic disorders EEG shows severe cerebral dysfunction due to metabolic/hypoxic encephalopathy or medication effect Neurology consulted back, and recommended that the patient have a poor prognosis for meaningful recovery and higher level care transfer is unlikely to change progresses CARDIOVASCULAR: Status post cardiac arrest Patient has history of paroxysmal atrial fibrillation Non ST-elevation FL, type 2, likely due to cardiac arrest and CPR Circulation shock, likely septic likely due to pneumonia Patient has history of open heart surgery for mitral valve repair Troponin is raised, up trending EKG shows sinus tachycardia, with no significant ST or T-wave changes Cardiology on the board, recommended conservative management Echocardiogram shows Borderline Normal left ventricular systolic function estimated ejection [id number] Moderately elevated right ventricular systolic pressure 40 mm of mercury. 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 as well as mitral valve repair Cardiology is on the board, suggested conservative management Sinus tachycardia Stopped metoprolol Due to paroxysmal atrial fibrillation and RVR, the Cardiology consulted back, recommended to use digoxin in case of atrial fibrillation recurrence PULMONARY: Patient is sedated, and on mechanical ventilator, RASS (-5, unresponsive) with ventilator setting of( Vt 450, RR 26, FiO2 30%, peep 5) Acute hypoxic respiratory failure likely due to pneumonia/COPD exacerbation/asthma exacerbation Pneumonia likely due to Gram-positive/Gram-negative Septic shock likely due to pneumonia/UTI Patient has history of multiple hospital admission, including intubated for 2 months in [place] in 2007, mitral valve repair and also has been admitted in [facility] ABGs showed respiratory alkalosis with pH of 7.457 and carbon dioxide of 24.3 Chest x-ray shows prominent bronchovascular marking WBCs raised at 21.2, downtrending Sputum culture MRSA nares screening negative and stopped vancomycin (given for 4 days) COVID-19 and influenza antigens are negative Chest x-ray does not shows any acute cardiopulmonary abnormality ABGs shows respiratory alkalosis with metabolic acidosis Continue Zosyn, started on 07/12 Continue Albuterol and ipratropium nebulization every 6 hours Discontinued hydrocortisone Sputum culture shows many growth, Gram-negative rods GI: Possible Upper GI bleeding, unspecified location Transaminitis, likely due to ischemia secondary to cardiac arrest NG tube showed black drainage on 06/29 and 06/30 likely due to upper GI bleeding GI consulted, recommended conservative management Continue Protonix b.i.d. Discontinue Lovenox due to severe anemia and possible upper GI bleeding RENAL: NAOMI, no previous records available Nephrology on the board, planned for hemodialysis Injection Lasix 80 mg daily UTI, unspecified location UA shows UTI picture Continue Zosyn Urine culture showed no bacterial growth ID: Urine and blood culture from 07/08 shows no bacterial growth Blood culture from 07/09 shows no bacterial growth MRSA screening on 07/09 negative, and discontinued vancomycin COVID-19 and influenza screening from 07/09 negative Continue Zosyn, started on 07/12 Cannabinoid use disorder UDS shows cannabis positive Metabolic: Hypokalemia, Supplemented Magnesium is within normal limits Hyperkalemia, normalized Mild Hypernatremia, improved Mild hyperkalemia, injection calcium gluconate given DVT prophylaxis Due to possible upper GI bleeding, Lovenox is not indicated SCD LINES/DRAINS/ACCESS: ETT tube, intubated on 07/08/2024 Transurethral catheter, placed on 07/08/2024 IV Access Right femoral vein (CVC), placed on 07/08/2024 Left femoral vein catheter for HD, placed on 07/17 Drips: Fentanyl 250 Levophed 2 Bumex drip Diet: Nepro 30 mL/hour on 07/16 Disposition: As per family request for the higher level of care transfer(preference Shayna Pozo), rn social services has been consulted. CODE STATUS: Full code Disposition: ICU status, kept in ICU Case discussed with the daughter at the bedside. Critical time spent more than 83 minutes, including patient care, chart review and updating the family, excluding any procedures. Case discussed with Dr. Hardy Plan discussed with: Patient, Daughter, Other (RN) My Orders My Orders Orders - EDGAR CÁRDENAS RESZARINA Procedure Category Date Status Time Complete Blood Count LAB 07/18/24 Verified 04:00 Comprehensive LAB 07/18/24 Verified Metabolic Panel 04:00 Chest Xray 1 View XY 07/18/24 Logged 04:00 Abg W/ Co-Ox RT 07/18/24 Logged 04:00 Dietary Evaluation Review Comments: Patient is not receiving nutrition. If GI is accessible, consider EN nutrition - Jevity 1.2 @ 55 mL/hr as tolerated. If patient remains NPO for more than 7 days, initiate TPN to meet 75% of estimated needs. Advance patient diet when medically feasible to a cardiac diet if renal function is sufficient. Expected Outcomes/Goals: Patient to receive nutrition support within 7 days of NPO status. Patient diet to advance F/u in 2-3 days Date of Service: Jul 17, 2024 Billing Provider: MONE HARDY MD Common Visit Codes: [id number] CARE 30-74 MIN, [id number] CARE-EACH +30MIN EDGAR CÁRDENAS RESDIENT Jul 17, 2024 20:48 MONE HARDY MD Jul 18, 2024 11:44
[2024-07-17] MEDS: EPOETIN ALFA-EPBX 10,000 UNIT/1ML VIAL SC ONE (22:50)
[2024-07-18] VITALS (112 sets, daily range): BP systolic 58–163; BP diastolic 33–119; PULSE 122–150; RESP 14–43; TEMP 97.9–99.1; O2SAT 85–100
--- NOTE | 2024-07-18 04:10 | DVH ---
CHEST RADIOGRAPH Indication: Pneumonia Technique: Frontal view of the chest. Comparison: XY CHEST PORTABLE on DOS: 07/17/24, XY CHEST XRAY 1 VIEW on DOS: 07/17/24, XY CHEST XRAY 1 VIEW on DOS: 07/16/24, XY CHEST XRAY 1 VIEW on DOS: 07/15/24, XY CHEST PORTABLE on DOS: 07/14/24, XY [address]A [address] PORTABLE on DOS: 07/17/24 FINDINGS: LUNGS AND PLEURAL SPACES: See below. HEART: Cardiomegaly with moderate congestion. MEDIASTINUM: Unremarkable. Normal mediastinal contour. BONES/JOINTS: Unremarkable. No acute fracture. TUBES, LINES AND DEVICES: The endotracheal tube (ETT) is in satisfactory position. Enteric tube tip cannot be seen but is below the diaphragm. OTHER FINDINGS: none IMPRESSION: Cardiomegaly with moderate congestion.
[2024-07-18 04:18] LABS: Hemoglobin 7.8 g/dL (12.2-16.2)
[2024-07-18 04:20] LABS: Mean Corpuscular Hemoglobin 29.5 pg (28.0-32.0); Mean Corpuscular Hgb Conc. 32.7 g/dL (32.0-36.0); Mean Corpuscular Volume 90.4 fL (80.0-100.0); Platelet Count (auto) 324 10^3/uL (140-450); Red Blood Cells 2.65 10^6/uL (4.0-5.20); Red Cell Distribution Width 16.4 % (11.8-14.3); White Blood Cell 20.2 10^3/uL (4.4-10.8)
[2024-07-18 04:33] LABS: Alkaline Phosphatase 56 U/L (46-116)
[2024-07-18 04:34] LABS: Alanine Aminotransferase 39 U/L (7-40); Albumin 3.2 g/dL (3.2-4.8); Anion Gap 17 (5-15); BUN/Creatinine Ratio 15.5 (10.0-20.0); Bilirubin, Total 0.7 mg/dL (0.2-1.0); Calcium 9.6 mg/dL (8.7-10.4); Carbon Dioxide 27 mmol/L (20-31); Chloride 101 mmol/L (98-107); Potassium 3.9 mmol/L (3.5-5.1); Sodium 145 mmol/L (136-145); Total Protein 5.8 g/dL (5.7-8.2)
[2024-07-18 04:41] LABS: Glucose 116 mg/dL (74-106)
[2024-07-18 04:42] LABS: Aspartate Aminotransferase 75 U/L (13-40); Blood Urea Nitrogen 109 mg/dL (9-23)
[2024-07-18 04:43] LABS: Basophils % (manual) 0 (0.0-2.0); Blast Cells 0; Eosinophils % (manual) 0 (0-7); Myelocytes % 0; Promyelocytes % 0; Reactive Lymphocytes 0
[2024-07-18 06:01] LABS: Band Neutrophils % (manual) 1; Lymphocytes % (manual) 5 (10.0-50.0); Metamyelocytes % 1; Monocytes % (manual) 7 (0-12); Platelet Estimate Adequate
[2024-07-18 06:02] LABS: Anisocytosis Slight; Large Platelets FEW
[2024-07-18] MEDS: SODIUM CHL 0.9% 1000 ML BAG XX ONE (08:15)
[2024-07-18] MEDS ORDERED: FUROSEMIDE 100 MG/10ML VIAL IV SCH (10:00)
--- NOTE | 2024-07-18 10:35 | DVHPN2 ---
Progress Note - Dictate Date Seen: Jul 18, 2024 Has the PT tested + for MRSA If YES, has PT been informed?: No Medical Necessity Reason Pt with a Central, PICC or Fol: Yes The following are medically ne: Central Line, Jones Catheter Reason for jones catheter: Strict I&O Subjective Ms. Wren is a 63 years old female with a history of asthma, COPD, paroxysmal atrial fibrillation, allergy to animal dander, smoking, she was brought to the [facility] on 07/08/2024 with a chief company of altered mental status. I have seen and examined the patient, I have talked to her nurse, social service input appreciated. she remained intubated, nonresponsive to strong painful stimuli The pupils are unequal and fixed, no gag reflexes I have spent time discussing with her mother and her daughter, about the patient's current situation and likely poor prognosis for meaningful recovery, they voiced understanding, and they still want higher level of care transfer UDS, 07/12/2024: Cannabinoids Urinalysis, 07/08/2024: WBC: 26, urine leukocyte esterase: Negative ABG, 07/08/2024: acidosis, WBC/HB/PLT/MCV, 07/15/2024: 11.5/75/80/89.3 PT/INR/PTT, 07/08/2024: 16/1.56/26.8 BUN/CR, 07/15/2024: 112/8.19 TBI/AST/ALT/AP, 07/15/2024: 0.8/68/45/31 EEG, 07/16/2024: Inadequate, but likely remarkably abnormal EEG CT head, 07/08/2024: 1. No acute intracranial hemorrhage. 2. No CT findings of territorial ischemia CT head, 07/12/2024: 1. Symmetric hypodensities in the lentiform nuclei, similar to prior study. Hypodensities in the bilateral thalami new since prior CT scan of the head from 07/10/2024. Additionally, there is subtle loss of mendoza-white matter differentiation since the prior CT from 07/08/2024 for which intracerebral edema is not excluded. Correlation for toxic metabolic or ischemic insult or other etiology is recommended. MRI of the brain without contrast is recommended for further evaluation. 2. No evidence of acute intracranial hemorrhag MRI head, 07/14/2024: There is T2/FLAIR hyperintensity involving the lentiform nucleus, hypothalamic region, cerebral peduncle, dorsal midbrain , dorsal liberty and dorsal medulla with symmetric bilateral dorsal medulla small focus of diffusion restriction. Findings are nonspecific and may be seen with hypoxic ischemic encephalopathy, metabolic or toxic disorders. Recommend clinical correlation vital signs Vital Sign Date Time Temp Pulse Resp B/P (MAP) Pulse Ox O2 Delivery O2 Flow Rate FiO2 07/18/24 09:36 30 07/18/24 09:36 127 07/18/24 09:36 24 100 Mechanical Ventilator+ 07/18/24 09:34 114/79 (91) 07/18/24 05:00 99.1 99.1 Total Intake and Output 07/17/24 07/17/24 07/18/24 15:00 23:00 07:00 Intake Total 15.000 ml 76 ml 64 ml Output Total 410 ml 100 ml Balance 15.000 ml -334 ml -36 ml medications Current Medications Medications Dose Ordered Sig/Perez Route Start Time Stop Time Status Last Admin Dose Admin Acetaminophen 650 mg Q6HP PRN PO 07/08/24 22:45 07/09/24 22:29 650 MG Nitroglycerin 0.4 mg Q5MINP PRN SL 07/08/24 22:45 Acetaminophen 650 mg Q6HP PRN [place] 07/09/24 11:00 07/09/24 15:54 650 MG Fentanyl Citrate 250 ml @ 2.5 mls/hr Q24H IV 07/09/24 12:15 07/17/24 04:56 5 MLS/HR Pantoprazole Sodium 40 mg BID IV 07/11/24 22:00 07/17/24 21:55 40 MG Piperacillin Sod/ Tazobactam Sod 100 ml @ 25 mls/hr Q12H IV 07/12/24 02:00 07/17/24 02:10 25 MLS/HR Propofol 100 ml @ 1.902 mls/ hr Q24H IV 07/12/24 15:15 07/16/24 14:08 11.412 MLS/HR Albuterol 2.5 mg Q4HPRN PRN NEB 07/12/24 22:00 07/13/24 22:09 2.5 MG Ipratropium [place] 0.5 mg Q4HR NEB 07/13/24 14:00 07/18/24 09:34 0.5 MG Enteral Nutritional Formula 1,000 ml 30ML/HR GT 07/16/24 14:45 Norepinephrine Bitartrate 250 ml @ 1.875 mls/ hr Q24H IV 07/16/24 15:45 Furosemide 80 mg DAILY IV 07/18/24 10:00 objective The patient is well-nourished and well-developed with no distress. The patient is intubated MENTAL STATUS: See subjective CRANIAL NERVES: Pupils are round, Rt: 5mm, Lt: 6mm and nonreactive. There are corneal reflexes and questionable doll's eyes phenomenon. No signs of facial weakness. There are no gagging or coughing reflexes SENSATION: No responses to pain stimuli. MOTOR: Normal tone in the upper and lower extremity. Normal muscle bulk. No fasciculations. No spontaneous movement. REFLEXES: Deep tendon reflexes are symmetrical. No pathological reflexes. CEREBELLAR/COORDINATION: Deferred GAIT/STATION: deferred laboratory and microbiology Laboratory Tests 07/18/24 04:00 Test 07/18/24 04:00 Range/Units Serum Glucose 116 H 74-106 mg/dL Problem List Coma/diffuse brain edema Hypoxic encephalopathy Metabolic encephalopathy Cardiopulmonary arrest Acute respiratory failure Unequal pupil size/brain herniation Assessment/Plan Monitoring Supportive treatment Follow-up CT head ICU care Stabilize vitals Respiratory support/vent management Oxygen Transferred to higher level care Social service on case More recommendation per clinical course The patient is like to have a poor prognosis for meaningful recovery, higher level care transfer is unlike to change progresses This medical document was created using an electronic medical record system with [employer] dictation system. Although this document has been carefully reviewed, there may still be some phonetic and typographical errors. These areas are purely typographical due to imperfections of the software programs, and do not reflect any compromise in the patient's medical care Prognosis Guarded Dietary Evaluation Review Comments: Patient is not receiving nutrition. If GI is accessible, consider EN nutrition - Jevity 1.2 @ 55 mL/hr as tolerated. If patient remains NPO for more than 7 days, initiate TPN to meet 75% of estimated needs. Advance patient diet when medically feasible to a cardiac diet if renal function is sufficient. Expected Outcomes/Goals: Patient to receive nutrition support within 7 days of NPO status. Patient diet to advance F/u in 2-3 days Plan discussed with: Daughter, Other Critical Care Time(min): 40 SUMAYA ALVAREZ MD Jul 18, 2024 10:35
--- NOTE | 2024-07-18 10:42 | DVHPN2 ---
Progress Note Date Seen: Jul 18, 2024 Resident Creating Document: YO CEJA RESIDENT Has the PT tested + for MRSA If YES, has PT been informed?: No Medical Necessity Reason Pt with a Central, PICC or Fol: Yes The following are medically ne: Central Line, Jones Catheter Reason for jones catheter: Strict I&O Subjective Review of Systems Patient is off pressors and sedation. No reflexes as per nurse including gag reflex. No other new events during nighttime. Objective vital signs Vital Sign Date Time Temp Pulse Resp B/P (MAP) Pulse Ox O2 Delivery O2 Flow Rate FiO2 07/18/24 09:36 30 07/18/24 09:36 127 07/18/24 09:36 24 100 Mechanical Ventilator+ 07/18/24 09:34 114/79 (91) 07/18/24 05:00 99.1 99.1 Total Intake and Output 07/17/24 07/17/24 07/18/24 15:00 23:00 07:00 Intake Total 15.000 ml 76 ml 64 ml Output Total 410 ml 100 ml Balance 15.000 ml -334 ml -36 ml medications Current Medications Medications Dose Ordered Sig/Perez Route Start Time Stop Time Status Last Admin Dose Admin Acetaminophen 650 mg Q6HP PRN PO 07/08/24 22:45 07/09/24 22:29 650 MG Nitroglycerin 0.4 mg Q5MINP PRN SL 07/08/24 22:45 Acetaminophen 650 mg Q6HP PRN [place] 07/09/24 11:00 07/09/24 15:54 650 MG Fentanyl Citrate 250 ml @ 2.5 mls/hr Q24H IV 07/09/24 12:15 07/17/24 04:56 5 MLS/HR Pantoprazole Sodium 40 mg BID IV 07/11/24 22:00 07/17/24 21:55 40 MG Piperacillin Sod/ Tazobactam Sod 100 ml @ 25 mls/hr Q12H IV 07/12/24 02:00 07/17/24 02:10 25 MLS/HR Propofol 100 ml @ 1.902 mls/ hr Q24H IV 07/12/24 15:15 07/16/24 14:08 11.412 MLS/HR Albuterol 2.5 mg Q4HPRN PRN NEB 07/12/24 22:00 07/13/24 22:09 2.5 MG Ipratropium [place] 0.5 mg Q4HR NEB 07/13/24 14:00 07/18/24 09:34 0.5 MG Enteral Nutritional Formula 1,000 ml 30ML/HR GT 07/16/24 14:45 Norepinephrine Bitartrate 250 ml @ 1.875 mls/ hr Q24H IV 07/16/24 15:45 Furosemide 80 mg DAILY IV 07/18/24 10:00 Examination General Appearance: Sedated, intubated on ventilator. Head Exam: Normal inspection Neck Exam: Normal inspection. Non-tender. Normal alignment Pulmonary/Respiratory: Chest non-tender. Clear bilateral breath sounds Cardiovascular/Chest: Regular rate and rhythm. No murmurs. No JVD. Peripheral Pulses: 2+ Radial (R). 2+ Radial (L). 2+ Pedal (R). 2+ Pedal (L) Abdominal Exam: Normal bowel sounds. Soft. Nontender. No hepatospenomegaly. No masses Ankle Exam: Negative ankle edema Lower extremities: Negative lower extremity edema Neuro/Mental Status: Fixed, dilated pupils, no pupillary reflex. No gag reflex. laboratory and microbiology Laboratory Tests 07/18/24 04:00 Test 07/18/24 04:00 Range/Units Serum Glucose 116 H 74-106 mg/dL Microbiology Date/Time Source Procedure Growth Status 07/16/24 17:02 Trachea Gram Stain - Final Resulted 07/16/24 17:02 Trachea Respiratory Culture - Preliminary Resulted 07/09/24 00:07 Blood Blood Culture - Final NO GROWTH AFTER 5 DAYS OF INCUBATION. Complete 07/08/24 22:00 Voided Urine Urine Culture - Final Complete Problem List/Assessment/Plan Problem List/Assessment/Plan NAOMI secondary to hemodynamically mediated likely ischemic ATN Septic shock due to pneumonia Pneumonia NSTEMI type 2 likely due to above Cardiopulmonary arrest status post CPR with ROSC Paroxysmal atrial fibrillation Elevated liver function ? Anoxic brain injury Upper GI bleeding Plan/recommendation Dr. Turcios -plan for hemodialysis today as well. -Continue Lasix 80 mg once daily given low GFR, follow with urine output response. -currently on vasopressor for hemodynamic support -currently on antibiotics Zosyn, vancomycin, monitor vancomycin serum level. -strict I&O -continue to monitor kidney function, electrolytes -possible anoxic brain injury: Brain MRI result showed possible hypoxic encephalopathy. -given possible anoxic brain injury, poor prognosis, dialysis is not recommended at this point. -EEG:EEG seen in severe cerebral dysfunction due to metabolic/hypoxic encephalopathy or medication effect Plan discussed with: Other (RN) My Orders My Orders Orders - YO CEJA Procedure Category Date Status Time Furosemide Injection PHA 07/18/24 In Process (Lasix Injection) 10:00 Dietary Evaluation Review Comments: Patient is not receiving nutrition. If GI is accessible, consider EN nutrition - Jevity 1.2 @ 55 mL/hr as tolerated. If patient remains NPO for more than 7 days, initiate TPN to meet 75% of estimated needs. Advance patient diet when medically feasible to a cardiac diet if renal function is sufficient. Expected Outcomes/Goals: Patient to receive nutrition support within 7 days of NPO status. Patient diet to advance F/u in 2-3 days Critical Care Time (mins): 33 ADDENDUM ADDENDUM unstable tolerated HD poorly today treatment ended early due to severe tachycardia and hypotension Hd trial tomorrow however expectations are low for treatment success YO CEJA Jul 18, 2024 10:42 MARILYN TURCIOS MD Jul 18, 2024 15:32
[2024-07-18 10:57] LABS: Hepatitis A Ab IgM Negative; Hepatitis B Core IgM Negative (Negative); Hepatitis B Surface Antigen Negative (Negative); Hepatitis C Antibody Negative (Negative)
[2024-07-18] MEDS ORDERED: VANCOMYCIN PER PHARMACY 0 MG IV SCH (11:45)
[2024-07-18] MEDS ORDERED: VANCOMYCIN 750mg/150ml 150 ML IV ONE (12:15)
[2024-07-18] MEDS: VANCOMYCIN 750MG VIAL 750 MG in D5W 5% 250 ML IV ONE (17:08)
[2024-07-18] MEDS: BUMETANIDE 2.5mg/10ml (0.25 mg/ml) INJ IV ONE (17:14)
--- NOTE | 2024-07-18 17:19 | DVHPNRES ---
Progress Note Date Seen: Jul 18, 2024 Resident Creating Document: EDGAR CÁRDENAS THADDEUS Has the PT tested + for MRSA If YES, has PT been informed?: No Medical Necessity Reason Pt with a Central, PICC or Fol: Yes The following are medically ne: Central Line, Jones Catheter Reason for jones catheter: Strict I&O Subjective Review of Systems This is a 63-year-old female with past medical history of allergic asthma, COPD, hypertension, paroxysmal atrial fibrillation, repaired mitral valve, IBS, generalized anxiety, chronic pain and insomnia brought to the hospital after loss of consciousness. Patient had lost consciousness out of house, witnessed by the bystanders, found asystole by EMS, performed CPR for 20 minutes and retained ROSC. Admitted on 07/09/2024. Today, patient seen and examined at the bedside. Patient is sedated and on mechanical ventilation. Review of systems could not obtain. Patient reports: No new complaints Objective vital signs Vital Sign Date Time Temp Pulse Resp B/P (MAP) Pulse Ox O2 Delivery O2 Flow Rate FiO2 07/18/24 17:14 99/70 07/18/24 16:00 98.1 123 30 100 98.1 07/18/24 15:55 30 07/18/24 15:34 Mechanical Ventilator+ Total Intake and Output 07/17/24 07/17/24 07/18/24 15:00 23:00 07:00 Intake Total 15.000 ml 76 ml 64 ml Output Total 410 ml 100 ml Balance 15.000 ml -334 ml -36 ml medications Current Medications Medications Dose Ordered Sig/Perez Route Start Time Stop Time Status Last Admin Dose Admin Acetaminophen 650 mg Q6HP PRN PO 07/08/24 22:45 07/09/24 22:29 650 MG Nitroglycerin 0.4 mg Q5MINP PRN SL 07/08/24 22:45 Acetaminophen 650 mg Q6HP PRN [place] 07/09/24 11:00 07/09/24 15:54 650 MG Pantoprazole Sodium 40 mg BID IV 07/11/24 22:00 07/18/24 10:00 40 MG Piperacillin Sod/ Tazobactam Sod 100 ml @ 25 mls/hr Q12H IV 07/12/24 02:00 07/18/24 14:00 25 MLS/HR Propofol 100 ml @ 1.902 mls/ hr Q24H IV 07/12/24 15:15 07/16/24 14:08 11.412 MLS/HR Albuterol 2.5 mg Q4HPRN PRN NEB 07/12/24 22:00 07/13/24 22:09 2.5 MG Ipratropium [place] 0.5 mg Q4HR NEB 07/13/24 14:00 07/18/24 14:03 0.5 MG Enteral Nutritional Formula 1,000 ml 30ML/HR GT 07/16/24 14:45 Norepinephrine Bitartrate 250 ml @ 1.875 mls/ hr Q24H IV 07/16/24 15:45 07/18/24 17:02 7.5 MLS/HR Vancomycin HCl 0 ml @ 0 mls/hr UD IV 07/18/24 11:45 Examination General: RASS -5, afebrile, mucosae are moist Cardiovascular: Normal S1 and S2. No murmurs, gallops or rubs Respiratory: Mechanically assisted ventilation, equal bilateral airway entree. Clear lung sounds on auscultation Abdomen: Soft, nontender, no organomegaly, normal bowel sounds MSK/skin: Mobilization of limbs cannot be evaluated. Skin is dry and warm. Neurological: Orientation cannot be assessed. No apparent motor no sensitive deficits. Bilateral pupils are dilated, fixed and nonreactive to the light. No cough reflex on deep suctioning laboratory and microbiology Laboratory Tests 07/18/24 04:00 Test 07/18/24 04:00 Range/Units Serum Glucose 116 H 74-106 mg/dL Microbiology Date/Time Source Procedure Growth Status 07/16/24 17:02 Trachea Gram Stain - Final Resulted 07/16/24 17:02 Trachea Respiratory Culture - Preliminary Resulted 07/09/24 00:07 Blood Blood Culture - Final NO GROWTH AFTER 5 DAYS OF INCUBATION. Complete 07/08/24 22:00 Voided Urine Urine Culture - Final Complete Labs and/or images reviewed: Labs reviewed by me, Image(s) reviewed by me Problem List/Assessment/Plan Problem List/Assessment/Plan This is a 63-year-old female with past medical history of allergic asthma, COPD, hypertension, paroxysmal atrial fibrillation, repaired mitral valve, IBS, generalized anxiety, chronic pain and insomnia brought to the hospital after loss of consciousness. Patient had lost consciousness out of house, witnessed by the bystanders, found asystole by EMS, performed CPR for 20 minutes and retained ROSC. Admitted on 07/09/2024. NEURO: Acute metabolic encephalopathy, likely due to sepsis/possible anoxic brain injury due to cardiac arrest Patient is sedated, and on mechanical ventilation, place, and Status post cardiac arrest Possible Cerebral edema, likely due to cardiac arrest Head CT scan shows less prominent sulci, likely due to cerebral edema We will consider head CT scan after 48 hour for the monitoring of possible cerebral edema Teleneurology consulted on 07/10 and has consulted the daughter of the patient regarding poor prognosis Head CT scan of 07/12/2024 shows changes but could not exclude brain edema Brain MRI shows nonspecific findings may be seen with hypoxic ischemic encephalopathy, metabolic or toxic disorders EEG shows severe cerebral dysfunction due to metabolic/hypoxic encephalopathy or medication effect Neurology consulted back, and recommended that the patient have a poor prognosis for meaningful recovery and higher level care transfer is unlikely to change progresses CARDIOVASCULAR: Status post cardiac arrest Patient has history of paroxysmal atrial fibrillation Non ST-elevation IA, type 2, likely due to cardiac arrest and CPR Circulation shock, likely septic likely due to pneumonia Patient has history of open heart surgery for mitral valve repair Troponin is raised, up trending EKG shows sinus tachycardia, with no significant ST or T-wave changes Cardiology on the board, recommended conservative management Echocardiogram shows Borderline Normal left ventricular systolic function estimated ejection [id number] Moderately elevated right ventricular systolic pressure 40 mm of mercury. 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 as well as mitral valve repair Cardiology is on the board, suggested conservative management Sinus tachycardia Stopped metoprolol Due to paroxysmal atrial fibrillation and RVR, the Cardiology consulted back, recommended to use digoxin in case of atrial fibrillation recurrence PULMONARY: Patient is sedated, and on mechanical ventilator, RASS (-5, unresponsive) with ventilator setting of( Vt 450, RR 26, FiO2 30%, peep 5) Acute hypoxic respiratory failure likely due to pneumonia/COPD exacerbation/asthma exacerbation Pneumonia likely due to Gram-positive/Gram-negative Septic shock likely due to pneumonia/UTI Patient has history of multiple hospital admission, including intubated for 2 months in [place] in 2007, mitral valve repair and also has been admitted in [facility] ABGs showed respiratory alkalosis with pH of 7.457 and carbon dioxide of 24.3 Chest x-ray shows prominent bronchovascular marking WBCs raised at 21.2, downtrending Sputum culture MRSA nares screening negative and stopped vancomycin (given for 4 days) COVID-19 and influenza antigens are negative Chest x-ray does not shows any acute cardiopulmonary abnormality ABGs shows respiratory alkalosis with metabolic acidosis Continue Zosyn, started on 07/12 Continue Albuterol and ipratropium nebulization every 6 hours Sputum culture shows many growth, Gram-negative rods GI: Possible Upper GI bleeding, unspecified location Transaminitis, likely due to ischemia secondary to cardiac arrest NG tube showed black drainage on 06/29 and 06/30 likely due to upper GI bleeding GI consulted, recommended conservative management Continue Protonix b.i.d. Discontinue Lovenox due to severe anemia and possible upper GI bleeding RENAL: NAOMI, no previous records available Nephrology on the board, dialysis performed today and taken out 500 mL fluid UTI, unspecified location UA shows UTI picture Continue Zosyn Urine culture showed no bacterial growth ID: Urine and blood culture from 07/08 shows no bacterial growth Blood culture from 07/09 shows no bacterial growth MRSA screening on 07/09 negative, and discontinued vancomycin COVID-19 and influenza screening from 07/09 negative Continue Zosyn, started on 07/12 Cannabinoid use disorder UDS shows cannabis positive Metabolic: Hypokalemia, Supplemented Magnesium is within normal limits Hyperkalemia, normalized Mild Hypernatremia, improved Mild hyperkalemia, injection calcium gluconate given Gynecology Vaginal bleeding 5-10 mL of vaginal bleeding noticed, with some clots on 07/18 Monitoring DVT prophylaxis Due to possible upper GI bleeding, Lovenox is not indicated SCD LINES/DRAINS/ACCESS: ETT tube, intubated on 07/08/2024 Transurethral catheter, placed on 07/08/2024 IV Access Right femoral vein (CVC), placed on 07/08/2024 Left femoral vein catheter for HD, placed on 07/17 Drips: Levophed 2 Diet: Nepro 30 mL/hour on 07/16 Disposition: As per family request for the higher level of care transfer(preference [place]), social and political studies professor has been consulted. CODE STATUS: Full code Disposition: ICU status, kept in ICU Case discussed with the daughter at the bedside. Critical time spent more than 82 minutes, including patient care, chart review and updating the family, excluding any procedures. Case discussed with Dr. Hardy Plan discussed with: Patient, Daughter, Other (RN) My Orders My Orders Orders - EDGAR CÁRDENAS RESDIANASTASIA Procedure Category Date Status Time Chest Xray 1 View XY 07/18/24 Resulted 04:00 Abg W/ Co-Ox RT 07/18/24 Logged 04:00 Dietary Evaluation Review Comments: Patient is not receiving nutrition. If GI is accessible, consider EN nutrition - Jevity 1.2 @ 55 mL/hr as tolerated. If patient remains NPO for more than 7 days, initiate TPN to meet 75% of estimated needs. Advance patient diet when medically feasible to a cardiac diet if renal function is sufficient. Expected Outcomes/Goals: Patient to receive nutrition support within 7 days of NPO status. Patient diet to advance F/u in 2-3 days Date of Service: Jul 18, 2024 Billing Provider: MONE HARDY MD Common Visit Codes: 94201-[id number] CARE 30-74 MIN, [id number] CARE-EACH +30MIN EDGAR CÁRDENAS RESDIENT Jul 18, 2024 17:19 MONE HARDY MD Jul 21, 2024 15:18
[2024-07-19] VITALS (104 sets, daily range): BP systolic 78–162; BP diastolic 51–114; PULSE 113–156; RESP 20–55; TEMP 94.4–98.2; O2SAT 95–100
[2024-07-19 03:51] LABS: Mean Corpuscular Volume 90.4 fL (80.0-100.0); Red Blood Cells 2.41 10^6/uL (4.0-5.20); Red Cell Distribution Width 16.3 % (11.8-14.3)
[2024-07-19 03:55] LABS: Hematocrit 21.8 % (36.0-46.0); Hemoglobin 7.2 g/dL (12.2-16.2); Mean Corpuscular Hemoglobin 29.8 pg (28.0-32.0); Platelet Count (auto) 254 10^3/uL (140-450); White Blood Cell 17.9 10^3/uL (4.4-10.8)
[2024-07-19 04:04] LABS: Alanine Aminotransferase 33 U/L (7-40); Alkaline Phosphatase 58 U/L (46-116); Anion Gap 15 (5-15); BUN/Creatinine Ratio 13.5 (10.0-20.0); Calcium 8.9 mg/dL (8.7-10.4); Carbon Dioxide 26 mmol/L (20-31); Chloride 103 mmol/L (98-107); Potassium 3.5 mmol/L (3.5-5.1); Sodium 144 mmol/L (136-145)
[2024-07-19 04:05] LABS: Bilirubin, Total 0.7 mg/dL (0.2-1.0)
[2024-07-19 04:11] LABS: Basophils % (manual) 0 (0.0-2.0); Blast Cells 0; Metamyelocytes % 0; Myelocytes % 0; Promyelocytes % 0; Reactive Lymphocytes 0
[2024-07-19 04:44] LABS: Albumin 2.9 g/dL (3.2-4.8); Aspartate Aminotransferase 68 U/L (13-40); Glucose 118 mg/dL (74-106); Total Protein 5.3 g/dL (5.7-8.2)
[2024-07-19 04:45] LABS: Blood Urea Nitrogen 90 mg/dL (9-23)
--- NOTE | 2024-07-19 05:53 | DVH ---
CHEST RADIOGRAPH Indication: intubated Technique: Single frontal view of the chest was obtained Comparison: XY CHEST XRAY 1 VIEW on DOS: 07/18/24 FINDINGS: Lines and Tubes: The endotracheal tube terminates 5.2 cm above the zachary. The enteric tube terminate s below the left hemidiaphragm and outside the field of view. Lungs: No focal consolidation. Pleura: No effusion. No pneumothorax. Cardiomediastinal contours: Unremarkable Bones: No acute osseous abnormality. Status post median sternotomy. IMPRESSION: 1. Endotracheal tube terminates 5.2 cm above the zachary. 2. No acute cardiopulmonary disease.
[2024-07-19 06:51] LABS: Band Neutrophils % (manual) 2; Eosinophils % (manual) 4 (0-7); Lymphocytes % (manual) 5 (10.0-50.0); Monocytes % (manual) 2 (0-12)
[2024-07-19 06:52] LABS: Large Platelets FEW; Platelet Estimate Adequa
[2024-07-19] MEDS: SODIUM CHL 0.9% 1000 ML BAG XX ONE (07:00)
--- NOTE | 2024-07-19 16:22 | DVHPN2 ---
Progress Note - Dictate Date Seen: Jul 19, 2024 Has the PT tested + for MRSA If YES, has PT been informed?: No Medical Necessity Reason Pt with a Central, PICC or Fol: Yes The following are medically ne: Central Line, Jones Catheter Reason for jones catheter: Strict I&O Subjective Patient's mother and godmother at bedside, patient tolerated dialysis earlier today vital signs Vital Sign Date Time Temp Pulse Resp B/P (MAP) Pulse Ox O2 Delivery O2 Flow Rate FiO2 07/19/24 15:51 30 07/19/24 15:50 22 100 Mechanical Ventilator+ 07/19/24 15:45 96.6 125 125/88 (100) 205.9 Total Intake and Output 07/18/24 07/18/24 07/19/24 15:00 23:00 07:00 Intake Total 48.750 ml 175.000 ml 424.455 ml Output Total 125 ml 225 ml Balance 48.750 ml 50.000 ml 199.455 ml medications Current Medications Medications Dose Ordered Sig/Perez Route Start Time Stop Time Status Last Admin Dose Admin Acetaminophen 650 mg Q6HP PRN PO 07/08/24 22:45 07/09/24 22:29 650 MG Nitroglycerin 0.4 mg Q5MINP PRN SL 07/08/24 22:45 Acetaminophen 650 mg Q6HP PRN [place] 07/09/24 11:00 07/09/24 15:54 650 MG Pantoprazole Sodium 40 mg BID IV 07/11/24 22:00 07/19/24 07:36 40 MG Albuterol 2.5 mg Q4HPRN PRN NEB 07/12/24 22:00 07/19/24 06:24 2.5 MG Ipratropium [place] 0.5 mg Q4HR NEB 07/13/24 14:00 07/19/24 14:02 0.5 MG Enteral Nutritional Formula 1,000 ml 30ML/HR GT 07/16/24 14:45 Norepinephrine Bitartrate 250 ml @ 1.875 mls/ hr Q24H IV 07/16/24 15:45 07/18/24 17:02 7.5 MLS/HR Vancomycin HCl 0 ml @ 0 mls/hr UD IV 07/18/24 11:45 Meropenem 50 ml @ 17 mls/hr Q8HR IV 07/19/24 22:00 UNV objective Gen: nad heent: nc/at, mmm lungs: Coarse breath sounds cvs: no rub skin: no rash laboratory and microbiology Laboratory Tests 07/19/24 03:15 Test 07/19/24 03:15 Range/Units Serum Glucose 118 H 74-106 mg/dL Assessment/Plan Problem List/Assessment/Plan NAOMI secondary to hemodynamically mediated likely ischemic ATN Septic shock due to pneumonia Pneumonia NSTEMI type 2 likely due to above Cardiopulmonary arrest status post CPR with ROSC Paroxysmal atrial fibrillation Elevated liver function ? Anoxic brain injury Upper GI bleeding Plan Dr. Turcios - daily evaluation for kidney replacement therapy - discussed plan of care from Nephrology perspective with patient's mother at bedside Dietary Evaluation Review Comments: Patient is not receiving nutrition. If GI is accessible, consider EN nutrition - Jevity 1.2 @ 55 mL/hr as tolerated. If patient remains NPO for more than 7 days, initiate TPN to meet 75% of estimated needs. Advance patient diet when medically feasible to a cardiac diet if renal function is sufficient. Expected Outcomes/Goals: Patient to receive nutrition support within 7 days of NPO status. Patient diet to advance F/u in 2-3 days Plan discussed with: ANDREA Wagoner MD Jul 19, 2024 16:22
[2024-07-19] MEDS: AMIODARONE BOLUS KIT 100 ML IV ONE (17:46)
[2024-07-19] MEDS: AMIODARONE 450mg/250ml AE 250 ML IV SCH (17:47)
[2024-07-19] MEDS: MEROPENEM 500MG IVPB 50 ML IV SCH (17:47)
[2024-07-19] MEDS ORDERED: MEROPENEM 1GM IVPB 50 ML IV SCH (18:00)
[2024-07-19] MEDS: LEVALBUTEROL HCL 1.25 MG/3 ML NEB NEB SCH (19:06)
--- NOTE | 2024-07-19 19:23 | DVHPN2 ---
Progress Note - Dictate Date Seen: Jul 19, 2024 Has the PT tested + for MRSA If YES, has PT been informed?: No Medical Necessity Reason Pt with a Central, PICC or Fol: Yes The following are medically ne: Central Line, Jones Catheter Reason for jones catheter: Strict I&O Subjective Ms. Wren is a 63 years old female with a history of asthma, COPD, paroxysmal atrial fibrillation, allergy to animal dander, smoking, she was brought to the [facility] on 07/08/2024 with a chief company of altered mental status. I have seen and examined the patient, I have talked to her nurse, respiratory therapist, and other medical staff.. I have not see all of the changes, she remained intubated, nonresponsive to strong painful stimuli The pupils are unequal and fixed as before, no gag reflexes I have spent time discussing with her mother and her daughter, about the patient's current situation and likely poor prognosis for meaningful recovery, they voiced understanding, and they still want higher level of care transfer Levo 5 mcg per minute UDS, 07/12/2024: Cannabinoids Urinalysis, 07/08/2024: WBC: 26, urine leukocyte esterase: Negative ABG, 07/08/2024: acidosis, WBC/HB/PLT/MCV, 07/15/2024: 11.5/75/80/89.3 PT/INR/PTT, 07/08/2024: 16/1.56/26.8 BUN/CR, 07/15/2024: 112/8.19 TBI/AST/ALT/AP, 07/15/2024: 0.8/68/45/31 EEG, 07/16/2024: Inadequate, but likely remarkably abnormal EEG CT head, 07/08/2024: 1. No acute intracranial hemorrhage. 2. No CT findings of territorial ischemia CT head, 07/12/2024: 1. Symmetric hypodensities in the lentiform nuclei, similar to prior study. Hypodensities in the bilateral thalami new since prior CT scan of the head from 07/10/2024. Additionally, there is subtle loss of mendoza-white matter differentiation since the prior CT from 07/08/2024 for which intracerebral edema is not excluded. Correlation for toxic metabolic or ischemic insult or other etiology is recommended. MRI of the brain without contrast is recommended for further evaluation. 2. No evidence of acute intracranial hemorrhag MRI head, 07/14/2024: There is T2/FLAIR hyperintensity involving the lentiform nucleus, hypothalamic region, cerebral peduncle, dorsal midbrain , dorsal liberty and dorsal medulla with symmetric bilateral dorsal medulla small focus of diffusion restriction. Findings are nonspecific and may be seen with hypoxic ischemic encephalopathy, metabolic or toxic disorders. Recommend clinical correlation vital signs Vital Sign Date Time Temp Pulse Resp B/P (MAP) Pulse Ox O2 Delivery O2 Flow Rate FiO2 07/19/24 18:16 135 22 105/59 (74) 100 30 07/19/24 17:45 97.3 207.1 07/19/24 17:31 Mechanical Ventilator+ Total Intake and Output 07/18/24 07/18/24 07/19/24 15:00 23:00 07:00 Intake Total 48.750 ml 175.000 ml 424.455 ml Output Total 125 ml 225 ml Balance 48.750 ml 50.000 ml 199.455 ml medications Current Medications Medications Dose Ordered Sig/Perez Route Start Time Stop Time Status Last Admin Dose Admin Acetaminophen 650 mg Q6HP PRN PO 07/08/24 22:45 07/09/24 22:29 650 MG Nitroglycerin 0.4 mg Q5MINP PRN SL 07/08/24 22:45 Acetaminophen 650 mg Q6HP PRN [place] 07/09/24 11:00 07/09/24 15:54 650 MG Pantoprazole Sodium 40 mg BID IV 07/11/24 22:00 07/19/24 07:36 40 MG Ipratropium [place] 0.5 mg Q4HR NEB 07/13/24 14:00 07/19/24 18:16 0.5 MG Enteral Nutritional Formula 1,000 ml 30ML/HR GT 07/16/24 14:45 Norepinephrine Bitartrate 250 ml @ 1.875 mls/ hr Q24H IV 07/16/24 15:45 07/18/24 17:02 7.5 MLS/HR Vancomycin HCl 0 ml @ 0 mls/hr UD IV 07/18/24 11:45 Meropenem 50 ml @ 17 mls/hr DAILY IV 07/19/24 18:00 07/19/24 17:47 17 MLS/HR Amiodarone HCl 250 ml @ 33.333 mls/ hr Q7H30M IV 07/19/24 17:45 07/19/24 23:44 07/19/24 17:47 33.333 MLS/HR Levalbuterol HCl 1.25 mg Q6HR NEB 07/19/24 18:00 07/19/24 19:06 1.25 MG objective The patient is well-nourished and well-developed with no distress. The patient is intubated MENTAL STATUS: See subjective CRANIAL NERVES: Pupils are round, Rt: 5mm, Lt: 6mm and nonreactive. There are corneal reflexes and questionable doll's eyes phenomenon. No signs of facial weakness. There are no gagging or coughing reflexes SENSATION: No responses to pain stimuli. MOTOR: Normal tone in the upper and lower extremity. Normal muscle bulk. No fasciculations. No spontaneous movement. REFLEXES: Deep tendon reflexes are symmetrical. No pathological reflexes. CEREBELLAR/COORDINATION: Deferred GAIT/STATION: deferred laboratory and microbiology Laboratory Tests 07/19/24 03:15 Test 07/19/24 03:15 Range/Units Serum Glucose 118 H 74-106 mg/dL Problem List Coma/diffuse brain edema Hypoxic encephalopathy Metabolic encephalopathy Cardiopulmonary arrest Acute respiratory failure Unequal pupil size/brain herniation Assessment/Plan Monitoring Supportive treatment Follow-up CT head ICU care Stabilize vitals Respiratory support/vent management Oxygen Transferred to higher level care Social service on case More recommendation per clinical course The patient is like to have a poor prognosis for meaningful recovery, higher level care transfer is unlike to change progresses This medical document was created using an electronic medical record system with [employer] dictation system. Although this document has been carefully reviewed, there may still be some phonetic and typographical errors. These areas are purely typographical due to imperfections of the software programs, and do not reflect any compromise in the patient's medical care Prognosis guarded Dietary Evaluation Review Comments: Patient is not receiving nutrition. If GI is accessible, consider EN nutrition - Jevity 1.2 @ 55 mL/hr as tolerated. If patient remains NPO for more than 7 days, initiate TPN to meet 75% of estimated needs. Advance patient diet when medically feasible to a cardiac diet if renal function is sufficient. Expected Outcomes/Goals: Patient to receive nutrition support within 7 days of NPO status. Patient diet to advance F/u in 2-3 days Plan discussed with: Other Critical Care Time(min): 30 SUMAYA ALVAREZ MD Jul 19, 2024 19:23
--- NOTE | 2024-07-19 21:52 | DVHPNRES ---
Progress Note Date Seen: Jul 19, 2024 Resident Creating Document: EDGAR CÁRDENAS THADDEUS Has the PT tested + for MRSA If YES, has PT been informed?: No Medical Necessity Reason Pt with a Central, PICC or Fol: Yes The following are medically ne: Central Line, Jones Catheter Reason for jones catheter: Strict I&O Subjective Review of Systems This is a 63-year-old female with past medical history of allergic asthma, COPD, hypertension, paroxysmal atrial fibrillation, repaired mitral valve, IBS, generalized anxiety, chronic pain and insomnia brought to the hospital after loss of consciousness. Patient had lost consciousness out of house, witnessed by the bystanders, found asystole by EMS, performed CPR for 20 minutes and retained ROSC. Admitted on 07/09/2024. Today, patient seen and examined at the bedside. Patient is sedated and on mechanical ventilation. Review of systems could not obtain. Objective vital signs Vital Sign Date Time Temp Pulse Resp B/P (MAP) Pulse Ox O2 Delivery O2 Flow Rate FiO2 07/19/24 21:00 97.3 127 22 102/68 (79) 100 207.1 07/19/24 20:00 Mechanical Ventilator+ 30 30 Total Intake and Output 07/18/24 07/18/24 07/19/24 15:00 23:00 07:00 Intake Total 48.750 ml 175.000 ml 424.455 ml Output Total 125 ml 225 ml Balance 48.750 ml 50.000 ml 199.455 ml medications Current Medications Medications Dose Ordered Sig/Perez Route Start Time Stop Time Status Last Admin Dose Admin Acetaminophen 650 mg Q6HP PRN PO 07/08/24 22:45 07/09/24 22:29 650 MG Nitroglycerin 0.4 mg Q5MINP PRN SL 07/08/24 22:45 Acetaminophen 650 mg Q6HP PRN [place] 07/09/24 11:00 07/09/24 15:54 650 MG Pantoprazole Sodium 40 mg BID IV 07/11/24 22:00 07/19/24 07:36 40 MG Ipratropium [place] 0.5 mg Q4HR NEB 07/13/24 14:00 07/19/24 18:16 0.5 MG Enteral Nutritional Formula 1,000 ml 30ML/HR GT 07/16/24 14:45 Norepinephrine Bitartrate 250 ml @ 1.875 mls/ hr Q24H IV 07/16/24 15:45 07/18/24 17:02 7.5 MLS/HR Vancomycin HCl 0 ml @ 0 mls/hr UD IV 07/18/24 11:45 Meropenem 50 ml @ 17 mls/hr DAILY IV 07/19/24 18:00 07/19/24 17:47 17 MLS/HR Amiodarone HCl 250 ml @ 33.333 mls/ hr Q7H30M IV 07/19/24 17:45 07/19/24 23:44 07/19/24 17:47 33.333 MLS/HR Levalbuterol HCl 1.25 mg Q6HR NEB 07/19/24 18:00 07/19/24 19:06 1.25 MG Examination General: RASS -5, afebrile, mucosae are moist Cardiovascular: Normal S1 and S2. No murmurs, gallops or rubs Respiratory: Mechanically assisted ventilation, equal bilateral airway entree. Clear lung sounds on auscultation Abdomen: Soft, nontender, no organomegaly, normal bowel sounds MSK/skin: Mobilization of limbs cannot be evaluated. Skin is dry and warm. Neurological: Orientation cannot be assessed. No apparent motor no sensitive deficits. Bilateral pupils are dilated, fixed and nonreactive to the light. No cough reflex on deep suctioning laboratory and microbiology Laboratory Tests 07/19/24 03:15 Test 07/19/24 03:15 Range/Units Serum Glucose 118 H 74-106 mg/dL Microbiology Date/Time Source Procedure Growth Status 07/16/24 17:02 Trachea Gram Stain - Final Resulted 07/16/24 17:02 Respiratory Culture - Preliminary Enterobacter cloacae Resulted 07/09/24 00:07 Blood Blood Culture - Final NO GROWTH AFTER 5 DAYS OF INCUBATION. Complete 07/08/24 22:00 Voided Urine Urine Culture - Final Complete Labs and/or images reviewed: Labs reviewed by me, Image(s) reviewed by me Problem List/Assessment/Plan Problem List/Assessment/Plan This is a 63-year-old female with past medical history of allergic asthma, COPD, hypertension, paroxysmal atrial fibrillation, repaired mitral valve, IBS, generalized anxiety, chronic pain and insomnia brought to the hospital after loss of consciousness. Patient had lost consciousness out of house, witnessed by the bystanders, found asystole by EMS, performed CPR for 20 minutes and retained ROSC. Admitted on 07/09/2024. NEURO: Acute metabolic encephalopathy, likely due to sepsis/possible anoxic brain injury due to cardiac arrest Patient is sedated, and on mechanical ventilation, place, and Status post cardiac arrest Possible Cerebral edema, likely due to cardiac arrest Head CT scan shows less prominent sulci, likely due to cerebral edema We will consider head CT scan after 48 hour for the monitoring of possible cerebral edema Teleneurology consulted on 07/10 and has consulted the daughter of the patient regarding poor prognosis Head CT scan of 07/12/2024 shows changes but could not exclude brain edema Brain MRI shows nonspecific findings may be seen with hypoxic ischemic encephalopathy, metabolic or toxic disorders EEG shows severe cerebral dysfunction due to metabolic/hypoxic encephalopathy or medication effect Neurology consulted back, and recommended that the patient have a poor prognosis for meaningful recovery and higher level care transfer is unlikely to change progresses CARDIOVASCULAR: Status post cardiac arrest Patient has history of paroxysmal atrial fibrillation Non ST-elevation NE, type 2, likely due to cardiac arrest and CPR Circulation shock, likely septic likely due to pneumonia Patient has history of open heart surgery for mitral valve repair Sinus tachycardia Atrial fibrillation Troponin is raised, up trending EKG shows sinus tachycardia, with no significant ST or T-wave changes Cardiology on the board, recommended conservative management Echocardiogram shows Borderline Normal left ventricular systolic function estimated ejection [id number] Moderately elevated right ventricular systolic pressure 40 mm of mercury. 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 as well as mitral valve repair Cardiology is on the board, suggested conservative management Sinus tachycardia Due to paroxysmal atrial fibrillation and RVR, the Cardiology consulted back, recommended to use digoxin in case of atrial fibrillation recurrence Today, atrial fibrillation persisted, started amiodarone drip after a dose of bullous amiodarone(150 mg) PULMONARY: Patient is sedated, and on mechanical ventilator, RASS (-5, unresponsive) with ventilator setting of( Vt 450, RR 26, FiO2 30%, peep 5) Acute hypoxic respiratory failure likely due to pneumonia/COPD exacerbation/asthma exacerbation Pneumonia likely due to Gram-positive/Gram-negative Septic shock likely due to pneumonia/UTI Patient has history of multiple hospital admission, including intubated for 2 months in [place] in 2007, mitral valve repair and also has been admitted in [facility] ABGs showed respiratory alkalosis with pH of 7.457 and carbon dioxide of 24.3 Chest x-ray shows prominent bronchovascular marking WBCs raised at 21.2, downtrending Sputum culture MRSA nares screening negative and stopped vancomycin (given for 4 days) COVID-19 and influenza antigens are negative Chest x-ray does not shows any acute cardiopulmonary abnormality ABGs shows respiratory alkalosis, respiratory rate decreased to 18 from 22 Discontinue Zosyn, use for 8 days Continue Albuterol and ipratropium nebulization every 6 hours Sputum culture shows Enterobacter cloacae, sensitive to meropenem Started meropenem, at 07/19 GI: Possible Upper GI bleeding, unspecified location Transaminitis, likely due to ischemia secondary to cardiac arrest NG tube showed black drainage on 06/29 and 06/30 likely due to upper GI bleeding GI consulted, recommended conservative management Continue Protonix b.i.d. Discontinue Lovenox due to severe anemia and possible upper GI bleeding RENAL: NAOMI, no previous records available Nephrology on the board, dialysis performed today and taken out 500 mL fluid UTI, unspecified location UA shows UTI picture Urine culture showed no bacterial growth ID: Urine and blood culture from 07/08 shows no bacterial growth Blood culture from 07/09 shows no bacterial growth MRSA screening on 07/09 negative, and discontinued vancomycin COVID-19 and influenza screening from 07/09 negative Discontinue Zosyn, use for 8 days Sputum culture shows Enterobacter cloacae, sensitive to meropenem Start meropenem at 07/19 Cannabinoid use disorder UDS shows cannabis positive Metabolic: Hypokalemia, Supplemented Magnesium is within normal limits Hyperkalemia, normalized Mild Hypernatremia, improved Mild hyperkalemia, injection calcium gluconate given Gynecology Vaginal bleeding 5-10 mL of vaginal bleeding noticed, with some clots on 07/18 Monitoring DVT prophylaxis Due to possible upper GI bleeding, Lovenox is not indicated SCD LINES/DRAINS/ACCESS: ETT tube, intubated on 07/08/2024 Transurethral catheter, placed on 07/08/2024 IV Access Right femoral vein (CVC), placed on 07/08/2024 Left femoral vein catheter for HD, placed on 07/17 Drips: Levophed 4 Diet: Nepro 30 mL/hour on 07/16 Disposition: As per family request for the higher level of care transfer(preference [place]), social studies teacher has been consulted. CODE STATUS: Full code Disposition: ICU status, kept in ICU Case discussed with the daughter via telephone. Critical time spent more than 72 minutes, including patient care, chart review and updating the family, excluding any procedures. Case discussed with Dr. Ludwig Plan discussed with: Patient, Daughter, Other (RN) My Orders My Orders Orders - EDGRA CÁRDENAS RESDIANASTASIA Procedure Category Date Status Time Meropenem 500mg Ivpb PHA 07/19/24 In Process (Merrem 500mg/Ns) 18:00 Comprehensive LAB 07/20/24 Verified Metabolic Panel 04:00 Complete Blood Count LAB 07/20/24 Verified 04:00 Chest Xray 1 View XY 07/20/24 Logged 04:00 Abg W/ Co-Ox RT 07/20/24 Logged 04:00 Amiodarone PHA 07/19/24 In Process 450mg/250ml Ae 17:45 Dietary Evaluation Review Comments: Patient is not receiving nutrition. If GI is accessible, consider EN nutrition - Jevity 1.2 @ 55 mL/hr as tolerated. If patient remains NPO for more than 7 days, initiate TPN to meet 75% of estimated needs. Advance patient diet when medically feasible to a cardiac diet if renal function is sufficient. Expected Outcomes/Goals: Patient to receive nutrition support within 7 days of NPO status. Patient diet to advance F/u in 2-3 days Date of Service: Jul 19, 2024 Billing Provider: MARIE LUDWIG MD Common Visit Codes: 57869-[id number] CARE 30-74 MIN EDGAR CÁRDENAS RESDIENT Jul 19, 2024 21:52 MARIE LUDWIG MD Jul 26, 2024 14:44
[2024-07-19] MEDS: EPOETIN ALFA-EPBX 10,000 UNIT/1ML VIAL SC ONE (22:00)
--- NOTE | 2024-07-19 23:15 | DVHNC2 ---
EDGAR CÁRDENAS RESDIENT 07/19/24 2315: Procedure - Central Line Procedure Note Date and time: 07/17/2024 at 3:30pm Indication: Dialysis Access Central Line Location: Left Femoral Vein Procedure Coach Builder: Resident Renate Attending Physician: Dr. Hardy Consent: Consent was obtained from Daughter prior to the procedure. Indications, risks and benefits were discussed prior to the procedure. Procedure Summary: A time out was performed. My hands were washed immediately prior to the procedure. I wore a surgical cap, mask with protective eye wear, full gown and sterile gloves throughout the procedure. The Left groin was prepped using chlorhexidine and draped in sterile fashion using a three quarter sheet drape an d sterile towels. Skin preparation was allowed to dry prior to skin puncture. Anatomic landmarks were identified. Anesthesia was achieved over the vein using 10 ml of 1% lidocaine. Using real-time ultrasound, with sterile probe cover and sterile gel, the Left Femoral Vein was identified on ultrasound using the linear ultrasound probe in the transverse orientation. The femoral artery was identified and avoided utilizing color-flow. The Femoral Vein was then placed in the center of the ultrasound field and compressed for patency. The introducer needle was inserted into the vein under direct ultrasound visualization, and a movement artifact was identified as the needle was advanced through the skin toward the vessel. A real-time hyperechoic signal revealed visu alization of vascular needle entry into the lumen as blood was noted to flashback in the syringe. The needle was then held in place, the syringe was removed, and the guide wire was advanced through the needle. Direct visualization of the guide wire location within the vein was noted on ultrasound, indicating proper placement. The needle was then removed. A small incision was made at the skin surface with a scalpel, and a skin dilator was advanced over the guide wire. After appropriate dilation was obtained, the dilator was removed, and a triple-lumen catheter was then advanced over the guide wire into proper position. The guide wire was removed and discarded. The ports were aspirated, which showed good blood return, and then carefully flushed with normal saline. The catheter was stabilized and sutured to the skin with 2-0 silk at two anchor points. A sterile op-site was placed over the catheter and biopatch. The patient tolerated the procedure without any hemodynamic compromise. The catheter was also carefully flushed with heparin 1000 ml/ml. Estimated blood loss: 5 ml MONE HARDY MD 07/21/24 1519: Date of Service: Jul 17, 2024 Billing Provider: MONE HARDY MD Common Visit Codes: PROCEDURE ONLY Procedure Codes: 64359-[id number] NON-TUNNEL CV CATH EDGAR CÁRDENAS Jul 19, 2024 23:15 MONE HARDY MD Jul 21, 2024 15:19
[2024-07-20] VITALS (109 sets, daily range): BP systolic 82–140; BP diastolic 40–98; PULSE 76–136; RESP 16–25; TEMP 96.1–98.8; O2SAT 96–100
[2024-07-20] MEDS: AMIODARONE 450mg/250ml AE 250 ML IV SCH ×2 (01:37→08:57)
[2024-07-20 03:56] LABS: Platelet Count (auto) 215 10^3/uL (140-450); White Blood Cell 25.2 10^3/uL (4.4-10.8)
[2024-07-20 03:57] LABS: Hemoglobin 7.3 g/dL (12.2-16.2); Mean Corpuscular Volume 90.7 fL (80.0-100.0); Red Blood Cells 2.43 10^6/uL (4.0-5.20); Red Cell Distribution Width 15.9 % (11.8-14.3)
--- NOTE | 2024-07-20 04:05 | DVH ---
Examination: HWOCT CLINICAL INDICATION:ALOC COMPARISON: None. CONTRAST USED: None. TECHNIQUE: The examination was performed with 5 mm slices without contrast. Multiplanar reconstruct ions were obtained, adhering to ALARA (As Low as Reasonably Achievable) principles. FINDINGS: SUPRATENTORIAL BRAIN: Cerebral Hemispheres: Diffuse hypo-attenuation in the bilateral frontal, parietal and temporal lobes , with loss of mendoza-white matter differentiation suggesting severe generalized hypoxia. Diffuse cere bral edema with effacement of the sulci and basilar cisterns. A hyperdense appearance of the falx an d tentorium cerebelli. No evidence of midline shift, intra-/extra-axial fluid collections or hemorrh age. Basal Ganglia: No abnormal areas of altered attenuation within the basal ganglia. POSTERIOR FOSSA: Relative sparing of the cerebellar hemispheres. Brain stem is normal. VENTRICULAR SYSTEM: Normal in size, with no evidence of hydrocephalus or transependymal flow of cere brospinal fluid. SKULL BASE AND PARASELLAR REGION: Normal skull base with no parasellar masses or abnormalities. CALVARIUM AND SCALP REGION: Soft tissue edema in the right periorbital region. No evidence of milad rial fracture or extra-axial collections. PARANASAL SINUSES: Mucosal thickening in the bilateral sphenoid sinuses with an air-fluid level in t he left sphenoid sinus. Remainder of the paranasal sinuses are clear. IMPRESSION: 1. Severe Generalized Hypoxia: Diffuse hypo-attenuation of the bilateral frontal, parietal and temp oral lobes with loss of mendoza-white matter differentiation, probably secondary to generalized hypoxia. Diffuse cerebral edema with effacement of the sulci and basilar cisterns. Relative sparing of the cerebellar hemispheres. 2. No Evidence of Intraparenchymal hematoma, midline shift or hydrocephalus. 3. Soft Tissue Findings: Right periorbital soft tissue edema, with no evidence of calvarial fractur e. 4. Paranasal Sinuses: Mucosal thickening in the bilateral sphenoid sinuses with an air-fluid level in the left sphenoid sinus, suggestive of sinusitis. Electronically Signed 07/20/2024 04:03 Ryan Khanna
[2024-07-20 04:06] LABS: Alanine Aminotransferase 36 U/L (7-40); Alkaline Phosphatase 79 U/L (46-116); Anion Gap 11 (5-15); BUN/Creatinine Ratio 12.7 (10.0-20.0); Bilirubin, Total 0.7 mg/dL (0.2-1.0); Calcium 8.8 mg/dL (8.7-10.4); Carbon Dioxide 29 mmol/L (20-31); Chloride 103 mmol/L (98-107); Sodium 143 mmol/L (136-145)
[2024-07-20 04:13] LABS: Band Neutrophils % (manual) 0; Basophils % (manual) 0 (0.0-2.0); Blast Cells 0; Metamyelocytes % 0; Myelocytes % 0; Promyelocytes % 0; Reactive Lymphocytes 0
[2024-07-20 04:16] LABS: Albumin 2.9 g/dL (3.2-4.8); Aspartate Aminotransferase 55 U/L (13-40); Blood Urea Nitrogen 62 mg/dL (9-23); Glucose 147 mg/dL (74-106); Potassium 2.9 mmol/L (3.5-5.1); Total Protein 5.5 g/dL (5.7-8.2)
--- NOTE | 2024-07-20 04:16 | DVH ---
CHEST RADIOGRAPH Indication: Pneumonia Technique: Single frontal view of the chest was obtained Comparison: XY CHEST XRAY 1 VIEW on DOS: 07/19/24, XY CHEST XRAY 1 VIEW on DOS: 07/18/24, XY CHEST PORT ABLE on DOS: 07/17/24 IMPRESSION: There is enlargement of the cardiac silhouette with median sternotomy wires and prosthetic cardiac va lve. Support lines and tubes appear unchanged in satisfactory in position. Bibasilar subsegmental at electasis. No sizable effusion or pneumothorax. No interval change.
[2024-07-20] MEDS: POTASSIUM CHL 20MEQ/100ML 100 ML IV SCH (04:45)
[2024-07-20 05:18] LABS: Eosinophils % (manual) 2 (0-7); Large Platelets FEW; Lymphocytes % (manual) 10 (10.0-50.0); Monocytes % (manual) 4 (0-12)
[2024-07-20 05:19] LABS: Platelet Estimate Adequa
[2024-07-20 07:46] LABS: Base Excess 4.4 mmol/L (-2.0-3.0)
[2024-07-20] MEDS ORDERED: IPRATROPIUM BROM 0.5 MG/2.5ML INH SOL NEB SCH (12:00)
[2024-07-20] MEDS: IPRATROPIUM BROM 0.5 MG/2.5ML INH SOL NEB SCH (12:59)
--- NOTE | 2024-07-20 13:13 | DVHPN2 ---
Progress Note - Dictate Date Seen: Jul 20, 2024 Has the PT tested + for MRSA If YES, has PT been informed?: No Medical Necessity Reason Pt with a Central, PICC or Fol: Yes The following are medically ne: Central Line, Jones Catheter Reason for jones catheter: Strict I&O Subjective remains unresponsive, urine output increased slightly. vital signs Vital Sign Date Time Temp Pulse Resp B/P (MAP) Pulse Ox O2 Delivery O2 Flow Rate FiO2 07/20/24 12:45 98.4 99 22 138/76 (96) 100 209.1 07/20/24 12:00 Mechanical Ventilator+ 30 30 Total Intake and Output 07/19/24 07/19/24 07/20/24 15:00 23:00 07:00 Intake Total 148.750 ml 457.278 ml 404.177 ml Output Total 200 ml 700 ml Balance 148.750 ml 257.278 ml -295.823 ml medications Current Medications Medications Dose Ordered Sig/Perez Route Start Time Stop Time Status Last Admin Dose Admin Acetaminophen 650 mg Q6HP PRN PO 07/08/24 22:45 07/09/24 22:29 650 MG Nitroglycerin 0.4 mg Q5MINP PRN SL 07/08/24 22:45 Acetaminophen 650 mg Q6HP PRN SC 07/09/24 11:00 07/09/24 15:54 650 MG Pantoprazole Sodium 40 mg BID IV 07/11/24 22:00 07/20/24 09:47 40 MG Enteral Nutritional Formula 1,000 ml 30ML/HR GT 07/16/24 14:45 Norepinephrine Bitartrate 250 ml @ 1.875 mls/ hr Q24H IV 07/16/24 15:45 07/19/24 21:56 9.375 MLS/HR Vancomycin HCl 0 ml @ 0 mls/hr UD IV 07/18/24 11:45 Meropenem 50 ml @ 17 mls/hr DAILY IV 07/19/24 18:00 07/20/24 09:57 17 MLS/HR Levalbuterol HCl 1.25 mg Q6HR NEB 07/19/24 18:00 07/20/24 13:00 1.25 MG Amiodarone HCl 250 ml @ 33.333 mls/ hr Q7H30M IV 07/20/24 02:30 07/20/24 08:57 33.333 MLS/HR Ipratropium [place] 0.5 mg Q4HR NEB 07/20/24 12:00 Cancel Ipratropium [place] 0.5 mg Q6HR NEB 07/20/24 12:00 07/20/24 12:59 0.5 MG objective Gen: nad heent: nc/at, mmm lungs: Coarse breath sounds cvs: no rub skin: no rash laboratory and microbiology Laboratory Tests 07/20/24 03:36 Test 07/20/24 03:36 Range/Units Serum Glucose 147 H 74-106 mg/dL Assessment/Plan Problem List/Assessment/Plan NAOMI secondary to hemodynamically mediated likely ischemic ATN Septic shock due to pneumonia Pneumonia NSTEMI type 2 likely due to above Cardiopulmonary arrest status post CPR with ROSC Paroxysmal atrial fibrillation Elevated liver function ? Anoxic brain injury Upper GI bleeding Plan - judicious supplemental potassium - Daily evaluation for kidney replacement therapy - Metabolic parameters acceptable today Dietary Evaluation Review Comments: Patient is not receiving nutrition. If GI is accessible, consider EN nutrition - Jevity 1.2 @ 55 mL/hr as tolerated. If patient remains NPO for more than 7 days, initiate TPN to meet 75% of estimated needs. Advance patient diet when medically feasible to a cardiac diet if renal function is sufficient. Expected Outcomes/Goals: Patient to receive nutrition support within 7 days of NPO status. Patient diet to advance F/u in 2-3 days Plan discussed with: ANDREA Wagoner MD Jul 20, 2024 13:13
[2024-07-20] MEDS: VANCOMYCIN 750MG VIAL 750 MG in D5W 5% 250 ML IV ONE (13:14)
--- NOTE | 2024-07-20 16:29 | DVHPN2 ---
Subjective This is a 63-year-old female with past medical history of allergic asthma, COPD, hypertension, paroxysmal atrial fibrillation, repaired mitral valve, IBS, generalized anxiety, chronic pain and insomnia brought to the hospital after loss of consciousness. Patient had lost consciousness out of house, witnessed by the bystanders, found asystole by EMS, performed CPR for 20 minutes and retained ROSC. Admitted on 07/09/2024. Today, patient seen and examined at the bedside. Patient is sedated and on mechanical ventilation. Review of systems could not obtain. Reviewed: Care Plan, H&P, Labs, Medications, Previous Orders, Radiology, Other (Consultations) Changes from previous H/P or p: No Changes Objective Vitals Vital Signs Date Time Temp Pulse Resp B/P (MAP) Pulse Ox O2 Delivery O2 Flow Rate FiO2 07/20/24 16:14 30 07/20/24 16:14 18 100 Mechanical Ventilator+ 07/20/24 16:00 98.8 96 121/67 (85) 209.8 Intake/Output Intake and Output 07/20/24 05:00 Intake Total 1016.195 ml Output Total 425 ml Balance 591.195 ml Intake Oral 125 ml IV Total 556.195 ml Tube Feeding 335 ml Output Urine Total 375 ml Stool Total 50 ml General Appearance: Other (Intubated and sedated) HEENT: Atraumatic Lungs: Other (Mechanical ventilation breathing sounds) Cardiovascular: Normal S1, Normal S2, Other (Tachycardia) Abdomen: Other (Hypoactive bowel sound) Genitourinary: Other (Allen's catheter) Neuro: Other (Sedated) Psych/Mental Status: Other (Sedated) Medications Current Medications Medications Dose Ordered Sig/Perez Route Start Time Stop Time Status Last Admin Dose Admin Acetaminophen 650 mg Q6HP PRN PO 07/08/24 22:45 07/09/24 22:29 650 MG Nitroglycerin 0.4 mg Q5MINP PRN SL 07/08/24 22:45 Acetaminophen 650 mg Q6HP PRN [place] 07/09/24 11:00 07/09/24 15:54 650 MG Pantoprazole Sodium 40 mg BID IV 07/11/24 22:00 07/20/24 09:47 40 MG Enteral Nutritional Formula 1,000 ml 30ML/HR GT 07/16/24 14:45 Norepinephrine Bitartrate 250 ml @ 1.875 mls/ hr Q24H IV 07/16/24 15:45 07/19/24 21:56 9.375 MLS/HR Vancomycin HCl 0 ml @ 0 mls/hr UD IV 07/18/24 11:45 Meropenem 50 ml @ 17 mls/hr DAILY IV 07/19/24 18:00 07/20/24 09:57 17 MLS/HR Levalbuterol HCl 1.25 mg Q6HR NEB 07/19/24 18:00 07/20/24 13:00 1.25 MG Amiodarone HCl 250 ml @ 33.333 mls/ hr Q7H30M IV 07/20/24 02:30 07/20/24 15:31 33.333 MLS/HR Ipratropium [place] 0.5 mg Q4HR NEB 07/20/24 12:00 Cancel Ipratropium [place] 0.5 mg Q6HR NEB 07/20/24 12:00 07/20/24 12:59 0.5 MG Laboratory Results Laboratory Tests 07/20/24 03:36 07/20/24 13:05 Chemistry Test 07/20/24 03:36 Albumin 2.9 g/dL (3.2-4.8) L Calcium Level 8.8 mg/dL (8.7-10.4) Total Protein 5.5 g/dL (5.7-8.2) L LFT Test 07/20/24 03:36 Alanine Aminotransferase (ALT) 36 U/L (7-40) Alkaline Phosphatase 79 U/L (46-116) Aspartate Amino Transferase (AST) 55 U/L (13-40) H Total Bilirubin 0.7 mg/dL (0.2-1.0) Urinalysis Test 07/08/24 22:00 Urine Color Colorless (Yellow) Urine Clarity Turbid (Clear) H Urine pH 8.5 (5.0-9.0) Urine Specific [place] 1.006 (1.001-1.035) Urine Protein 2+ (Negative) H Urine Ketones Negative (Negative) Urine Blood 3+ /uL (Negative) H Urine Nitrite Negative (Negative) Urine Bilirubin Negative (Negative) Urine Urobilinogen Normal mg/dL (Negative) Urine Leukocyte Esterase Negative /uL (Negative) Urine RBC 22 /hpf (0 - 4) Urine WBC 26 /hpf (0 - 5) Urine Squamous Epithelial Cells Few /hpf (<5) Urine Bacteria Few /hpf (None Seen) H Urine Glucose 3+ mg/dL (Normal) H Blood Gas Results Test 07/20/24 07:34 Arterial Blood pH 7.549 (7.350-7.450) FiO2 % 30.0 Microbiology Microbiology Date/Time Source Procedure Growth Status 07/16/24 17:02 Trachea Gram Stain - Final Resulted 07/16/24 17:02 Respiratory Culture - Preliminary Enterobacter cloacae Resulted 07/09/24 00:07 Blood Blood Culture - Final NO GROWTH AFTER 5 DAYS OF INCUBATION. Complete 07/08/24 22:00 Voided Urine Urine Culture - Final Complete Assessment/Plan Assessment/Plan This is a 63-year-old female with past medical history of allergic asthma, COPD, hypertension, paroxysmal atrial fibrillation, repaired mitral valve, IBS, generalized anxiety, chronic pain and insomnia brought to the hospital after loss of consciousness. Patient had lost consciousness out of house, witnessed by the bystanders, found asystole by EMS, performed CPR for 20 minutes and retained ROSC. Admitted on 07/09/2024. NEURO: Acute metabolic encephalopathy, likely due to sepsis/possible anoxic brain injury due to cardiac arrest Patient is sedated, and on mechanical ventilation, place, and Status post cardiac arrest Possible Cerebral edema, likely due to cardiac arrest Head CT scan shows less prominent sulci, likely due to cerebral edema We will consider head CT scan after 48 hour for the monitoring of possible cerebral edema Teleneurology consulted on 07/10 and has consulted the daughter of the patient regarding poor prognosis Head CT scan of 07/12/2024 shows changes but could not exclude brain edema Brain MRI shows nonspecific findings may be seen with hypoxic ischemic encephalopathy, metabolic or toxic disorders EEG shows severe cerebral dysfunction due to metabolic/hypoxic encephalopathy or medication effect Neurology consulted back, and recommended that the patient have a poor prognosis for meaningful recovery and higher level care transfer is unlikely to change progresses CARDIOVASCULAR: Status post cardiac arrest Patient has history of paroxysmal atrial fibrillation Non ST-elevation [place], type 2, likely due to cardiac arrest and CPR Circulation shock, likely septic likely due to pneumonia Patient has history of open heart surgery for mitral valve repair Sinus tachycardia Atrial fibrillation Troponin is raised, up trending EKG shows sinus tachycardia, with no significant ST or T-wave changes Cardiology on the board, recommended conservative management Echocardiogram shows Borderline Normal left ventricular systolic function estimated ejection [id number] Moderately elevated right ventricular systolic pressure 40 mm of mercury. 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 as well as mitral valve repair Cardiology is on the board, suggested conservative management Sinus tachycardia Due to paroxysmal atrial fibrillation and RVR, the Cardiology consulted back, recommended to use digoxin in case of atrial fibrillation recurrence Today, atrial fibrillation persisted, started amiodarone drip after a dose of bullous amiodarone(150 mg) PULMONARY: Patient is sedated, and on mechanical ventilator, RASS (-5, unresponsive) with ventilator setting of( Vt 450, RR 26, FiO2 30%, peep 5) Acute hypoxic respiratory failure likely due to pneumonia/COPD exacerbation/asthma exacerbation Pneumonia likely due to Gram-positive/Gram-negative Septic shock likely due to pneumonia/UTI Patient has history of multiple hospital admission, including intubated for 2 months in [facility] in 2007, mitral valve repair and also has been admitted in [facility] ABGs showed respiratory alkalosis with pH of 7.457 and carbon dioxide of 24.3 Chest x-ray shows prominent bronchovascular marking WBCs raised at 21.2, downtrending Sputum culture MRSA nares screening negative and stopped vancomycin (given for 4 days) COVID-19 and influenza antigens are negative Chest x-ray does not shows any acute cardiopulmonary abnormality ABGs shows respiratory alkalosis, respiratory rate decreased to 18 from 22 Discontinue Zosyn, use for 8 days Continue Albuterol and ipratropium nebulization every 6 hours Sputum culture shows Enterobacter cloacae, sensitive to meropenem Started meropenem, at 12/6 GI: Possible Upper GI bleeding, unspecified location Transaminitis, likely due to ischemia secondary to cardiac arrest NG tube showed black drainage on 06/29 and 06/30 likely due to upper GI bleeding GI consulted, recommended conservative management Continue Protonix b.i.d. Discontinue Lovenox due to severe anemia and possible upper GI bleeding RENAL: NAOMI, no previous records available Nephrology on the board, dialysis performed today and taken out 500 mL fluid UTI, unspecified location UA shows UTI picture Urine culture showed no bacterial growth ID: Urine and blood culture from 07/08 shows no bacterial growth Blood culture from 07/09 shows no bacterial growth MRSA screening on 07/09 negative, and discontinued vancomycin COVID-19 and influenza screening from 07/09 negative Discontinue Zosyn, use for 8 days Sputum culture shows Enterobacter cloacae, sensitive to meropenem Start meropenem at 07/19 Cannabinoid use disorder UDS shows cannabis positive Metabolic: Hypokalemia, Supplemented Magnesium is within normal limits Hyperkalemia, normalized Mild Hypernatremia, improved Mild hyperkalemia, injection calcium gluconate given Gynecology Vaginal bleeding 5-10 mL of vaginal bleeding noticed, with some clots on 07/18 Monitoring DVT prophylaxis Due to possible upper GI bleeding, Lovenox is not indicated SCD LINES/DRAINS/ACCESS: ETT tube, intubated on 07/08/2024 Transurethral catheter, placed on 07/08/2024 IV Access Right femoral vein (CVC), placed on 07/08/2024 Left femoral vein catheter for HD, placed on 07/17 Drips: Levophed 4 Diet: Nepro 30 mL/hour on 07/16 Disposition: As per family request for the higher level of care transfer(preference [facility]), social media senior associate has been consulted. CODE STATUS: Full code Disposition: ICU status, kept in ICU Case discussed with the daughter via telephone. Critical time spent more than 72 minutes, including patient care, chart review and updating the family, excluding any procedures. Plan discussed with: Other (nurse) My Orders Orders - GREYSON HUTCHISON MD Procedure Category Date Status Time Ipratropium Medneb PHA 07/20/24 In Process (Atrovent Medneb) 12:00 Date of Service: Jul 20, 2024 Billing Provider: GREYSON HUTCHISON MD Common Visit Codes: 90074-[id number] CARE 30-74 MIN GREYSON HUTCHISON MD Jul 20, 2024 16:29
[2024-07-20] MEDS ORDERED: VANCOMYCIN 750mg/150ml 150 ML IV ONE (17:00)
--- NOTE | 2024-07-20 22:44 | DVHPN2 ---
Progress Note - Dictate Date Seen: Jul 20, 2024 Has the PT tested + for MRSA If YES, has PT been informed?: No Medical Necessity Reason Pt with a Central, PICC or Fol: Yes The following are medically ne: Central Line, Jones Catheter Reason for jones catheter: Strict I&O Subjective Patient seen and examined at bedside. intubated on mechanical ventilator. Overnight events reviewed. vital signs Vital Sign Date Time Temp Pulse Resp B/P (MAP) Pulse Ox O2 Delivery O2 Flow Rate FiO2 07/20/24 22:15 78 18 140/76 (97) 100 30 07/20/24 20:00 Mechanical Ventilator+ 07/20/24 18:15 98.2 208.8 Total Intake and Output 07/19/24 07/19/24 07/20/24 15:00 23:00 07:00 Intake Total 148.750 ml 457.278 ml 404.177 ml Output Total 200 ml 700 ml Balance 148.750 ml 257.278 ml -295.823 ml medications Current Medications Medications Dose Ordered Sig/Perez Route Start Time Stop Time Status Last Admin Dose Admin Acetaminophen 650 mg Q6HP PRN PO 07/08/24 22:45 07/09/24 22:29 650 MG Nitroglycerin 0.4 mg Q5MINP PRN SL 07/08/24 22:45 Acetaminophen 650 mg Q6HP PRN [place] 07/09/24 11:00 07/09/24 15:54 650 MG Pantoprazole Sodium 40 mg BID IV 07/11/24 22:00 07/20/24 22:09 40 MG Enteral Nutritional Formula 1,000 ml 30ML/HR GT 07/16/24 14:45 Norepinephrine Bitartrate 250 ml @ 1.875 mls/ hr Q24H IV 07/16/24 15:45 07/20/24 17:34 13.125 MLS/HR Vancomycin HCl 0 ml @ 0 mls/hr UD IV 07/18/24 11:45 Meropenem 50 ml @ 17 mls/hr DAILY IV 07/19/24 18:00 07/20/24 09:57 17 MLS/HR Levalbuterol HCl 1.25 mg Q6HR NEB 07/19/24 18:00 07/20/24 18:16 1.25 MG Amiodarone HCl 250 ml @ 33.333 mls/ hr Q7H30M IV 07/20/24 02:30 07/20/24 15:31 33.333 MLS/HR Ipratropium [place] 0.5 mg Q4HR NEB 07/20/24 12:00 Cancel Ipratropium [place] 0.5 mg Q6HR NEB 07/20/24 12:00 07/20/24 18:16 0.5 MG objective Gen.: Patient lying in bed in medical ICU. Intubated on mechanical ventilator. Head: Normocephalic, atraumatic. Eyes: PERRLA. Ears: Normal external anatomy. Throat: Endotracheal tube and orogastric tube in place. Neck: Supple, trachea midline. Chest: Transmitted breath sounds bilaterally. Decreased air entry bilaterally. No wheezing. Bibasilar crackles. Cardiovascular: Positive S1, positive S2. Regular rate and rhythm. Abdomen: Positive bowel sounds in all 4 quadrants. Soft, nontender, nondistended. : Jones in place. Normal external genitalia. Rectal: Deferred. Skin: Warm, dry. Intact. Extremities: 2+ radial pulses bilaterally. No lower extremity edema. Neuro: Off sedation. laboratory and microbiology Laboratory Tests 07/20/24 13:05 07/20/24 03:36 Test 07/20/24 03:36 Range/Units Serum Glucose 147 H 74-106 mg/dL Assessment/Plan Impression: Acute hypoxic respiratory failure On mechanical ventilator NAOMI secondary to hemodynamically mediated, likely ischemic ATN Septic shock due to pneumonia Pneumonia NSTEMI type 2, likely due to above Cardiopulmonary arrest status post CPR with ROSC Paroxysmal atrial fibrillation Elevated liver function tests ? Anoxic brain injury Upper GI bleed Events: Remains on vent support On AC mode RR 22, VT 500, PEEP 5, FiO2 30%. Decrease RR to 18. ABG reviewed, notable for alkalemia d/t respiratory alkalosis Off sedation On amiodarone drip. On pressors for hemodynamic support Levophed 7 mcg/min Titrate to keep mean arterial pressure greater than 65 mmHg. Continue antibiotics - Zosyn Monitor renal function Monitor electrolytes. Supplement as necessary. Potassium supplementation Monitor hemoglobin Transfuse if less than 7.0 g/dL. Poor prognosis Anoxic brain injury Labs and imaging reviewed. Rest of plan as noted below. Plan: s/p intubation on mechanical ventilator. new settings; On AC mode RR 18, VT 500, PEEP 5, FiO2 30%. Titrate FIO2 to keep O2 saturation above 90%. VAP bundle. Daily ABG and CXR while intubated Off sedation Off Levophed, hemodynamically stable. Continue bronchodilators q.4 hours Continue antibiotics. Completed steroid course. Monitor renal function Monitor electrolytes. Supplement as necessary. Monitor ins and outs. GI prophylaxis. DVT prophylaxis. Prognosis: Poor given patient's multiple co-morbidities. Condition: Critical Rest of plan per hospitalist and other consultants. A total of 35 minutes of critical care time was spent reviewing the patient record, examining the patient, making a diagnostic and therapeutic plan, discussing this plan with the medical personnel, following up on diagnostic studies and following the patient for clinical stability excluding any and all procedures. At least 50% of this time was spent in direct, [id number] contact. Thank you Dr. Denis Pierre MD, for allowing me to participate in this patient's care. Further recommendations will depend on the patient's clinical course. Please do not hesitate to contact me if you have any questions or concerns. This medical document was created using an electronic medical record system with [employer] dictation system. Although these documentations are being carefully reviewed, there may still be some phonetic and typographical changes. The errors are purely typographical, due to imperfection on the software program, and do not reflect any compromise in the patient's medical care. Dietary Evaluation Review Comments: Patient is not receiving nutrition. If GI is accessible, consider EN nutrition - Jevity 1.2 @ 55 mL/hr as tolerated. If patient remains NPO for more than 7 days, initiate TPN to meet 75% of estimated needs. Advance patient diet when medically feasible to a cardiac diet if renal function is sufficient. Expected Outcomes/Goals: Patient to receive nutrition support within 7 days of NPO status. Patient diet to advance F/u in 2-3 days Plan discussed with: Other (MARIO Donaldson) Critical Care Time(min): 35 MARISOL CRUZ MD Jul 20, 2024 22:44
[2024-07-21] VITALS (115 sets, daily range): BP systolic 76–155; BP diastolic 46–96; PULSE 63–107; RESP 17–19; TEMP 96.6–98.8; O2SAT 99–100
[2024-07-21 04:33] LABS: Hematocrit 21.3 % (36.0-46.0); Mean Corpuscular Hemoglobin 29.9 pg (28.0-32.0); Mean Corpuscular Hgb Conc. 32.2 g/dL (32.0-36.0); Mean Corpuscular Volume 92.9 fL (80.0-100.0); Platelet Count (auto) 269 10^3/uL (140-450); Red Cell Distribution Width 16.5 % (11.8-14.3); White Blood Cell 27.3 10^3/uL (4.4-10.8)
[2024-07-21 05:38] LABS: Hemoglobin 6.9 g/dL (12.2-16.2)
[2024-07-21 05:39] LABS: Basophils % (manual) 0 (0.0-2.0); Blast Cells 0; Eosinophils % (manual) 0 (0-7); Metamyelocytes % 0; Myelocytes % 0; Promyelocytes % 0; Reactive Lymphocytes 0
[2024-07-21 06:00] LABS: Alanine Aminotransferase 28 U/L (7-40); Alkaline Phosphatase 114 U/L (46-116); Anion Gap 12 (5-15); BUN/Creatinine Ratio 11.9 (10.0-20.0); Bilirubin, Total 0.5 mg/dL (0.2-1.0); Calcium 8.8 mg/dL (8.7-10.4); Carbon Dioxide 26 mmol/L (20-31); Chloride 103 mmol/L (98-107); Potassium 3.9 mmol/L (3.5-5.1); Sodium 141 mmol/L (136-145)
[2024-07-21 06:15] LABS: Albumin 2.6 g/dL (3.2-4.8); Aspartate Aminotransferase 50 U/L (13-40); Blood Urea Nitrogen 65 mg/dL (9-23); Glucose 120 mg/dL (74-106); Total Protein 5.2 g/dL (5.7-8.2)
[2024-07-21 06:23] LABS: Base Excess 2.5 mmol/L (-2.0-3.0)
[2024-07-21 06:45] LABS: Band Neutrophils % (manual) 8
[2024-07-21 06:46] LABS: Anisocytosis Slight; Lymphocytes % (manual) 2 (10.0-50.0); Monocytes % (manual) 4 (0-12); Platelet Estimate Adequate
[2024-07-21] MEDS: AMIODARONE 450mg/250ml AE 250 ML IV ONE (07:45)
--- NOTE | 2024-07-21 08:52 | DVH ---
CHEST RADIOGRAPH Indication: Intubated Technique: Single frontal view of the chest was obtained COMPARISON: XY CHEST XRAY 1 VIEW on DOS: 07/20/24, XY CHEST XRAY 1 VIEW on DOS: 07/19/24, XY CHEST XRAY 1 VIEW on DOS: 07/18/24 FINDINGS: Lines and Tubes: Endotracheal tube, enteric catheter and satisfactory position. Lungs: Diffuse congestion. Pleura: No effusion. No pneumothorax. Cardiomediastinal contours: Unremarkable Bones: Unremarkable IMPRESSION: Lines and tubes in satisfactory position. No significant interval change.
[2024-07-21] MEDS: SODIUM CHL 0.9% 1000 ML BAG XX ONE (12:00)
--- NOTE | 2024-07-21 17:00 | DVHPN2 ---
Progress Note - Dictate Date Seen: Jul 21, 2024 Has the PT tested + for MRSA If YES, has PT been informed?: No Medical Necessity Reason Pt with a Central, PICC or Fol: Yes The following are medically ne: Central Line, Jones Catheter Reason for jones catheter: Strict I&O Subjective Clinically unchanged, received dialysis earlier today vital signs Vital Sign Date Time Temp Pulse Resp B/P (MAP) Pulse Ox O2 Delivery O2 Flow Rate FiO2 07/21/24 15:30 98.6 70 18 148/87 (107) 100 209.5 07/21/24 15:24 30 07/21/24 14:10 Mechanical Ventilator+ Total Intake and Output 07/20/24 07/20/24 07/21/24 15:00 23:00 07:00 Intake Total 778.99 ml 742.830 ml 690.289 ml Output Total 150 ml 210 ml Balance 778.99 ml 592.830 ml 480.289 ml medications Current Medications Medications Dose Ordered Sig/Perez Route Start Time Stop Time Status Last Admin Dose Admin Acetaminophen 650 mg Q6HP PRN PO 07/08/24 22:45 07/09/24 22:29 650 MG Nitroglycerin 0.4 mg Q5MINP PRN SL 07/08/24 22:45 Acetaminophen 650 mg Q6HP PRN OR 07/09/24 11:00 07/09/24 15:54 650 MG Pantoprazole Sodium 40 mg BID IV 07/11/24 22:00 07/21/24 12:40 40 MG Enteral Nutritional Formula 1,000 ml 30ML/HR GT 07/16/24 14:45 Norepinephrine Bitartrate 250 ml @ 1.875 mls/ hr Q24H IV 07/16/24 15:45 07/21/24 12:17 22.5 MLS/HR Vancomycin HCl 0 ml @ 0 mls/hr UD IV 07/18/24 11:45 Meropenem 50 ml @ 17 mls/hr DAILY IV 07/19/24 18:00 07/21/24 12:41 17 MLS/HR Levalbuterol HCl 1.25 mg Q6HR NEB 07/19/24 18:00 07/21/24 11:54 1.25 MG Amiodarone HCl 250 ml @ 33.333 mls/ hr Q7H30M IV 07/20/24 02:30 12/8/24 14:30 33.333 MLS/HR Ipratropium [place] 0.5 mg Q4HR NEB 07/20/24 12:00 Cancel Ipratropium [place] 0.5 mg Q6HR NEB 07/20/24 12:00 07/21/24 11:54 0.5 MG objective Gen: nad heent: nc/at, mmm lungs: Coarse breath sounds cvs: no rub skin: no rash laboratory and microbiology Laboratory Tests 07/21/24 03:15 Test 07/21/24 03:15 Range/Units Serum Glucose 120 H 74-106 mg/dL Assessment/Plan Problem List/Assessment/Plan NAOMI secondary to hemodynamically mediated likely ischemic ATN Septic shock due to pneumonia Pneumonia NSTEMI type 2 likely due to above Cardiopulmonary arrest status post CPR with ROSC Paroxysmal atrial fibrillation Elevated liver function ? Anoxic brain injury Upper GI bleeding Plan - daily evaluation for kidney replacement therapy, tolerated hemodialysis earlier today - We will continue monitor for any signs of meaningful recovery of [place] kidney function Dietary Evaluation Review Comments: Patient is not receiving nutrition. If GI is accessible, consider EN nutrition - Jevity 1.2 @ 55 mL/hr as tolerated. If patient remains NPO for more than 7 days, initiate TPN to meet 75% of estimated needs. Advance patient diet when medically feasible to a cardiac diet if renal function is sufficient. Expected Outcomes/Goals: Patient to receive nutrition support within 7 days of NPO status. Patient diet to advance F/u in 2-3 days Plan discussed with: ANDREA Wagoner MD Jul 21, 2024 17:00
[2024-07-21] MEDS: Nepro With Carb Steady 1 Liter Bottle GT SCH (17:13)
--- NOTE | 2024-07-21 18:38 | DVHPN2 ---
Progress Note - Dictate Date Seen: Jul 21, 2024 Has the PT tested + for MRSA If YES, has PT been informed?: No Medical Necessity Reason Pt with a Central, PICC or Fol: Yes The following are medically ne: Central Line, Jones Catheter Reason for jones catheter: Strict I&O Subjective Ms. Wren is a 63 years old female with a history of asthma, COPD, paroxysmal atrial fibrillation, allergy to animal dander, smoking, she was brought to the [facility] on 07/08/2024 with a chief company of altered mental status. I have seen and examined the patient, I have talked to her nurse, she remained intubated, nonresponsive to strong painful stimuli The pupils are equal and fixed as before, no gag reflexes Follow the CT brain scan is worse Levo 8 mcg per minute UDS, 07/12/2024: Cannabinoids Urinalysis, 07/08/2024: WBC: 26, urine leukocyte esterase: Negative ABG, 07/08/2024: acidosis, WBC/HB/PLT/MCV, 07/15/2024: 11.5/75/80/89.3 PT/INR/PTT, 07/08/2024: 16/1.56/26.8 BUN/CR, 07/15/2024: 112/8.19 TBI/AST/ALT/AP, 07/15/2024: 0.8/68/45/31 EEG, 07/16/2024: Inadequate, but likely remarkably abnormal EEG CT head, 07/08/2024: 1. No acute intracranial hemorrhage. 2. No CT findings of territorial ischemia CT head, 07/12/2024: 1. Symmetric hypodensities in the lentiform nuclei, similar to prior study. Hypodensities in the bilateral thalami new since prior CT scan of the head from 07/10/2024. Additionally, there is subtle loss of mendoza-white matter differentiation since the prior CT from 07/08/2024 for which intracerebral edema is not excluded. Correlation for toxic metabolic or ischemic insult or other etiology is recommended. MRI of the brain without contrast is recommended for further evaluation. 2. No evidence of acute intracranial hemorrhag CT head, 07/19/2024: 1. Severe Generalized Hypoxia: Diffuse hypo-attenuation of the bilateral frontal, parietal and temporal lobes with loss of mendoza-white matter differentiation, probably secondary to generalized hypoxia. Diffuse cerebral edema with effacement of the sulci and basilar cisterns. Relative sparing of the cerebellar hemispheres. 2. No Evidence of Intraparenchymal hematoma, midline shift or hydrocephalus. 3. Soft Tissue Findings: Right periorbital soft tissue edema, with no evidence of calvarial fracture MRI head, 07/14/2024: There is T2/FLAIR hyperintensity involving the lentiform nucleus, hypothalamic region, cerebral peduncle, dorsal midbrain , dorsal liberty and dorsal medulla with symmetric bilateral dorsal medulla small focus of diffusion restriction. Findings are nonspecific and may be seen with hypoxic ischemic encephalopathy, metabolic or toxic disorders. Recommend clinical correlation vital signs Vital Sign Date Time Temp Pulse Resp B/P (MAP) Pulse Ox O2 Delivery O2 Flow Rate FiO2 07/21/24 18:23 18 100 Mechanical Ventilator+ 30 30 07/21/24 18:15 97.9 65 141/85 (103) 208.2 Total Intake and Output 07/20/24 07/20/24 07/21/24 15:00 23:00 07:00 Intake Total 778.99 ml 742.830 ml 690.289 ml Output Total 150 ml 210 ml Balance 778.99 ml 592.830 ml 480.289 ml medications Current Medications Medications Dose Ordered Sig/Perez Route Start Time Stop Time Status Last Admin Dose Admin Acetaminophen 650 mg Q6HP PRN PO 07/08/24 22:45 07/09/24 22:29 650 MG Nitroglycerin 0.4 mg Q5MINP PRN SL 07/08/24 22:45 Acetaminophen 650 mg Q6HP PRN TN 07/09/24 11:00 07/09/24 15:54 650 MG Pantoprazole Sodium 40 mg BID IV 07/11/24 22:00 07/21/24 12:40 40 MG Enteral Nutritional Formula 1,000 ml 30ML/HR GT 07/16/24 14:45 07/21/24 17:13 1,000 ML Norepinephrine Bitartrate 250 ml @ 1.875 mls/ hr Q24H IV 07/16/24 15:45 07/21/24 12:17 22.5 MLS/HR Vancomycin HCl 0 ml @ 0 mls/hr UD IV 07/18/24 11:45 Meropenem 50 ml @ 17 mls/hr DAILY IV 07/19/24 18:00 07/21/24 12:41 17 MLS/HR Levalbuterol HCl 1.25 mg Q6HR NEB 07/19/24 18:00 07/21/24 11:54 1.25 MG Ipratropium [place] 0.5 mg Q4HR NEB 07/20/24 12:00 Cancel Ipratropium [place] 0.5 mg Q6HR NEB 07/20/24 12:00 07/21/24 11:54 0.5 MG objective The patient is well-nourished and well-developed with no distress. The patient is intubated MENTAL STATUS: See subjective CRANIAL NERVES: Pupils are round, 5-6mm and nonreactive. There are corneal reflexes and questionable doll's eyes phenomenon. No signs of facial weakness. There are no gagging or coughing reflexes SENSATION: No responses to pain stimuli. MOTOR: Normal tone in the upper and lower extremity. Normal muscle bulk. No fasciculations. No spontaneous movement. REFLEXES: Deep tendon reflexes are symmetrical. No pathological reflexes. CEREBELLAR/COORDINATION: Deferred GAIT/STATION: deferred laboratory and microbiology Laboratory Tests 07/21/24 03:15 Test 07/21/24 03:15 Range/Units Serum Glucose 120 H 74-106 mg/dL Problem List Coma/diffuse brain edema Hypoxic encephalopathy Metabolic encephalopathy Cardiopulmonary arrest Acute respiratory failure Unequal pupil size/brain herniation Assessment/Plan Monitoring Supportive treatment ICU care Stabilize vitals Respiratory support/vent management Oxygen Transferred to higher level care Social service on case More recommendation per clinical course The patient is like to have a poor prognosis for meaningful recovery, higher level care transfer is unlike to change progresses This medical document was created using an electronic medical record system with [employer] dictation system. Although this document has been carefully reviewed, there may still be some phonetic and typographical errors. These areas are purely typographical due to imperfections of the software programs, and do not reflect any compromise in the patient's medical care Prognosis Guarded Dietary Evaluation Review Comments: Patient is not receiving nutrition. If GI is accessible, consider EN nutrition - Jevity 1.2 @ 55 mL/hr as tolerated. If patient remains NPO for more than 7 days, initiate TPN to meet 75% of estimated needs. Advance patient diet when medically feasible to a cardiac diet if renal function is sufficient. Expected Outcomes/Goals: Patient to receive nutrition support within 7 days of NPO status. Patient diet to advance F/u in 2-3 days Plan discussed with: Other SUMAAY ALVAREZ MD Jul 21, 2024 18:38
--- NOTE | 2024-07-21 19:58 | DVHPN2 ---
Progress Note - Dictate Date Seen: Jul 21, 2024 Has the PT tested + for MRSA If YES, has PT been informed?: No Medical Necessity Reason Pt with a Central, PICC or Fol: Yes The following are medically ne: Central Line, Jones Catheter Reason for jones catheter: Strict I&O Subjective Patient seen and examined at bedside. intubated on mechanical ventilator. Overnight events reviewed. vital signs Vital Sign Date Time Temp Pulse Resp B/P (MAP) Pulse Ox O2 Delivery O2 Flow Rate FiO2 07/21/24 18:47 64 18 123/73 (90) 100 30 07/21/24 18:45 97.9 208.2 07/21/24 18:23 Mechanical Ventilator+ Total Intake and Output 07/20/24 07/20/24 07/21/24 15:00 23:00 07:00 Intake Total 778.99 ml 742.830 ml 690.289 ml Output Total 150 ml 210 ml Balance 778.99 ml 592.830 ml 480.289 ml medications Current Medications Medications Dose Ordered Sig/Perez Route Start Time Stop Time Status Last Admin Dose Admin Acetaminophen 650 mg Q6HP PRN PO 07/08/24 22:45 07/09/24 22:29 650 MG Nitroglycerin 0.4 mg Q5MINP PRN SL 07/08/24 22:45 Acetaminophen 650 mg Q6HP PRN [place] 07/09/24 11:00 07/09/24 15:54 650 MG Pantoprazole Sodium 40 mg BID IV 07/11/24 22:00 07/21/24 12:40 40 MG Enteral Nutritional Formula 1,000 ml 30ML/HR GT 07/16/24 14:45 07/21/24 17:13 1,000 ML Norepinephrine Bitartrate 250 ml @ 1.875 mls/ hr Q24H IV 07/16/24 15:45 07/21/24 12:17 22.5 MLS/HR Vancomycin HCl 0 ml @ 0 mls/hr UD IV 07/18/24 11:45 Meropenem 50 ml @ 17 mls/hr DAILY IV 07/19/24 18:00 07/21/24 12:41 17 MLS/HR Levalbuterol HCl 1.25 mg Q6HR NEB 07/19/24 18:00 07/21/24 18:47 1.25 MG Ipratropium [place] 0.5 mg Q4HR NEB 07/20/24 12:00 Cancel Ipratropium [place] 0.5 mg Q6HR NEB 07/20/24 12:00 07/21/24 18:47 0.5 MG objective Gen.: Patient lying in bed in medical ICU. Intubated on mechanical ventilator. Head: Normocephalic, atraumatic. Eyes: PERRLA. Ears: Normal external anatomy. Throat: Endotracheal tube and orogastric tube in place. Neck: Supple, trachea midline. Chest: Transmitted breath sounds bilaterally. Decreased air entry bilaterally. No wheezing. Bibasilar crackles. Cardiovascular: Positive S1, positive S2. Regular rate and rhythm. Abdomen: Positive bowel sounds in all 4 quadrants. Soft, nontender, nondistended. : Jones in place. Normal external genitalia. Rectal: Deferred. Skin: Warm, dry. Intact. Extremities: 2+ radial pulses bilaterally. No lower extremity edema. Neuro: Off sedation. laboratory and microbiology Laboratory Tests 07/21/24 03:15 Test 07/21/24 03:15 Range/Units Serum Glucose 120 H 74-106 mg/dL Assessment/Plan Impression: Acute hypoxic respiratory failure On mechanical ventilator NAOMI secondary to hemodynamically mediated, likely ischemic ATN Septic shock due to pneumonia Pneumonia NSTEMI type 2, likely due to above Cardiopulmonary arrest status post CPR with ROSC Paroxysmal atrial fibrillation Elevated liver function tests ? Anoxic brain injury Upper GI bleed Events: Remains on vent support On AC mode RR 18, VT 500, PEEP 5, FiO2 30%. S/p 1 unit PRBC Hemoglobin of 6.9 g/dL. Hemodialysis today. ABG reviewed, notable for alkalemia d/t respiratory alkalosis Continue amiodarone drip. On pressors (Levophed) for hemodynamic support Titrate to keep mean arterial pressure greater than 65 mmHg. Continue antibiotics - Zosyn and vancomycin. Monitor renal function Monitor electrolytes. Supplement as necessary. Monitor hemoglobin Transfuse if less than 7.0 g/dL. Poor prognosis Anoxic brain injury Labs and imaging reviewed. Rest of plan as noted below. Plan: s/p intubation on mechanical ventilator. On AC mode RR 18, VT 500, PEEP 5, FiO2 30%. Titrate FIO2 to keep O2 saturation above 90%. VAP bundle. Daily ABG and CXR while intubated Off sedation On pressors (Levophed) for hemodynamic support Titrate to keep mean arterial pressure greater than 65 mmHg. Continue bronchodilators q.4 hours Continue antibiotics. Completed steroid course. Monitor renal function Monitor electrolytes. Supplement as necessary. Monitor ins and outs. GI prophylaxis. DVT prophylaxis. Prognosis: Poor given patient's multiple co-morbidities. Condition: Critical Rest of plan per hospitalist and other consultants. A total of 35 minutes of critical care time was spent reviewing the patient record, examining the patient, making a diagnostic and therapeutic plan, discussing this plan with the medical personnel, following up on diagnostic studies and following the patient for clinical stability excluding any and all procedures. At least 50% of this time was spent in direct, [id number] contact. Thank you Dr. Denis Pierre MD, for allowing me to participate in this patient's care. Further recommendations will depend on the patient's clinical course. Please do not hesitate to contact me if you have any questions or concerns. This medical document was created using an electronic medical record system with [employer] dictation system. Although these documentations are being carefully reviewed, there may still be some phonetic and typographical changes. The errors are purely typographical, due to imperfection on the software program, and do not reflect any compromise in the patient's medical care. Dietary Evaluation Review Comments: Patient is not receiving nutrition. If GI is accessible, consider EN nutrition - Jevity 1.2 @ 55 mL/hr as tolerated. If patient remains NPO for more than 7 days, initiate TPN to meet 75% of estimated needs. Advance patient diet when medically feasible to a cardiac diet if renal function is sufficient. Expected Outcomes/Goals: Patient to receive nutrition support within 7 days of NPO status. Patient diet to advance F/u in 2-3 days Plan discussed with: Other (MARIO Donaldson) Critical Care Time(min): 35 MARISOL CRUZ MD Jul 21, 2024 19:58
--- NOTE | 2024-07-21 20:59 | DVHPN2 ---
Subjective This is a 63-year-old female with past medical history of allergic asthma, COPD, hypertension, paroxysmal atrial fibrillation, repaired mitral valve, IBS, generalized anxiety, chronic pain and insomnia brought to the hospital after loss of consciousness. Patient had lost consciousness out of house, witnessed by the bystanders, found asystole by EMS, performed CPR for 20 minutes and retained ROSC. Admitted on 07/09/2024. Today, patient seen and examined at the bedside. Patient is sedated and on mechanical ventilation. Review of systems could not obtain. Reviewed: Care Plan, H&P, Labs, Medications, Previous Orders, Radiology, Other (Consultations) Changes from previous H/P or p: No Changes Objective Vitals Vital Signs Date Time Temp Pulse Resp B/P (MAP) Pulse Ox O2 Delivery O2 Flow Rate FiO2 07/21/24 20:45 97.9 69 18 144/83 (103) 100 208.2 07/21/24 20:00 30 07/21/24 20:00 Mechanical Ventilator+ Intake/Output Intake and Output 07/21/24 05:00 Intake Total 2125.078 ml Output Total 850 ml Balance 1275.078 ml Intake Oral 60 ml IV Total 1522.078 ml Tube Feeding 543 ml Output Urine Total 250 ml Stool Total 600 ml General Appearance: Other (Intubated and sedated) HEENT: Atraumatic Lungs: Other (Mechanical ventilation breathing sounds) Cardiovascular: Normal S1, Normal S2, Other (Tachycardia) Abdomen: Other (Hypoactive bowel sound) Genitourinary: Other (Allen's catheter) Neuro: Other (Sedated) Psych/Mental Status: Other (Sedated) Medications Current Medications Medications Dose Ordered Sig/Perez Route Start Time Stop Time Status Last Admin Dose Admin Acetaminophen 650 mg Q6HP PRN PO 07/08/24 22:45 07/09/24 22:29 650 MG Nitroglycerin 0.4 mg Q5MINP PRN SL 07/08/24 22:45 Acetaminophen 650 mg Q6HP PRN PA 07/09/24 11:00 07/09/24 15:54 650 MG Pantoprazole Sodium 40 mg BID IV 07/11/24 22:00 07/21/24 12:40 40 MG Enteral Nutritional Formula 1,000 ml 30ML/HR GT 07/16/24 14:45 07/21/24 17:13 1,000 ML Norepinephrine Bitartrate 250 ml @ 1.875 mls/ hr Q24H IV 07/16/24 15:45 07/21/24 12:17 22.5 MLS/HR Vancomycin HCl 0 ml @ 0 mls/hr UD IV 07/18/24 11:45 Meropenem 50 ml @ 17 mls/hr DAILY IV 07/19/24 18:00 07/21/24 12:41 17 MLS/HR Levalbuterol HCl 1.25 mg Q6HR NEB 07/19/24 18:00 07/21/24 18:47 1.25 MG Ipratropium [place] 0.5 mg Q4HR NEB 07/20/24 12:00 Cancel Ipratropium [place] 0.5 mg Q6HR NEB 07/20/24 12:00 07/21/24 18:47 0.5 MG Laboratory Results Laboratory Tests 07/21/24 03:15 Chemistry Test 07/21/24 03:15 Albumin 2.6 g/dL (3.2-4.8) L Calcium Level 8.8 mg/dL (8.7-10.4) Total Protein 5.2 g/dL (5.7-8.2) L LFT Test 07/21/24 03:15 Alanine Aminotransferase (ALT) 28 U/L (7-40) Alkaline Phosphatase 114 U/L (46-116) Aspartate Amino Transferase (AST) 50 U/L (13-40) H Total Bilirubin 0.5 mg/dL (0.2-1.0) Urinalysis Test 07/08/24 22:00 Urine Color Colorless (Yellow) Urine Clarity Turbid (Clear) H Urine pH 8.5 (5.0-9.0) Urine Specific [place] 1.006 (1.001-1.035) Urine Protein 2+ (Negative) H Urine Ketones Negative (Negative) Urine Blood 3+ /uL (Negative) H Urine Nitrite Negative (Negative) Urine Bilirubin Negative (Negative) Urine Urobilinogen Normal mg/dL (Negative) Urine Leukocyte Esterase Negative /uL (Negative) Urine RBC 22 /hpf (0 - 4) Urine WBC 26 /hpf (0 - 5) Urine Squamous Epithelial Cells Few /hpf (<5) Urine Bacteria Few /hpf (None Seen) H Urine Glucose 3+ mg/dL (Normal) H Blood Gas Results Test 07/21/24 06:17 Arterial Blood pH 7.535 (7.350-7.450) FiO2 % 30.0 Microbiology Microbiology Date/Time Source Procedure Growth Status 07/16/24 17:02 Trachea Gram Stain - Final Resulted 07/16/24 17:02 Respiratory Culture - Preliminary Enterobacter cloacae Resulted 07/09/24 00:07 Blood Blood Culture - Final NO GROWTH AFTER 5 DAYS OF INCUBATION. Complete 07/08/24 22:00 Voided Urine Urine Culture - Final Complete Assessment/Plan Assessment/Plan This is a 63-year-old female with past medical history of allergic asthma, COPD, hypertension, paroxysmal atrial fibrillation, repaired mitral valve, IBS, generalized anxiety, chronic pain and insomnia brought to the hospital after loss of consciousness. Patient had lost consciousness out of house, witnessed by the bystanders, found asystole by EMS, performed CPR for 20 minutes and retained ROSC. Admitted on 07/09/2024. NEURO: Acute metabolic encephalopathy, likely due to sepsis/possible anoxic brain injury due to cardiac arrest Patient is sedated, and on mechanical ventilation, place, and Status post cardiac arrest Possible Cerebral edema, likely due to cardiac arrest Head CT scan shows less prominent sulci, likely due to cerebral edema We will consider head CT scan after 48 hour for the monitoring of possible cerebral edema Teleneurology consulted on 07/10 and has consulted the daughter of the patient regarding poor prognosis Head CT scan of 07/12/2024 shows changes but could not exclude brain edema Brain MRI shows nonspecific findings may be seen with hypoxic ischemic encephalopathy, metabolic or toxic disorders EEG shows severe cerebral dysfunction due to metabolic/hypoxic encephalopathy or medication effect Neurology consulted back, and recommended that the patient have a poor prognosis for meaningful recovery and higher level care transfer is unlikely to change progresses CARDIOVASCULAR: Status post cardiac arrest Patient has history of paroxysmal atrial fibrillation Non ST-elevation OR, type 2, likely due to cardiac arrest and CPR Circulation shock, likely septic likely due to pneumonia Patient has history of open heart surgery for mitral valve repair Sinus tachycardia Atrial fibrillation Troponin is raised, up trending EKG shows sinus tachycardia, with no significant ST or T-wave changes Cardiology on the board, recommended conservative management Echocardiogram shows Borderline Normal left ventricular systolic function estimated ejection [id number] Moderately elevated right ventricular systolic pressure 40 mm of mercury. 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 as well as mitral valve repair Cardiology is on the board, suggested conservative management Sinus tachycardia Due to paroxysmal atrial fibrillation and RVR, the Cardiology consulted back, recommended to use digoxin in case of atrial fibrillation recurrence Today, atrial fibrillation persisted, started amiodarone drip after a dose of bullous amiodarone(150 mg) PULMONARY: Patient is sedated, and on mechanical ventilator, RASS (-5, unresponsive) with ventilator setting of( Vt 450, RR 26, FiO2 30%, peep 5) Acute hypoxic respiratory failure likely due to pneumonia/COPD exacerbation/asthma exacerbation Pneumonia likely due to Gram-positive/Gram-negative Septic shock likely due to pneumonia/UTI Patient has history of multiple hospital admission, including intubated for 2 months in [place] in 2007, mitral valve repair and also has been admitted in [facility] ABGs showed respiratory alkalosis with pH of 7.457 and carbon dioxide of 24.3 Chest x-ray shows prominent bronchovascular marking WBCs raised at 21.2, downtrending Sputum culture MRSA nares screening negative and stopped vancomycin (given for 4 days) COVID-19 and influenza antigens are negative Chest x-ray does not shows any acute cardiopulmonary abnormality ABGs shows respiratory alkalosis, respiratory rate decreased to 18 from 22 Discontinue Zosyn, use for 8 days Continue Albuterol and ipratropium nebulization every 6 hours Sputum culture shows Enterobacter cloacae, sensitive to meropenem Started meropenem, at 07/19 GI: Possible Upper GI bleeding, unspecified location Transaminitis, likely due to ischemia secondary to cardiac arrest NG tube showed black drainage on 06/29 and 06/30 likely due to upper GI bleeding GI consulted, recommended conservative management Continue Protonix b.i.d. Discontinue Lovenox due to severe anemia and possible upper GI bleeding RENAL: NAOMI, no previous records available Nephrology on the board, dialysis performed today and taken out 500 mL fluid UTI, unspecified location UA shows UTI picture Urine culture showed no bacterial growth ID: Urine and blood culture from 07/08 shows no bacterial growth Blood culture from 07/09 shows no bacterial growth MRSA screening on 07/09 negative, and discontinued vancomycin COVID-19 and influenza screening from 07/09 negative Discontinue Zosyn, use for 8 days Sputum culture shows Enterobacter cloacae, sensitive to meropenem Start meropenem at 07/19 Cannabinoid use disorder UDS shows cannabis positive Metabolic: Hypokalemia, Supplemented Magnesium is within normal limits Hyperkalemia, normalized Mild Hypernatremia, improved Mild hyperkalemia, injection calcium gluconate given Gynecology Vaginal bleeding 5-10 mL of vaginal bleeding noticed, with some clots on 07/18 Monitoring DVT prophylaxis Due to possible upper GI bleeding, Lovenox is not indicated SCD LINES/DRAINS/ACCESS: ETT tube, intubated on 07/08/2024 Transurethral catheter, placed on 07/08/2024 IV Access Right femoral vein (CVC), placed on 07/08/2024 Left femoral vein catheter for HD, placed on 07/17 Drips: Levophed 4 Diet: Nepro 30 mL/hour on 07/16 Disposition: As per family request for the higher level of care transfer(preference [place]), social sciences department chair has been consulted. CODE STATUS: Full code Disposition: ICU status, kept in ICU Case discussed with the daughter via telephone. Critical time spent more than 72 minutes, including patient care, chart review and updating the family, excluding any procedures. Plan discussed with: Other (nurse) My Orders Orders - GREYSON HUTCHISON MD Procedure Category Date Status Time Chest Portable XY 07/21/24 Resulted 05:34 Basic Metabolic Panel LAB 07/22/24 Verified 04:00 Date of Service: Jul 21, 2024 Billing Provider: GREYSON HUTCHISON MD Common Visit Codes: [id number] CARE 30-74 MIN GREYSON HUTCHISON MD Jul 21, 2024 20:59
[2024-07-22] VITALS (116 sets, daily range): BP systolic 72–150; BP diastolic 39–94; PULSE 68–90; RESP 15–28; TEMP 96.8–99.5; O2SAT 97–100
[2024-07-22 04:40] LABS: Hematocrit 23.1 % (36.0-46.0); Hemoglobin 7.7 g/dL (12.2-16.2); Mean Corpuscular Hemoglobin 29.8 pg (28.0-32.0); Mean Corpuscular Hgb Conc. 33.2 g/dL (32.0-36.0); Mean Corpuscular Volume 89.6 fL (80.0-100.0); Platelet Count (auto) 230 10^3/uL (140-450); Red Blood Cells 2.58 10^6/uL (4.0-5.20); Red Cell Distribution Width 17.3 % (11.8-14.3)
[2024-07-22 04:55] LABS: Chloride 104 mmol/L (98-107); Sodium 140 mmol/L (136-145)
[2024-07-22 04:56] LABS: Anion Gap 9 (5-15); Carbon Dioxide 27 mmol/L (20-31)
[2024-07-22 05:01] LABS: BUN/Creatinine Ratio 10.5 (10.0-20.0)
[2024-07-22 05:03] LABS: Blood Urea Nitrogen 51 mg/dL (9-23); Glucose 108 mg/dL (74-106)
[2024-07-22 05:12] LABS: Basophils % (manual) 0 (0.0-2.0); Blast Cells 0; Metamyelocytes % 0; Myelocytes % 0; Promyelocytes % 0; Reactive Lymphocytes 0
[2024-07-22 06:55] LABS: Band Neutrophils % (manual) 4; Eosinophils % (manual) 1 (0-7); Lymphocytes % (manual) 4 (10.0-50.0); Monocytes % (manual) 5 (0-12)
[2024-07-22 06:57] LABS: Anisocytosis Slight; Large Platelets FEW; Platelet Estimate Adequate
--- NOTE | 2024-07-22 07:54 | DVH ---
CHEST RADIOGRAPH Indication: INTUBATED Technique: Single frontal view of the chest was obtained COMPARISON: XY CHEST PORTABLE on DOS: 07/21/24, XY CHEST XRAY 1 VIEW on DOS: 07/20/24, XY CHEST XRAY 1 VIEW on DOS: 07/19/24 FINDINGS: Lines and Tubes: Median sternotomy. Endotracheal tube and enteric catheter in satisfactory position. Lungs: Patchy bilateral airspace disease. Pleura: No effusion. No pneumothorax. Cardiomediastinal contours: Unremarkable Bones: Unremarkable IMPRESSION: Lines and tubes in satisfactory position. No significant interval change.
[2024-07-22 09:09] LABS: Base Excess -0.7 mmol/L (-2.0-3.0)
--- NOTE | 2024-07-22 10:53 | DVHPN2 ---
Progress Note - Dictate Date Seen: Jul 22, 2024 Has the PT tested + for MRSA If YES, has PT been informed?: No Medical Necessity Reason Pt with a Central, PICC or Fol: Yes The following are medically ne: Central Line, Jones Catheter Reason for jones catheter: Strict I&O Subjective Ms. Wren is a 63 years old female with a history of asthma, COPD, paroxysmal atrial fibrillation, allergy to animal dander, smoking, she was brought to the [facility] on 07/08/2024 with a chief company of altered mental status. I have seen and examined the patient, I have talked to her nurse, she remained intubated, nonresponsive to strong painful stimuli There was questionable doll's eye phenomena The pupils are equal and fixed as before, no gag reflexes Levo 7 mcg per minute UDS, 07/12/2024: Cannabinoids Urinalysis, 07/08/2024: WBC: 26, urine leukocyte esterase: Negative ABG, 07/08/2024: acidosis, WBC/HB/PLT/MCV, 07/15/2024: 11.5/75/80/89.3 PT/INR/PTT, 07/08/2024: 16/1.56/26.8 BUN/CR, 07/15/2024: 112/8.19 TBI/AST/ALT/AP, 07/15/2024: 0.8/68/45/31 EEG, 07/16/2024: Inadequate, but likely remarkably abnormal EEG CT head, 07/08/2024: 1. No acute intracranial hemorrhage. 2. No CT findings of territorial ischemia CT head, 07/12/2024: 1. Symmetric hypodensities in the lentiform nuclei, similar to prior study. Hypodensities in the bilateral thalami new since prior CT scan of the head from 07/10/2024. Additionally, there is subtle loss of mendoza-white matter differentiation since the prior CT from 07/08/2024 for which intracerebral edema is not excluded. Correlation for toxic metabolic or ischemic insult or other etiology is recommended. MRI of the brain without contrast is recommended for further evaluation. 2. No evidence of acute intracranial hemorrhag CT head, 07/19/2024: 1. Severe Generalized Hypoxia: Diffuse hypo-attenuation of the bilateral frontal, parietal and temporal lobes with loss of mendoza-white matter differentiation, probably secondary to generalized hypoxia. Diffuse cerebral edema with effacement of the sulci and basilar cisterns. Relative sparing of the cerebellar hemispheres. 2. No Evidence of Intraparenchymal hematoma, midline shift or hydrocephalus. 3. Soft Tissue Findings: Right periorbital soft tissue edema, with no evidence of calvarial fracture MRI head, 07/14/2024: There is T2/FLAIR hyperintensity involving the lentiform nucleus, hypothalamic region, cerebral peduncle, dorsal midbrain , dorsal liberty and dorsal medulla with symmetric bilateral dorsal medulla small focus of diffusion restriction. Findings are nonspecific and may be seen with hypoxic ischemic encephalopathy, metabolic or toxic disorders. Recommend clinical correlation vital signs Vital Sign Date Time Temp Pulse Resp B/P (MAP) Pulse Ox O2 Delivery O2 Flow Rate FiO2 07/22/24 10:43 83 18 107/74 (85) 99 30 07/22/24 09:35 Mechanical Ventilator+ 07/22/24 06:46 98.4 209.1 Total Intake and Output 07/21/24 07/21/24 07/22/24 15:00 23:00 07:00 Intake Total 930.264 ml 752.365 ml 429.275 ml Output Total 1110 ml 115 ml Balance 930.264 ml -357.635 ml 314.275 ml medications Current Medications Medications Dose Ordered Sig/Perez Route Start Time Stop Time Status Last Admin Dose Admin Acetaminophen 650 mg Q6HP PRN PO 07/08/24 22:45 07/09/24 22:29 650 MG Nitroglycerin 0.4 mg Q5MINP PRN SL 07/08/24 22:45 Acetaminophen 650 mg Q6HP PRN AR 07/09/24 11:00 07/09/24 15:54 650 MG Pantoprazole Sodium 40 mg BID IV 07/11/24 22:00 07/22/24 07:49 40 MG Enteral Nutritional Formula 1,000 ml 30ML/HR GT 07/16/24 14:45 07/21/24 17:13 1,000 ML Norepinephrine Bitartrate 250 ml @ 1.875 mls/ hr Q24H IV 07/16/24 15:45 07/22/24 03:00 13.125 MLS/HR Meropenem 50 ml @ 17 mls/hr DAILY IV 07/19/24 18:00 07/22/24 07:49 17 MLS/HR Levalbuterol HCl 1.25 mg Q6HR NEB 07/19/24 18:00 07/22/24 06:23 1.25 MG Ipratropium [place] 0.5 mg Q4HR NEB 07/20/24 12:00 Cancel Ipratropium [place] 0.5 mg Q6HR NEB 07/20/24 12:00 07/22/24 06:23 0.5 MG objective The patient is well-nourished and well-developed with no distress. The patient is intubated MENTAL STATUS: See subjective CRANIAL NERVES: Pupils are round, 5-6mm and nonreactive. There are corneal reflexes and questionable doll's eyes phenomenon. No signs of facial weakness. There are no gagging or coughing reflexes SENSATION: No responses to pain stimuli. MOTOR: Normal tone in the upper and lower extremity. Normal muscle bulk. No fasciculations. No spontaneous movement. REFLEXES: Deep tendon reflexes are symmetrical. No pathological reflexes. CEREBELLAR/COORDINATION: Deferred GAIT/STATION: deferred laboratory and microbiology Laboratory Tests 07/22/24 03:48 Test 07/22/24 03:48 Range/Units Serum Glucose 108 H 74-106 mg/dL Problem List Coma/diffuse brain edema Hypoxic encephalopathy Metabolic encephalopathy Cardiopulmonary arrest Acute respiratory failure Unequal pupil size/brain herniation Assessment/Plan Monitoring Supportive treatment Radionuclide brain imaging ICU care Stabilize vitals Respiratory support/vent management Oxygen Transferred to higher level care Social service on case More recommendation per clinical course The patient is like to have a poor prognosis for meaningful recovery, higher level care transfer is unlike to change progresses This medical document was created using an electronic medical record system with [employer] dictation system. Although this document has been carefully reviewed, there may still be some phonetic and typographical errors. These areas are purely typographical due to imperfections of the software programs, and do not reflect any compromise in the patient's medical care Prognosis guarded Dietary Evaluation Review Comments: Patient is not receiving nutrition. If GI is accessible, consider EN nutrition - Jevity 1.2 @ 55 mL/hr as tolerated. If patient remains NPO for more than 7 days, initiate TPN to meet 75% of estimated needs. Advance patient diet when medically feasible to a cardiac diet if renal function is sufficient. Expected Outcomes/Goals: Patient to receive nutrition support within 7 days of NPO status. Patient diet to advance F/u in 2-3 days Plan discussed with: Other SUMAYA ALVAREZ MD Jul 22, 2024 10:53
--- NOTE | 2024-07-22 14:45 | DVHPN2 ---
Progress Note Date Seen: Jul 22, 2024 Resident Creating Document: YO CEJA RESIDENT Has the PT tested + for MRSA If YES, has PT been informed?: No Medical Necessity Reason Pt with a Central, PICC or Fol: Yes The following are medically ne: Central Line, Jones Catheter Reason for jones catheter: Strict I&O Subjective Review of Systems Patient seen and examined in ICU. No other new night events. Clinically unchanged. Received hemodialysis yesterday. Objective vital signs Vital Sign Date Time Temp Pulse Resp B/P (MAP) Pulse Ox O2 Delivery O2 Flow Rate FiO2 07/22/24 14:01 80 07/22/24 14:01 18 99 Mechanical Ventilator+ 30 30 07/22/24 13:00 99.0 99/58 (72) 210.2 Total Intake and Output 07/21/24 07/21/24 07/22/24 15:00 23:00 07:00 Intake Total 930.264 ml 752.365 ml 429.275 ml Output Total 1110 ml 115 ml Balance 930.264 ml -357.635 ml 314.275 ml medications Current Medications Medications Dose Ordered Sig/Perez Route Start Time Stop Time Status Last Admin Dose Admin Acetaminophen 650 mg Q6HP PRN PO 07/08/24 22:45 07/09/24 22:29 650 MG Nitroglycerin 0.4 mg Q5MINP PRN SL 07/08/24 22:45 Acetaminophen 650 mg Q6HP PRN MD 07/09/24 11:00 07/09/24 15:54 650 MG Pantoprazole Sodium 40 mg BID IV 07/11/24 22:00 07/22/24 07:49 40 MG Enteral Nutritional Formula 1,000 ml 30ML/HR GT 07/16/24 14:45 07/21/24 17:13 1,000 ML Norepinephrine Bitartrate 250 ml @ 1.875 mls/ hr Q24H IV 07/16/24 15:45 07/22/24 03:00 13.125 MLS/HR Meropenem 50 ml @ 17 mls/hr DAILY IV 07/19/24 18:00 07/22/24 07:49 17 MLS/HR Levalbuterol HCl 1.25 mg Q6HR NEB 07/19/24 18:00 07/22/24 12:28 1.25 MG Ipratropium [place] 0.5 mg Q4HR NEB 07/20/24 12:00 Cancel Ipratropium [place] 0.5 mg Q6HR NEB 07/20/24 12:00 07/22/24 12:28 0.5 MG Examination General Appearance: Sedated, intubated on ventilator. Head Exam: Normal inspection Neck Exam: Normal inspection. Non-tender. Normal alignment Pulmonary/Respiratory: Chest non-tender. Clear bilateral breath sounds Cardiovascular/Chest: Regular rate and rhythm. No murmurs. No JVD. Peripheral Pulses: 2+ Radial (R). 2+ Radial (L). 2+ Pedal (R). 2+ Pedal (L) Abdominal Exam: Normal bowel sounds. Soft. Nontender. No hepatospenomegaly. No masses Ankle Exam: Negative ankle edema Lower extremities: Negative lower extremity edema Neuro/Mental Status: Fixed, dilated pupils, no pupillary reflex. laboratory and microbiology Laboratory Tests 07/22/24 03:48 Test 07/22/24 03:48 Range/Units Serum Glucose 108 H 74-106 mg/dL Microbiology Date/Time Source Procedure Growth Status 07/16/24 17:02 Trachea Gram Stain - Final Resulted 07/16/24 17:02 Respiratory Culture - Preliminary Enterobacter cloacae Resulted 07/09/24 00:07 Blood Blood Culture - Final NO GROWTH AFTER 5 DAYS OF INCUBATION. Complete 07/08/24 22:00 Voided Urine Urine Culture - Final Complete Problem List/Assessment/Plan Problem List/Assessment/Plan NAOMI secondary to hemodynamically mediated likely ischemic ATN Septic shock due to pneumonia Pneumonia NSTEMI type 2 likely due to above Cardiopulmonary arrest status post CPR with ROSC Paroxysmal atrial fibrillation Elevated liver function ? Anoxic brain injury Upper GI bleeding Plan/recommendation Dr. Levin -plan for hemodialysis tomorrow. -Continue Lasix 80 mg once daily given low GFR, follow with urine output response. -currently on antibiotics Mirapex -strict I&O -continue to monitor kidney function, electrolytes -possible anoxic brain injury: Brain MRI result showed possible hypoxic encephalopathy. Plan for brain perfusion study for possible brain -given possible anoxic brain injury, poor prognosis. -EEG:EEG seen in severe cerebral dysfunction due to metabolic/hypoxic encephalopathy or medication effect Addendum Patient seen and examined, plan discussed with resident. Agree with above, we will follow closely Plan discussed with: Other (RN) Dietary Evaluation Review Comments: Patient is not receiving nutrition. If GI is accessible, consider EN nutrition - Jevity 1.2 @ 55 mL/hr as tolerated. If patient remains NPO for more than 7 days, initiate TPN to meet 75% of estimated needs. Advance patient diet when medically feasible to a cardiac diet if renal function is sufficient. Expected Outcomes/Goals: Patient to receive nutrition support within 7 days of NPO status. Patient diet to advance F/u in 2-3 days YO CEJA RESIDENT Jul 22, 2024 14:45 RADHA LEVIN MD Jul 22, 2024 21:40
[2024-07-22] MEDS ORDERED: ARTIFICIAL TEARS 15ml EACHEYE PRN (17:00)
[2024-07-22] MEDS: ERYTHROMY OPTH OINT 5mg/gm 1gm or 3.5gm tube OP ONE (19:20)
--- NOTE | 2024-07-22 21:02 | DVHPNRES ---
Progress Note Date Seen: Jul 22, 2024 Resident Creating Document: EDGAR CÁRDENAS THADDEUS Has the PT tested + for MRSA If YES, has PT been informed?: No Medical Necessity Reason Pt with a Central, PICC or Fol: Yes The following are medically ne: Central Line, Jones Catheter Reason for jones catheter: Strict I&O Subjective Review of Systems This is a 63-year-old female with past medical history of allergic asthma, COPD, hypertension, paroxysmal atrial fibrillation, repaired mitral valve, IBS, generalized anxiety, chronic pain and insomnia brought to the hospital after loss of consciousness. Patient had lost consciousness out of house, witnessed by the bystanders, found asystole by EMS, performed CPR for 20 minutes and retained ROSC. Admitted on 07/09/2024. Today, patient seen and examined at the bedside. Patient is sedated and on mechanical ventilation. Review of systems could not obtain. Objective vital signs Vital Sign Date Time Temp Pulse Resp B/P (MAP) Pulse Ox O2 Delivery O2 Flow Rate FiO2 07/22/24 20:15 97.7 77 21 150/76 (100) 100 207.9 07/22/24 20:05 30 07/22/24 20:00 Mechanical Ventilator+ Total Intake and Output 07/21/24 07/21/24 07/22/24 14:59 22:59 06:59 Intake Total 957.972 ml 754.24 ml 429.275 ml Output Total 1110 ml 115 ml Balance 957.972 ml -355.76 ml 314.275 ml medications Current Medications Medications Dose Ordered Sig/Perez Route Start Time Stop Time Status Last Admin Dose Admin Acetaminophen 650 mg Q6HP PRN PO 07/08/24 22:45 07/09/24 22:29 650 MG Nitroglycerin 0.4 mg Q5MINP PRN SL 07/08/24 22:45 Acetaminophen 650 mg Q6HP PRN NE 07/09/24 11:00 07/09/24 15:54 650 MG Pantoprazole Sodium 40 mg BID IV 07/11/24 22:00 07/22/24 07:49 40 MG Enteral Nutritional Formula 1,000 ml 30ML/HR GT 07/16/24 14:45 07/21/24 17:13 1,000 ML Norepinephrine Bitartrate 250 ml @ 1.875 mls/ hr Q24H IV 07/16/24 15:45 07/22/24 18:49 15 MLS/HR Meropenem 50 ml @ 17 mls/hr DAILY IV 07/19/24 18:00 07/22/24 07:49 17 MLS/HR Levalbuterol HCl 1.25 mg Q6HR NEB 07/19/24 18:00 07/22/24 18:21 1.25 MG Ipratropium [place] 0.5 mg Q4HR NEB 07/20/24 12:00 Cancel Ipratropium [place] 0.5 mg Q6HR NEB 07/20/24 12:00 07/22/24 18:21 0.5 MG Artificial Tears 2 drop Q6HP PRN EACHEYE 07/22/24 17:00 Examination General: RASS -5, afebrile, mucosae are moist Cardiovascular: Normal S1 and S2. No murmurs, gallops or rubs Respiratory: Mechanically assisted ventilation, equal bilateral airway entree. Clear lung sounds on auscultation Abdomen: Soft, nontender, no organomegaly, normal bowel sounds MSK/skin: Mobilization of limbs cannot be evaluated. Skin is dry and warm. Neurological: Orientation cannot be assessed. No apparent motor no sensitive deficits. Bilateral pupils are dilated, fixed and nonreactive to the light. No cough reflex on deep suctioning laboratory and microbiology Laboratory Tests 07/22/24 03:48 Test 07/22/24 03:48 Range/Units Serum Glucose 108 H 74-106 mg/dL Microbiology Date/Time Source Procedure Growth Status 07/16/24 17:02 Trachea Gram Stain - Final Resulted 07/16/24 17:02 Respiratory Culture - Preliminary Enterobacter cloacae Resulted 07/09/24 00:07 Blood Blood Culture - Final NO GROWTH AFTER 5 DAYS OF INCUBATION. Complete 07/08/24 22:00 Voided Urine Urine Culture - Final Complete Labs and/or images reviewed: Labs reviewed by me, Image(s) reviewed by me Problem List/Assessment/Plan Problem List/Assessment/Plan This is a 63-year-old female with past medical history of allergic asthma, COPD, hypertension, paroxysmal atrial fibrillation, repaired mitral valve, IBS, generalized anxiety, chronic pain and insomnia brought to the hospital after loss of consciousness. Patient had lost consciousness out of house, witnessed by the bystanders, found asystole by EMS, performed CPR for 20 minutes and retained ROSC. Admitted on 07/09/2024. NEURO: Acute metabolic encephalopathy, likely due to sepsis/possible anoxic brain injury due to cardiac arrest Patient is sedated, and on mechanical ventilation, place, and Status post cardiac arrest Possible Cerebral edema, likely due to cardiac arrest Head CT scan shows less prominent sulci, likely due to cerebral edema We will consider head CT scan after 48 hour for the monitoring of possible cerebral edema Teleneurology consulted on 07/10 and has consulted the daughter of the patient regarding poor prognosis Head CT scan of 07/12/2024 shows changes but could not exclude brain edema Brain MRI shows nonspecific findings may be seen with hypoxic ischemic encephalopathy, metabolic or toxic disorders EEG shows severe cerebral dysfunction due to metabolic/hypoxic encephalopathy or medication effect Head CT scan from 07/19, shows effacement of sulci Neurology has consulted, and recommended that the patient have a poor prognosis for meaningful recovery and higher level care transfer is unlikely to change progresses, planned for brain perfusion test for tomorrow a.m. CARDIOVASCULAR: Status post cardiac arrest Patient has history of paroxysmal atrial fibrillation Non ST-elevation VT, type 2, likely due to cardiac arrest and CPR Circulation shock, likely septic likely due to pneumonia Patient has history of open heart surgery for mitral valve repair Sinus tachycardia Atrial fibrillation Troponin is raised EKG shows sinus tachycardia, with no significant ST or T-wave changes Cardiology on the board, recommended conservative management Echocardiogram shows Borderline Normal left ventricular systolic function estimated ejection [id number]%. Moderately elevated right ventricular systolic pressure 40 mm of mercury. 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 as well as mitral valve repair Cardiology is on the board, suggested conservative management Sinus tachycardia Due to paroxysmal atrial fibrillation and RVR, the Cardiology consulted back, recommended to use digoxin in case of atrial fibrillation recurrence PULMONARY: Patient is sedated, and on mechanical ventilator, RASS (-5, unresponsive) with ventilator setting of( Vt 450, RR 26, FiO2 30%, peep 5) Acute hypoxic respiratory failure likely due to pneumonia/COPD exacerbation/asthma exacerbation Pneumonia likely due to Gram-positive/Gram-negative Septic shock likely due to pneumonia/UTI Patient has history of multiple hospital admission, including intubated for 2 months in [place] in 2007, mitral valve repair and also has been admitted in [facility] MRSA nares screening negative and stopped vancomycin (given for 4 days) COVID-19 and influenza antigens are negative Discontinue Zosyn, use for 8 days Chest x-ray does not shows any acute cardiopulmonary abnormality ABGs shows parameters within normal limits Continue Albuterol and ipratropium nebulization every 6 hours Sputum culture shows Enterobacter cloacae, sensitive to meropenem Continue meropenem, started at 07/19 GI: Possible Upper GI bleeding, unspecified location Transaminitis, likely due to ischemia secondary to cardiac arrest NG tube showed black drainage on 06/29 and 06/30 likely due to upper GI bleeding GI consulted, recommended conservative management Continue Protonix b.i.d. Discontinue Lovenox due to severe anemia and possible upper GI bleeding Check ammonia level RENAL: NAOMI, no previous records available Nephrology on the board, hemodialysis planned for tomorrow UTI, unspecified location UA shows UTI picture Urine culture showed no bacterial growth ID: Urine and blood culture from 07/08 shows no bacterial growth Blood culture from 07/09 shows no bacterial growth MRSA screening on 07/09 negative, and discontinued vancomycin COVID-19 and influenza screening from 07/09 negative Discontinue Zosyn, use for 8 days Sputum culture shows Enterobacter cloacae, sensitive to meropenem Start meropenem at 07/19 Check CRP, ESR Cannabinoid use disorder UDS shows cannabis positive Metabolic: Hypokalemia, Supplemented Magnesium is within normal limits Hyperkalemia, normalized Mild Hypernatremia, improved Mild hyperkalemia, injection calcium gluconate given Check vitamin B12, vitamin-D, cortisol a.m. Gynecology Vaginal bleeding On 07/20 5-10 mL of vaginal bleeding noticed, with some clots on 07/18 Monitoring DVT prophylaxis Due to possible upper GI bleeding, Lovenox is not indicated SCD LINES/DRAINS/ACCESS: ETT tube, intubated on 07/08/2024 Transurethral catheter, placed on 07/08/2024 IV Access Right femoral vein (CVC), placed on 07/08/2024 Left femoral vein catheter for HD, placed on 07/17 Drips: Levophed 6 Diet: Nepro 30 mL/hour on 07/16 Disposition: As per family request for the higher level of care transfer(preference [place]), social media assistant has been consulted. CODE STATUS: Full code Disposition: ICU status, kept in ICU Case discussed with the daughter at the bedside. Critical time spent more than 82 minutes, including patient care, chart review and updating the family, excluding any procedures. Case discussed with Dr. Hardy Plan discussed with: Patient, Daughter, Other (RN) My Orders My Orders Orders - EDGAR CÁRDENAS RESDIANASTASIA Procedure Category Date Status Time Artificial Tear 15ml PHA 07/22/24 In Process Opthalmic (Tears Na 17:00 Lactate Dehydrogenase LAB 07/22/24 In Process 16:49 Cortisol Am LAB 07/22/24 Logged 16:49 Erythrocyte LAB 07/22/24 In Process Sedimentation Rate 16:49 Vitamin D, 25-Hydroxy LAB 07/22/24 In Process 16:49 Comprehensive LAB 07/23/24 Verified Metabolic Panel 04:00 Complete Blood Count LAB 07/23/24 Verified 04:00 Chest Xray 1 View XY 07/23/24 Logged 04:00 Abg W/ Co-Ox RT 07/23/24 Logged 04:00 Dietary Evaluation Review Comments: Patient is not receiving nutrition. If GI is accessible, consider EN nutrition - Jevity 1.2 @ 55 mL/hr as tolerated. If patient remains NPO for more than 7 days, initiate TPN to meet 75% of estimated needs. Advance patient diet when medically feasible to a cardiac diet if renal function is sufficient. Expected Outcomes/Goals: Patient to receive nutrition support within 7 days of NPO status. Patient diet to advance F/u in 2-3 days Date of Service: Jul 22, 2024 Billing Provider: MONE HARDY MD Common Visit Codes: 83355-[id number] CARE 30-74 MIN, [id number] CARE-EACH +30MIN EDGAR CÁDRENAS RESDIENT Jul 22, 2024 21:02 MONE HARDY MD Jul 23, 2024 15:47
[2024-07-22 21:09] LABS: Erythrocyte Sedimentation Rate 120 mm/hr (0-20)
[2024-07-22] MEDS: ERYTHROMY OPTH OINT 5mg/gm 1gm or 3.5gm tube OP SCH (22:02)
[2024-07-23] VITALS (112 sets, daily range): BP systolic 75–178; BP diastolic 40–97; PULSE 74–117; RESP 15–27; TEMP 97–99.7; O2SAT 95–100
[2024-07-23 03:58] LABS: Hematocrit 23.8 % (36.0-46.0); Hemoglobin 7.7 g/dL (12.2-16.2)
[2024-07-23 04:00] LABS: Mean Corpuscular Hemoglobin 29.7 pg (28.0-32.0); Mean Corpuscular Hgb Conc. 32.5 g/dL (32.0-36.0); Mean Corpuscular Volume 91.4 fL (80.0-100.0); Platelet Count (auto) 290 10^3/uL (140-450); Red Cell Distribution Width 17.3 % (11.8-14.3); White Blood Cell 26.3 10^3/uL (4.4-10.8)
[2024-07-23 04:03] LABS: Band Neutrophils % (manual) 0; Basophils % (manual) 0 (0.0-2.0); Blast Cells 0; Metamyelocytes % 0; Promyelocytes % 0; Reactive Lymphocytes 0
[2024-07-23 04:11] LABS: Alanine Aminotransferase 24 U/L (7-40); Anion Gap 13 (5-15); BUN/Creatinine Ratio 11.5 (10.0-20.0); Bilirubin, Total 0.4 mg/dL (0.2-1.0); Carbon Dioxide 27 mmol/L (20-31); Chloride 105 mmol/L (98-107); Glucose 92 mg/dL (74-106); Potassium 4.3 mmol/L (3.5-5.1)
[2024-07-23 04:14] LABS: Albumin 2.2 g/dL (3.2-4.8); Alkaline Phosphatase 158 U/L (46-116); Aspartate Aminotransferase 60 U/L (13-40); Blood Urea Nitrogen 65 mg/dL (9-23); Calcium 8.5 mg/dL (8.7-10.4); Sodium 145 mmol/L (136-145); Total Protein 4.3 g/dL (5.7-8.2)
[2024-07-23 06:33] LABS: Anisocytosis Slight; Eosinophils % (manual) 1 (0-7); Lymphocytes % (manual) 3 (10.0-50.0); Monocytes % (manual) 5 (0-12); Myelocytes % 1; Platelet Estimate Adequate
[2024-07-23 06:35] LABS: Target Cell FEW
--- NOTE | 2024-07-23 07:47 | DVH ---
CLINICAL INFORMATION: 63 years old, Female; Pneumonia. TECHNIQUE: Single AP portable chest radiograph was obtained. COMPARISON: XY CHEST PORTABLE on DOS: 07/22/24, XY CHEST PORTABLE on DOS: 07/21/24, XY CHEST XRAY 1 VIE W on DOS: 07/20/24 FINDINGS: Stable satisfactory positioning of the endotracheal tube and enteric tube. Stable appearing postsurgi tutu changes. Ill-defined bilateral airspace opacities and interstitial opacities, with right upper lo be patchy airspace opacity appearing new or more conspicuous compared to the prior exam. No pneumotho rax. No other significant interval change. IMPRESSION: Ill-defined bilateral airspace opacities and interstitial opacities with a patchy opacity in the righ t upper lobe appearing new or more conspicuous compared to the prior exam.
[2024-07-23 07:58] LABS: Base Excess 4.6 mmol/L (-2.0-3.0)
--- NOTE | 2024-07-23 09:28 | DVH ---
CLINICAL INFORMATION: Brain . TECHNIQUE: 27 mCi of technetium pertechnetate was injected. Frontal view images of the head and neck were obtained at 4 second intervals for a total of 1 minute. Anterior, posterior, left lateral, and bilateral delayed images of the head and neck were also obtain ed. COMPARISON: None FINDINGS: Absence of cerebral blood flow is noted along with no brain parenchymal radiotracer uptake . IMPRESSION: No cerebral blood flow visualized. Findings may be seen with brain , however correlation with cl inical findings is needed.
--- NOTE | 2024-07-23 10:18 | DVHPN2 ---
Progress Note - Dictate Date Seen: Jul 23, 2024 Has the PT tested + for MRSA If YES, has PT been informed?: No Medical Necessity Reason Pt with a Central, PICC or Fol: Yes The following are medically ne: Central Line, Jones Catheter Reason for jones catheter: Strict I&O Subjective Ms. Wren is a 63 years old female with a history of asthma, COPD, paroxysmal atrial fibrillation, allergy to animal dander, smoking, she was brought to the [facility] on 07[facility]08[facility]2024 with a chief company of altered mental status. I have seen and examined the patient, I have talked to her nurse, she remained intubated, nonresponsive to strong painful stimuli The pupils are fixed as before, right: 5 mm, left: 6 mm, no gag reflexes Levo 10 mcg per minute UDS, 07/12/2024: Cannabinoids Urinalysis, 07/08/2024: WBC: 26, urine leukocyte esterase: Negative ABG, 07/08/2024: acidosis, WBC/HB/PLT/MCV, 07/15/2024: 11.5/75/80/89.3 PT/INR/PTT, 07/08/2024: 16/1.56/26.8 BUN/CR, 07/15/2024: 112/8.19 TBI/AST/ALT/AP, 07/15/2024: 0.8/68/45/31 EEG, 07/16/2024: Inadequate, but likely remarkably abnormal EEG Brain flow NM, 07/23/2024: No cerebral blood flow visualized. Findings may be seen with brain , however correlation with clinical findings is needed CT head, 07/08/2024: 1. No acute intracranial hemorrhage. 2. No CT findings of territorial ischemia CT head, 07/12/2024: 1. Symmetric hypodensities in the lentiform nuclei, similar to prior study. Hypodensities in the bilateral thalami new since prior CT scan of the head from 07/10/2024. Additionally, there is subtle loss of mendoza-white matter differentiation since the prior CT from 07/08/2024 for which intracerebral edema is not excluded. Correlation for toxic metabolic or ischemic insult or other etiology is recommended. MRI of the brain without contrast is recommended for further evaluation. 2. No evidence of acute intracranial hemorrhag CT head, 07/19/2024: 1. Severe Generalized Hypoxia: Diffuse hypo-attenuation of the bilateral frontal, parietal and temporal lobes with loss of mendoza-white matter differentiation, probably secondary to generalized hypoxia. Diffuse cerebral edema with effacement of the sulci and basilar cisterns. Relative sparing of the cerebellar hemispheres. 2. No Evidence of Intraparenchymal hematoma, midline shift or hydrocephalus. 3. Soft Tissue Findings: Right periorbital soft tissue edema, with no evidence of calvarial fracture MRI head, 07/14/2024: There is T2/FLAIR hyperintensity involving the lentiform nucleus, hypothalamic region, cerebral peduncle, dorsal midbrain , dorsal liberty and dorsal medulla with symmetric bilateral dorsal medulla small focus of diffusion restriction. Findings are nonspecific and may be seen with hypoxic ischemic encephalopathy, metabolic or toxic disorders. Recommend clinical correlation vital signs Vital Sign Date Time Temp Pulse Resp B/P (MAP) Pulse Ox O2 Delivery O2 Flow Rate FiO2 07/23/24 10:00 93 07/23/24 10:00 30 07/23/24 10:00 18 97 Mechanical Ventilator+ 07/23/24 08:31 101/70 (80) 07/23/24 06:45 98.4 209.1 Total Intake and Output 07/22/24 07/22/24 07/23/24 15:00 23:00 07:00 Intake Total 108.750 ml 467.75 ml 452.817 ml Output Total 300 ml 275 ml Balance 108.750 ml 167.75 ml 177.817 ml medications Current Medications Medications Dose Ordered Sig/Perez Route Start Time Stop Time Status Last Admin Dose Admin Acetaminophen 650 mg Q6HP PRN PO 07/08/24 22:45 07/09/24 22:29 650 MG Nitroglycerin 0.4 mg Q5MINP PRN SL 07/08/24 22:45 Acetaminophen 650 mg Q6HP PRN MD 07/09/24 11:00 07/09/24 15:54 650 MG Pantoprazole Sodium 40 mg BID IV 07/11/24 22:00 07/22/24 22:02 40 MG Enteral Nutritional Formula 1,000 ml 30ML/HR GT 07/16/24 14:45 07/21/24 17:13 1,000 ML Norepinephrine Bitartrate 250 ml @ 1.875 mls/ hr Q24H IV 07/16/24 15:45 07/22/24 18:49 15 MLS/HR Meropenem 50 ml @ 17 mls/hr DAILY IV 07/19/24 18:00 07/22/24 07:49 17 MLS/HR Levalbuterol HCl 1.25 mg Q6HR NEB 07/19/24 18:00 07/23/24 06:57 1.25 MG Ipratropium [place] 0.5 mg Q4HR NEB 07/20/24 12:00 Cancel Ipratropium [place] 0.5 mg Q6HR NEB 07/20/24 12:00 07/23/24 06:57 0.5 MG Artificial Tears 2 drop Q6HP PRN EACHEYE 07/22/24 17:00 Erythromycin 1 applic Q12HR OP 07/22/24 22:00 07/22/24 22:02 1 APPLIC Ergocalciferol 50,000 unit Q7D PO 07/23/24 09:30 objective The patient is well-nourished and well-developed with no distress. The patient is intubated MENTAL STATUS: See subjective CRANIAL NERVES: Pupils are round, 5-6mm and nonreactive. There are corneal reflexes and doll's eyes phenomenon. No signs of facial weakness. There are no gagging or coughing reflexes SENSATION: No responses to pain stimuli. MOTOR: Normal tone in the upper and lower extremity. Normal muscle bulk. No fasciculations. No spontaneous movement. REFLEXES: Deep tendon reflexes are symmetrical. No pathological reflexes. CEREBELLAR/COORDINATION: Deferred GAIT/STATION: deferred laboratory and microbiology Laboratory Tests 07/23/24 03:26 Test 07/23/24 03:26 Range/Units Serum Glucose 92 74-106 mg/dL Problem List Coma/diffuse brain edema Hypoxic encephalopathy Metabolic encephalopathy Cardiopulmonary arrest Acute respiratory failure Unequal pupil size/brain herniation Brain Assessment/Plan Monitoring Supportive treatment Radionuclide brain imaging ICU care Stabilize vitals/pressor drip Respiratory support/vent management Oxygen Transferred to higher level care Social service on case More recommendation per clinical course The patient is like to have a poor prognosis, I recommend comfort care This medical document was created using an electronic medical record system with [employer] dictation system. Although this document has been carefully reviewed, there may still be some phonetic and typographical errors. These areas are purely typographical due to imperfections of the software programs, and do not reflect any compromise in the patient's medical care Prognosis guarded Dietary Evaluation Review Comments: Patient is not receiving nutrition. If GI is accessible, consider EN nutrition - Jevity 1.2 @ 55 mL/hr as tolerated. If patient remains NPO for more than 7 days, initiate TPN to meet 75% of estimated needs. Advance patient diet when medically feasible to a cardiac diet if renal function is sufficient. Expected Outcomes/Goals: Patient to receive nutrition support within 7 days of NPO status. Patient diet to advance F/u in 2-3 days Plan discussed with: Other Critical Care Time(min): 30 SUMAYA ALVAREZ MD Jul 23, 2024 10:18
[2024-07-23] MEDS: ERGOCALCIFEROL 50,000 UNIT(1.25MG) CAP PO SCH (11:16)
--- NOTE | 2024-07-23 19:38 | DVHPNRES ---
Progress Note Date Seen: Jul 23, 2024 Resident Creating Document: EDGAR CÁRDENAS THADDEUS Has the PT tested + for MRSA If YES, has PT been informed?: No Medical Necessity Reason Pt with a Central, PICC or Fol: Yes The following are medically ne: Central Line, Jones Catheter Reason for jones catheter: Strict I&O Subjective Review of Systems This is a 63-year-old female with past medical history of allergic asthma, COPD, hypertension, paroxysmal atrial fibrillation, repaired mitral valve, IBS, generalized anxiety, chronic pain and insomnia brought to the hospital after loss of consciousness. Patient had lost consciousness out of house, witnessed by the bystanders, found asystole by EMS, performed CPR for 20 minutes and retained ROSC. Admitted on 07/09/2024. Today, patient seen and examined at the bedside. Patient is sedated and on mechanical ventilation. Review of systems could not obtain. Patient reports: No new complaints Changes from previous H/P or p: No Changes Objective vital signs Vital Sign Date Time Temp Pulse Resp B/P (MAP) Pulse Ox O2 Delivery O2 Flow Rate FiO2 07/23/24 18:30 99.1 84 18 116/61 (79) 99 210.4 07/23/24 17:49 Mechanical Ventilator+ 30 30 Total Intake and Output 07/22/24 07/22/24 07/23/24 15:00 23:00 07:00 Intake Total 108.750 ml 467.75 ml 479.067 ml Output Total 300 ml 275 ml Balance 108.750 ml 167.75 ml 204.067 ml medications Current Medications Medications Dose Ordered Sig/Perez Route Start Time Stop Time Status Last Admin Dose Admin Acetaminophen 650 mg Q6HP PRN PO 07/08/24 22:45 07/09/24 22:29 650 MG Nitroglycerin 0.4 mg Q5MINP PRN SL 07/08/24 22:45 Acetaminophen 650 mg Q6HP PRN [place] 07/09/24 11:00 07/09/24 15:54 650 MG Pantoprazole Sodium 40 mg BID IV 07/11/24 22:00 07/23/24 11:14 40 MG Enteral Nutritional Formula 1,000 ml 30ML/HR GT 07/16/24 14:45 07/21/24 17:13 1,000 ML Norepinephrine Bitartrate 250 ml @ 1.875 mls/ hr Q24H IV 07/16/24 15:45 07/22/24 18:49 15 MLS/HR Meropenem 50 ml @ 17 mls/hr DAILY IV 07/19/24 18:00 07/23/24 10:00 17 MLS/HR Levalbuterol HCl 1.25 mg Q6HR NEB 07/19/24 18:00 07/23/24 17:26 1.25 MG Ipratropium [place] 0.5 mg Q4HR NEB 07/20/24 12:00 Cancel Ipratropium [place] 0.5 mg Q6HR NEB 07/20/24 12:00 07/23/24 17:26 0.5 MG Artificial Tears 2 drop Q6HP PRN EACHEYE 07/22/24 17:00 Erythromycin 1 applic Q12HR OP 07/22/24 22:00 07/23/24 10:00 1 APPLIC Ergocalciferol 50,000 unit Q7D PO 07/23/24 09:30 07/23/24 11:16 50,000 UNIT Examination General: RASS -5, afebrile, mucosae are moist Cardiovascular: Normal S1 and S2. No murmurs, gallops or rubs Respiratory: Mechanically assisted ventilation, equal bilateral airway entree. Clear lung sounds on auscultation Abdomen: Soft, nontender, no organomegaly, normal bowel sounds MSK/skin: Mobilization of limbs cannot be evaluated. Skin is dry and warm. Neurological: Orientation cannot be assessed. No apparent motor no sensitive deficits. Bilateral pupils are dilated, fixed, asymmetric and nonreactive to the light. No cough reflex on deep suctioning laboratory and microbiology Laboratory Tests 07/23/24 03:26 Test 07/23/24 03:26 Range/Units Serum Glucose 92 74-106 mg/dL Microbiology Date/Time Source Procedure Growth Status 07/16/24 17:02 Trachea Gram Stain - Final Resulted 07/16/24 17:02 Respiratory Culture - Preliminary Enterobacter cloacae Resulted 07/09/24 00:07 Blood Blood Culture - Final NO GROWTH AFTER 5 DAYS OF INCUBATION. Complete 07/08/24 22:00 Voided Urine Urine Culture - Final Complete Labs and/or images reviewed: Labs reviewed by me, Image(s) reviewed by me Problem List/Assessment/Plan Problem List/Assessment/Plan This is a 63-year-old female with past medical history of allergic asthma, COPD, hypertension, paroxysmal atrial fibrillation, repaired mitral valve, IBS, generalized anxiety, chronic pain and insomnia brought to the hospital after loss of consciousness. Patient had lost consciousness out of house, witnessed by the bystanders, found asystole by EMS, performed CPR for 20 minutes and retained ROSC. Admitted on 07/09/2024. NEURO: Acute metabolic encephalopathy, likely due to sepsis/possible anoxic brain injury due to cardiac arrest Patient is sedated, and on mechanical ventilation, place, and Status post cardiac arrest Possible Cerebral edema, likely due to cardiac arrest Possible cerebral herniation, Bilateral pupils are dilated, fixed, asymmetric and nonreactive to the light. Head CT scan shows less prominent sulci, likely due to cerebral edema We will consider head CT scan after 48 hour for the monitoring of possible cerebral edema Teleneurology consulted on 07/10 and has consulted the daughter of the patient regarding poor prognosis Head CT scan of 07/12/2024 shows changes but could not exclude brain edema Brain MRI shows nonspecific findings may be seen with hypoxic ischemic encephalopathy, metabolic or toxic disorders EEG shows severe cerebral dysfunction due to metabolic/hypoxic encephalopathy or medication effect Head CT scan from 07/19, shows effacement of sulci Neurology has consulted, and recommended that the patient have a poor prognosis for meaningful recovery and higher level care transfer is unlikely to change progresses. Brain perfusion test shows, no cerebral blood flow visualized CARDIOVASCULAR: Status post cardiac arrest Patient has history of paroxysmal atrial fibrillation Non ST-elevation [place], type 2, likely due to cardiac arrest and CPR Circulation shock, likely septic likely due to pneumonia Patient has history of open heart surgery for mitral valve repair Sinus tachycardia Atrial fibrillation Troponin is raised EKG shows sinus tachycardia, with no significant ST or T-wave changes Cardiology on the board, recommended conservative management Echocardiogram shows Borderline Normal left ventricular systolic function estimated ejection [id number] Moderately elevated right ventricular systolic pressure 40 mm of mercury. 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 as well as mitral valve repair Cardiology is on the board, suggested conservative management Sinus tachycardia Due to paroxysmal atrial fibrillation and RVR, the Cardiology consulted back, recommended to use digoxin in case of atrial fibrillation recurrence PULMONARY: Patient is sedated, and on mechanical ventilator, RASS (-5, unresponsive) with ventilator setting of( Vt 450, RR 26, FiO2 30%, peep 5) Acute hypoxic respiratory failure likely due to pneumonia/COPD exacerbation/asthma exacerbation Pneumonia likely due to Gram-positive/Gram-negative Septic shock likely due to pneumonia/UTI Patient has history of multiple hospital admission, including intubated for 2 months in [place] in 2007, mitral valve repair and also has been admitted in [facility] MRSA nares screening negative and stopped vancomycin (given for 4 days) COVID-19 and influenza antigens are negative Discontinue Zosyn, use for 8 days Chest x-ray does not shows any acute cardiopulmonary abnormality ABGs shows parameters within normal limits Continue Albuterol and ipratropium nebulization every 6 hours Sputum culture shows Enterobacter cloacae, sensitive to meropenem Continue meropenem, started at 07/19 GI: Possible Upper GI bleeding, unspecified location Transaminitis, likely due to ischemia secondary to cardiac arrest NG tube showed black drainage on 06/29 and 06/30 likely due to upper GI bleeding GI consulted, recommended conservative management Continue Protonix b.i.d. Discontinue Lovenox due to severe anemia and possible upper GI bleeding Ammonia level is normal RENAL: NAOMI, no previous records available Nephrology on the board, hemodialysis planned for tomorrow UTI, unspecified location UA shows UTI picture Urine culture showed no bacterial growth ID: Urine and blood culture from 07/08 shows no bacterial growth Blood culture from 07/09 shows no bacterial growth MRSA screening on 07/09 negative, and discontinued vancomycin COVID-19 and influenza screening from 07/09 negative Discontinue Zosyn, use for 8 days Sputum culture shows Enterobacter cloacae, sensitive to meropenem Start meropenem at 07/19 CRP is raised Cannabinoid use disorder UDS shows cannabis positive Metabolic: Hypokalemia, Supplemented Magnesium is within normal limits Hyperkalemia, normalized Mild Hypernatremia, improved Mild hyperkalemia, injection calcium gluconate given Vitamin B12 is normal Vitamin -D level is low, supplemented Cortisol a.m. is normal TSH is normal Gynecology Vaginal bleeding On 07/20 5-10 mL of vaginal bleeding noticed, with some clots on 07/18 Monitoring DVT prophylaxis Due to possible upper GI bleeding, Lovenox is not indicated SCD LINES/DRAINS/ACCESS: ETT tube, intubated on 07/08/2024 Transurethral catheter, placed on 07/08/2024 IV Access Right femoral vein (CVC), placed on 07/08/2024 Left femoral vein catheter for HD, placed on 07/17 Drips: Levophed 6 Diet: Nepro 30 mL/hour on 07/16 Disposition: As per family request for the higher level of care transfer(preference Shayna Pozo), case management social worker has been consulted. CODE STATUS: Full code Disposition: ICU status, kept in ICU Case discussed with the daughter through the phone. Critical time spent more than 82 minutes, including patient care, chart review and updating the family, excluding any procedures. Case discussed with Dr. Hardy Plan discussed with: Patient, Daughter, Other (RN) My Orders My Orders Orders - EDGAR CÁRDENAS RESDIENT Procedure Category Date Status Time Erythromy Opth Oint PHA 07/22/24 In Process 5mg/Gm 1gm 22:00 Ergocalciferol PHA 07/23/24 In Process (Vitamin D 50,000 09:30 Dietary Evaluation Review Comments: Patient is not receiving nutrition. If GI is accessible, consider EN nutrition - Jevity 1.2 @ 55 mL/hr as tolerated. If patient remains NPO for more than 7 days, initiate TPN to meet 75% of estimated needs. Advance patient diet when medically feasible to a cardiac diet if renal function is sufficient. Expected Outcomes/Goals: Patient to receive nutrition support within 7 days of NPO status. Patient diet to advance F/u in 2-3 days Date of Service: Jul 23, 2024 Billing Provider: MONE HARDY MD Common Visit Codes: 63663-LVAENGRN CARE 30-74 MIN, 41175-[id number] CARE-EACH +30MIN EDGAR CÁRDENAS RESDIENT Jul 23, 2024 19:38 MONE HARDY MD Jul 24, 2024 11:08
--- NOTE | 2024-07-23 21:13 | DVHPN2 ---
Progress Note Date Seen: Jul 23, 2024 Has the PT tested + for MRSA If YES, has PT been informed?: No Medical Necessity Reason Pt with a Central, PICC or Fol: Yes The following are medically ne: Central Line, Jones Catheter Reason for jones catheter: Strict I&O Subjective Patient reports: Other (no events) Review of Systems: Deferred Objective vital signs Vital Sign Date Time Temp Pulse Resp B/P (MAP) Pulse Ox O2 Delivery O2 Flow Rate FiO2 07/23/24 20:54 81 18 121/61 100 30 07/23/24 18:30 99.1 210.4 07/23/24 17:49 Mechanical Ventilator+ Total Intake and Output 07/22/24 07/22/24 07/23/24 15:00 23:00 07:00 Intake Total 108.750 ml 467.75 ml 479.067 ml Output Total 300 ml 275 ml Balance 108.750 ml 167.75 ml 204.067 ml medications Current Medications Medications Dose Ordered Sig/Perez Route Start Time Stop Time Status Last Admin Dose Admin Acetaminophen 650 mg Q6HP PRN PO 07/08/24 22:45 07/09/24 22:29 650 MG Nitroglycerin 0.4 mg Q5MINP PRN SL 07/08/24 22:45 Acetaminophen 650 mg Q6HP PRN [place] 07/09/24 11:00 07/09/24 15:54 650 MG Pantoprazole Sodium 40 mg BID IV 07/11/24 22:00 07/23/24 11:14 40 MG Enteral Nutritional Formula 1,000 ml 30ML/HR GT 07/16/24 14:45 07/21/24 17:13 1,000 ML Norepinephrine Bitartrate 250 ml @ 1.875 mls/ hr Q24H IV 07/16/24 15:45 07/22/24 18:49 15 MLS/HR Meropenem 50 ml @ 17 mls/hr DAILY IV 07/19/24 18:00 07/23/24 10:00 17 MLS/HR Levalbuterol HCl 1.25 mg Q6HR NEB 07/19/24 18:00 07/23/24 17:26 1.25 MG Ipratropium [place] 0.5 mg Q4HR NEB 07/20/24 12:00 Cancel Ipratropium [place] 0.5 mg Q6HR NEB 07/20/24 12:00 07/23/24 17:26 0.5 MG Artificial Tears 2 drop Q6HP PRN EACHEYE 07/22/24 17:00 Erythromycin 1 applic Q12HR OP 07/22/24 22:00 07/23/24 10:00 1 APPLIC Ergocalciferol 50,000 unit Q7D PO 07/23/24 09:30 07/23/24 11:16 50,000 UNIT Examination: GENERAL:Abnormal, HEENT:Abnormal, LUNGS:Abnormal, MSK:Abnormal, NEURO:Abnormal laboratory and microbiology Laboratory Tests 07/23/24 03:26 Test 07/23/24 03:26 Range/Units Serum Glucose 92 74-106 mg/dL Microbiology Date/Time Source Procedure Growth Status 07/16/24 17:02 Trachea Gram Stain - Final Resulted 07/16/24 17:02 Respiratory Culture - Preliminary Enterobacter cloacae Resulted 07/09/24 00:07 Blood Blood Culture - Final NO GROWTH AFTER 5 DAYS OF INCUBATION. Complete 07/08/24 22:00 Voided Urine Urine Culture - Final Complete Problem List/Assessment/Plan Problem List/Assessment/Plan NAOMI secondary to hemodynamically mediated likely ischemic ATN needing HD Septic shock due to pneumonia Pneumonia NSTEMI type 2 likely due to above Cardiopulmonary arrest status post CPR with ROSC Paroxysmal atrial fibrillation Elevated liver function ? Anoxic brain injury Upper GI bleeding Plan/recommendation HD today Plan discussed with: Other My Orders My Orders Orders - RADHA LEVIN MD Procedure Category Date Status Time Hemodialysis Orders ORDERS 07/23/24 Transmitted 03:55 Dietary Evaluation Review Comments: Patient is not receiving nutrition. If GI is accessible, consider EN nutrition - Jevity 1.2 @ 55 mL/hr as tolerated. If patient remains NPO for more than 7 days, initiate TPN to meet 75% of estimated needs. Advance patient diet when medically feasible to a cardiac diet if renal function is sufficient. Expected Outcomes/Goals: Patient to receive nutrition support within 7 days of NPO status. Patient diet to advance F/u in 2-3 days RADHA LEVIN MD Jul 23, 2024 21:13
[2024-07-24] VITALS (111 sets, daily range): BP systolic 84–145; BP diastolic 50–85; PULSE 68–96; RESP 17–19; TEMP 97.2–99.5; O2SAT 97–100
[2024-07-24 03:15] LABS: Basophils # (auto) 0.1 10 ^3/uL (0-0.2); Eosinophils # (auto) 0.4 10 ^3/uL (0-0.8); Hemoglobin 7.7 g/dL (12.2-16.2); Red Blood Cells 2.62 10^6/uL (4.0-5.20)
[2024-07-24 03:19] LABS: Basophils % (auto) 0.4 % (0.0-2.0); Eosinophils % (auto) 2.2 % (0.0-7.0); Hematocrit 23.5 % (36.0-46.0); Lymphocytes # (auto) 1.2 10 ^3/uL (0.4-5.4); Lymphocytes % (auto) 6.3 % (10.0-50.0); Mean Corpuscular Hemoglobin 29.3 pg (28.0-32.0); Mean Corpuscular Hgb Conc. 32.6 g/dL (32.0-36.0); Mean Corpuscular Volume 89.9 fL (80.0-100.0); Monocytes % (auto) 5.4 % (0.0-12.0); Neutrophils % (auto) 85.7 % (37.0-80.0); Platelet Count (auto) 259 10^3/uL (140-450); Red Cell Distribution Width 16.5 % (11.8-14.3); White Blood Cell 18.7 10^3/uL (4.4-10.8)
[2024-07-24 03:34] LABS: Alanine Aminotransferase 17 U/L (7-40); Anion Gap 8 (5-15); BUN/Creatinine Ratio 8.3 (10.0-20.0); Calcium 9.1 mg/dL (8.7-10.4); Carbon Dioxide 27 mmol/L (20-31); Chloride 106 mmol/L (98-107); Glucose 100 mg/dL (74-106); Potassium 3.9 mmol/L (3.5-5.1); Sodium 141 mmol/L (136-145)
[2024-07-24 03:35] LABS: Bilirubin, Total 0.7 mg/dL (0.2-1.0)
[2024-07-24 03:39] LABS: Albumin 2.6 g/dL (3.2-4.8); Alkaline Phosphatase 167 U/L (46-116); Aspartate Aminotransferase 65 U/L (13-40); Blood Urea Nitrogen 42 mg/dL (9-23); Total Protein 5.4 g/dL (5.7-8.2)
--- NOTE | 2024-07-24 04:58 | DVH ---
CHEST RADIOGRAPH Indication: Pneumonia Technique: Single frontal view of the chest was obtained COMPARISON: XY CHEST XRAY 1 VIEW on DOS: 07/23/24, XY CHEST PORTABLE on DOS: 07/22/24, XY CHEST PORTAB LE on DOS: 07/21/24, XY CHEST PORTABLE on DOS: 07/21/24 FINDINGS: Lines and Tubes: Endotracheal tube, enteric catheter and satisfactory position. Lungs: Diffuse congestion. Pleura: No effusion. No pneumothorax. Cardiomediastinal contours: Unremarkable Bones: Unremarkable IMPRESSION: Lines and tubes in satisfactory position. No significant interval change.
--- NOTE | 2024-07-24 09:37 | DVHPN2 ---
Progress Note - Dictate Date Seen: Jul 24, 2024 Has the PT tested + for MRSA If YES, has PT been informed?: No Medical Necessity Reason Pt with a Central, PICC or Fol: Yes The following are medically ne: Central Line, Jones Catheter Reason for jones catheter: Strict I&O Subjective Ms. Wren is a 63 years old female with a history of asthma, COPD, paroxysmal atrial fibrillation, allergy to animal dander, smoking, she was brought to the [facility] on 07/08/2024 with a chief company of altered mental status. I have seen and examined the patient, I have talked to her nurse, she remained intubated, nonresponsive to strong painful stimuli The pupils are fixed, left side is slightly bigger UDS, 07/12/2024: Cannabinoids Urinalysis, 07/08/2024: WBC: 26, urine leukocyte esterase: Negative ABG, 07/08/2024: acidosis, WBC/HB/PLT/MCV, 07/15/2024: 11.5/75/80/89.3 PT/INR/PTT, 07/08/2024: 16/1.56/26.8 BUN/CR, 07/15/2024: 112/8.19 TBI/AST/ALT/AP, 07/15/2024: 0.8/68/45/31 EEG, 07/16/2024: Inadequate, but likely remarkably abnormal EEG Brain flow NM, 07/23/2024: No cerebral blood flow visualized. Findings may be seen with brain , however correlation with clinical findings is needed CT head, 07/08/2024: 1. No acute intracranial hemorrhage. 2. No CT findings of territorial ischemia CT head, 07/12/2024: 1. Symmetric hypodensities in the lentiform nuclei, similar to prior study. Hypodensities in the bilateral thalami new since prior CT scan of the head from 07/10/2024. Additionally, there is subtle loss of mendoza-white matter differentiation since the prior CT from 07/08/2024 for which intracerebral edema is not excluded. Correlation for toxic metabolic or ischemic insult or other etiology is recommended. MRI of the brain without contrast is recommended for further evaluation. 2. No evidence of acute intracranial hemorrhag CT head, 07/19/2024: 1. Severe Generalized Hypoxia: Diffuse hypo-attenuation of the bilateral frontal, parietal and temporal lobes with loss of mendoza-white matter differentiation, probably secondary to generalized hypoxia. Diffuse cerebral edema with effacement of the sulci and basilar cisterns. Relative sparing of the cerebellar hemispheres. 2. No Evidence of Intraparenchymal hematoma, midline shift or hydrocephalus. 3. Soft Tissue Findings: Right periorbital soft tissue edema, with no evidence of calvarial fracture MRI head, 07/14/2024: There is T2/FLAIR hyperintensity involving the lentiform nucleus, hypothalamic region, cerebral peduncle, dorsal midbrain , dorsal liberty and dorsal medulla with symmetric bilateral dorsal medulla small focus of diffusion restriction. Findings are nonspecific and may be seen with hypoxic ischemic encephalopathy, metabolic or toxic disorders. Recommend clinical correlation vital signs Vital Sign Date Time Temp Pulse Resp B/P (MAP) Pulse Ox O2 Delivery O2 Flow Rate FiO2 07/24/24 07:58 78 18 102/69 (80) 99 30 07/24/24 07:00 97.2 207.0 07/24/24 06:00 Mechanical Ventilator+ Total Intake and Output 07/23/24 07/23/24 07/24/24 15:00 23:00 07:00 Intake Total 174.375 ml 308.125 ml 260.625 ml Output Total 200 ml 1025 ml Balance 174.375 ml 108.125 ml -764.375 ml medications Current Medications Medications Dose Ordered Sig/Perez Route Start Time Stop Time Status Last Admin Dose Admin Acetaminophen 650 mg Q6HP PRN PO 07/08/24 22:45 07/09/24 22:29 650 MG Nitroglycerin 0.4 mg Q5MINP PRN SL 07/08/24 22:45 Acetaminophen 650 mg Q6HP PRN [place] 07/09/24 11:00 07/09/24 15:54 650 MG Pantoprazole Sodium 40 mg BID IV 07/11/24 22:00 07/23/24 22:06 40 MG Enteral Nutritional Formula 1,000 ml 30ML/HR GT 07/16/24 14:45 07/21/24 17:13 1,000 ML Norepinephrine Bitartrate 250 ml @ 1.875 mls/ hr Q24H IV 07/16/24 15:45 07/23/24 22:07 16.875 MLS/HR Meropenem 50 ml @ 17 mls/hr DAILY IV 07/19/24 18:00 12/10/24 10:00 17 MLS/HR Levalbuterol HCl 1.25 mg Q6HR NEB 07/19/24 18:00 07/24/24 06:52 1.25 MG Ipratropium [place] 0.5 mg Q4HR NEB 07/20/24 12:00 Cancel Ipratropium [place] 0.5 mg Q6HR NEB 07/20/24 12:00 07/24/24 06:52 0.5 MG Artificial Tears 2 drop Q6HP PRN EACHEYE 07/22/24 17:00 Erythromycin 1 applic Q12HR OP 07/22/24 22:00 07/23/24 22:06 1 APPLIC Ergocalciferol 50,000 unit Q7D PO 07/23/24 09:30 07/23/24 11:16 50,000 UNIT objective The patient is well-nourished and well-developed with no distress. The patient is intubated MENTAL STATUS: See subjective CRANIAL NERVES: Pupils are round, 5-6mm and nonreactive. There are corneal reflexes and doll's eyes phenomenon. No signs of facial weakness. There are no gagging or coughing reflexes SENSATION: No responses to pain stimuli. MOTOR: Normal tone in the upper and lower extremity. Normal muscle bulk. No fasciculations. No spontaneous movement. REFLEXES: Deep tendon reflexes are symmetrical. No pathological reflexes. CEREBELLAR/COORDINATION: Deferred GAIT/STATION: deferred laboratory and microbiology Laboratory Tests 07/24/24 02:55 Test 07/24/24 02:55 Range/Units Serum Glucose 100 74-106 mg/dL Problem List Coma/diffuse brain edema Hypoxic encephalopathy Metabolic encephalopathy Cardiopulmonary arrest Acute respiratory failure Unequal pupil size/brain herniation Brain Assessment/Plan Monitoring Supportive treatment ICU care Stabilize vitals/pressor drip Respiratory support/vent management Oxygen Transferred to higher level care Social service on case More recommendation per clinical course The patient is unlike to recover, I recommend comfort care This medical document was created using an electronic medical record system with [employer] system. Although this document has been carefully reviewed, there may still be some phonetic and typographical errors. These areas are purely typographical due to imperfections of the software programs, and do not reflect any compromise in the patient's medical care Prognosis guarded Dietary Evaluation Review Comments: Patient is not receiving nutrition. If GI is accessible, consider EN nutrition - Jevity 1.2 @ 55 mL/hr as tolerated. If patient remains NPO for more than 7 days, initiate TPN to meet 75% of estimated needs. Advance patient diet when medically feasible to a cardiac diet if renal function is sufficient. Expected Outcomes/Goals: Patient to receive nutrition support within 7 days of NPO status. Patient diet to advance F/u in 2-3 days Plan discussed with: Other SUMAYA ALVAREZ MD Jul 24, 2024 09:37
--- NOTE | 2024-07-24 16:18 | BSKYNEURO ---
[facility] Neuro Note # Demographics Consult Type: General Neurology Patient Location: Inpatient First Name: ELIZABETH Last Name: ONELIA Date of : 1960 Age: 63 Gender: Female Facility: [facility] Time of Initial Page (): 07/24/2024, 13:28 Time of Return Call ( Time): 07/24/2024, 13:29 # HPI History: 63 y/o F admitted 07/08 s/p cardiac arrest with ROSC after 20min. She has had fixed and dilated pupils. CT head shows diffuse cerebral edema with sulcal effacement c/w severe anoxic brain injury. Patient has been off all sedation for 6 days. # Exam Time of Exam (): 07/24/2024, 16:10 Mental Status: - obtunded no spontaneous eye opening pupils fixed and dilated Language: nonverbal intubated Motor: no movement # Assessment Impression: Severe anoxic brain injury Poor prognosis No chance of meaningful recovery # Logistics Attestation of consult completion: The patient is located at: [facility]. Facility staff participated in the visit. I performed this telemedicine visit from my offsite office utilizing interactive 2 way audio and visual telecommunication technology. Total time spent in telemedicine encounter: I spent 30 minutes reviewing clinical data and/or imaging, obtaining history, examining the patient, communicating with the onsite care team, and in preparation of this report. # Demographics First Name: ELIZABETH Last Name: ONELIA Facility: [facility] Electronically signed at 07/24/2024 16:17 () by DO Finesse Norton ELIZABETH A DO Jul 24, 2024 16:18
--- NOTE | 2024-07-24 17:03 | DVHPN2 ---
Progress Note Date Seen: Jul 24, 2024 Has the PT tested + for MRSA If YES, has PT been informed?: No Medical Necessity Reason Pt with a Central, PICC or Fol: Yes The following are medically ne: Central Line, Jones Catheter Reason for jones catheter: Strict I&O Subjective Patient reports: Other Review of Systems: Deferred Objective vital signs Vital Sign Date Time Temp Pulse Resp B/P (MAP) Pulse Ox O2 Delivery O2 Flow Rate FiO2 07/24/24 15:56 73 18 108/62 (77) 99 30 07/24/24 15:33 Mechanical Ventilator+ 07/24/24 13:30 98.6 209.5 Total Intake and Output 07/23/24 07/23/24 07/24/24 15:00 23:00 07:00 Intake Total 174.375 ml 308.125 ml 260.625 ml Output Total 200 ml 1025 ml Balance 174.375 ml 108.125 ml -764.375 ml medications Current Medications Medications Dose Ordered Sig/Perez Route Start Time Stop Time Status Last Admin Dose Admin Acetaminophen 650 mg Q6HP PRN PO 07/08/24 22:45 07/09/24 22:29 650 MG Nitroglycerin 0.4 mg Q5MINP PRN SL 07/08/24 22:45 Acetaminophen 650 mg Q6HP PRN [place] 07/09/24 11:00 07/09/24 15:54 650 MG Pantoprazole Sodium 40 mg BID IV 07/11/24 22:00 07/24/24 10:59 40 MG Enteral Nutritional Formula 1,000 ml 30ML/HR GT 07/16/24 14:45 07/21/24 17:13 1,000 ML Norepinephrine Bitartrate 250 ml @ 1.875 mls/ hr Q24H IV 07/16/24 15:45 07/24/24 11:04 16.875 MLS/HR Meropenem 50 ml @ 17 mls/hr DAILY IV 07/19/24 18:00 07/24/24 10:00 17 MLS/HR Levalbuterol HCl 1.25 mg Q6HR NEB 07/19/24 18:00 07/24/24 12:23 1.25 MG Ipratropium [place] 0.5 mg Q4HR NEB 07/20/24 12:00 Cancel Ipratropium [place] 0.5 mg Q6HR NEB 07/20/24 12:00 07/24/24 12:24 0.5 MG Artificial Tears 2 drop Q6HP PRN EACHEYE 07/22/24 17:00 Erythromycin 1 applic Q12HR OP 07/22/24 22:00 07/24/24 10:00 1 APPLIC Ergocalciferol 50,000 unit Q7D PO 07/23/24 09:30 07/23/24 11:16 50,000 UNIT Examination: NEURO:Abnormal laboratory and microbiology Laboratory Tests 07/24/24 02:55 Test 07/24/24 02:55 Range/Units Serum Glucose 100 74-106 mg/dL Microbiology Date/Time Source Procedure Growth Status 07/16/24 17:02 Trachea Gram Stain - Final Complete 07/16/24 17:02 Respiratory Culture - Final Enterobacter cloacae Complete 07/09/24 00:07 Blood Blood Culture - Final NO GROWTH AFTER 5 DAYS OF INCUBATION. Complete 07/08/24 22:00 Voided Urine Urine Culture - Final Complete Problem List/Assessment/Plan Problem List/Assessment/Plan NAOMI secondary to hemodynamically mediated likely ischemic ATN needing HD Septic shock due to pneumonia Pneumonia NSTEMI type 2 likely due to above Cardiopulmonary arrest status post CPR with ROSC Paroxysmal atrial fibrillation Elevated liver function Anoxic brain injury Upper GI bleeding Plan/recommendation HD tomorrow imaging consistent with brain consider terminal wean and comfort care Plan discussed with: Other Dietary Evaluation Review Comments: Patient is not receiving nutrition. If GI is accessible, consider EN nutrition - Jevity 1.2 @ 55 mL/hr as tolerated. If patient remains NPO for more than 7 days, initiate TPN to meet 75% of estimated needs. Advance patient diet when medically feasible to a cardiac diet if renal function is sufficient. Expected Outcomes/Goals: Patient to receive nutrition support within 7 days of NPO status. Patient diet to advance F/u in 2-3 days RADHA LEVIN MD Jul 24, 2024 17:03
--- NOTE | 2024-07-24 20:38 | DVHPNRES ---
Progress Note Date Seen: Jul 24, 2024 Resident Creating Document: EDGAR CÁRDENAS THADDEUS Has the PT tested + for MRSA If YES, has PT been informed?: No Medical Necessity Reason Pt with a Central, PICC or Fol: Yes The following are medically ne: Central Line, Jones Catheter Reason for jones catheter: Strict I&O Subjective Review of Systems This is a 63-year-old female with past medical history of allergic asthma, COPD, hypertension, paroxysmal atrial fibrillation, repaired mitral valve, IBS, generalized anxiety, chronic pain and insomnia brought to the hospital after loss of consciousness. Patient had lost consciousness out of house, witnessed by the bystanders, found asystole by EMS, performed CPR for 20 minutes and retained ROSC. Admitted on 07/09/2024. Today, patient seen and examined at the bedside. Patient is sedated and on mechanical ventilation. Review of systems could not obtain. Patient reports: No new complaints, Feels better Changes from previous H/P or p: Changes Objective vital signs Vital Sign Date Time Temp Pulse Resp B/P (MAP) Pulse Ox O2 Delivery O2 Flow Rate FiO2 07/24/24 19:07 82 18 122/79 (93) 100 30 07/24/24 18:45 97.5 207.5 07/24/24 17:55 Mechanical Ventilator+ Total Intake and Output 07/23/24 07/23/24 07/24/24 15:00 23:00 07:00 Intake Total 174.375 ml 308.125 ml 260.625 ml Output Total 200 ml 1025 ml Balance 174.375 ml 108.125 ml -764.375 ml medications Current Medications Medications Dose Ordered Sig/Perez Route Start Time Stop Time Status Last Admin Dose Admin Acetaminophen 650 mg Q6HP PRN PO 07/08/24 22:45 07/09/24 22:29 650 MG Nitroglycerin 0.4 mg Q5MINP PRN SL 07/08/24 22:45 Acetaminophen 650 mg Q6HP PRN [place] 07/09/24 11:00 07/09/24 15:54 650 MG Pantoprazole Sodium 40 mg BID IV 07/11/24 22:00 07/24/24 10:59 40 MG Enteral Nutritional Formula 1,000 ml 30ML/HR GT 07/16/24 14:45 07/21/24 17:13 1,000 ML Norepinephrine Bitartrate 250 ml @ 1.875 mls/ hr Q24H IV 07/16/24 15:45 07/24/24 11:04 16.875 MLS/HR Meropenem 50 ml @ 17 mls/hr DAILY IV 07/19/24 18:00 07/24/24 10:00 17 MLS/HR Levalbuterol HCl 1.25 mg Q6HR NEB 07/19/24 18:00 07/24/24 19:07 1.25 MG Ipratropium [place] 0.5 mg Q4HR NEB 07/20/24 12:00 Cancel Ipratropium [place] 0.5 mg Q6HR NEB 07/20/24 12:00 07/24/24 19:07 0.5 MG Artificial Tears 2 drop Q6HP PRN EACHEYE 07/22/24 17:00 Erythromycin 1 applic Q12HR OP 07/22/24 22:00 07/24/24 10:00 1 APPLIC Ergocalciferol 50,000 unit Q7D PO 07/23/24 09:30 07/23/24 11:16 50,000 UNIT Examination General: RASS -5, afebrile, mucosae are moist Cardiovascular: Normal S1 and S2. No murmurs, gallops or rubs Respiratory: Mechanically assisted ventilation, equal bilateral airway entree. Clear lung sounds on auscultation Abdomen: Soft, nontender, no organomegaly, normal bowel sounds MSK/skin: Mobilization of limbs cannot be evaluated. Skin is dry and warm. Neurological: Orientation cannot be assessed. No apparent motor no sensitive deficits. Bilateral pupils are dilated, fixed, asymmetric and nonreactive to the light. No cough reflex on deep suctioning laboratory and microbiology Laboratory Tests 07/24/24 02:55 Test 07/24/24 02:55 Range/Units Serum Glucose 100 74-106 mg/dL Microbiology Date/Time Source Procedure Growth Status 07/16/24 17:02 Trachea Gram Stain - Final Complete 07/16/24 17:02 Respiratory Culture - Final Enterobacter cloacae Complete 07/09/24 00:07 Blood Blood Culture - Final NO GROWTH AFTER 5 DAYS OF INCUBATION. Complete 07/08/24 22:00 Voided Urine Urine Culture - Final Complete Labs and/or images reviewed: Labs reviewed by me, Image(s) reviewed by me Problem List/Assessment/Plan Problem List/Assessment/Plan This is a 63-year-old female with past medical history of allergic asthma, COPD, hypertension, paroxysmal atrial fibrillation, repaired mitral valve, IBS, generalized anxiety, chronic pain and insomnia brought to the hospital after loss of consciousness. Patient had lost consciousness out of house, witnessed by the bystanders, found asystole by EMS, performed CPR for 20 minutes and retained ROSC. Admitted on 07/09/2024. NEURO: Acute metabolic encephalopathy, likely due to sepsis/possible anoxic brain injury due to cardiac arrest Patient is sedated, and on mechanical ventilation, place, and Status post cardiac arrest Possible Cerebral edema, likely due to cardiac arrest Possible cerebral herniation, Bilateral pupils are dilated, fixed, asymmetric and nonreactive to the light. Head CT scan shows less prominent sulci, likely due to cerebral edema We will consider head CT scan after 48 hour for the monitoring of possible cerebral edema Teleneurology consulted on 07/10 and has consulted the daughter of the patient regarding poor prognosis Head CT scan of 07/12/2024 shows changes but could not exclude brain edema Brain MRI shows nonspecific findings may be seen with hypoxic ischemic encephalopathy, metabolic or toxic disorders EEG shows severe cerebral dysfunction due to metabolic/hypoxic encephalopathy or medication effect Head CT scan from 07/19, shows effacement of sulci Neurology has consulted, and recommended that the patient have a poor prognosis for meaningful recovery and higher level care transfer is unlikely to change progresses. Brain perfusion test shows, no cerebral blood flow visualized and on site neurologist recommend comfort care, patients daughter requested a second opinion from another neurologist per second neurologist there is severe anoxic brain injury and no chance of meaningful recovery CARDIOVASCULAR: Status post cardiac arrest Patient has history of paroxysmal atrial fibrillation Non ST-elevation MS, type 2, likely due to cardiac arrest and CPR Circulation shock, likely septic likely due to pneumonia Patient has history of open heart surgery for mitral valve repair Sinus tachycardia Atrial fibrillation Troponin is raised EKG shows sinus tachycardia, with no significant ST or T-wave changes Cardiology on the board, recommended conservative management Echocardiogram shows Borderline Normal left ventricular systolic function estimated ejection [id number]%. Moderately elevated right ventricular systolic pressure 40 mm of mercury. 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 as well as mitral valve repair Cardiology is on the board, suggested conservative management Sinus tachycardia Due to paroxysmal atrial fibrillation and RVR, the Cardiology consulted back, recommended to use digoxin in case of atrial fibrillation recurrence PULMONARY: Patient is sedated, and on mechanical ventilator, RASS (-5, unresponsive) with ventilator setting of( Vt 450, RR 26, FiO2 30%, peep 5) Acute hypoxic respiratory failure likely due to pneumonia/COPD exacerbation/asthma exacerbation Pneumonia likely due to Gram-positive/Gram-negative Septic shock likely due to pneumonia/UTI Patient has history of multiple hospital admission, including intubated for 2 months in [place] in 2007, mitral valve repair and also has been admitted in [facility] MRSA nares screening negative and stopped vancomycin (given for 4 days) COVID-19 and influenza antigens are negative Discontinue Zosyn, use for 8 days Chest x-ray does not shows any acute cardiopulmonary abnormality ABGs shows parameters within normal limits Continue Albuterol and ipratropium nebulization every 6 hours Sputum culture shows Enterobacter cloacae, sensitive to meropenem Continue meropenem, started at 07/19 GI: Possible Upper GI bleeding, unspecified location Transaminitis, likely due to ischemia secondary to cardiac arrest NG tube showed black drainage on 06/29 and 06/30 likely due to upper GI bleeding GI consulted, recommended conservative management Continue Protonix b.i.d. Discontinue Lovenox due to severe anemia and possible upper GI bleeding Ammonia level is normal RENAL: NAOMI, no previous records available Nephrology on the board, hemodialysis planned for tomorrow UTI, unspecified location UA shows UTI picture Urine culture showed no bacterial growth ID: Urine and blood culture from 07/08 shows no bacterial growth Blood culture from 07/09 shows no bacterial growth MRSA screening on 07/09 negative, and discontinued vancomycin COVID-19 and influenza screening from 07/09 negative Discontinue Zosyn, use for 8 days Sputum culture shows Enterobacter cloacae, sensitive to meropenem Start meropenem at 07/19 CRP is raised Cannabinoid use disorder UDS shows cannabis positive Metabolic: Hypokalemia, Supplemented Magnesium is within normal limits Hyperkalemia, normalized Mild Hypernatremia, improved Mild hyperkalemia, injection calcium gluconate given Vitamin B12 is normal Vitamin -D level is low, supplemented Cortisol a.m. is normal TSH is normal Gynecology Vaginal bleeding On 07/20 5-10 mL of vaginal bleeding noticed, with some clots on 07/18 Monitoring DVT prophylaxis Due to possible upper GI bleeding, Lovenox is not indicated SCD LINES/DRAINS/ACCESS: ETT tube, intubated on 07/08/2024 Transurethral catheter, placed on 07/08/2024 IV Access Right femoral vein (CVC), placed on 07/08/2024 Left femoral vein catheter for HD, placed on 07/17 Drips: Levophed 6 Diet: Nepro 30 mL/hour on 07/16 Disposition: As per family request for the higher level of care transfer(preference Shayna Pozo), social media marketing manager has been consulted. CODE STATUS: Full code Disposition: ICU status, kept in ICU Case discussed with the daughter through the phone, requested second opinion of a Neurologist, the daughter was also updated of second opinion. Critical time spent more than 82 minutes, including patient care, chart review and updating the family, excluding any procedures. Case discussed with Dr. Hardy Plan discussed with: Patient, Other (Mother) Dietary Evaluation Review Comments: Patient is not receiving nutrition. If GI is accessible, consider EN nutrition - Jevity 1.2 @ 55 mL/hr as tolerated. If patient remains NPO for more than 7 days, initiate TPN to meet 75% of estimated needs. Advance patient diet when medically feasible to a cardiac diet if renal function is sufficient. Expected Outcomes/Goals: Patient to receive nutrition support within 7 days of NPO status. Patient diet to advance F/u in 2-3 days Date of Service: Jul 24, 2024 Billing Provider: MONE HARDY MD Common Visit Codes: [id number] CARE 30-74 MIN, [id number] CARE-EACH +30MIN EDGAR CÁRDENAS RESDIENT Jul 24, 2024 20:38 MONE HARDY MD Jul 25, 2024 11:20
[2024-07-25] VITALS (107 sets, daily range): BP systolic 76–152; BP diastolic 45–81; PULSE 70–104; RESP 10–22; TEMP 96.3–99; O2SAT 98–100
[2024-07-25 04:19] LABS: Basophils # (auto) 0.1 10 ^3/uL (0-0.2); Hemoglobin 7.3 g/dL (12.2-16.2); Lymphocytes # (auto) 0.9 10 ^3/uL (0.4-5.4); Mean Corpuscular Hgb Conc. 33.1 g/dL (32.0-36.0); Monocytes # (auto) 0.7 10 ^3/uL (0-1.3)
[2024-07-25 04:21] LABS: Basophils % (auto) 0.8 % (0.0-2.0); Eosinophils # (auto) 0.5 10 ^3/uL (0-0.8); Eosinophils % (auto) 4.4 % (0.0-7.0); Lymphocytes % (auto) 7.9 % (10.0-50.0); Mean Corpuscular Hemoglobin 29.7 pg (28.0-32.0); Mean Corpuscular Volume 89.7 fL (80.0-100.0); Monocytes % (auto) 6.1 % (0.0-12.0); Neutrophils # (auto) 9.4 10 ^3/uL (1.6-8.6); Neutrophils % (auto) 80.8 % (37.0-80.0); Platelet Count (auto) 237 10^3/uL (140-450); Red Blood Cells 2.45 10^6/uL (4.0-5.20); Red Cell Distribution Width 16.2 % (11.8-14.3); White Blood Cell 11.6 10^3/uL (4.4-10.8)
[2024-07-25 04:31] LABS: Alanine Aminotransferase 18 U/L (7-40); Anion Gap 11 (5-15); BUN/Creatinine Ratio 8.3 (10.0-20.0); Calcium 9.1 mg/dL (8.7-10.4); Carbon Dioxide 28 mmol/L (20-31); Chloride 106 mmol/L (98-107); Glucose 98 mg/dL (74-106); Potassium 4.1 mmol/L (3.5-5.1); Sodium 145 mmol/L (136-145)
[2024-07-25 04:32] LABS: Bilirubin, Total 0.6 mg/dL (0.2-1.0)
[2024-07-25 04:43] LABS: Albumin 2.6 g/dL (3.2-4.8); Alkaline Phosphatase 179 U/L (46-116); Aspartate Aminotransferase 71 U/L (13-40); Blood Urea Nitrogen 48 mg/dL (9-23); Total Protein 5.4 g/dL (5.7-8.2)
--- NOTE | 2024-07-25 05:29 | DVH ---
CHEST RADIOGRAPH Indication: Pneumonia Technique: Single frontal view of the chest was obtained COMPARISON: XY CHEST XRAY 1 VIEW on DOS: 07/24/24, XY CHEST XRAY 1 VIEW on DOS: 07/23/24, XY CHEST PO RTABLE on DOS: 07/22/24, XY CHEST XRAY 1 VIEW on DOS: 07/24/24 FINDINGS: Lines and Tubes: Endotracheal tube, enteric catheter and satisfactory position. Lungs: Diffuse congestion. Pleura: No effusion. No pneumothorax. Cardiomediastinal contours: Unremarkable Bones: Unremarkable IMPRESSION: Lines and tubes in satisfactory position. No significant interval change.
[2024-07-25 08:34] LABS: Base Excess 1.8 mmol/L (-2.0-3.0)
--- NOTE | 2024-07-25 10:22 | DVHPN2 ---
Progress Note - Dictate Date Seen: Jul 25, 2024 Has the PT tested + for MRSA If YES, has PT been informed?: No Medical Necessity Reason Pt with a Central, PICC or Fol: Yes The following are medically ne: Central Line, Jones Catheter Reason for jones catheter: Strict I&O Subjective Ms. Wren is a 63 years old female with a history of asthma, COPD, paroxysmal atrial fibrillation, allergy to animal dander, smoking, she was brought to the [facility] on 07/08/2024 with a chief company of altered mental status. I have seen and examined the patient, I have talked to her nurse, she remained intubated, nonresponsive to strong painful stimuli The pupils are symmetric, fixed Tele Neurology consult reaching, 07/24/2024: Severe anoxic brain injury Poor prognosis No chance of meaningful recovery UDS, 07/12/2024: Cannabinoids Urinalysis, 07/08/2024: WBC: 26, urine leukocyte esterase: Negative ABG, 07/08/2024: acidosis, WBC/HB/PLT/MCV, 07/15/2024: 11.5/75/80/89.3 PT/INR/PTT, 07/08/2024: 16/1.56/26.8 BUN/CR, 07/15/2024: 112/8.19 TBI/AST/ALT/AP, 07/15/2024: 0.8/68/45/31 EEG, 07/16/2024: Inadequate, but likely remarkably abnormal EEG Brain flow NM, 07/23/2024: No cerebral blood flow visualized. Findings may be seen with brain , however correlation with clinical findings is needed CT head, 07/08/2024: 1. No acute intracranial hemorrhage. 2. No CT findings of territorial ischemia CT head, 07/12/2024: 1. Symmetric hypodensities in the lentiform nuclei, similar to prior study. Hypodensities in the bilateral thalami new since prior CT scan of the head from 07/10/2024. Additionally, there is subtle loss of mendoza-white matter differentiation since the prior CT from 07/08/2024 for which intracerebral edema is not excluded. Correlation for toxic metabolic or ischemic insult or other etiology is recommended. MRI of the brain without contrast is recommended for further evaluation. 2. No evidence of acute intracranial hemorrhag CT head, 07/19/2024: 1. Severe Generalized Hypoxia: Diffuse hypo-attenuation of the bilateral frontal, parietal and temporal lobes with loss of mendoza-white matter differentiation, probably secondary to generalized hypoxia. Diffuse cerebral edema with effacement of the sulci and basilar cisterns. Relative sparing of the cerebellar hemispheres. 2. No Evidence of Intraparenchymal hematoma, midline shift or hydrocephalus. 3. Soft Tissue Findings: Right periorbital soft tissue edema, with no evidence of calvarial fracture MRI head, 07/14/2024: There is T2/FLAIR hyperintensity involving the lentiform nucleus, hypothalamic region, cerebral peduncle, dorsal midbrain , dorsal liberty and dorsal medulla with symmetric bilateral dorsal medulla small focus of diffusion restriction. Findings are nonspecific and may be seen with hypoxic ischemic encephalopathy, metabolic or toxic disorders. Recommend clinical correlation vital signs Vital Sign Date Time Temp Pulse Resp B/P (MAP) Pulse Ox O2 Delivery O2 Flow Rate FiO2 07/25/24 10:02 83 18 101/63 (76) 100 30 07/25/24 09:00 97.5 207.5 07/25/24 08:00 Mechanical Ventilator+ Total Intake and Output 07/24/24 07/24/24 07/25/24 15:00 23:00 07:00 Intake Total 178.125 ml 230.000 ml 236.000 ml Output Total 250 ml 325 ml Balance 178.125 ml -20.000 ml -89.000 ml medications Current Medications Medications Dose Ordered Sig/Perez Route Start Time Stop Time Status Last Admin Dose Admin Acetaminophen 650 mg Q6HP PRN PO 07/08/24 22:45 07/09/24 22:29 650 MG Nitroglycerin 0.4 mg Q5MINP PRN SL 07/08/24 22:45 Acetaminophen 650 mg Q6HP PRN [place] 07/09/24 11:00 07/09/24 15:54 650 MG Pantoprazole Sodium 40 mg BID IV 07/11/24 22:00 07/25/24 08:47 40 MG Enteral Nutritional Formula 1,000 ml 30ML/HR GT 07/16/24 14:45 07/21/24 17:13 1,000 ML Norepinephrine Bitartrate 250 ml @ 1.875 mls/ hr Q24H IV 07/16/24 15:45 07/24/24 23:53 16.875 MLS/HR Meropenem 50 ml @ 17 mls/hr DAILY IV 07/19/24 18:00 07/25/24 08:47 17 MLS/HR Levalbuterol HCl 1.25 mg Q6HR NEB 07/19/24 18:00 07/25/24 06:42 1.25 MG Ipratropium [place] 0.5 mg Q4HR NEB 07/20/24 12:00 Cancel Ipratropium [place] 0.5 mg Q6HR NEB 07/20/24 12:00 07/25/24 06:42 0.5 MG Artificial Tears 2 drop Q6HP PRN EACHEYE 07/22/24 17:00 Erythromycin 1 applic Q12HR OP 07/22/24 22:00 07/25/24 08:49 1 APPLIC Ergocalciferol 50,000 unit Q7D PO 07/23/24 09:30 07/23/24 11:16 50,000 UNIT objective The patient is well-nourished and well-developed with no distress. The patient is intubated MENTAL STATUS: See subjective CRANIAL NERVES: Pupils are round, 5-6mm and nonreactive. There are no corneal reflexes and no doll's eyes phenomenon. No signs of facial weakness. There are no gagging or coughing reflexes SENSATION: No responses to strong pain stimuli. MOTOR: Normal tone in the upper and lower extremity. Normal muscle bulk. No fasciculations. No spontaneous movement. REFLEXES: Deep tendon reflexes are symmetrical. No pathological reflexes. CEREBELLAR/COORDINATION: Deferred GAIT/STATION: deferred laboratory and microbiology Laboratory Tests 07/25/24 03:00 Test 07/25/24 03:00 Range/Units Serum Glucose 98 74-106 mg/dL Problem List Coma/diffuse brain edema Hypoxic encephalopathy Metabolic encephalopathy Cardiopulmonary arrest Acute respiratory failure Unequal pupil size/brain herniation Brain Assessment/Plan Monitoring Supportive treatment ICU care Stabilize vitals/pressor drip Respiratory support/vent management Oxygen Transferred to higher level care Social service on case More recommendation per clinical course The patient is unlikely to recover, I recommend comfort care/terminal wean This medical document was created using an electronic medical record system with [employer] system. Although this document has been carefully reviewed, there may still be some phonetic and typographical errors. These areas are purely typographical due to imperfections of the software programs, and do not reflect any compromise in the patient's medical care Prognosis guarded Dietary Evaluation Review Comments: Patient is not receiving nutrition. If GI is accessible, consider EN nutrition - Jevity 1.2 @ 55 mL/hr as tolerated. If patient remains NPO for more than 7 days, initiate TPN to meet 75% of estimated needs. Advance patient diet when medically feasible to a cardiac diet if renal function is sufficient. Expected Outcomes/Goals: Patient to receive nutrition support within 7 days of NPO status. Patient diet to advance F/u in 2-3 days Plan discussed with: Other SUMAYA ALVAREZ MD Jul 25, 2024 10:22
--- NOTE | 2024-07-25 14:00 | DVHPNRES ---
Progress Note Date Seen: Jul 25, 2024 Resident Creating Document: EDGAR CÁRDENAS THADDEUS Has the PT tested + for MRSA If YES, has PT been informed?: No Medical Necessity Reason Pt with a Central, PICC or Fol: Yes The following are medically ne: Central Line, Jones Catheter Reason for jones catheter: Strict I&O Subjective Review of Systems This is a 63-year-old female with past medical history of allergic asthma, COPD, hypertension, paroxysmal atrial fibrillation, repaired mitral valve, IBS, generalized anxiety, chronic pain and insomnia brought to the hospital after loss of consciousness. Patient had lost consciousness out of house, witnessed by the bystanders, found asystole by EMS, performed CPR for 20 minutes and retained ROSC. Admitted on 07/09/2024. Today, patient seen and examined at the bedside. Patient is sedated and on mechanical ventilation. Review of systems could not obtain. Patient reports: No new complaints Changes from previous H/P or p: No Changes Objective vital signs Vital Sign Date Time Temp Pulse Resp B/P (MAP) Pulse Ox O2 Delivery O2 Flow Rate FiO2 07/25/24 11:39 73 18 97/57 (70) 99 30 07/25/24 10:15 97.5 207.5 07/25/24 10:00 Mechanical Ventilator+ Total Intake and Output 07/24/24 07/24/24 07/25/24 15:00 23:00 07:00 Intake Total 178.125 ml 230.000 ml 236.000 ml Output Total 250 ml 325 ml Balance 178.125 ml -20.000 ml -89.000 ml medications Current Medications Medications Dose Ordered Sig/Perez Route Start Time Stop Time Status Last Admin Dose Admin Acetaminophen 650 mg Q6HP PRN PO 07/08/24 22:45 07/09/24 22:29 650 MG Nitroglycerin 0.4 mg Q5MINP PRN SL 07/08/24 22:45 Acetaminophen 650 mg Q6HP PRN RI 07/09/24 11:00 07/09/24 15:54 650 MG Pantoprazole Sodium 40 mg BID IV 07/11/24 22:00 07/25/24 08:47 40 MG Enteral Nutritional Formula 1,000 ml 30ML/HR GT 07/16/24 14:45 07/21/24 17:13 1,000 ML Norepinephrine Bitartrate 250 ml @ 1.875 mls/ hr Q24H IV 07/16/24 15:45 07/24/24 23:53 16.875 MLS/HR Meropenem 50 ml @ 17 mls/hr DAILY IV 07/19/24 18:00 07/25/24 08:47 17 MLS/HR Levalbuterol HCl 1.25 mg Q6HR NEB 07/19/24 18:00 07/25/24 11:39 1.25 MG Ipratropium [place] 0.5 mg Q4HR NEB 07/20/24 12:00 Cancel Ipratropium [place] 0.5 mg Q6HR NEB 07/20/24 12:00 07/25/24 11:39 0.5 MG Artificial Tears 2 drop Q6HP PRN EACHEYE 07/22/24 17:00 Erythromycin 1 applic Q12HR OP 07/22/24 22:00 07/25/24 08:49 1 APPLIC Ergocalciferol 50,000 unit Q7D PO 07/23/24 09:30 07/23/24 11:16 50,000 UNIT Examination General: RASS -5, afebrile, mucosae are moist Cardiovascular: Normal S1 and S2. No murmurs, gallops or rubs Respiratory: Mechanically assisted ventilation, equal bilateral airway entree. Clear lung sounds on auscultation Abdomen: Soft, nontender, no organomegaly, normal bowel sounds MSK/skin: Mobilization of limbs cannot be evaluated. Skin is dry and warm. Neurological: Orientation cannot be assessed. No apparent motor no sensitive deficits. Bilateral pupils are dilated, fixed, asymmetric and nonreactive to the light. No cough reflex on deep suctioning laboratory and microbiology Laboratory Tests 07/25/24 03:00 Test 07/25/24 03:00 Range/Units Serum Glucose 98 74-106 mg/dL Microbiology Date/Time Source Procedure Growth Status 07/16/24 17:02 Trachea Gram Stain - Final Complete 07/16/24 17:02 Respiratory Culture - Final Enterobacter cloacae Complete 07/09/24 00:07 Blood Blood Culture - Final NO GROWTH AFTER 5 DAYS OF INCUBATION. Complete 07/08/24 22:00 Voided Urine Urine Culture - Final Complete Labs and/or images reviewed: Labs reviewed by me, Image(s) reviewed by me Problem List/Assessment/Plan Problem List/Assessment/Plan This is a 63-year-old female with past medical history of allergic asthma, COPD, hypertension, paroxysmal atrial fibrillation, repaired mitral valve, IBS, generalized anxiety, chronic pain and insomnia brought to the hospital after loss of consciousness. Patient had lost consciousness out of house, witnessed by the bystanders, found asystole by EMS, performed CPR for 20 minutes and retained ROSC. Admitted on 07/09/2024. NEURO: Acute metabolic encephalopathy, likely due to sepsis/possible anoxic brain injury due to cardiac arrest Patient is sedated, and on mechanical ventilation, place, and Status post cardiac arrest Possible Cerebral edema, likely due to cardiac arrest Possible cerebral herniation, Bilateral pupils are dilated, fixed, asymmetric and nonreactive to the light. Head CT scan shows less prominent sulci, likely due to cerebral edema We will consider head CT scan after 48 hour for the monitoring of possible cerebral edema Teleneurology consulted on 07/10 and has consulted the daughter of the patient regarding poor prognosis Head CT scan of 07/12/2024 shows changes but could not exclude brain edema Brain MRI shows nonspecific findings may be seen with hypoxic ischemic encephalopathy, metabolic or toxic disorders EEG shows severe cerebral dysfunction due to metabolic/hypoxic encephalopathy or medication effect Head CT scan from 07/19, shows effacement of sulci Neurology has consulted, and recommended that the patient have a poor prognosis for meaningful recovery and higher level care transfer is unlikely to change progresses. Brain perfusion test shows, no cerebral blood flow visualized and on site neurologist recommend comfort care, patients daughter requested a second opinion from another neurologist per second neurologist there is severe anoxic brain injury and no chance of meaningful recovery CARDIOVASCULAR: Status post cardiac arrest Patient has history of paroxysmal atrial fibrillation Non ST-elevation MT, type 2, likely due to cardiac arrest and CPR Circulation shock, likely septic likely due to pneumonia Patient has history of open heart surgery for mitral valve repair Sinus tachycardia Atrial fibrillation Troponin is raised EKG shows sinus tachycardia, with no significant ST or T-wave changes Cardiology on the board, recommended conservative management Echocardiogram shows Borderline Normal left ventricular systolic function estimated ejection [id number] Moderately elevated right ventricular systolic pressure 40 mm of mercury. 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 as well as mitral valve repair Cardiology is on the board, suggested conservative management Sinus tachycardia Due to paroxysmal atrial fibrillation and RVR, the Cardiology consulted back, recommended to use digoxin in case of atrial fibrillation recurrence PULMONARY: Patient is sedated, and on mechanical ventilator, RASS (-5, unresponsive) with ventilator setting of( Vt 450, RR 26, FiO2 30%, peep 5) Acute hypoxic respiratory failure likely due to pneumonia/COPD exacerbation/asthma exacerbation Pneumonia likely due to Gram-positive/Gram-negative Septic shock likely due to pneumonia/UTI Patient has history of multiple hospital admission, including intubated for 2 months in [place] in 2007, mitral valve repair and also has been admitted in [facility] MRSA nares screening negative and stopped vancomycin (given for 4 days) COVID-19 and influenza antigens are negative Discontinue Zosyn, use for 8 days Chest x-ray does not shows any acute cardiopulmonary abnormality ABGs shows parameters within normal limits Continue Albuterol and ipratropium nebulization every 6 hours Sputum culture shows Enterobacter cloacae, sensitive to meropenem Continue meropenem, started at 07/19 GI: Possible Upper GI bleeding, unspecified location Transaminitis, likely due to ischemia secondary to cardiac arrest NG tube showed black drainage on 06/29 and 06/30 likely due to upper GI bleeding GI consulted, recommended conservative management Continue Protonix b.i.d. Discontinue Lovenox due to severe anemia and possible upper GI bleeding Ammonia level is normal RENAL: NAOMI, no previous records available Nephrology on the board, hemodialysis performed today and taken out 463ml UTI, unspecified location UA shows UTI picture Urine culture showed no bacterial growth ID: Urine and blood culture from 07/08 shows no bacterial growth Blood culture from 07/09 shows no bacterial growth MRSA screening on 07/09 negative, and discontinued vancomycin COVID-19 and influenza screening from 07/09 negative Discontinue Zosyn, use for 8 days Sputum culture shows Enterobacter cloacae, sensitive to meropenem Continue meropenem, started at 07/19 Cannabinoid use disorder UDS shows cannabis positive Metabolic: Hypokalemia, Supplemented Magnesium is within normal limits Hyperkalemia, normalized Mild Hypernatremia, improved Mild hyperkalemia, injection calcium gluconate given Vitamin B12 is normal Vitamin -D level is low, supplemented Cortisol a.m. is normal TSH is normal Gynecology Vaginal bleeding On 07/20 5-10 mL of vaginal bleeding noticed, with some clots on 07/18 Monitoring DVT prophylaxis Due to possible upper GI bleeding, Lovenox is not indicated SCD LINES/DRAINS/ACCESS: ETT tube, intubated on 07/08/2024 Transurethral catheter, placed on 07/08/2024 IV Access Right femoral vein (CVC), placed on 07/08/2024 Left femoral vein catheter for HD, placed on 07/17 Drips: Levophed 9 Diet: Nepro 30 mL/hour on 07/16 CODE STATUS: Full code Disposition: ICU status, kept in ICU Case discussed with the daughter through the phone, and sister at the bedside, requested more time to process the news. Critical time spent more than 62 minutes, including patient care, chart review and updating the family, excluding any procedures. Case discussed with Dr. Hardy Plan discussed with: Other (RN) My Orders My Orders Orders - EDGAR CÁRDENAS Procedure Category Date Status Time Chest Xray 1 View XY 07/25/24 Resulted 04:00 Abg W/ Co-Ox RT 07/25/24 Logged 04:00 Dietary Evaluation Review Comments: Patient is not receiving nutrition. If GI is accessible, consider EN nutrition - Jevity 1.2 @ 55 mL/hr as tolerated. If patient remains NPO for more than 7 days, initiate TPN to meet 75% of estimated needs. Advance patient diet when medically feasible to a cardiac diet if renal function is sufficient. Expected Outcomes/Goals: Patient to receive nutrition support within 7 days of NPO status. Patient diet to advance F/u in 2-3 days Date of Service: Jul 25, 2024 Billing Provider: MONE HARDY MD Common Visit Codes: 81131-[id number] CARE 30-74 MIN EDGAR CÁRDENAS RESDIENT Jul 25, 2024 14:00 MONE HARDY MD Aug 11, 2024 12:43
--- NOTE | 2024-07-25 16:22 | DVHPN2 ---
Progress Note Date Seen: Jul 25, 2024 Has the PT tested + for MRSA If YES, has PT been informed?: No Medical Necessity Reason Pt with a Central, PICC or Fol: Yes The following are medically ne: Central Line, Jones Catheter Reason for jones catheter: Strict I&O Subjective Patient reports: Other (Patient remains intubated on Levophed) Review of Systems: Deferred Objective vital signs Vital Sign Date Time Temp Pulse Resp B/P (MAP) Pulse Ox O2 Delivery O2 Flow Rate FiO2 07/25/24 16:10 80 18 143/80 (101) 100 30 07/25/24 15:15 96.8 206.2 07/25/24 14:00 Mechanical Ventilator+ Total Intake and Output 07/24/24 07/24/24 07/25/24 14:59 22:59 06:59 Intake Total 174.375 ml 233.750 ml 236.000 ml Output Total 250 ml 325 ml Balance 174.375 ml -16.250 ml -89.000 ml medications Current Medications Medications Dose Ordered Sig/Perez Route Start Time Stop Time Status Last Admin Dose Admin Acetaminophen 650 mg Q6HP PRN PO 07/08/24 22:45 07/09/24 22:29 650 MG Nitroglycerin 0.4 mg Q5MINP PRN SL 07/08/24 22:45 Acetaminophen 650 mg Q6HP PRN [place] 07/09/24 11:00 07/09/24 15:54 650 MG Pantoprazole Sodium 40 mg BID IV 07/11/24 22:00 07/25/24 08:47 40 MG Enteral Nutritional Formula 1,000 ml 30ML/HR GT 07/16/24 14:45 07/21/24 17:13 1,000 ML Norepinephrine Bitartrate 250 ml @ 1.875 mls/ hr Q24H IV 07/16/24 15:45 07/24/24 23:53 16.875 MLS/HR Meropenem 50 ml @ 17 mls/hr DAILY IV 07/19/24 18:00 07/25/24 08:47 17 MLS/HR Levalbuterol HCl 1.25 mg Q6HR NEB 07/19/24 18:00 07/25/24 11:39 1.25 MG Ipratropium [place] 0.5 mg Q4HR NEB 07/20/24 12:00 Cancel Ipratropium [place] 0.5 mg Q6HR NEB 07/20/24 12:00 07/25/24 11:39 0.5 MG Artificial Tears 2 drop Q6HP PRN EACHEYE 07/22/24 17:00 Erythromycin 1 applic Q12HR OP 07/22/24 22:00 07/25/24 08:49 1 APPLIC Ergocalciferol 50,000 unit Q7D PO 07/23/24 09:30 07/23/24 11:16 50,000 UNIT Examination: GENERAL:Abnormal, MSK:Abnormal, SKIN:Abnormal, NEURO:Abnormal laboratory and microbiology Laboratory Tests 07/25/24 03:00 Test 07/25/24 03:00 Range/Units Serum Glucose 98 74-106 mg/dL Microbiology Date/Time Source Procedure Growth Status 07/16/24 17:02 Trachea Gram Stain - Final Complete 07/16/24 17:02 Respiratory Culture - Final Enterobacter cloacae Complete 07/09/24 00:07 Blood Blood Culture - Final NO GROWTH AFTER 5 DAYS OF INCUBATION. Complete 07/08/24 22:00 Voided Urine Urine Culture - Final Complete Problem List/Assessment/Plan Problem List/Assessment/Plan NAOMI secondary to hemodynamically mediated likely ischemic ATN needing HD Septic shock due to pneumonia Pneumonia NSTEMI type 2 likely due to above Cardiopulmonary arrest status post CPR with ROSC Paroxysmal atrial fibrillation Elevated liver function Anoxic brain injury Upper GI bleeding Plan/recommendation HD today imaging consistent with brain consider terminal wean and comfort care--patient family not agreeable yet Plan discussed with: Other My Orders My Orders Orders - RADHA LEVIN MD Procedure Category Date Status Time Hemodialysis Orders ORDERS 07/25/24 Transmitted 12:59 Dietary Evaluation Review Comments: Patient is not receiving nutrition. If GI is accessible, consider EN nutrition - Jevity 1.2 @ 55 mL/hr as tolerated. If patient remains NPO for more than 7 days, initiate TPN to meet 75% of estimated needs. Advance patient diet when medically feasible to a cardiac diet if renal function is sufficient. Expected Outcomes/Goals: Patient to receive nutrition support within 7 days of NPO status. Patient diet to advance F/u in 2-3 days RADHA LEVIN MD Jul 25, 2024 16:22
[2024-07-26] VITALS (105 sets, daily range): BP systolic 85–140; BP diastolic 45–81; PULSE 71–89; RESP 16–19; TEMP 97.2–98.6; O2SAT 98–100
[2024-07-26 04:11] LABS: Basophils # (auto) 0.1 10 ^3/uL (0-0.2); Eosinophils # (auto) 0.8 10 ^3/uL (0-0.8); Eosinophils % (auto) 8.3 % (0.0-7.0); Hematocrit 22.6 % (36.0-46.0); Hemoglobin 7.5 g/dL (12.2-16.2); Lymphocytes # (auto) 0.8 10 ^3/uL (0.4-5.4); Lymphocytes % (auto) 8.9 % (10.0-50.0); Mean Corpuscular Hemoglobin 29.7 pg (28.0-32.0); Mean Corpuscular Hgb Conc. 33.2 g/dL (32.0-36.0); Mean Corpuscular Volume 89.5 fL (80.0-100.0); Monocytes # (auto) 0.5 10 ^3/uL (0-1.3); Neutrophils # (auto) 7.1 10 ^3/uL (1.6-8.6); Neutrophils % (auto) 76.8 % (37.0-80.0); Platelet Count (auto) 235 10^3/uL (140-450); Red Blood Cells 2.52 10^6/uL (4.0-5.20); Red Cell Distribution Width 16.8 % (11.8-14.3); White Blood Cell 9.3 10^3/uL (4.4-10.8)
[2024-07-26 04:30] LABS: Alanine Aminotransferase 17 U/L (7-40); Anion Gap 11 (5-15); BUN/Creatinine Ratio 7.1 (10.0-20.0); Calcium 9.1 mg/dL (8.7-10.4); Carbon Dioxide 28 mmol/L (20-31); Chloride 106 mmol/L (98-107); Glucose 98 mg/dL (74-106); Potassium 3.5 mmol/L (3.5-5.1); Sodium 145 mmol/L (136-145)
[2024-07-26 04:31] LABS: Bilirubin, Total 0.6 mg/dL (0.2-1.0)
[2024-07-26 04:32] LABS: Albumin 2.5 g/dL (3.2-4.8); Alkaline Phosphatase 196 U/L (46-116); Aspartate Aminotransferase 79 U/L (13-40); Blood Urea Nitrogen 32 mg/dL (9-23); Total Protein 5.3 g/dL (5.7-8.2)
--- NOTE | 2024-07-26 05:47 | DVH ---
CHEST RADIOGRAPH Indication: Pneumonia Technique: Single frontal view of the chest was obtained COMPARISON: XY CHEST XRAY 1 VIEW on DOS: 07/25/24, XY CHEST XRAY 1 VIEW on DOS: 07/24/24, XY CHEST XR AY 1 VIEW on DOS: 07/23/24 FINDINGS: Lines and Tubes: Endotracheal tube and enteric catheter in satisfactory position. Median sternotomy. Lungs: Diffuse increased interstitial prominence. Pleura: No effusion. No pneumothorax. Cardiomediastinal contours: Unremarkable Bones: Unremarkable IMPRESSION: Lines and tubes in satisfactory position. No significant interval change.
[2024-07-26 08:04] LABS: Base Excess 0.2 mmol/L (-2.0-3.0)
--- NOTE | 2024-07-26 12:36 | DVHPN2 ---
Progress Note - Dictate Date Seen: Jul 26, 2024 Has the PT tested + for MRSA If YES, has PT been informed?: No Medical Necessity Reason Pt with a Central, PICC or Fol: Yes The following are medically ne: Central Line, Jones Catheter Reason for jones catheter: Strict I&O Subjective Remains intubated in the ICU vital signs Vital Sign Date Time Temp Pulse Resp B/P (MAP) Pulse Ox O2 Delivery O2 Flow Rate FiO2 07/26/24 12:15 97.7 83 18 116/77 (90) 100 207.9 07/26/24 12:01 30 07/26/24 12:00 Mechanical Ventilator+ Total Intake and Output 07/25/24 07/25/24 07/26/24 15:00 23:00 07:00 Intake Total 210.000 ml 173.5 ml 390 ml Output Total 275 ml 450 ml Balance 210.000 ml -101.5 ml -60 ml medications Current Medications Medications Dose Ordered Sig/Perez Route Start Time Stop Time Status Last Admin Dose Admin Acetaminophen 650 mg Q6HP PRN PO 07/08/24 22:45 07/09/24 22:29 650 MG Nitroglycerin 0.4 mg Q5MINP PRN SL 07/08/24 22:45 Acetaminophen 650 mg Q6HP PRN [place] 07/09/24 11:00 07/09/24 15:54 650 MG Pantoprazole Sodium 40 mg BID IV 07/11/24 22:00 07/26/24 10:04 40 MG Enteral Nutritional Formula 1,000 ml 30ML/HR GT 07/16/24 14:45 07/21/24 17:13 1,000 ML Norepinephrine Bitartrate 250 ml @ 1.875 mls/ hr Q24H IV 07/16/24 15:45 07/26/24 03:17 18.75 MLS/HR Levalbuterol HCl 1.25 mg Q6HR NEB 07/19/24 18:00 07/26/24 12:01 1.25 MG Ipratropium [place] 0.5 mg Q4HR NEB 07/20/24 12:00 Cancel Ipratropium [place] 0.5 mg Q6HR NEB 07/20/24 12:00 07/26/24 12:01 0.5 MG Artificial Tears 2 drop Q6HP PRN EACHEYE 07/22/24 17:00 Erythromycin 1 applic Q12HR OP 07/22/24 22:00 07/26/24 10:05 1 APPLIC Ergocalciferol 50,000 unit Q7D PO 07/23/24 09:30 07/23/24 11:16 50,000 UNIT objective Middle-aged female Intubated Unresponsive No gag reflex Abdomen is soft No pitting edema laboratory and microbiology Laboratory Tests 07/26/24 03:34 Test 07/26/24 03:34 Range/Units Serum Glucose 98 74-106 mg/dL Problem List NAOMI secondary to hemodynamically mediated likely ischemic ATN Septic shock due to pneumonia Pneumonia NSTEMI type 2 likely due to above Cardiopulmonary arrest status post CPR with ROSC Paroxysmal atrial fibrillation Elevated liver function ? Anoxic brain injury Upper GI bleeding No evidence of renal recovery at this time Patient is currently receiving routine dialysis treatments based on assessment Poor prognosis m[facility] given neurologic findings of anoxic brain injury Hospice candidate Dietary Evaluation Review Comments: Patient is not receiving nutrition. If GI is accessible, consider EN nutrition - Jevity 1.2 @ 55 mL/hr as tolerated. If patient remains NPO for more than 7 days, initiate TPN to meet 75% of estimated needs. Advance patient diet when medically feasible to a cardiac diet if renal function is sufficient. Expected Outcomes/Goals: Patient to receive nutrition support within 7 days of NPO status. Patient diet to advance F/u in 2-3 days Plan discussed with: MARILYN Pruitt MD Jul 26, 2024 12:36
--- NOTE | 2024-07-26 19:05 | DVHPNRES ---
Progress Note Date Seen: Jul 26, 2024 Resident Creating Document: EDGAR CÁRDENAS THADDEUS Has the PT tested + for MRSA If YES, has PT been informed?: No Medical Necessity Reason Pt with a Central, PICC or Fol: Yes The following are medically ne: Central Line, Jones Catheter Reason for jones catheter: Strict I&O Subjective Review of Systems This is a 63-year-old female with past medical history of allergic asthma, COPD, hypertension, paroxysmal atrial fibrillation, repaired mitral valve, IBS, generalized anxiety, chronic pain and insomnia brought to the hospital after loss of consciousness. Patient had lost consciousness out of house, witnessed by the bystanders, found asystole by EMS, performed CPR for 20 minutes and retained ROSC. Admitted on 07/09/2024. Today, patient seen and examined at the bedside. Patient is sedated and on mechanical ventilation. Review of systems could not obtain. Objective vital signs Vital Sign Date Time Temp Pulse Resp B/P (MAP) Pulse Ox O2 Delivery O2 Flow Rate FiO2 07/26/24 18:37 83 18 107/69 (82) 100 30 07/26/24 18:15 98.4 209.1 07/26/24 18:00 Mechanical Ventilator+ Total Intake and Output 07/25/24 07/25/24 07/26/24 15:00 23:00 07:00 Intake Total 210.000 ml 173.5 ml 390 ml Output Total 275 ml 450 ml Balance 210.000 ml -101.5 ml -60 ml medications Current Medications Medications Dose Ordered Sig/Perez Route Start Time Stop Time Status Last Admin Dose Admin Acetaminophen 650 mg Q6HP PRN PO 07/08/24 22:45 07/09/24 22:29 650 MG Nitroglycerin 0.4 mg Q5MINP PRN SL 07/08/24 22:45 Acetaminophen 650 mg Q6HP PRN TN 07/09/24 11:00 07/09/24 15:54 650 MG Pantoprazole Sodium 40 mg BID IV 07/11/24 22:00 07/26/24 10:04 40 MG Enteral Nutritional Formula 1,000 ml 30ML/HR GT 07/16/24 14:45 07/21/24 17:13 1,000 ML Norepinephrine Bitartrate 250 ml @ 1.875 mls/ hr Q24H IV 07/16/24 15:45 07/26/24 18:10 15 MLS/HR Levalbuterol HCl 1.25 mg Q6HR NEB 07/19/24 18:00 07/26/24 18:37 1.25 MG Ipratropium [place] 0.5 mg Q4HR NEB 07/20/24 12:00 Cancel Ipratropium [place] 0.5 mg Q6HR NEB 07/20/24 12:00 07/26/24 18:36 0.5 MG Artificial Tears 2 drop Q6HP PRN EACHEYE 07/22/24 17:00 Erythromycin 1 applic Q12HR OP 07/22/24 22:00 07/26/24 10:05 1 APPLIC Ergocalciferol 50,000 unit Q7D PO 07/23/24 09:30 07/23/24 11:16 50,000 UNIT Examination General: RASS -5, afebrile, mucosae are moist Cardiovascular: Normal S1 and S2. No murmurs, gallops or rubs Respiratory: Mechanically assisted ventilation, equal bilateral airway entree. Clear lung sounds on auscultation Abdomen: Soft, nontender, no organomegaly, normal bowel sounds MSK/skin: Mobilization of limbs cannot be evaluated. Skin is dry and warm. Neurological: Orientation cannot be assessed. No apparent motor no sensitive deficits. Bilateral pupils are dilated, fixed, asymmetric and nonreactive to the light. No cough reflex on deep suctioning laboratory and microbiology Laboratory Tests 07/26/24 03:34 Test 07/26/24 03:34 Range/Units Serum Glucose 98 74-106 mg/dL Microbiology Date/Time Source Procedure Growth Status 07/16/24 17:02 Trachea Gram Stain - Final Complete 07/16/24 17:02 Respiratory Culture - Final Enterobacter cloacae Complete 07/09/24 00:07 Blood Blood Culture - Final NO GROWTH AFTER 5 DAYS OF INCUBATION. Complete 07/08/24 22:00 Voided Urine Urine Culture - Final Complete Labs and/or images reviewed: Labs reviewed by me, Image(s) reviewed by me Problem List/Assessment/Plan Problem List/Assessment/Plan This is a 63-year-old female with past medical history of allergic asthma, COPD, hypertension, paroxysmal atrial fibrillation, repaired mitral valve, IBS, generalized anxiety, chronic pain and insomnia brought to the hospital after loss of consciousness. Patient had lost consciousness out of house, witnessed by the bystanders, found asystole by EMS, performed CPR for 20 minutes and retained ROSC. Admitted on 07/09/2024. NEURO: Acute metabolic encephalopathy, likely due to sepsis/possible anoxic brain injury due to cardiac arrest Patient is sedated, and on mechanical ventilation, place, and Status post cardiac arrest Possible Cerebral edema, likely due to cardiac arrest Possible cerebral herniation, Bilateral pupils are dilated, fixed, asymmetric and nonreactive to the light. Head CT scan shows less prominent sulci, likely due to cerebral edema We will consider head CT scan after 48 hour for the monitoring of possible cerebral edema Teleneurology consulted on 07/10 and has consulted the daughter of the patient regarding poor prognosis Head CT scan of 07/12/2024 shows changes but could not exclude brain edema Brain MRI shows nonspecific findings may be seen with hypoxic ischemic encephalopathy, metabolic or toxic disorders EEG shows severe cerebral dysfunction due to metabolic/hypoxic encephalopathy or medication effect Head CT scan from 07/19, shows effacement of sulci Neurology has consulted, and recommended that the patient have a poor prognosis for meaningful recovery and higher level care transfer is unlikely to change progresses. Brain perfusion test shows, no cerebral blood flow visualized and on site neurologist recommend comfort care, patients daughter requested a second opinion from another neurologist per second neurologist there is severe anoxic brain injury and no chance of meaningful recovery CARDIOVASCULAR: Status post cardiac arrest Patient has history of paroxysmal atrial fibrillation Non ST-elevation CT, type 2, likely due to cardiac arrest and CPR Circulation shock, likely septic likely due to pneumonia Patient has history of open heart surgery for mitral valve repair Sinus tachycardia Atrial fibrillation Troponin is raised EKG shows sinus tachycardia, with no significant ST or T-wave changes Cardiology on the board, recommended conservative management Echocardiogram shows Borderline Normal left ventricular systolic function estimated ejection %. Moderately elevated right ventricular systolic pressure 40 mm of mercury. 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 as well as mitral valve repair Cardiology is on the board, suggested conservative management Sinus tachycardia Due to paroxysmal atrial fibrillation and RVR, the Cardiology consulted back, recommended to use digoxin in case of atrial fibrillation recurrence PULMONARY: Patient is sedated, and on mechanical ventilator, RASS (-5, unresponsive) with ventilator setting of( Vt 450, RR 26, FiO2 30%, peep 5) Acute hypoxic respiratory failure likely due to pneumonia/COPD exacerbation/asthma exacerbation Pneumonia likely due to Gram-positive/Gram-negative Septic shock likely due to pneumonia/UTI Patient has history of multiple hospital admission, including intubated for 2 months in [place] in 2007, mitral valve repair and also has been admitted in [facility] MRSA nares screening negative and stopped vancomycin (given for 4 days) COVID-19 and influenza antigens are negative Discontinue Zosyn, use for 8 days Chest x-ray does not shows any acute cardiopulmonary abnormality ABGs shows parameters within normal limits Continue Albuterol and ipratropium nebulization every 6 hours Sputum culture shows Enterobacter cloacae, sensitive to meropenem Discontinue meropenem, used for 7 days GI: Possible Upper GI bleeding, unspecified location Transaminitis, likely due to ischemia secondary to cardiac arrest NG tube showed black drainage on 06/29 and 06/30 likely due to upper GI bleeding GI consulted, recommended conservative management Continue Protonix b.i.d. Discontinue Lovenox due to severe anemia and possible upper GI bleeding Ammonia level is normal RENAL: NAOMI, no previous records available Nephrology on the board, hemodialysis performed today and taken out 463ml UTI, unspecified location UA shows UTI picture Urine culture showed no bacterial growth ID: Urine and blood culture from 07/08 shows no bacterial growth Blood culture from 07/09 shows no bacterial growth MRSA screening on 07/09 negative, and discontinued vancomycin COVID-19 and influenza screening from 07/09 negative Discontinue Zosyn, use for 8 days Sputum culture shows Enterobacter cloacae, sensitive to meropenem Discontinue meropenem, used 7 days Cannabinoid use disorder UDS shows cannabis positive Metabolic: Hypokalemia, Supplemented Magnesium is within normal limits Hyperkalemia, normalized Mild Hypernatremia, improved Mild hyperkalemia, injection calcium gluconate given Vitamin B12 is normal Vitamin -D level is low, supplemented Cortisol a.m. is normal TSH is normal Gynecology Vaginal bleeding On 07/20 5-10 mL of vaginal bleeding noticed, with some clots on 07/18 Monitoring DVT prophylaxis Due to possible upper GI bleeding, Lovenox is not indicated SCD LINES/DRAINS/ACCESS: ETT tube, intubated on 07/08/2024 Transurethral catheter, placed on 07/08/2024 IV Access Right femoral vein (CVC), placed on 07/08/2024 Left femoral vein catheter for HD, placed on 07/17 Drips: Levophed 9 Diet: Nepro 30 mL/hour on 07/16 CODE STATUS: Full code Disposition: ICU status, kept in ICU Case discussed with the daughter through the phone, and sister at the bedside, the daughter will come to the hospital tomorrow. Critical time spent more than 74 minutes, including patient care, chart review and updating the family, excluding any procedures. Case discussed with Dr. Ludwig Plan discussed with: Other (RN) Dietary Evaluation Review Comments: Patient is not receiving nutrition. If GI is accessible, consider EN nutrition - Jevity 1.2 @ 55 mL/hr as tolerated. If patient remains NPO for more than 7 days, initiate TPN to meet 75% of estimated needs. Advance patient diet when medically feasible to a cardiac diet if renal function is sufficient. Expected Outcomes/Goals: Patient to receive nutrition support within 7 days of NPO status. Patient diet to advance F/u in 2-3 days Date of Service: Jul 26, 2024 Billing Provider: MARIE LUDWIG MD Common Visit Codes: [id number] CARE 30-74 MIN EDGAR CÁRDENAS RESDIENT Jul 26, 2024 19:05 MARIE LUDWIG MD Jul 27, 2024 09:27
--- NOTE | 2024-07-26 20:54 | DVHPN2 ---
Progress Note - Dictate Date Seen: Jul 26, 2024 Has the PT tested + for MRSA If YES, has PT been informed?: No Medical Necessity Reason Pt with a Central, PICC or Fol: Yes The following are medically ne: Central Line, Jones Catheter Reason for jones catheter: Strict I&O Subjective Ms. Wren is a 63 years old female with a history of asthma, COPD, paroxysmal atrial fibrillation, allergy to animal dander, smoking, she was brought to the [facility] on 07/08/2024 with a chief company of altered mental status. I have seen and examined the patient, I have talked to her nurse, she remained intubated, nonresponsive to strong painful stimuli. No brainstem reflexes. No brainstem reflexes The pupils are nonreactive, with the left-sided slightly bigger Tele Neurology consult reaching, 07/24/2024: Severe anoxic brain injury Poor prognosis No chance of meaningful recovery UDS, 07/12/2024: Cannabinoids Urinalysis, 07/08/2024: WBC: 26, urine leukocyte esterase: Negative ABG, 07/08/2024: acidosis, WBC/HB/PLT/MCV, 07/15/2024: 11.5/75/80/89.3 PT/INR/PTT, 07/08/2024: 16/1.56/26.8 BUN/CR, 07/15/2024: 112/8.19 TBI/AST/ALT/AP, 07/15/2024: 0.8/68/45/31 EEG, 07/16/2024: Inadequate, but likely remarkably abnormal EEG Brain flow NM, 07/23/2024: No cerebral blood flow visualized. Findings may be seen with brain , however correlation with clinical findings is needed CT head, 07/08/2024: 1. No acute intracranial hemorrhage. 2. No CT findings of territorial ischemia CT head, 07/12/2024: 1. Symmetric hypodensities in the lentiform nuclei, similar to prior study. Hypodensities in the bilateral thalami new since prior CT scan of the head from 07/10/2024. Additionally, there is subtle loss of mendoza-white matter differentiation since the prior CT from 07/08/2024 for which intracerebral edema is not excluded. Correlation for toxic metabolic or ischemic insult or other etiology is recommended. MRI of the brain without contrast is recommended for further evaluation. 2. No evidence of acute intracranial hemorrhag CT head, 07/19/2024: 1. Severe Generalized Hypoxia: Diffuse hypo-attenuation of the bilateral frontal, parietal and temporal lobes with loss of mendoza-white matter differentiation, probably secondary to generalized hypoxia. Diffuse cerebral edema with effacement of the sulci and basilar cisterns. Relative sparing of the cerebellar hemispheres. 2. No Evidence of Intraparenchymal hematoma, midline shift or hydrocephalus. 3. Soft Tissue Findings: Right periorbital soft tissue edema, with no evidence of calvarial fracture MRI head, 07/14/2024: There is T2/FLAIR hyperintensity involving the lentiform nucleus, hypothalamic region, cerebral peduncle, dorsal midbrain , dorsal liberty and dorsal medulla with symmetric bilateral dorsal medulla small focus of diffusion restriction. Findings are nonspecific and may be seen with hypoxic ischemic encephalopathy, metabolic or toxic disorders. Recommend clinical correlation vital signs Vital Sign Date Time Temp Pulse Resp B/P (MAP) Pulse Ox O2 Delivery O2 Flow Rate FiO2 07/26/24 20:11 85 18 119/73 (88) 100 30 07/26/24 19:30 98.6 209.5 07/26/24 18:00 Mechanical Ventilator+ Total Intake and Output 07/25/24 07/25/24 07/26/24 15:00 23:00 07:00 Intake Total 210.000 ml 173.5 ml 390 ml Output Total 275 ml 450 ml Balance 210.000 ml -101.5 ml -60 ml medications Current Medications Medications Dose Ordered Sig/Perez Route Start Time Stop Time Status Last Admin Dose Admin Acetaminophen 650 mg Q6HP PRN PO 07/08/24 22:45 07/09/24 22:29 650 MG Nitroglycerin 0.4 mg Q5MINP PRN SL 07/08/24 22:45 Acetaminophen 650 mg Q6HP PRN [place] 07/09/24 11:00 07/09/24 15:54 650 MG Pantoprazole Sodium 40 mg BID IV 07/11/24 22:00 07/26/24 10:04 40 MG Enteral Nutritional Formula 1,000 ml 30ML/HR GT 07/16/24 14:45 07/21/24 17:13 1,000 ML Norepinephrine Bitartrate 250 ml @ 1.875 mls/ hr Q24H IV 07/16/24 15:45 07/26/24 18:10 15 MLS/HR Levalbuterol HCl 1.25 mg Q6HR NEB 07/19/24 18:00 07/26/24 18:37 1.25 MG Ipratropium [place] 0.5 mg Q4HR NEB 07/20/24 12:00 Cancel Ipratropium [place] 0.5 mg Q6HR NEB 07/20/24 12:00 07/26/24 18:36 0.5 MG Artificial Tears 2 drop Q6HP PRN EACHEYE 07/22/24 17:00 Erythromycin 1 applic Q12HR OP 07/22/24 22:00 07/26/24 10:05 1 APPLIC Ergocalciferol 50,000 unit Q7D PO 07/23/24 09:30 07/23/24 11:16 50,000 UNIT objective The patient is well-nourished and well-developed with no distress. The patient is intubated MENTAL STATUS: See subjective CRANIAL NERVES: Pupils are nonreactive. There are no corneal reflexes and no doll's eyes phenomenon. No signs of facial weakness. There are no gagging or coughing reflexes SENSATION: No responses to strong pain stimuli. MOTOR: Normal tone in the upper and lower extremity. Normal muscle bulk. No fasciculations. No spontaneous movement. REFLEXES: Deep tendon reflexes are symmetrical. No pathological reflexes. CEREBELLAR/COORDINATION: Deferred GAIT/STATION: deferred laboratory and microbiology Laboratory Tests 07/26/24 03:34 Test 07/26/24 03:34 Range/Units Serum Glucose 98 74-106 mg/dL Problem List Coma/diffuse brain edema Hypoxic encephalopathy Metabolic encephalopathy Cardiopulmonary arrest Acute respiratory failure Unequal pupil size/brain herniation Brain is again confirmed on physical examination on 07/26/2024 Assessment/Plan Monitoring Supportive treatment ICU care Stabilize vitals/pressor drip Respiratory support/vent management Oxygen Transferred to higher level care Social service on case More recommendation per clinical course The patient is unlikely to recover, I recommend comfort care/terminal wean This medical document was created using an electronic medical record system with [employer] system. Although this document has been carefully reviewed, there may still be some phonetic and typographical errors. These areas are purely typographical due to imperfections of the software programs, and do not reflect any compromise in the patient's medical care Prognosis guarded Dietary Evaluation Review Comments: Patient is not receiving nutrition. If GI is accessible, consider EN nutrition - Jevity 1.2 @ 55 mL/hr as tolerated. If patient remains NPO for more than 7 days, initiate TPN to meet 75% of estimated needs. Advance patient diet when medically feasible to a cardiac diet if renal function is sufficient. Expected Outcomes/Goals: Patient to receive nutrition support within 7 days of NPO status. Patient diet to advance F/u in 2-3 days Plan discussed with: Other SUMAYA ALVAREZ MD Jul 26, 2024 20:54
[2024-07-27] VITALS (108 sets, daily range): BP systolic 75–143; BP diastolic 43–84; PULSE 65–84; RESP 16–20; TEMP 96.3–99.3; O2SAT 91–100
[2024-07-27 04:11] LABS: Basophils # (auto) 0.1 10 ^3/uL (0-0.2); Basophils % (auto) 1.1 % (0.0-2.0); Eosinophils # (auto) 1.4 10 ^3/uL (0-0.8); Eosinophils % (auto) 14.5 % (0.0-7.0); Hematocrit 23.5 % (36.0-46.0); Hemoglobin 7.4 g/dL (12.2-16.2); Lymphocytes # (auto) 1.1 10 ^3/uL (0.4-5.4); Lymphocytes % (auto) 10.8 % (10.0-50.0); Mean Corpuscular Hemoglobin 28.8 pg (28.0-32.0); Mean Corpuscular Hgb Conc. 31.6 g/dL (32.0-36.0); Mean Corpuscular Volume 91.1 fL (80.0-100.0); Monocytes # (auto) 0.5 10 ^3/uL (0-1.3); Monocytes % (auto) 4.8 % (0.0-12.0); Neutrophils # (auto) 6.8 10 ^3/uL (1.6-8.6); Neutrophils % (auto) 68.8 % (37.0-80.0); Nucleated Red Blood Cells % 0.1 %; Platelet Count (auto) 259 10^3/uL (140-450); Red Blood Cells 2.58 10^6/uL (4.0-5.20); Red Cell Distribution Width 17.2 % (11.8-14.3); White Blood Cell 9.9 10^3/uL (4.4-10.8)
[2024-07-27 04:26] LABS: Alanine Aminotransferase 15 U/L (7-40); Anion Gap 10 (5-15); BUN/Creatinine Ratio 6.3 (10.0-20.0); Calcium 9.3 mg/dL (8.7-10.4); Carbon Dioxide 26 mmol/L (20-31); Glucose 95 mg/dL (74-106); Potassium 3.5 mmol/L (3.5-5.1); Sodium 144 mmol/L (136-145)
[2024-07-27 04:27] LABS: Albumin 2.4 g/dL (3.2-4.8); Alkaline Phosphatase 195 U/L (46-116); Aspartate Aminotransferase 81 U/L (13-40); Bilirubin, Total 0.6 mg/dL (0.2-1.0); Blood Urea Nitrogen 36 mg/dL (9-23); Chloride 108 mmol/L (98-107); Total Protein 5.5 g/dL (5.7-8.2)
--- NOTE | 2024-07-27 05:46 | DVH ---
CHEST RADIOGRAPH Indication: Pneumonia Technique: Single frontal view of the chest was obtained Comparison: XY CHEST XRAY 1 VIEW on DOS: 07/26/24, XY CHEST XRAY 1 VIEW on DOS: 07/25/24, XY CHEST XR AY 1 VIEW on DOS: 07/24/24 IMPRESSION: The cardiac silhouette is enlarged. No sizable effusion or pneumothorax. Support lines and tubes stephen ear unchanged in satisfactory position. Interstitial prominence and increased pulmonary markings appe ar similar.
--- NOTE | 2024-07-27 11:32 | DVHPN2 ---
Progress Note - Dictate Date Seen: Jul 27, 2024 Has the PT tested + for MRSA If YES, has PT been informed?: No Medical Necessity Reason Pt with a Central, PICC or Fol: Yes The following are medically ne: Central Line, Jones Catheter Reason for jones catheter: Strict I&O Subjective Ms. Wren is a 63 years old female with a history of asthma, COPD, paroxysmal atrial fibrillation, allergy to animal dander, smoking, she was brought to the [facility] on 07/08/2024 with a chief company of altered mental status. I have seen and examined the patient, I have talked to her nurse, she remained intubated, nonresponsive to strong painful stimuli. No brainstem reflexes. No brainstem reflexes The pupils are nonreactive, with the left-sided slightly bigger Overall, I do not see changes/improvement clinically and on physical examination Tele Neurology consult reaching, 07/24/2024: Severe anoxic brain injury Poor prognosis No chance of meaningful recovery UDS, 07/12/2024: Cannabinoids Urinalysis, 07/08/2024: WBC: 26, urine leukocyte esterase: Negative ABG, 07/08/2024: acidosis, WBC/HB/PLT/MCV, 07/15/2024: 11.5/75/80/89.3 PT/INR/PTT, 07/08/2024: 16/1.56/26.8 BUN/CR, 07/15/2024: 112/8.19 TBI/AST/ALT/AP, 07/15/2024: 0.8/68/45/31 EEG, 07/16/2024: Inadequate, but likely remarkably abnormal EEG Brain flow NM, 07/23/2024: No cerebral blood flow visualized. Findings may be seen with brain , however correlation with clinical findings is needed CT head, 07/08/2024: 1. No acute intracranial hemorrhage. 2. No CT findings of territorial ischemia CT head, 07/12/2024: 1. Symmetric hypodensities in the lentiform nuclei, similar to prior study. Hypodensities in the bilateral thalami new since prior CT scan of the head from 07/10/2024. Additionally, there is subtle loss of mendoza-white matter differentiation since the prior CT from 07/08/2024 for which intracerebral edema is not excluded. Correlation for toxic metabolic or ischemic insult or other etiology is recommended. MRI of the brain without contrast is recommended for further evaluation. 2. No evidence of acute intracranial hemorrhag CT head, 07/19/2024: 1. Severe Generalized Hypoxia: Diffuse hypo-attenuation of the bilateral frontal, parietal and temporal lobes with loss of mendoza-white matter differentiation, probably secondary to generalized hypoxia. Diffuse cerebral edema with effacement of the sulci and basilar cisterns. Relative sparing of the cerebellar hemispheres. 2. No Evidence of Intraparenchymal hematoma, midline shift or hydrocephalus. 3. Soft Tissue Findings: Right periorbital soft tissue edema, with no evidence of calvarial fracture MRI head, 07/14/2024: There is T2/FLAIR hyperintensity involving the lentiform nucleus, hypothalamic region, cerebral peduncle, dorsal midbrain , dorsal liberty and dorsal medulla with symmetric bilateral dorsal medulla small focus of diffusion restriction. Findings are nonspecific and may be seen with hypoxic ischemic encephalopathy, metabolic or toxic disorders. Recommend clinical correlation vital signs Vital Sign Date Time Temp Pulse Resp B/P (MAP) Pulse Ox O2 Delivery O2 Flow Rate FiO2 07/27/24 11:26 78 18 135/83 (100) 100 30 07/27/24 10:00 96.8 206.2 07/27/24 10:00 Mechanical Ventilator+ Total Intake and Output 07/26/24 07/26/24 07/27/24 15:00 23:00 07:00 Intake Total 114 ml 174 ml 142 ml Output Total 110 ml 100 ml Balance 114 ml 64 ml 42 ml medications Current Medications Medications Dose Ordered Sig/Perez Route Start Time Stop Time Status Last Admin Dose Admin Acetaminophen 650 mg Q6HP PRN PO 07/08/24 22:45 07/09/24 22:29 650 MG Nitroglycerin 0.4 mg Q5MINP PRN SL 07/08/24 22:45 Acetaminophen 650 mg Q6HP PRN ME 07/09/24 11:00 07/09/24 15:54 650 MG Pantoprazole Sodium 40 mg BID IV 07/11/24 22:00 07/27/24 09:58 40 MG Enteral Nutritional Formula 1,000 ml 30ML/HR GT 07/16/24 14:45 07/21/24 17:13 1,000 ML Norepinephrine Bitartrate 250 ml @ 1.875 mls/ hr Q24H IV 07/16/24 15:45 07/27/24 09:59 18.75 MLS/HR Levalbuterol HCl 1.25 mg Q6HR NEB 07/19/24 18:00 07/27/24 11:26 1.25 MG Ipratropium [place] 0.5 mg Q4HR NEB 07/20/24 12:00 Cancel Ipratropium [place] 0.5 mg Q6HR NEB 07/20/24 12:00 07/27/24 11:26 0.5 MG Artificial Tears 2 drop Q6HP PRN EACHEYE 07/22/24 17:00 Erythromycin 1 applic Q12HR OP 07/22/24 22:00 07/26/24 21:13 1 APPLIC Ergocalciferol 50,000 unit Q7D PO 07/23/24 09:30 07/23/24 11:16 50,000 UNIT objective The patient is well-nourished and well-developed with no distress. The patient is intubated MENTAL STATUS: See subjective CRANIAL NERVES: Pupils are nonreactive. There are no corneal reflexes and no doll's eyes phenomenon. No signs of facial weakness. There are no gagging or coughing reflexes SENSATION: No responses to strong pain stimuli. MOTOR: Normal tone in the upper and lower extremity. Normal muscle bulk. No fasciculations. No spontaneous movement. REFLEXES: Deep tendon reflexes are symmetrical. No pathological reflexes. CEREBELLAR/COORDINATION: Deferred GAIT/STATION: deferred laboratory and microbiology Laboratory Tests 07/27/24 03:43 Test 07/27/24 03:43 Range/Units Serum Glucose 95 74-106 mg/dL Problem List Coma/diffuse brain edema Hypoxic encephalopathy Metabolic encephalopathy Cardiopulmonary arrest Acute respiratory failure Unequal pupil size/brain herniation Brain is again confirmed on physical examination on 07/27/2024 Assessment/Plan Monitoring Supportive treatment ICU care Stabilize vitals/pressor drip Respiratory support/vent management Oxygen Transferred to higher level care Social service on case More recommendation per clinical course The patient is unlikely to recover, I recommend comfort care/terminal wean This medical document was created using an electronic medical record system with [employer] system. Although this document has been carefully reviewed, there may still be some phonetic and typographical errors. These areas are purely typographical due to imperfections of the software programs, and do not reflect any compromise in the patient's medical care Prognosis guarded Dietary Evaluation Review Comments: Patient is not receiving nutrition. If GI is accessible, consider EN nutrition - Jevity 1.2 @ 55 mL/hr as tolerated. If patient remains NPO for more than 7 days, initiate TPN to meet 75% of estimated needs. Advance patient diet when medically feasible to a cardiac diet if renal function is sufficient. Expected Outcomes/Goals: Patient to receive nutrition support within 7 days of NPO status. Patient diet to advance F/u in 2-3 days Plan discussed with: Other SUMAYA ALVAREZ MD Jul 27, 2024 11:32
--- NOTE | 2024-07-27 14:17 | DVHPN2 ---
Subjective The patient is seen and examined at bedside. Seen during hemodialysis. Daughter at bedside. Reviewed: Care Plan, H&P, Labs, Medications, Previous Orders, Radiology, Other (Consultations) Changes from previous H/P or p: No Changes Objective Vitals Vital Signs Date Time Temp Pulse Resp B/P (MAP) Pulse Ox O2 Delivery O2 Flow Rate FiO2 07/27/24 13:59 71 18 109/66 (80) 100 30 07/27/24 13:00 97.7 207.9 07/27/24 12:00 Mechanical Ventilator+ Intake/Output Intake and Output 07/27/24 07:00 Intake Total 430 ml Output Total 210 ml Balance 220 ml IV Total 234 ml Tube Feeding 196 ml Output Urine Total 200 ml Stool Total 10 ml General Appearance: Other (Intubated and sedated) HEENT: Atraumatic Lungs: Other (Mechanical ventilation breathing sounds) Cardiovascular: Normal S1, Normal S2, Other (Tachycardia) Abdomen: Other (Hypoactive bowel sound) Genitourinary: Other (Allen's catheter) Neuro: Other (Sedated) Psych/Mental Status: Other (Sedated) Medications Current Medications Medications Dose Ordered Sig/Perez Route Start Time Stop Time Status Last Admin Dose Admin Acetaminophen 650 mg Q6HP PRN PO 07/08/24 22:45 07/09/24 22:29 650 MG Nitroglycerin 0.4 mg Q5MINP PRN SL 07/08/24 22:45 Acetaminophen 650 mg Q6HP PRN DC 07/09/24 11:00 07/09/24 15:54 650 MG Pantoprazole Sodium 40 mg BID IV 07/11/24 22:00 07/27/24 09:58 40 MG Enteral Nutritional Formula 1,000 ml 30ML/HR GT 07/16/24 14:45 07/21/24 17:13 1,000 ML Norepinephrine Bitartrate 250 ml @ 1.875 mls/ hr Q24H IV 07/16/24 15:45 07/27/24 09:59 18.75 MLS/HR Levalbuterol HCl 1.25 mg Q6HR NEB 07/19/24 18:00 07/27/24 11:26 1.25 MG Ipratropium [place] 0.5 mg Q4HR NEB 07/20/24 12:00 Cancel Ipratropium [place] 0.5 mg Q6HR NEB 07/20/24 12:00 07/27/24 11:26 0.5 MG Artificial Tears 2 drop Q6HP PRN EACHEYE 07/22/24 17:00 Erythromycin 1 applic Q12HR OP 07/22/24 22:00 07/27/24 12:46 1 APPLIC Ergocalciferol 50,000 unit Q7D PO 07/23/24 09:30 07/23/24 11:16 50,000 UNIT Laboratory Results Laboratory Tests 07/27/24 03:43 Chemistry Test 07/27/24 03:43 Albumin 2.4 g/dL (3.2-4.8) L Calcium Level 9.3 mg/dL (8.7-10.4) Total Protein 5.5 g/dL (5.7-8.2) L LFT Test 07/27/24 03:43 Alanine Aminotransferase (ALT) 15 U/L (7-40) Alkaline Phosphatase 195 U/L (46-116) H Aspartate Amino Transferase (AST) 81 U/L (13-40) H Total Bilirubin 0.6 mg/dL (0.2-1.0) Urinalysis Test 07/08/24 22:00 Urine Color Colorless (Yellow) Urine Clarity Turbid (Clear) H Urine pH 8.5 (5.0-9.0) Urine Specific [place] 1.006 (1.001-1.035) Urine Protein 2+ (Negative) H Urine Ketones Negative (Negative) Urine Blood 3+ /uL (Negative) H Urine Nitrite Negative (Negative) Urine Bilirubin Negative (Negative) Urine Urobilinogen Normal mg/dL (Negative) Urine Leukocyte Esterase Negative /uL (Negative) Urine RBC 22 /hpf (0 - 4) Urine WBC 26 /hpf (0 - 5) Urine Squamous Epithelial Cells Few /hpf (<5) Urine Bacteria Few /hpf (None Seen) H Urine Glucose 3+ mg/dL (Normal) H Microbiology Microbiology Date/Time Source Procedure Growth Status 07/16/24 17:02 Trachea Gram Stain - Final Complete 07/16/24 17:02 Respiratory Culture - Final Enterobacter cloacae Complete 07/09/24 00:07 Blood Blood Culture - Final NO GROWTH AFTER 5 DAYS OF INCUBATION. Complete 07/08/24 22:00 Voided Urine Urine Culture - Final Complete Labs and/or images reviewed: Labs reviewed by me Assessment/Plan Assessment/Plan This is a 63-year-old female with past medical history of allergic asthma, COPD, hypertension, paroxysmal atrial fibrillation, repaired mitral valve, IBS, generalized anxiety, chronic pain and insomnia brought to the hospital after loss of consciousness. Patient had lost consciousness out of house, witnessed by the bystanders, found asystole by EMS, performed CPR for 20 minutes and retained ROSC. Admitted on 07/09/2024. NEURO: Acute metabolic encephalopathy, likely due to sepsis/possible anoxic brain injury due to cardiac arrest Patient is sedated, and on mechanical ventilation, Status post cardiac arrest Possible Cerebral edema, likely due to cardiac arrest Possible cerebral herniation, Bilateral pupils are dilated, fixed, asymmetric and nonreactive to the light. Head CT scan shows less prominent sulci, likely due to cerebral edema We will consider head CT scan after 48 hour for the monitoring of possible cerebral edema Teleneurology consulted on 07/10 has consulted . Poor prognosis. Head CT scan of 07/12/2024 shows changes but could not exclude brain edema Brain MRI shows nonspecific findings may be seen with hypoxic ischemic encephalopathy, metabolic or toxic disorders EEG shows severe cerebral dysfunction due to metabolic/hypoxic encephalopathy or medication effect Head CT scan from 07/19, shows effacement of sulci Neurology has consulted, and recommended that the patient have a poor prognosis for meaningful recovery and higher level care transfer is unlikely to change progresses. Brain perfusion test shows, no cerebral blood flow visualized and on site neurologist recommend comfort care, patients daughter requested a second opinion from another neurologist per second neurologist there is severe anoxic brain injury and no chance of meaningful recovery CARDIOVASCULAR: Status post cardiac arrest Patient has history of paroxysmal atrial fibrillation Non ST-elevation ND, type 2, likely due to cardiac arrest and CPR Circulation shock, likely septic likely due to pneumonia Patient has history of open heart surgery for mitral valve repair Sinus tachycardia Atrial fibrillation Troponin is raised EKG shows sinus tachycardia, with no significant ST or T-wave changes Cardiology on the board, recommended conservative management Echocardiogram shows Borderline Normal left ventricular systolic function estimated ejection [id number] Moderately elevated right ventricular systolic pressure 40 mm of mercury. 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 as well as mitral valve repair Cardiology is on the board, suggested conservative management Sinus tachycardia Due to paroxysmal atrial fibrillation and RVR, the Cardiology consulted back, recommended to use digoxin in case of atrial fibrillation recurrence PULMONARY: Patient is sedated, and on mechanical ventilator, RASS (-5, unresponsive) with ventilator setting of( Vt 450, RR 26, FiO2 30%, peep 5) Acute hypoxic respiratory failure likely due to pneumonia/COPD exacerbation/asthma exacerbation Pneumonia likely due to Gram-positive/Gram-negative Septic shock likely due to pneumonia/UTI Patient has history of multiple hospital admission, including intubated for 2 months in [place] in 2007, mitral valve repair and also has been admitted in [facility] MRSA nares screening negative and stopped vancomycin (given for 4 days) COVID-19 and influenza antigens are negative Discontinue Zosyn, use for 8 days Chest x-ray does not shows any acute cardiopulmonary abnormality ABGs shows parameters within normal limits Continue Albuterol and ipratropium nebulization every 6 hours Sputum culture shows Enterobacter cloacae, sensitive to meropenem Discontinue meropenem, used for 7 days GI: Possible Upper GI bleeding, unspecified location Transaminitis, likely due to ischemia secondary to cardiac arrest NG tube showed black drainage on 06/29 and 06/30 likely due to upper GI bleeding GI consulted, recommended conservative management Continue Protonix b.i.d. Discontinue Lovenox due to severe anemia and possible upper GI bleeding Ammonia level is normal RENAL: NAOMI, no previous records available Nephrology on the board, hemodialysis performed today and taken out 463ml UTI, unspecified location UA shows UTI picture Urine culture showed no bacterial growth ID: Urine and blood culture from 07/08 shows no bacterial growth Blood culture from 07/09 shows no bacterial growth MRSA screening on 07/09 negative, and discontinued vancomycin COVID-19 and influenza screening from 07/09 negative Discontinue Zosyn, use for 8 days Sputum culture shows Enterobacter cloacae, sensitive to meropenem Discontinue meropenem, used 7 days Cannabinoid use disorder UDS shows cannabis positive Metabolic: Hypokalemia, Supplemented Magnesium is within normal limits Hyperkalemia, normalized Mild Hypernatremia, improved Mild hyperkalemia, injection calcium gluconate given Vitamin B12 is normal Vitamin -D level is low, supplemented Cortisol a.m. is normal TSH is normal Gynecology Vaginal bleeding On 07/20 5-10 mL of vaginal bleeding noticed, with some clots on 07/18 Monitoring DVT prophylaxis Due to possible upper GI bleeding, Lovenox is not indicated SCD LINES/DRAINS/ACCESS: ETT tube, intubated on 07/08/2024 Transurethral catheter, placed on 07/08/2024 IV Access Right femoral vein (CVC), placed on 07/08/2024 Left femoral vein catheter for HD, placed on 07/17 Drips: Levophed 9 Diet: Nepro 30 mL/hour on 07/16 CODE STATUS: Full code Continuing current management. Continuing with hemodialysis. Continuing with ventilation support. Discussed with daughter in length at bedside. Prognosis is poor. The patient had cardiac arrest. Daughter verbally understands. At this point the patient is still remained full code per daughter wish. She wanted to discuss further plan which has been set up as a family meeting on Monday with ICU attending. This medical document was created using an electronic medical record system with [employer] direct computerized dictation system. Although this document has been carefully reviewed, there may still be some phonetic and typographical errors. These areas are purely typographical due to imperfections of the software programs, and do not reflect any compromise in the patient's medical care. Plan discussed with: Daughter, Other (RN) Date of Service: Jul 27, 2024 Billing Provider: THEODORA PEREZ MD Common Visit Codes: 03001-[id number] INP/OBS CARE(HIGH) THEODORA PEREZ MD Jul 27, 2024 14:17
--- NOTE | 2024-07-27 16:27 | DVHPN2 ---
Progress Note - Dictate Date Seen: Jul 27, 2024 Has the PT tested + for MRSA If YES, has PT been informed?: No Medical Necessity Reason Pt with a Central, PICC or Fol: Yes The following are medically ne: Central Line, Jones Catheter Reason for jones catheter: Strict I&O Subjective Remains intubated in the ICU Hemodialysis nurse at bedside attempted hemodialysis treatment within 20 minutes of treatment patient's blood pressure dropped to the 50s. The blood was returned immediately. Dialysis treatment ended with positive 400 cc fluid balance. vital signs Vital Sign Date Time Temp Pulse Resp B/P (MAP) Pulse Ox O2 Delivery O2 Flow Rate FiO2 07/27/24 16:08 74 18 118/69 (85) 100 30 07/27/24 16:00 Mechanical Ventilator+ 07/27/24 16:00 98.4 209.1 Total Intake and Output 07/26/24 07/26/24 07/27/24 14:59 22:59 06:59 Intake Total 116 ml 174 ml 150 ml Output Total 110 ml 100 ml Balance 116 ml 64 ml 50 ml medications Current Medications Medications Dose Ordered Sig/Perez Route Start Time Stop Time Status Last Admin Dose Admin Acetaminophen 650 mg Q6HP PRN PO 07/08/24 22:45 07/09/24 22:29 650 MG Nitroglycerin 0.4 mg Q5MINP PRN SL 07/08/24 22:45 Acetaminophen 650 mg Q6HP PRN PA 07/09/24 11:00 07/09/24 15:54 650 MG Pantoprazole Sodium 40 mg BID IV 07/11/24 22:00 07/27/24 09:58 40 MG Enteral Nutritional Formula 1,000 ml 30ML/HR GT 07/16/24 14:45 07/21/24 17:13 1,000 ML Norepinephrine Bitartrate 250 ml @ 1.875 mls/ hr Q24H IV 07/16/24 15:45 07/27/24 09:59 18.75 MLS/HR Levalbuterol HCl 1.25 mg Q6HR NEB 07/19/24 18:00 07/27/24 11:26 1.25 MG Ipratropium [place] 0.5 mg Q4HR NEB 07/20/24 12:00 Cancel Ipratropium [place] 0.5 mg Q6HR NEB 07/20/24 12:00 07/27/24 11:26 0.5 MG Artificial Tears 2 drop Q6HP PRN EACHEYE 07/22/24 17:00 Erythromycin 1 applic Q12HR OP 07/22/24 22:00 07/27/24 12:46 1 APPLIC Ergocalciferol 50,000 unit Q7D PO 07/23/24 09:30 07/23/24 11:16 50,000 UNIT objective Middle-aged female Intubated Unresponsive No gag reflex Abdomen is soft No pitting edema laboratory and microbiology Laboratory Tests 07/27/24 03:43 Test 07/27/24 03:43 Range/Units Serum Glucose 95 74-106 mg/dL Problem List NAOMI secondary to hemodynamically mediated likely ischemic ATN Septic shock due to pneumonia Pneumonia NSTEMI type 2 likely due to above Cardiopulmonary arrest status post CPR with ROSC Paroxysmal atrial fibrillation Elevated liver function ? Anoxic brain injury Upper GI bleeding No evidence of renal recovery at this time Dialysis treatment ended today due to instability. We will assess daily for dialysis needs no further treatment for today Poor prognosis jail given neurologic findings of anoxic brain injury Hospice candidate Dietary Evaluation Review Comments: Patient is not receiving nutrition. If GI is accessible, consider EN nutrition - Jevity 1.2 @ 55 mL/hr as tolerated. If patient remains NPO for more than 7 days, initiate TPN to meet 75% of estimated needs. Advance patient diet when medically feasible to a cardiac diet if renal function is sufficient. Expected Outcomes/Goals: Patient to receive nutrition support within 7 days of NPO status. Patient diet to advance F/u in 2-3 days Plan discussed with: MARILYN Pruitt MD Jul 27, 2024 16:27
--- NOTE | 2024-07-27 17:35 | DVHPN ---
DATE: 07/27/2024 PULMONARY FOLLOWUP This is a pulmonary followup, I am covering for Dr. Yancey. SUBJECTIVE: The patient has a history of encephalopathy. The patient has a history of COPD, hypertension, paroxysmal atrial fibrillation, history of mitral valve replacement, generalized anxiety. The patient is status post cardiac arrest. The patient had non-ST elevation IL and the patient remains on ventilator. The patient also has a history of upper GI bleeding. At the current time, the patient is nonresponsive. The patient appears to have good patient-ventilator synchrony. No significant secretions. The patient is on 10 mcg of Levophed, not requiring any sedation. She has been off sedation for more than a week per bedside RN. Urine output is minimal. The patient is a dialysis patient, is undergoing dialysis currently. PHYSICAL EXAMINATION: VITAL SIGNS: Afebrile, heart rate 70, respiratory rate 18, blood pressure 110/66, saturation 100% on 30% FiO2. NECK: Supple. No JVD. CHEST: Examination shows a fair air entry, bibasilar rales. ABDOMEN: Distended, obese. Bowel sounds are present. EXTREMITIES: 1+ edema. LABORATORY DATA: Lab work: WBC 10, hematocrit 23, has been relatively stable for the last few days. Platelet count 259. Blood gases, pH 7.48, pCO2 31, pO2 107, saturations 97. The patient on assist control, tidal volume 500, rate of 18 PEEP of 5, 30% FiO2. Serum chemistries noted, BUN 36, creatinine 5.73, chloride 108. LFTs significant for AST 81, alkaline phosphatase 195, albumin 2.41. Sputum culture have grown Enterobacter cloacae. Chest x-ray shows increase in heart size with pulmonary venous congestion, but they are unchanged. IMPRESSION AND PLAN: Acute respiratory failure, possible pneumonia, history of encephalopathy, history of atrial fibrillation and congestive heart failure, history of chronic obstructive pulmonary disease. Prognosis is guarded and dependent on neurological recovery. Ventilator settings appear to be adequate. Continue follow up with GI, Nephrology. Dialysis per Nephrology. Also, cardiac followup. We will continue med nebs, continue current vent settings. Continue Protonix for GI prophylaxis. Prognosis guarded and as mentioned, dependent on neurological recovery. Gage Chase MD /PRM TID: [id number] RECEIPT: [id number]
[2024-07-27] MEDS: EPOETIN ALFA-EPBX 10,000 UNIT/1ML VIAL SC ONE (21:03)
[2024-07-28] VITALS (108 sets, daily range): BP systolic 85–170; BP diastolic 47–98; PULSE 69–80; RESP 17–21; TEMP 97.2–98.6; O2SAT 98–100
--- NOTE | 2024-07-28 06:02 | DVH ---
CHEST RADIOGRAPH Indication: PT IS INTUBATED Technique: Single frontal view of the chest was obtained COMPARISON: XY CHEST XRAY 1 VIEW on DOS: 07/27/24, XY CHEST XRAY 1 VIEW on DOS: 07/26/24, XY CHEST XR AY 1 VIEW on DOS: 07/25/24, XY CHEST XRAY 1 VIEW on DOS: 07/26/24 FINDINGS: Lines and Tubes: Endotracheal tube and enteric catheter in satisfactory position. Median sternotomy. Lungs: Diffuse increased interstitial prominence. Pleura: No effusion. No pneumothorax. Cardiomediastinal contours: Unremarkable Bones: Unremarkable IMPRESSION: Lines and tubes in satisfactory position. No significant interval change.
[2024-07-28 06:48] LABS: Base Excess 1.7 mmol/L (-2.0-3.0)
[2024-07-28 08:20] LABS: Hemoglobin 7.2 g/dL (12.2-16.2)
[2024-07-28 08:24] LABS: Hematocrit 22.2 % (36.0-46.0); Mean Corpuscular Hemoglobin 28.9 pg (28.0-32.0); Mean Corpuscular Hgb Conc. 32.4 g/dL (32.0-36.0); Red Blood Cells 2.49 10^6/uL (4.0-5.20); Red Cell Distribution Width 16.9 % (11.8-14.3)
[2024-07-28 08:36] LABS: Alanine Aminotransferase 15 U/L (7-40); Anion Gap 10 (5-15); BUN/Creatinine Ratio 6.2 (10.0-20.0); Bilirubin, Total 0.6 mg/dL (0.2-1.0); Calcium 9.2 mg/dL (8.7-10.4); Carbon Dioxide 26 mmol/L (20-31); Glucose 101 mg/dL (74-106)
[2024-07-28 08:38] LABS: Band Neutrophils % (manual) 0; Basophils % (manual) 0 (0.0-2.0); Blast Cells 0; Metamyelocytes % 0; Myelocytes % 0; Promyelocytes % 0; Reactive Lymphocytes 0
[2024-07-28 08:41] LABS: Albumin 2.3 g/dL (3.2-4.8); Alkaline Phosphatase 205 U/L (46-116); Aspartate Aminotransferase 97 U/L (13-40); Blood Urea Nitrogen 39 mg/dL (9-23); Chloride 109 mmol/L (98-107); Sodium 145 mmol/L (136-145); Total Protein 5.3 g/dL (5.7-8.2)
[2024-07-28 09:13] LABS: Eosinophils % (manual) 25 (0-7); Lymphocytes % (manual) 10 (10.0-50.0); Monocytes % (manual) 5 (0-12); Platelet Estimate Adequate
[2024-07-28 09:14] LABS: Platelet Count (auto) 259 10^3/uL (140-450)
[2024-07-28] MEDS: cefTRIAXone 1GM/50ML D5W 50 ML IV ONE (10:08)
[2024-07-28] MEDS: cefTRIAXone 1GM/50ML D5W 50 ML IV SCH (10:10)
--- NOTE | 2024-07-28 10:27 | DVHPN2 ---
Progress Note - Dictate Date Seen: Jul 28, 2024 Has the PT tested + for MRSA If YES, has PT been informed?: No Medical Necessity Reason Pt with a Central, PICC or Fol: Yes The following are medically ne: Central Line, Jones Catheter Reason for jones catheter: Strict I&O Subjective Ms. Wren is a 63 years old female with a history of asthma, COPD, paroxysmal atrial fibrillation, allergy to animal dander, smoking, she was brought to the [facility] on 07/08[facility]2024 with a chief company of altered mental status. I have seen and examined the patient, I have talked to her nurse and other medical staff, she remained nonresponsive to stroke painful stimuli, she was intubated, the pupils are fixed, with left-side slightly bigger, no brainstem reflexes Tele Neurology consult reaching, 07/24/2024: Severe anoxic brain injury Poor prognosis No chance of meaningful recovery UDS, 07/12/2024: Cannabinoids Urinalysis, 07/08/2024: WBC: 26, urine leukocyte esterase: Negative ABG, 07/08/2024: acidosis, WBC/HB/PLT/MCV, 07/15/2024: 11.5/75/80/89.3 PT/INR/PTT, 07/08/2024: 16/1.56/26.8 BUN/CR, 07/15/2024: 112/8.19 TBI/AST/ALT/AP, 07/15/2024: 0.8/68/45/31 EEG, 07/16/2024: Inadequate, but likely remarkably abnormal EEG Brain flow NM, 07/23/2024: No cerebral blood flow visualized. Findings may be seen with brain , however correlation with clinical findings is needed CT head, 07/08/2024: 1. No acute intracranial hemorrhage. 2. No CT findings of territorial ischemia CT head, 07/12/2024: 1. Symmetric hypodensities in the lentiform nuclei, similar to prior study. Hypodensities in the bilateral thalami new since prior CT scan of the head from 07/10/2024. Additionally, there is subtle loss of mendoza-white matter differentiation since the prior CT from 07/08/2024 for which intracerebral edema is not excluded. Correlation for toxic metabolic or ischemic insult or other etiology is recommended. MRI of the brain without contrast is recommended for further evaluation. 2. No evidence of acute intracranial hemorrhag CT head, 07/19/2024: 1. Severe Generalized Hypoxia: Diffuse hypo-attenuation of the bilateral frontal, parietal and temporal lobes with loss of mendoza-white matter differentiation, probably secondary to generalized hypoxia. Diffuse cerebral edema with effacement of the sulci and basilar cisterns. Relative sparing of the cerebellar hemispheres. 2. No Evidence of Intraparenchymal hematoma, midline shift or hydrocephalus. 3. Soft Tissue Findings: Right periorbital soft tissue edema, with no evidence of calvarial fracture MRI head, 07/14/2024: There is T2/FLAIR hyperintensity involving the lentiform nucleus, hypothalamic region, cerebral peduncle, dorsal midbrain , dorsal liberty and dorsal medulla with symmetric bilateral dorsal medulla small focus of diffusion restriction. Findings are nonspecific and may be seen with hypoxic ischemic encephalopathy, metabolic or toxic disorders. Recommend clinical correlation vital signs Vital Sign Date Time Temp Pulse Resp B/P (MAP) Pulse Ox O2 Delivery O2 Flow Rate FiO2 07/28/24 09:48 72 18 117/71 (86) 100 30 07/28/24 08:15 97.3 207.1 07/28/24 08:00 Mechanical Ventilator+ Total Intake and Output 07/27/24 07/27/24 07/28/24 15:00 23:00 07:00 Intake Total 148.125 ml 253.775 ml 204.750 ml Output Total 125 ml 125 ml Balance 148.125 ml 128.775 ml 79.750 ml medications Current Medications Medications Dose Ordered Sig/Perez Route Start Time Stop Time Status Last Admin Dose Admin Acetaminophen 650 mg Q6HP PRN PO 07/08/24 22:45 07/09/24 22:29 650 MG Nitroglycerin 0.4 mg Q5MINP PRN SL 07/08/24 22:45 Acetaminophen 650 mg Q6HP PRN SD 07/09/24 11:00 07/09/24 15:54 650 MG Pantoprazole Sodium 40 mg BID IV 07/11/24 22:00 07/28/24 09:01 40 MG Enteral Nutritional Formula 1,000 ml 30ML/HR GT 07/16/24 14:45 07/21/24 17:13 1,000 ML Norepinephrine Bitartrate 250 ml @ 1.875 mls/ hr Q24H IV 07/16/24 15:45 07/27/24 21:04 20.625 MLS/HR Levalbuterol HCl 1.25 mg Q6HR NEB 07/19/24 18:00 07/28/24 06:11 1.25 MG Ipratropium [place] 0.5 mg Q4HR NEB 07/20/24 12:00 Cancel Ipratropium [place] 0.5 mg Q6HR NEB 07/20/24 12:00 07/28/24 06:11 0.5 MG Artificial Tears 2 drop Q6HP PRN EACHEYE 07/22/24 17:00 Erythromycin 1 applic Q12HR OP 07/22/24 22:00 07/28/24 08:58 1 APPLIC Ergocalciferol 50,000 unit Q7D PO 07/23/24 09:30 07/23/24 11:16 50,000 UNIT Ceftriaxone Sodium 50 ml @ 100 mls/hr DAILY@09 IV 07/28/24 10:00 07/28/24 10:10 100 MLS/HR objective The patient is well-nourished and well-developed with no distress. The patient is intubated MENTAL STATUS: See subjective CRANIAL NERVES: Pupils are nonreactive. There are no corneal reflexes and no doll's eyes phenomenon. No signs of facial weakness. There are no gagging or coughing reflexes SENSATION: No response to strong pain stimuli. MOTOR: Normal tone in the upper and lower extremity. Normal muscle bulk. No fasciculations. No spontaneous movement. REFLEXES: Deep tendon reflexes are symmetrical. No pathological reflexes. CEREBELLAR/COORDINATION: Deferred GAIT/STATION: deferred laboratory and microbiology Laboratory Tests 07/28/24 07:58 Test 07/28/24 07:58 Range/Units Serum Glucose 101 74-106 mg/dL Problem List Coma/diffuse brain edema Hypoxic encephalopathy Metabolic encephalopathy Cardiopulmonary arrest Acute respiratory failure Unequal pupil size/brain herniation Brain Assessment/Plan Monitoring Supportive treatment ICU care Stabilize vitals/pressor drip Respiratory support/vent management Oxygen Transferred to higher level care Social service on case More recommendation per clinical course I recommend comfort care/terminal wean This medical document was created using an electronic medical record system with [employer] dictation system. Although this document has been carefully reviewed, there may still be some phonetic and typographical errors. These areas are purely typographical due to imperfections of the software programs, and do not reflect any compromise in the patient's medical care Prognosis guarded Dietary Evaluation Review Comments: Patient is not receiving nutrition. If GI is accessible, consider EN nutrition - Jevity 1.2 @ 55 mL/hr as tolerated. If patient remains NPO for more than 7 days, initiate TPN to meet 75% of estimated needs. Advance patient diet when medically feasible to a cardiac diet if renal function is sufficient. Expected Outcomes/Goals: Patient to receive nutrition support within 7 days of NPO status. Patient diet to advance F/u in 2-3 days Plan discussed with: Other SUMAYA ALVAREZ MD Jul 28, 2024 10:26
--- NOTE | 2024-07-28 12:54 | DVHPN2 ---
Subjective The patient is seen and examined at bedside. No change overnight, remained intubated. WBC increase high. Reviewed: Care Plan, H&P, Labs, Medications, Previous Orders, Radiology, Other (Consultations) Changes from previous H/P or p: No Changes Genitourinary: No Dysuria, No Frequency, No Incontinence, No Hematuria, No Retention, No Other Objective Vitals Vital Signs Date Time Temp Pulse Resp B/P (MAP) Pulse Ox O2 Delivery O2 Flow Rate FiO2 07/28/24 11:45 132/79 07/28/24 11:30 97.5 71 18 100 207.5 07/28/24 11:29 30 07/28/24 10:00 Mechanical Ventilator+ Intake/Output Intake and Output 07/28/24 07:00 Intake Total 621.650 ml Output Total 250 ml Balance 371.650 ml IV Total 410.650 ml Tube Feeding 211 ml Output Urine Total 250 ml General Appearance: Other (Intubated and sedated) HEENT: Atraumatic Lungs: Other (Mechanical ventilation breathing sounds) Cardiovascular: Normal S1, Normal S2, Other (Tachycardia) Abdomen: Other (Hypoactive bowel sound) Genitourinary: Other (Allen's catheter) Neuro: Other (Sedated) Psych/Mental Status: Other (Sedated) Medications Current Medications Medications Dose Ordered Sig/Perez Route Start Time Stop Time Status Last Admin Dose Admin Acetaminophen 650 mg Q6HP PRN PO 07/08/24 22:45 07/09/24 22:29 650 MG Nitroglycerin 0.4 mg Q5MINP PRN SL 07/08/24 22:45 Acetaminophen 650 mg Q6HP PRN MO 07/09/24 11:00 07/09/24 15:54 650 MG Pantoprazole Sodium 40 mg BID IV 07/11/24 22:00 07/28/24 09:01 40 MG Enteral Nutritional Formula 1,000 ml 30ML/HR GT 07/16/24 14:45 07/21/24 17:13 1,000 ML Norepinephrine Bitartrate 250 ml @ 1.875 mls/ hr Q24H IV 07/16/24 15:45 07/27/24 21:04 20.625 MLS/HR Levalbuterol HCl 1.25 mg Q6HR NEB 07/19/24 18:00 07/28/24 11:29 1.25 MG Ipratropium [place] 0.5 mg Q4HR NEB 07/20/24 12:00 Cancel Ipratropium [place] 0.5 mg Q6HR NEB 07/20/24 12:00 07/28/24 11:29 0.5 MG Artificial Tears 2 drop Q6HP PRN EACHEYE 07/22/24 17:00 Erythromycin 1 applic Q12HR OP 07/22/24 22:00 07/28/24 08:58 1 APPLIC Ergocalciferol 50,000 unit Q7D PO 07/23/24 09:30 07/23/24 11:16 50,000 UNIT Ceftriaxone Sodium 50 ml @ 100 mls/hr DAILY@09 IV 07/28/24 10:00 07/28/24 10:10 100 MLS/HR Laboratory Results Laboratory Tests 07/28/24 07:58 Chemistry Test 07/28/24 07:58 Albumin 2.3 g/dL (3.2-4.8) L Calcium Level 9.2 mg/dL (8.7-10.4) Total Protein 5.3 g/dL (5.7-8.2) L LFT Test 07/28/24 07:58 Alanine Aminotransferase (ALT) 15 U/L (7-40) Alkaline Phosphatase 205 U/L (46-116) H Aspartate Amino Transferase (AST) 97 U/L (13-40) H Total Bilirubin 0.6 mg/dL (0.2-1.0) Urinalysis Test 07/08/24 22:00 Urine Color Colorless (Yellow) Urine Clarity Turbid (Clear) H Urine pH 8.5 (5.0-9.0) Urine Specific [place] 1.006 (1.001-1.035) Urine Protein 2+ (Negative) H Urine Ketones Negative (Negative) Urine Blood 3+ /uL (Negative) H Urine Nitrite Negative (Negative) Urine Bilirubin Negative (Negative) Urine Urobilinogen Normal mg/dL (Negative) Urine Leukocyte Esterase Negative /uL (Negative) Urine RBC 22 /hpf (0 - 4) Urine WBC 26 /hpf (0 - 5) Urine Squamous Epithelial Cells Few /hpf (<5) Urine Bacteria Few /hpf (None Seen) H Urine Glucose 3+ mg/dL (Normal) H Blood Gas Results Test 07/28/24 06:42 Arterial Blood pH 7.504 (7.350-7.450) FiO2 % 30.0 Microbiology Microbiology Date/Time Source Procedure Growth Status 07/16/24 17:02 Trachea Gram Stain - Final Complete 07/16/24 17:02 Respiratory Culture - Final Enterobacter cloacae Complete 07/09/24 00:07 Blood Blood Culture - Final NO GROWTH AFTER 5 DAYS OF INCUBATION. Complete 07/08/24 22:00 Voided Urine Urine Culture - Final Complete Labs and/or images reviewed: Labs reviewed by me Assessment/Plan Assessment/Plan This is a 63-year-old female with past medical history of allergic asthma, COPD, hypertension, paroxysmal atrial fibrillation, repaired mitral valve, IBS, generalized anxiety, chronic pain and insomnia brought to the hospital after loss of consciousness. Patient had lost consciousness out of house, witnessed by the bystanders, found asystole by EMS, performed CPR for 20 minutes and retained ROSC. Admitted on 07/09/2024. NEURO: Acute metabolic encephalopathy, likely due to sepsis/possible anoxic brain injury due to cardiac arrest Patient is sedated, and on mechanical ventilation, Status post cardiac arrest Possible Cerebral edema, likely due to cardiac arrest Possible cerebral herniation, Bilateral pupils are dilated, fixed, asymmetric and nonreactive to the light. Head CT scan shows less prominent sulci, likely due to cerebral edema We will consider head CT scan after 48 hour for the monitoring of possible cerebral edema Teleneurology consulted on 07/10 has consulted . Poor prognosis. Head CT scan of 07/12/2024 shows changes but could not exclude brain edema Brain MRI shows nonspecific findings may be seen with hypoxic ischemic encephalopathy, metabolic or toxic disorders EEG shows severe cerebral dysfunction due to metabolic/hypoxic encephalopathy or medication effect Head CT scan from 07/19, shows effacement of sulci Neurology has consulted, and recommended that the patient have a poor prognosis for meaningful recovery and higher level care transfer is unlikely to change progresses. Brain perfusion test shows, no cerebral blood flow visualized and on site neurologist recommend comfort care, patients daughter requested a second opinion from another neurologist per second neurologist there is severe anoxic brain injury and no chance of meaningful recovery CARDIOVASCULAR: Status post cardiac arrest Patient has history of paroxysmal atrial fibrillation Non ST-elevation NC, type 2, likely due to cardiac arrest and CPR Circulation shock, likely septic likely due to pneumonia Patient has history of open heart surgery for mitral valve repair Sinus tachycardia Atrial fibrillation Troponin is raised EKG shows sinus tachycardia, with no significant ST or T-wave changes Cardiology on the board, recommended conservative management Echocardiogram shows Borderline Normal left ventricular systolic function estimated ejection %. Moderately elevated right ventricular systolic pressure 40 mm of mercury. 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 as well as mitral valve repair Cardiology is on the board, suggested conservative management Sinus tachycardia Due to paroxysmal atrial fibrillation and RVR, the Cardiology consulted back, recommended to use digoxin in case of atrial fibrillation recurrence PULMONARY: Patient is sedated, and on mechanical ventilator, RASS (-5, unresponsive) with ventilator setting of( Vt 450, RR 26, FiO2 30%, peep 5) Acute hypoxic respiratory failure likely due to pneumonia/COPD exacerbation/asthma exacerbation Pneumonia likely due to Gram-positive/Gram-negative Septic shock likely due to pneumonia/UTI Patient has history of multiple hospital admission, including intubated for 2 months in [place] in 2007, mitral valve repair and also has been admitted in [facility] MRSA nares screening negative and stopped vancomycin (given for 4 days) COVID-19 and influenza antigens are negative Discontinue Zosyn, use for 8 days Chest x-ray does not shows any acute cardiopulmonary abnormality ABGs shows parameters within normal limits Continue Albuterol and ipratropium nebulization every 6 hours Sputum culture shows Enterobacter cloacae, sensitive to meropenem Discontinue meropenem, used for 7 days GI: Possible Upper GI bleeding, unspecified location Transaminitis, likely due to ischemia secondary to cardiac arrest NG tube showed black drainage on 06/29 and 06/30 likely due to upper GI bleeding GI consulted, recommended conservative management Continue Protonix b.i.d. Discontinue Lovenox due to severe anemia and possible upper GI bleeding Ammonia level is normal RENAL: NAOMI, no previous records available Nephrology on the board, hemodialysis performed today and taken out 463ml UTI, unspecified location UA shows UTI picture Urine culture showed no bacterial growth ID: Urine and blood culture from 07/08 shows no bacterial growth Blood culture from 07/09 shows no bacterial growth MRSA screening on 07/09 negative, and discontinued vancomycin COVID-19 and influenza screening from 07/09 negative Discontinue Zosyn, use for 8 days Sputum culture shows Enterobacter cloacae, sensitive to meropenem Discontinue meropenem, used 7 days Cannabinoid use disorder UDS shows cannabis positive Metabolic: Hypokalemia, Supplemented Magnesium is within normal limits Hyperkalemia, normalized Mild Hypernatremia, improved Mild hyperkalemia, injection calcium gluconate given Vitamin B12 is normal Vitamin -D level is low, supplemented Cortisol a.m. is normal TSH is normal Gynecology Vaginal bleeding On 07/20 5-10 mL of vaginal bleeding noticed, with some clots on 07/18 Monitoring DVT prophylaxis Due to possible upper GI bleeding, Lovenox is not indicated SCD LINES/DRAINS/ACCESS: ETT tube, intubated on 07/08/2024 Transurethral catheter, placed on 07/08/2024 IV Access Right femoral vein (CVC), placed on 07/08/2024 Left femoral vein catheter for HD, placed on 07/17 Drips: Levophed 9 Diet: Nepro 30 mL/hour on 07/16 CODE STATUS: Full code Continuing current management. Continuing with hemodialysis. Continuing with ventilation support. Discussed with daughter in length at bedside. Prognosis is poor. The patient had cardiac arrest. Daughter verbally understands. At this point the patient is still remained full code per daughter wish. She wanted to discuss further plan which has been set up as a family meeting on Monday with ICU attending. 07/28 : WBC suddenly increase high to 20,000. I will repeat BC Sputum culture, and UC. I also will restart patient on IV abx: Ceftriaxone. This medical document was created using an electronic medical record system with [employer] direct computerized dictation system. Although this document has been carefully reviewed, there may still be some phonetic and typographical errors. These areas are purely typographical due to imperfections of the software programs, and do not reflect any compromise in the patient's medical care. Plan discussed with: Other (RN) My Orders Orders - THEODORA PEREZ MD Procedure Category Date Status Time Blood Culture ANH 07/28/24 In Process (Pediatric) 09:13 Urine Bacterial ANH 07/28/24 In Process Culture 09:13 Respiratory Culture ANH 07/28/24 In Process W/ Gs 09:13 Ceftriaxone 1gm/50ml PHA 07/28/24 In Process D5w (Rocephin) 10:00 Date of Service: Jul 28, 2024 Billing Provider: THEODORA PEREZ MD Common Visit Codes: 34965-[id number] INP/OBS CARE(HIGH) THEODORA PEREZ MD Jul 28, 2024 12:54
--- NOTE | 2024-07-28 15:13 | DVHPN2 ---
Progress Note - Dictate Date Seen: Jul 28, 2024 Has the PT tested + for MRSA If YES, has PT been informed?: No Medical Necessity Reason Pt with a Central, PICC or Fol: Yes The following are medically ne: Central Line, Jones Catheter Reason for jones catheter: Strict I&O Subjective Remains intubated in the ICU vital signs Vital Sign Date Time Temp Pulse Resp B/P (MAP) Pulse Ox O2 Delivery O2 Flow Rate FiO2 07/28/24 14:00 74 07/28/24 14:00 30 07/28/24 14:00 18 99 Mechanical Ventilator+ 07/28/24 13:30 97.7 111/67 (82) 207.9 Total Intake and Output 07/27/24 07/27/24 07/28/24 15:00 23:00 07:00 Intake Total 148.125 ml 253.775 ml 219.750 ml Output Total 125 ml 125 ml Balance 148.125 ml 128.775 ml 94.750 ml medications Current Medications Medications Dose Ordered Sig/Perez Route Start Time Stop Time Status Last Admin Dose Admin Acetaminophen 650 mg Q6HP PRN PO 07/08/24 22:45 07/09/24 22:29 650 MG Nitroglycerin 0.4 mg Q5MINP PRN SL 07/08/24 22:45 Acetaminophen 650 mg Q6HP PRN NM 07/09/24 11:00 07/09/24 15:54 650 MG Pantoprazole Sodium 40 mg BID IV 07/11/24 22:00 07/28/24 09:01 40 MG Enteral Nutritional Formula 1,000 ml 30ML/HR GT 07/16/24 14:45 07/21/24 17:13 1,000 ML Norepinephrine Bitartrate 250 ml @ 1.875 mls/ hr Q24H IV 07/16/24 15:45 07/27/24 21:04 20.625 MLS/HR Levalbuterol HCl 1.25 mg Q6HR NEB 07/19/24 18:00 07/28/24 11:29 1.25 MG Ipratropium [place] 0.5 mg Q4HR NEB 07/20/24 12:00 Cancel Ipratropium [place] 0.5 mg Q6HR NEB 07/20/24 12:00 07/28/24 11:29 0.5 MG Artificial Tears 2 drop Q6HP PRN EACHEYE 07/22/24 17:00 Erythromycin 1 applic Q12HR OP 07/22/24 22:00 07/28/24 08:58 1 APPLIC Ergocalciferol 50,000 unit Q7D PO 07/23/24 09:30 07/23/24 11:16 50,000 UNIT Ceftriaxone Sodium 50 ml @ 100 mls/hr DAILY@09 IV 07/28/24 10:00 07/28/24 10:10 100 MLS/HR objective Middle-aged female Intubated Unresponsive No gag reflex Abdomen is soft No pitting edema laboratory and microbiology Laboratory Tests 07/28/24 07:58 Test 07/28/24 07:58 Range/Units Serum Glucose 101 74-106 mg/dL Problem List NAOMI secondary to hemodynamically mediated likely ischemic ATN Septic shock due to pneumonia Pneumonia NSTEMI type 2 likely due to above Cardiopulmonary arrest status post CPR with ROSC Paroxysmal atrial fibrillation Elevated liver function Anoxic brain injury-> deemed brain as per neurology Upper GI bleeding No evidence of renal recovery at this time resume monday HD 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 If GI is accessible, consider EN nutrition - Jevity 1.2 @ 55 mL/hr as tolerated. If patient remains NPO for more than 7 days, initiate TPN to meet 75% of estimated needs. Advance patient diet when medically feasible to a cardiac diet if renal function is sufficient. Expected Outcomes/Goals: Patient to receive nutrition support within 7 days of NPO status. Patient diet to advance F/u in 2-3 days Plan discussed with: Other MARILYN ALTAMIRANO MD Jul 28, 2024 15:13
[2024-07-28] MEDS: SODIUM CHLORIDE 0.9% 1,000 ML IV ONE (16:22)
[2024-07-28] MEDS: SODIUM CHL 0.9% 1000 ML BAG XX ONE ×2 (19:30→19:31)
[2024-07-28] MEDS: EPINEPHrine HCL 1 MG/10 ML SYRG ONE (19:30)
[2024-07-28] MEDS: ALBUMIN 25% 100 ML IV ONE (19:31)
--- NOTE | 2024-07-28 21:10 | DVHPN ---
DATE: 07/28/2024 PULMONARY FOLLOWUP COVERING FOR: Dr. Yancey The patient remains in poor condition. The patient is in no distress. The patient had some hypotension and apparently was given a fluid bolus. The patient is maintaining saturations 100% on 30%. No significant secretions or fevers reported by bedside RN. The patient is on no sedation. PHYSICAL EXAMINATION: VITAL SIGNS: Afebrile, heart rate 70, respiratory rate 18, blood pressure 110/60, saturations 99-100% on 30% FIO2. NECK: Supple. No JVD. Chest poor air entry on both sides. Bibasilar rales. ABDOMEN: Soft, nontender. Bowel sounds normal. EXTREMITIES: 1-2+ pedal edema. NEUROLOGIC: No spontaneous motor or verbal response. All limbs are flaccid. LABORATORY WORK: WBC 21, hematocrit 22, platelet count 259. Blood gases, pH 7.50, pCO2 32, pO2 93, saturations 95 on assist control, tidal volume 500, rate of 18, peep of 5, 30% FIO2. Serum chemistries, chloride 109, BUN 39, creatinine 6.25, alkaline phosphatase 205. Albumin 2.3. Sputum culture positive for enterobacter cloacae. Chest x-ray from this morning revealed lines and tubes in position. Increased interstitial prominence, possibly fluid overload. IMPRESSION: Acute respiratory failure, pleural effusion, renal insufficiency, also has hypoxic encephalopathy. The patient family is awaiting discussion with PCP, Dr. Liang as well as neurologist Dr. Iqbal before taking any decision regarding further care. Ventilator settings are adequate. We would daily x-rays and blood gases while the patient is on ventilator. Continue Protonix. Continue med nebs. Continue Rocephin. Dr. Liang will resume critical care in the morning. Gage Chase MD /NEE TID: [id number] RECEIPT: [id number] cc: Atilio Liang MD
[2024-07-29] VITALS (106 sets, daily range): BP systolic 75–158; BP diastolic 44–94; PULSE 52–80; RESP 16–19; TEMP 97.3–99.7; O2SAT 90–100
[2024-07-29 03:55] LABS: Hemoglobin 7.2 g/dL (12.2-16.2)
[2024-07-29 03:58] LABS: Hematocrit 21.6 % (36.0-46.0); Mean Corpuscular Hemoglobin 30.1 pg (28.0-32.0); Mean Corpuscular Hgb Conc. 33.4 g/dL (32.0-36.0); Platelet Count (auto) 224 10^3/uL (140-450); Red Cell Distribution Width 16.9 % (11.8-14.3); White Blood Cell 13.9 10^3/uL (4.4-10.8)
[2024-07-29 04:00] LABS: Band Neutrophils % (manual) 0; Basophils % (manual) 0 (0.0-2.0); Blast Cells 0; Metamyelocytes % 0; Myelocytes % 0; Promyelocytes % 0; Reactive Lymphocytes 0
[2024-07-29 04:15] LABS: Alanine Aminotransferase 11 U/L (7-40); Anion Gap 10 (5-15); BUN/Creatinine Ratio 6.2 (10.0-20.0); Calcium 9.1 mg/dL (8.7-10.4); Carbon Dioxide 25 mmol/L (20-31); Glucose 88 mg/dL (74-106); Potassium 4.1 mmol/L (3.5-5.1)
[2024-07-29 04:16] LABS: Bilirubin, Total 0.5 mg/dL (0.2-1.0)
[2024-07-29 04:18] LABS: Albumin 2.3 g/dL (3.2-4.8); Alkaline Phosphatase 208 U/L (46-116); Aspartate Aminotransferase 96 U/L (13-40); Blood Urea Nitrogen 42 mg/dL (9-23); Chloride 110 mmol/L (98-107); Sodium 145 mmol/L (136-145); Total Protein 5.5 g/dL (5.7-8.2)
[2024-07-29 04:39] LABS: Eosinophils % (manual) 28 (0-7); Lymphocytes % (manual) 12 (10.0-50.0); Monocytes % (manual) 2 (0-12); Platelet Estimate Adequate
--- NOTE | 2024-07-29 05:02 | DVH ---
CHEST RADIOGRAPH Indication: RESPIRATORY FAILURE Technique: Single frontal view of the chest was obtained COMPARISON: XY CHEST PORTABLE on DOS: 07/28/24, XY CHEST XRAY 1 VIEW on DOS: 07/27/24, XY CHEST XRAY 1 VIEW on DOS: 07/26/24, XY CHEST PORTABLE on DOS: 07/28/24 FINDINGS: Lines and Tubes: Endotracheal tube and enteric catheter in satisfactory position. Median sternotomy. Lungs: Diffuse increased interstitial prominence. Pleura: No effusion. No pneumothorax. Cardiomediastinal contours: Unremarkable Bones: Unremarkable IMPRESSION: Lines and tubes in satisfactory position. No significant interval change.
[2024-07-29 07:57] LABS: Base Excess -1.4 mmol/L (-2.0-3.0)
--- NOTE | 2024-07-29 09:12 | DVHPN2 ---
Progress Note - Dictate Date Seen: Jul 29, 2024 Has the PT tested + for MRSA If YES, has PT been informed?: No Medical Necessity Reason Pt with a Central, PICC or Fol: Yes The following are medically ne: Central Line, Jones Catheter Reason for jones catheter: Strict I&O Subjective Ms. Wren is a 63 years old female with a history of asthma, COPD, paroxysmal atrial fibrillation, allergy to animal dander, smoking, she was brought to the [facility] on 07/08/2024 with a chief company of altered mental status. I have seen and examined the patient in the ICU, I have talked to her nurse, she remained nonresponsive to strong painful stimuli, she is intubated, the pupils are fixed, with left-side slightly bigger, again I did not get brainstem reflexes Tele Neurology consult reaching, 07/24/2024: Severe anoxic brain injury Poor prognosis No chance of meaningful recovery UDS, 07/12/2024: Cannabinoids Urinalysis, 07/08/2024: WBC: 26, urine leukocyte esterase: Negative ABG, 07/08/2024: acidosis, WBC/HB/PLT/MCV, 07/15/2024: 11.5/75/80/89.3 PT/INR/PTT, 07/08/2024: 16/1.56/26.8 BUN/CR, 07/15/2024: 112/8.19 TBI/AST/ALT/AP, 07/15/2024: 0.8/68/45/31 EEG, 07/16/2024: Inadequate, but likely remarkably abnormal EEG Brain flow NM, 07/23/2024: No cerebral blood flow visualized. Findings may be seen with brain , however correlation with clinical findings is needed CT head, 07/08/2024: 1. No acute intracranial hemorrhage. 2. No CT findings of territorial ischemia CT head, 07/12/2024: 1. Symmetric hypodensities in the lentiform nuclei, similar to prior study. Hypodensities in the bilateral thalami new since prior CT scan of the head from 07/10/2024. Additionally, there is subtle loss of mendoza-white matter differentiation since the prior CT from 07/08/2024 for which intracerebral edema is not excluded. Correlation for toxic metabolic or ischemic insult or other etiology is recommended. MRI of the brain without contrast is recommended for further evaluation. 2. No evidence of acute intracranial hemorrhag CT head, 07/19/2024: 1. Severe Generalized Hypoxia: Diffuse hypo-attenuation of the bilateral frontal, parietal and temporal lobes with loss of mendoza-white matter differentiation, probably secondary to generalized hypoxia. Diffuse cerebral edema with effacement of the sulci and basilar cisterns. Relative sparing of the cerebellar hemispheres. 2. No Evidence of Intraparenchymal hematoma, midline shift or hydrocephalus. 3. Soft Tissue Findings: Right periorbital soft tissue edema, with no evidence of calvarial fracture MRI head, 07/14/2024: There is T2/FLAIR hyperintensity involving the lentiform nucleus, hypothalamic region, cerebral peduncle, dorsal midbrain , dorsal liberty and dorsal medulla with symmetric bilateral dorsal medulla small focus of diffusion restriction. Findings are nonspecific and may be seen with hypoxic ischemic encephalopathy, metabolic or toxic disorders. Recommend clinical correlation vital signs Vital Sign Date Time Temp Pulse Resp B/P (MAP) Pulse Ox O2 Delivery O2 Flow Rate FiO2 07/29/24 06:45 97.3 64 18 109/66 (80) 100 207.1 07/29/24 06:35 30 07/29/24 06:00 Mechanical Ventilator+ Total Intake and Output 07/28/24 07/28/24 07/29/24 15:00 23:00 07:00 Intake Total 175.625 ml 240 ml 194.375 ml Output Total 175 ml 150 ml Balance 175.625 ml 65 ml 44.375 ml medications Current Medications Medications Dose Ordered Sig/Perez Route Start Time Stop Time Status Last Admin Dose Admin Acetaminophen 650 mg Q6HP PRN PO 07/08/24 22:45 07/09/24 22:29 650 MG Nitroglycerin 0.4 mg Q5MINP PRN SL 07/08/24 22:45 Acetaminophen 650 mg Q6HP PRN [place] 07/09/24 11:00 07/09/24 15:54 650 MG Pantoprazole Sodium 40 mg BID IV 07/11/24 22:00 07/28/24 21:30 40 MG Enteral Nutritional Formula 1,000 ml 30ML/HR GT 07/16/24 14:45 07/21/24 17:13 1,000 ML Norepinephrine Bitartrate 250 ml @ 1.875 mls/ hr Q24H IV 07/16/24 15:45 07/29/24 04:16 13.125 MLS/HR Levalbuterol HCl 1.25 mg Q6HR NEB 07/19/24 18:00 07/29/24 06:35 1.25 MG Ipratropium [place] 0.5 mg Q4HR NEB 07/20/24 12:00 Cancel Ipratropium [place] 0.5 mg Q6HR NEB 07/20/24 12:00 07/29/24 00:23 0.5 MG Artificial Tears 2 drop Q6HP PRN EACHEYE 07/22/24 17:00 Erythromycin 1 applic Q12HR OP 07/22/24 22:00 07/28/24 21:30 1 APPLIC Ergocalciferol 50,000 unit Q7D PO 07/23/24 09:30 07/23/24 11:16 50,000 UNIT Ceftriaxone Sodium 50 ml @ 100 mls/hr DAILY@09 IV 07/28/24 10:00 07/28/24 10:10 100 MLS/HR objective The patient is well-nourished and well-developed with no distress. The patient is intubated MENTAL STATUS: See subjective CRANIAL NERVES: Pupils are nonreactive. There are no corneal reflexes and no doll's eyes phenomenon. No signs of facial weakness. There are no gagging or coughing reflexes SENSATION: No response to strong pain stimuli. MOTOR: Normal tone in the upper and lower extremity. Normal muscle bulk. No fasciculations. No spontaneous movement. REFLEXES: Deep tendon reflexes are symmetrical. No pathological reflexes. CEREBELLAR/COORDINATION: Deferred GAIT/STATION: deferred laboratory and microbiology Laboratory Tests 07/29/24 03:20 Test 07/29/24 03:20 Range/Units Serum Glucose 88 74-106 mg/dL Problem List Coma/diffuse brain edema Hypoxic encephalopathy Metabolic encephalopathy Cardiopulmonary arrest Acute respiratory failure Unequal pupil size/brain herniation Brain Assessment/Plan Monitoring Supportive treatment ICU care Stabilize vitals/pressor drip Respiratory support/vent management Oxygen Transferred to higher level care Social service on case More recommendation per clinical course I recommend comfort care/terminal wean This medical document was created using an electronic medical record system with [employer] system. Although this document has been carefully reviewed, there may still be some phonetic and typographical errors. These areas are purely typographical due to imperfections of the software programs, and do not reflect any compromise in the patient's medical care Prognosis guarded Dietary Evaluation Review Comments: Patient is not receiving nutrition. If GI is accessible, consider EN nutrition - Jevity 1.2 @ 55 mL/hr as tolerated. If patient remains NPO for more than 7 days, initiate TPN to meet 75% of estimated needs. Advance patient diet when medically feasible to a cardiac diet if renal function is sufficient. Expected Outcomes/Goals: Patient to receive nutrition support within 7 days of NPO status. Patient diet to advance F/u in 2-3 days Plan discussed with: Other SUMAYA ALVAREZ MD Jul 29, 2024 09:12
[2024-07-29] MEDS ORDERED: cefTRIAXone 1GM/50ML D5W 50 ML IV SCH (10:00)
--- NOTE | 2024-07-29 12:18 | DVHPN2 ---
Progress Note Date Seen: Jul 29, 2024 Has the PT tested + for MRSA If YES, has PT been informed?: No Medical Necessity Reason Pt with a Central, PICC or Fol: Yes The following are medically ne: Central Line, Jones Catheter Reason for jones catheter: Strict I&O Subjective Review of Systems: RESPIRATORY:Abnormal Other Systems: Patient seen and examined by myself on follow-up today, patient remained intubated on ventilator Patient examined hemodialysis, blood pressure still Objective vital signs Vital Sign Date Time Temp Pulse Resp B/P (MAP) Pulse Ox O2 Delivery O2 Flow Rate FiO2 07/29/24 11:51 68 18 116/70 (85) 100 30 07/29/24 11:30 97.9 208.2 07/29/24 10:00 Mechanical Ventilator+ Total Intake and Output 07/28/24 07/28/24 07/29/24 15:00 23:00 07:00 Intake Total 175.625 ml 240 ml 205.625 ml Output Total 175 ml 150 ml Balance 175.625 ml 65 ml 55.625 ml medications Current Medications Medications Dose Ordered Sig/Perez Route Start Time Stop Time Status Last Admin Dose Admin Acetaminophen 650 mg Q6HP PRN PO 07/08/24 22:45 07/09/24 22:29 650 MG Nitroglycerin 0.4 mg Q5MINP PRN SL 07/08/24 22:45 Acetaminophen 650 mg Q6HP PRN IA 07/09/24 11:00 07/09/24 15:54 650 MG Pantoprazole Sodium 40 mg BID IV 07/11/24 22:00 07/29/24 10:01 40 MG Enteral Nutritional Formula 1,000 ml 30ML/HR GT 07/16/24 14:45 07/21/24 17:13 1,000 ML Norepinephrine Bitartrate 250 ml @ 1.875 mls/ hr Q24H IV 07/16/24 15:45 07/29/24 04:16 13.125 MLS/HR Levalbuterol HCl 1.25 mg Q6HR NEB 07/19/24 18:00 07/29/24 11:51 1.25 MG Ipratropium [place] 0.5 mg Q4HR NEB 07/20/24 12:00 Cancel Ipratropium [place] 0.5 mg Q6HR NEB 07/20/24 12:00 07/29/24 11:51 0.5 MG Artificial Tears 2 drop Q6HP PRN EACHEYE 07/22/24 17:00 Erythromycin 1 applic Q12HR OP 07/22/24 22:00 07/29/24 10:01 1 APPLIC Ergocalciferol 50,000 unit Q7D PO 07/23/24 09:30 07/23/24 11:16 50,000 UNIT Ceftriaxone Sodium 50 ml @ 100 mls/hr DAILY@09 IV 07/28/24 10:00 07/29/24 10:06 100 MLS/HR Examination: LUNGS:Normal, CVS:Normal, MSK:Normal laboratory and microbiology Laboratory Tests 07/29/24 03:20 Test 07/29/24 03:20 Range/Units Serum Glucose 88 74-106 mg/dL Microbiology Date/Time Source Procedure Growth Status 07/28/24 10:07 Blood Blood Culture - Preliminary NO GROWTH AFTER 24 HOURS OF INCUBATION. Resulted 07/16/24 17:02 Trachea Gram Stain - Final Complete 07/16/24 17:02 Respiratory Culture - Final Enterobacter cloacae Complete 07/08/24 22:00 Voided Urine Urine Culture - Final Complete Problem List/Assessment/Plan Problem List/Assessment/Plan NAOMI secondary to hemodynamically mediated likely ischemic ATN Septic shock due to pneumonia Pneumonia NSTEMI type 2 likely due to above Cardiopulmonary arrest status post CPR with ROSC Paroxysmal atrial fibrillation Elevated liver function Anoxic brain injury-> deemed brain as per neurology Upper GI bleeding Recommendation Dialysis today, use no heparin Epogen 01074 IV post hemodialysis Jones catheter Fluid restrictions Poor prognosis intermission coordinator given neurologic findings of anoxic brain injury Considering terminal weaning Plan discussed with: Other (Nurse) Dietary Evaluation Review Comments: Patient is not receiving nutrition. If GI is accessible, consider EN nutrition - Jevity 1.2 @ 55 mL/hr as tolerated. If patient remains NPO for more than 7 days, initiate TPN to meet 75% of estimated needs. Advance patient diet when medically feasible to a cardiac diet if renal function is sufficient. Expected Outcomes/Goals: Patient to receive nutrition support within 7 days of NPO status. Patient diet to advance F/u in 2-3 days ASIF MAC MD Jul 29, 2024 12:18
--- NOTE | 2024-07-29 15:06 | DVHPN2 ---
Progress Note Date Seen: Jul 29, 2024 Has the PT tested + for MRSA If YES, has PT been informed?: No Medical Necessity Reason Pt with a Central, PICC or Fol: Yes The following are medically ne: Central Line, Jones Catheter Reason for jones catheter: Strict I&O Subjective Patient reports: No new complaints Review of Systems: HEENT:Normal, CVS:Normal, RESPIRATORY:Normal, GI:Normal, :Normal, MSK:Normal, NEURO:Normal Objective vital signs Vital Sign Date Time Temp Pulse Resp B/P (MAP) Pulse Ox O2 Delivery O2 Flow Rate FiO2 07/29/24 14:15 98.2 70 18 103/61 (75) 99 208.8 07/29/24 14:00 30 07/29/24 14:00 Mechanical Ventilator+ Total Intake and Output 07/28/24 07/28/24 07/29/24 15:00 23:00 07:00 Intake Total 175.625 ml 240 ml 205.625 ml Output Total 175 ml 150 ml Balance 175.625 ml 65 ml 55.625 ml medications Current Medications Medications Dose Ordered Sig/Perez Route Start Time Stop Time Status Last Admin Dose Admin Acetaminophen 650 mg Q6HP PRN PO 07/08/24 22:45 07/09/24 22:29 650 MG Nitroglycerin 0.4 mg Q5MINP PRN SL 07/08/24 22:45 Acetaminophen 650 mg Q6HP PRN SD 07/09/24 11:00 07/09/24 15:54 650 MG Pantoprazole Sodium 40 mg BID IV 07/11/24 22:00 07/29/24 10:01 40 MG Enteral Nutritional Formula 1,000 ml 30ML/HR GT 07/16/24 14:45 07/21/24 17:13 1,000 ML Norepinephrine Bitartrate 250 ml @ 1.875 mls/ hr Q24H IV 07/16/24 15:45 07/29/24 04:16 13.125 MLS/HR Levalbuterol HCl 1.25 mg Q6HR NEB 07/19/24 18:00 07/29/24 11:51 1.25 MG Ipratropium [place] 0.5 mg Q4HR NEB 07/20/24 12:00 Cancel Ipratropium [place] 0.5 mg Q6HR NEB 07/20/24 12:00 07/29/24 11:51 0.5 MG Artificial Tears 2 drop Q6HP PRN EACHEYE 07/22/24 17:00 Erythromycin 1 applic Q12HR OP 07/22/24 22:00 07/29/24 10:01 1 APPLIC Ergocalciferol 50,000 unit Q7D PO 07/23/24 09:30 07/23/24 11:16 50,000 UNIT Ceftriaxone Sodium 50 ml @ 100 mls/hr DAILY@09 IV 07/28/24 10:00 07/29/24 10:06 100 MLS/HR Examination: GENERAL:Normal, HEENT:Normal, NECK:Normal, LUNGS:Normal, LUNGS:Abnormal (intubated), CVS:Normal, ABDOMEN:Normal, MSK:Normal, SKIN:Normal, NEURO:Normal, NEURO:Abnormal (pupils fixed and dilated), :Normal laboratory and microbiology Laboratory Tests 07/29/24 03:20 Test 07/29/24 03:20 Range/Units Serum Glucose 88 74-106 mg/dL Microbiology Date/Time Source Procedure Growth Status 07/28/24 10:07 Blood Blood Culture - Preliminary NO GROWTH AFTER 24 HOURS OF INCUBATION. Resulted 07/28/24 09:45 Sputum Gram Stain Pending Resulted 07/28/24 09:45 Sputum Respiratory Culture - Preliminary Resulted 07/28/24 09:25 Voided Urine Urine Culture - Preliminary Resulted 07/16/24 17:02 Trachea Gram Stain - Final Complete 07/16/24 17:02 Respiratory Culture - Final Enterobacter cloacae Complete Problem List/Assessment/Plan Problem List/Assessment/Plan This is a 63-year-old female with past medical history of allergic asthma, COPD, hypertension, paroxysmal atrial fibrillation, repaired mitral valve, IBS, generalized anxiety, chronic pain and insomnia brought to the hospital after loss of consciousness. Patient had lost consciousness out of house, witnessed by the bystanders, found asystole by EMS, performed CPR for 20 minutes and retained ROSC. Admitted on 07/09/2024. NEURO: Acute metabolic encephalopathy, likely due to sepsis/possible anoxic brain injury due to cardiac arrest Patient is sedated, and on mechanical ventilation, place, and Status post cardiac arrest Possible Cerebral edema, likely due to cardiac arrest Possible cerebral herniation, Bilateral pupils are dilated, fixed, asymmetric and nonreactive to the light. Head CT scan shows less prominent sulci, likely due to cerebral edema We will consider head CT scan after 48 hour for the monitoring of possible cerebral edema Teleneurology consulted on 07/10 and has consulted the daughter of the patient regarding poor prognosis Head CT scan of 07/12/2024 shows changes but could not exclude brain edema Brain MRI shows nonspecific findings may be seen with hypoxic ischemic encephalopathy, metabolic or toxic disorders EEG shows severe cerebral dysfunction due to metabolic/hypoxic encephalopathy or medication effect Head CT scan from 07/19, shows effacement of sulci Neurology has consulted, and recommended that the patient have a poor prognosis for meaningful recovery and higher level care transfer is unlikely to change progresses. Brain perfusion test shows, no cerebral blood flow visualized and on site neurologist recommend comfort care, patients daughter requested a second opinion from another neurologist per second neurologist there is severe anoxic brain injury and no chance of meaningful recovery repeat brain flow test CARDIOVASCULAR: Status post cardiac arrest Patient has history of paroxysmal atrial fibrillation Non ST-elevation IA, type 2, likely due to cardiac arrest and CPR Circulation shock, likely septic likely due to pneumonia Patient has history of open heart surgery for mitral valve repair Sinus tachycardia Atrial fibrillation Troponin is raised EKG shows sinus tachycardia, with no significant ST or T-wave changes Cardiology on the board, recommended conservative management Echocardiogram shows Borderline Normal left ventricular systolic function estimated ejection [id number] Moderately elevated right ventricular systolic pressure 40 mm of mercury. 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 as well as mitral valve repair Cardiology is on the board, suggested conservative management Sinus tachycardia Due to paroxysmal atrial fibrillation and RVR, the Cardiology consulted back, recommended to use digoxin in case of atrial fibrillation recurrence PULMONARY: Patient is sedated, and on mechanical ventilator, RASS (-5, unresponsive) with ventilator setting of( Vt 450, RR 26, FiO2 30%, peep 5) Acute hypoxic respiratory failure likely due to pneumonia/COPD exacerbation/asthma exacerbation Pneumonia likely due to Gram-positive/Gram-negative Septic shock likely due to pneumonia/UTI Patient has history of multiple hospital admission, including intubated for 2 months in [place] in 2007, mitral valve repair and also has been admitted in [facility] MRSA nares screening negative and stopped vancomycin (given for 4 days) COVID-19 and influenza antigens are negative Discontinue Zosyn, use for 8 days Chest x-ray does not shows any acute cardiopulmonary abnormality ABGs shows parameters within normal limits Continue Albuterol and ipratropium nebulization every 6 hours Sputum culture shows Enterobacter cloacae, sensitive to meropenem Continue meropenem, started at 07/19 GI: Possible Upper GI bleeding, unspecified location Transaminitis, likely due to ischemia secondary to cardiac arrest NG tube showed black drainage on 06/29 and 06/30 likely due to upper GI bleeding GI consulted, recommended conservative management Continue Protonix b.i.d. Discontinue Lovenox due to severe anemia and possible upper GI bleeding Ammonia level is normal RENAL: NAOMI, no previous records available Nephrology on the board, hemodialysis planned for tomorrow UTI, unspecified location UA shows UTI picture Urine culture showed no bacterial growth ID: Urine and blood culture from 07/08 shows no bacterial growth Blood culture from 07/09 shows no bacterial growth MRSA screening on 07/09 negative, and discontinued vancomycin COVID-19 and influenza screening from 07/09 negative Discontinue Zosyn, use for 8 days Sputum culture shows Enterobacter cloacae, sensitive to meropenem Start meropenem at 07/19 CRP is raised Cannabinoid use disorder UDS shows cannabis positive Metabolic: Hypokalemia, Supplemented Magnesium is within normal limits Hyperkalemia, normalized Mild Hypernatremia, improved Mild hyperkalemia, injection calcium gluconate given Vitamin B12 is normal Vitamin -D level is low, supplemented Cortisol a.m. is normal TSH is normal Gynecology Vaginal bleeding On 07/20 5-10 mL of vaginal bleeding noticed, with some clots on 07/18 Monitoring DVT prophylaxis Due to possible upper GI bleeding, Lovenox is not indicated SCD LINES/DRAINS/ACCESS: ETT tube, intubated on 07/08/2024 Transurethral catheter, placed on 07/08/2024 IV Access Right femoral vein (CVC), placed on 07/08/2024 Left femoral vein catheter for HD, placed on 07/17 Drips: Levophed 6 Diet: Nepro 30 mL/hour on 07/16 Disposition: As per family request for the higher level of care transfer(preference [place]), social service coordinator has been consulted. CODE STATUS: dnr Disposition: ICU status, kept in ICU Case discussed with the daughter and rest of family. wishes repeat blood flow imaging Critical time spent more than 82 minutes, including patient care, chart review and updating the family, excluding any procedures. Plan discussed with: Daughter My Orders My Orders Orders - MONE HARDY MD Procedure Category Date Status Time Brain Imaging Flow NM 07/29/24 Verified 15:01 Complete Blood Count LAB 07/30/24 Verified 06:00 Comprehensive LAB 07/30/24 Verified Metabolic Panel 06:00 Abg W/ Co-Ox RT 07/30/24 Verified 06:00 Dietary Evaluation Review Comments: Patient is not receiving nutrition. If GI is accessible, consider EN nutrition - Jevity 1.2 @ 55 mL/hr as tolerated. If patient remains NPO for more than 7 days, initiate TPN to meet 75% of estimated needs. Advance patient diet when medically feasible to a cardiac diet if renal function is sufficient. Expected Outcomes/Goals: Patient to receive nutrition support within 7 days of NPO status. Patient diet to advance F/u in 2-3 days Critical Care Time (mins): 82 (critical care time including family meeting was 82 mins) Date of Service: Jul 29, 2024 Billing Provider: MONE HARDY MD Common Visit Codes: [id number] CARE 30-74 MIN, [id number] CARE-EACH +30MIN MONE HARDY MD Jul 29, 2024 15:06
[2024-07-29] MEDS: ALBUMIN 25% 100 ML IV ONE ×2 (19:44→19:45)
[2024-07-30] VITALS (106 sets, daily range): BP systolic 77–143; BP diastolic 43–88; PULSE 62–81; RESP 15–26; TEMP 96.3–99.7; O2SAT 93–100
[2024-07-30 04:30] LABS: Hematocrit 21.1 % (36.0-46.0); Mean Corpuscular Hgb Conc. 32.1 g/dL (32.0-36.0); Mean Corpuscular Volume 90.4 fL (80.0-100.0); Platelet Count (auto) 207 10^3/uL (140-450); Red Blood Cells 2.33 10^6/uL (4.0-5.20); Red Cell Distribution Width 17.4 % (11.8-14.3); White Blood Cell 17.1 10^3/uL (4.4-10.8)
[2024-07-30 04:40] LABS: Alanine Aminotransferase 11 U/L (7-40); Anion Gap 11 (5-15); BUN/Creatinine Ratio 6.2 (10.0-20.0); Calcium 9.3 mg/dL (8.7-10.4); Carbon Dioxide 25 mmol/L (20-31); Glucose 80 mg/dL (74-106); Potassium 4.4 mmol/L (3.5-5.1)
[2024-07-30 04:41] LABS: Bilirubin, Total 0.6 mg/dL (0.2-1.0); Total Protein 5.8 g/dL (5.7-8.2)
[2024-07-30 04:44] LABS: Albumin 2.6 g/dL (3.2-4.8); Alkaline Phosphatase 200 U/L (46-116); Aspartate Aminotransferase 95 U/L (13-40); Blood Urea Nitrogen 45 mg/dL (9-23); Chloride 110 mmol/L (98-107); Sodium 146 mmol/L (136-145)
[2024-07-30 04:47] LABS: Hemoglobin 6.8 g/dL (12.2-16.2)
[2024-07-30 04:48] LABS: Band Neutrophils % (manual) 0; Basophils % (manual) 0 (0.0-2.0); Blast Cells 0; Metamyelocytes % 0; Myelocytes % 0; Promyelocytes % 0; Reactive Lymphocytes 0
[2024-07-30 07:12] LABS: Base Excess 1.6 mmol/L (-2.0-3.0)
--- NOTE | 2024-07-30 08:18 | DVHPN2 ---
Progress Note - Dictate Date Seen: Jul 30, 2024 Has the PT tested + for MRSA If YES, has PT been informed?: No Medical Necessity Reason Pt with a Central, PICC or Fol: Yes The following are medically ne: Central Line, Jones Catheter Reason for jones catheter: Strict I&O Subjective Ms. Wren is a 63 years old female with a history of asthma, COPD, paroxysmal atrial fibrillation, allergy to animal dander, smoking, she was brought to the [facility] on 07/08/2024 with a chief company of altered mental status. I have seen and examined the patient in the ICU, I have talked to her nurse, she remained nonresponsive to strong painful stimuli, she is intubated, the pupils are fixed, with left-side slightly bigger, again I did not get brainstem reflexes Dr. Liang had meeting with the family, they wished follow-up blood flow imaging No change clinically and on physical examination Tele Neurology consult reaching, 07/24/2024: Severe anoxic brain injury Poor prognosis No chance of meaningful recovery UDS, 07/12/2024: Cannabinoids Urinalysis, 07/08/2024: WBC: 26, urine leukocyte esterase: Negative ABG, 07/08/2024: acidosis, WBC/HB/PLT/MCV, 07/15/2024: 11.5/75/80/89.3 PT/INR/PTT, 07/08/2024: 16/1.56/26.8 BUN/CR, 07/15/2024: 112/8.19 TBI/AST/ALT/AP, 07/15/2024: 0.8/68/45/31 EEG, 07/16/2024: Inadequate, but likely remarkably abnormal EEG Brain flow NM, 07/23/2024: No cerebral blood flow visualized. Findings may be seen with brain , however correlation with clinical findings is needed CT head, 07/08/2024: 1. No acute intracranial hemorrhage. 2. No CT findings of territorial ischemia CT head, 07/12/2024: 1. Symmetric hypodensities in the lentiform nuclei, similar to prior study. Hypodensities in the bilateral thalami new since prior CT scan of the head from 07/10/2024. Additionally, there is subtle loss of mendoza-white matter differentiation since the prior CT from 07/08/2024 for which intracerebral edema is not excluded. Correlation for toxic metabolic or ischemic insult or other etiology is recommended. MRI of the brain without contrast is recommended for further evaluation. 2. No evidence of acute intracranial hemorrhag CT head, 07/19/2024: 1. Severe Generalized Hypoxia: Diffuse hypo-attenuation of the bilateral frontal, parietal and temporal lobes with loss of mendoza-white matter differentiation, probably secondary to generalized hypoxia. Diffuse cerebral edema with effacement of the sulci and basilar cisterns. Relative sparing of the cerebellar hemispheres. 2. No Evidence of Intraparenchymal hematoma, midline shift or hydrocephalus. 3. Soft Tissue Findings: Right periorbital soft tissue edema, with no evidence of calvarial fracture MRI head, 07/14/2024: There is T2/FLAIR hyperintensity involving the lentiform nucleus, hypothalamic region, cerebral peduncle, dorsal midbrain , dorsal liberty and dorsal medulla with symmetric bilateral dorsal medulla small focus of diffusion restriction. Findings are nonspecific and may be seen with hypoxic ischemic encephalopathy, metabolic or toxic disorders. Recommend clinical correlation vital signs Vital Sign Date Time Temp Pulse Resp B/P (MAP) Pulse Ox O2 Delivery O2 Flow Rate FiO2 07/30/24 07:32 76 18 135/69 (91) 99 30 07/30/24 06:30 99.0 210.2 07/30/24 06:00 Mechanical Ventilator+ Total Intake and Output 07/29/24 07/29/24 07/30/24 15:00 23:00 07:00 Intake Total 140.00 ml 271.65 ml 294.2 ml Output Total 125 ml 250 ml Balance 140.00 ml 146.65 ml 44.2 ml medications Current Medications Medications Dose Ordered Sig/Perez Route Start Time Stop Time Status Last Admin Dose Admin Acetaminophen 650 mg Q6HP PRN PO 07/08/24 22:45 07/09/24 22:29 650 MG Nitroglycerin 0.4 mg Q5MINP PRN SL 07/08/24 22:45 Acetaminophen 650 mg Q6HP PRN [place] 07/09/24 11:00 07/09/24 15:54 650 MG Pantoprazole Sodium 40 mg BID IV 07/11/24 22:00 07/29/24 22:29 40 MG Enteral Nutritional Formula 1,000 ml 30ML/HR GT 07/16/24 14:45 07/21/24 17:13 1,000 ML Norepinephrine Bitartrate 250 ml @ 1.875 mls/ hr Q24H IV 07/16/24 15:45 07/29/24 21:49 11.25 MLS/HR Levalbuterol HCl 1.25 mg Q6HR NEB 07/19/24 18:00 07/30/24 06:31 1.25 MG Ipratropium [place] 0.5 mg Q4HR NEB 07/20/24 12:00 Cancel Ipratropium [place] 0.5 mg Q6HR NEB 07/20/24 12:00 07/30/24 00:22 0.5 MG Artificial Tears 2 drop Q6HP PRN EACHEYE 07/22/24 17:00 Erythromycin 1 applic Q12HR OP 07/22/24 22:00 07/29/24 22:00 1 APPLIC Ergocalciferol 50,000 unit Q7D PO 07/23/24 09:30 07/23/24 11:16 50,000 UNIT Ceftriaxone Sodium 50 ml @ 100 mls/hr DAILY@09 IV 07/28/24 10:00 07/29/24 10:06 100 MLS/HR objective The patient is well-nourished and well-developed with no distress. The patient is intubated MENTAL STATUS: See subjective CRANIAL NERVES: Pupils are nonreactive. There are no corneal reflexes and no doll's eyes phenomenon. No signs of facial weakness. There are no gagging or coughing reflexes SENSATION: No response to strong pain stimuli. MOTOR: Normal tone in the upper and lower extremity. Normal muscle bulk. No fasciculations. No spontaneous movement. REFLEXES: Deep tendon reflexes are symmetrical. No pathological reflexes. CEREBELLAR/COORDINATION: Deferred GAIT/STATION: deferred laboratory and microbiology Laboratory Tests 07/30/24 03:19 Test 07/30/24 03:19 Range/Units Serum Glucose 80 74-106 mg/dL Problem List Coma/diffuse brain edema Hypoxic encephalopathy Metabolic encephalopathy Cardiopulmonary arrest Acute respiratory failure Unequal pupil size/brain herniation Brain Assessment/Plan Monitoring Supportive treatment Follow-up brain imaging flow ICU care Stabilize vitals/pressor drip Respiratory support/vent management Oxygen Transferred to higher level care Social service on case More recommendation per clinical course I recommend comfort care/terminal wean This medical document was created using an electronic medical record system with ditlo dictation system. Although this document has been carefully reviewed, there may still be some phonetic and typographical errors. These areas are purely typographical due to imperfections of the software programs, and do not reflect any compromise in the patient's medical care Prognosis guarded Dietary Evaluation Review Comments: Patient is not receiving nutrition. If GI is accessible, consider EN nutrition - Jevity 1.2 @ 55 mL/hr as tolerated. If patient remains NPO for more than 7 days, initiate TPN to meet 75% of estimated needs. Advance patient diet when medically feasible to a cardiac diet if renal function is sufficient. Expected Outcomes/Goals: Patient to receive nutrition support within 7 days of NPO status. Patient diet to advance F/u in 2-3 days Plan discussed with: Other SUMAYA ALVAREZ MD Jul 30, 2024 08:18
[2024-07-30 08:55] LABS: Eosinophils % (manual) 29 (0-7); Lymphocytes % (manual) 4 (10.0-50.0); Monocytes % (manual) 5 (0-12); Platelet Estimate Adequate
--- NOTE | 2024-07-30 10:26 | DVHPN2 ---
Progress Note Date Seen: Jul 30, 2024 Has the PT tested + for MRSA If YES, has PT been informed?: No Medical Necessity Reason Pt with a Central, PICC or Fol: Yes The following are medically ne: Central Line, Jones Catheter Reason for jones catheter: Strict I&O Subjective Review of Systems: RESPIRATORY:Abnormal Other Systems: Patient seen and examined by myself on follow-up today, patient remained intubated on ventilator Objective vital signs Vital Sign Date Time Temp Pulse Resp B/P (MAP) Pulse Ox O2 Delivery O2 Flow Rate FiO2 07/30/24 09:19 76 18 128/77 (94) 100 30 07/30/24 06:30 99.0 210.2 07/30/24 06:00 Mechanical Ventilator+ Total Intake and Output 07/29/24 07/29/24 07/30/24 15:00 23:00 07:00 Intake Total 140.00 ml 271.65 ml 294.2 ml Output Total 125 ml 250 ml Balance 140.00 ml 146.65 ml 44.2 ml medications Current Medications Medications Dose Ordered Sig/Perez Route Start Time Stop Time Status Last Admin Dose Admin Acetaminophen 650 mg Q6HP PRN PO 07/08/24 22:45 07/09/24 22:29 650 MG Nitroglycerin 0.4 mg Q5MINP PRN SL 07/08/24 22:45 Acetaminophen 650 mg Q6HP PRN [place] 07/09/24 11:00 07/09/24 15:54 650 MG Pantoprazole Sodium 40 mg BID IV 07/11/24 22:00 07/29/24 22:29 40 MG Enteral Nutritional Formula 1,000 ml 30ML/HR GT 07/16/24 14:45 07/21/24 17:13 1,000 ML Norepinephrine Bitartrate 250 ml @ 1.875 mls/ hr Q24H IV 07/16/24 15:45 07/29/24 21:49 11.25 MLS/HR Levalbuterol HCl 1.25 mg Q6HR NEB 07/19/24 18:00 07/30/24 06:31 1.25 MG Ipratropium [place] 0.5 mg Q4HR NEB 07/20/24 12:00 Cancel Ipratropium [place] 0.5 mg Q6HR NEB 07/20/24 12:00 07/30/24 00:22 0.5 MG Artificial Tears 2 drop Q6HP PRN EACHEYE 07/22/24 17:00 Erythromycin 1 applic Q12HR OP 07/22/24 22:00 07/29/24 22:00 1 APPLIC Ergocalciferol 50,000 unit Q7D PO 07/23/24 09:30 07/23/24 11:16 50,000 UNIT Ceftriaxone Sodium 50 ml @ 100 mls/hr DAILY@09 IV 07/28/24 10:00 07/29/24 10:06 100 MLS/HR laboratory and microbiology Laboratory Tests 07/30/24 03:19 Test 07/30/24 03:19 Range/Units Serum Glucose 80 74-106 mg/dL Microbiology Date/Time Source Procedure Growth Status 07/28/24 10:07 Blood Blood Culture - Preliminary NO GROWTH AFTER 24 HOURS OF INCUBATION. Resulted 07/28/24 09:45 Sputum Gram Stain Pending Resulted 07/28/24 09:45 Respiratory Culture - Final Enterobacter cloacae Resulted 07/28/24 09:25 Voided Urine Urine Culture - Preliminary Presumptive Jane albicans Resulted 07/16/24 17:02 Trachea Gram Stain - Final Complete 07/16/24 17:02 Respiratory Culture - Final Enterobacter cloacae Complete Problem List/Assessment/Plan Problem List/Assessment/Plan NAOMI secondary to hemodynamically mediated likely ischemic ATN Septic shock due to pneumonia Pneumonia NSTEMI type 2 likely due to above Cardiopulmonary arrest status post CPR with ROSC Paroxysmal atrial fibrillation Elevated liver function Anoxic brain injur Upper GI bleeding Recommendation Hemodialysis tomorrow, use no heparin Epogen 11645 IV post hemodialysis Jones catheter Fluid restrictions Poor prognosis given neurologic findings of anoxic brain injury Considering terminal weaning Plan discussed with: Other (Nurse) My Orders My Orders Orders - ASIF MAC MD Procedure Category Date Status Time Hemodialysis KALPESH 07/29/24 In Process Treatment Order 18:29 Dietary Evaluation Review Comments: Patient is not receiving nutrition. If GI is accessible, consider EN nutrition - Jevity 1.2 @ 55 mL/hr as tolerated. If patient remains NPO for more than 7 days, initiate TPN to meet 75% of estimated needs. Advance patient diet when medically feasible to a cardiac diet if renal function is sufficient. Expected Outcomes/Goals: Patient to receive nutrition support within 7 days of NPO status. Patient diet to advance F/u in 2-3 days ASIF MAC MD Jul 30, 2024 10:26
--- NOTE | 2024-07-30 15:44 | DVH ---
EXAM: NM BRAIN IMAGING FLOW History: brain Comparison Study: NM BRAIN IMAGING FLOW on DOS: 07/23/24 TECHNIQUE: Following the radiopharmaceutical at bedside, dynamic and static images of the head were acquired in standard projections. RADIOPHARMACEUTICALS: 31.7 mCi Tc 99m DTPA FINDINGS: There is no evidence of radiotracer uptake in the internal carotid vascular distribution. Activity in facial structures and the scalp is noted consistent with patent external carotid circulat ion. IMPRESSION: 1. Compared to 07/23/2024, there is still no evidence of internal carotid blood flow. 2. Results were discussed over the phone by Dr. Cardona of Nuclear Medicine with [place] MARTIN on 07/30/20 at 3:41 PM.
--- NOTE | 2024-07-30 17:30 | DVHPN2 ---
Progress Note Date Seen: Jul 30, 2024 Has the PT tested + for MRSA If YES, has PT been informed?: No Medical Necessity Reason Pt with a Central, PICC or Fol: Yes The following are medically ne: Central Line, Jones Catheter Reason for jones catheter: Strict I&O Subjective Patient reports: No new complaints Review of Systems: HEENT:Normal, CVS:Normal, RESPIRATORY:Normal, GI:Normal, :Normal, MSK:Normal, NEURO:Normal Objective vital signs Vital Sign Date Time Temp Pulse Resp B/P (MAP) Pulse Ox O2 Delivery O2 Flow Rate FiO2 07/30/24 16:15 97.0 69 18 108/63 (78) 100 206.6 07/30/24 16:04 30 07/30/24 16:00 Mechanical Ventilator+ Total Intake and Output 07/29/24 07/29/24 07/30/24 15:00 23:00 07:00 Intake Total 140.00 ml 271.65 ml 307.325 ml Output Total 125 ml 250 ml Balance 140.00 ml 146.65 ml 57.325 ml medications Current Medications Medications Dose Ordered Sig/Perez Route Start Time Stop Time Status Last Admin Dose Admin Acetaminophen 650 mg Q6HP PRN PO 07/08/24 22:45 07/09/24 22:29 650 MG Nitroglycerin 0.4 mg Q5MINP PRN SL 07/08/24 22:45 Acetaminophen 650 mg Q6HP PRN DC 07/09/24 11:00 07/09/24 15:54 650 MG Pantoprazole Sodium 40 mg BID IV 07/11/24 22:00 07/30/24 10:58 40 MG Enteral Nutritional Formula 1,000 ml 30ML/HR GT 07/16/24 14:45 07/21/24 17:13 1,000 ML Norepinephrine Bitartrate 250 ml @ 1.875 mls/ hr Q24H IV 07/16/24 15:45 07/29/24 21:49 11.25 MLS/HR Levalbuterol HCl 1.25 mg Q6HR NEB 07/19/24 18:00 07/30/24 11:53 1.25 MG Ipratropium [employer] 0.5 mg Q4HR NEB 07/20/24 12:00 Cancel Ipratropium [employer] 0.5 mg Q6HR NEB 07/20/24 12:00 07/30/24 11:53 0.5 MG Artificial Tears 2 drop Q6HP PRN EACHEYE 07/22/24 17:00 Erythromycin 1 applic Q12HR OP 07/22/24 22:00 07/30/24 10:00 1 APPLIC Ergocalciferol 50,000 unit Q7D PO 07/23/24 09:30 07/23/24 11:16 50,000 UNIT Ceftriaxone Sodium 50 ml @ 100 mls/hr DAILY@09 IV 07/28/24 10:00 07/30/24 10:58 100 MLS/HR Examination: GENERAL:Normal, HEENT:Normal, NECK:Normal, LUNGS:Normal, LUNGS:Abnormal (intubated), CVS:Normal, ABDOMEN:Normal, MSK:Normal, SKIN:Normal, NEURO:Normal, NEURO:Abnormal (comatose, pupils fixed and dilated), :Normal laboratory and microbiology Laboratory Tests 07/30/24 03:19 Test 07/30/24 03:19 Range/Units Serum Glucose 80 74-106 mg/dL Microbiology Date/Time Source Procedure Growth Status 07/28/24 10:07 Blood Blood Culture - Preliminary NO GROWTH AFTER 48 HOURS OF INCUBATION. Resulted 07/28/24 09:45 Sputum Gram Stain - Final Complete 07/28/24 09:45 Respiratory Culture - Final Enterobacter cloacae Complete 07/28/24 09:25 Voided Urine Urine Culture - Preliminary Presumptive Jane albicans Resulted 07/16/24 17:02 Trachea Gram Stain - Final Complete 07/16/24 17:02 Respiratory Culture - Final Enterobacter cloacae Complete Problem List/Assessment/Plan Problem List/Assessment/Plan This is a 63-year-old female with past medical history of allergic asthma, COPD, hypertension, paroxysmal atrial fibrillation, repaired mitral valve, IBS, generalized anxiety, chronic pain and insomnia brought to the hospital after loss of consciousness. Patient had lost consciousness out of house, witnessed by the bystanders, found asystole by EMS, performed CPR for 20 minutes and retained ROSC. Admitted on 07/09/2024. NEURO: Acute metabolic encephalopathy, likely due to sepsis/possible anoxic brain injury due to cardiac arrest Patient is sedated, and on mechanical ventilation, place, and Status post cardiac arrest Possible Cerebral edema, likely due to cardiac arrest Possible cerebral herniation, Bilateral pupils are dilated, fixed, asymmetric and nonreactive to the light. Head CT scan shows less prominent sulci, likely due to cerebral edema We will consider head CT scan after 48 hour for the monitoring of possible cerebral edema Teleneurology consulted on 07/10 and has consulted the daughter of the patient regarding poor prognosis Head CT scan of 07/12/2024 shows changes but could not exclude brain edema Brain MRI shows nonspecific findings may be seen with hypoxic ischemic encephalopathy, metabolic or toxic disorders EEG shows severe cerebral dysfunction due to metabolic/hypoxic encephalopathy or medication effect Head CT scan from 07/19, shows effacement of sulci Neurology has consulted, and recommended that the patient have a poor prognosis for meaningful recovery and higher level care transfer is unlikely to change progresses. Brain perfusion test shows, no cerebral blood flow visualized and on site neurologist recommend comfort care, patients daughter requested a second opinion from another neurologist per second neurologist there is severe anoxic brain injury and no chance of meaningful recovery repeat brain flow test- no cerebral blood flow CARDIOVASCULAR: Status post cardiac arrest Patient has history of paroxysmal atrial fibrillation Non ST-elevation NH, type 2, likely due to cardiac arrest and CPR Circulation shock, likely septic likely due to pneumonia Patient has history of open heart surgery for mitral valve repair Sinus tachycardia Atrial fibrillation Troponin is raised EKG shows sinus tachycardia, with no significant ST or T-wave changes Cardiology on the board, recommended conservative management Echocardiogram shows Borderline Normal left ventricular systolic function estimated ejection [id number] Moderately elevated right ventricular systolic pressure 40 mm of mercury. 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 as well as mitral valve repair Cardiology is on the board, suggested conservative management Sinus tachycardia Due to paroxysmal atrial fibrillation and RVR, the Cardiology consulted back, recommended to use digoxin in case of atrial fibrillation recurrence PULMONARY: Patient is sedated, and on mechanical ventilator, RASS (-5, unresponsive) with ventilator setting of( Vt 450, RR 26, FiO2 30%, peep 5) Acute hypoxic respiratory failure likely due to pneumonia/COPD exacerbation/asthma exacerbation Pneumonia likely due to Gram-positive/Gram-negative Septic shock likely due to pneumonia/UTI Patient has history of multiple hospital admission, including intubated for 2 months in [place] in 2007, mitral valve repair and also has been admitted in [facility] MRSA nares screening negative and stopped vancomycin (given for 4 days) COVID-19 and influenza antigens are negative Discontinue Zosyn, use for 8 days Chest x-ray does not shows any acute cardiopulmonary abnormality ABGs shows parameters within normal limits Continue Albuterol and ipratropium nebulization every 6 hours Sputum culture shows Enterobacter cloacae, sensitive to meropenem Continue meropenem, started at 07/19 GI: Possible Upper GI bleeding, unspecified location Transaminitis, likely due to ischemia secondary to cardiac arrest NG tube showed black drainage on 06/29 and 06/30 likely due to upper GI bleeding GI consulted, recommended conservative management Continue Protonix b.i.d. Discontinue Lovenox due to severe anemia and possible upper GI bleeding Ammonia level is normal RENAL: NAOMI, no previous records available Nephrology on the board, unable to tolerated dialysis UTI, unspecified location UA shows UTI picture Urine culture showed no bacterial growth ID: Urine and blood culture from 07/08 shows no bacterial growth Blood culture from 07/09 shows no bacterial growth MRSA screening on 07/09 negative, and discontinued vancomycin COVID-19 and influenza screening from 07/09 negative Discontinue Zosyn, use for 8 days Sputum culture shows Enterobacter cloacae, sensitive to meropenem Start meropenem at 07/19 CRP is raised Cannabinoid use disorder UDS shows cannabis positive Metabolic: Hypokalemia, Supplemented Magnesium is within normal limits Hyperkalemia, normalized Mild Hypernatremia, improved Mild hyperkalemia, injection calcium gluconate given Vitamin B12 is normal Vitamin -D level is low, supplemented Cortisol a.m. is normal TSH is normal Gynecology Vaginal bleeding On 07/20 5-10 mL of vaginal bleeding noticed, with some clots on 07/18 Monitoring DVT prophylaxis Due to possible upper GI bleeding, Lovenox is not indicated SCD anemia: dw family regards transfusion LINES/DRAINS/ACCESS: ETT tube, intubated on 07/08/2024 Transurethral catheter, placed on 07/08/2024 IV Access Right femoral vein (CVC), placed on 07/08/2024 Left femoral vein catheter for HD, placed on 07/17 Drips: Levophed 6 Diet: Nepro 30 mL/hour on 07/16 Disposition: As per family request for the higher level of care transfer(preference [place]), certified social workers in health care has been consulted. CODE STATUS: dnr Disposition: ICU status, kept in ICU Case discussed with the daughter and rest of family. wishes repeat blood flow imaging Critical time spent more than 82 minutes, including patient care, chart review and updating the family, excluding any procedures. Plan discussed with: Other (rn) My Orders My Orders Orders - MONE HARDY MD Procedure Category Date Status Time Basic Metabolic Panel LAB 07/31/24 Verified 06:00 Complete Blood Count LAB 07/31/24 Verified 06:00 Dietary Evaluation Review Comments: Patient is not receiving nutrition. If GI is accessible, consider EN nutrition - Jevity 1.2 @ 55 mL/hr as tolerated. If patient remains NPO for more than 7 days, initiate TPN to meet 75% of estimated needs. Advance patient diet when medically feasible to a cardiac diet if renal function is sufficient. Expected Outcomes/Goals: Patient to receive nutrition support within 7 days of NPO status. Patient diet to advance F/u in 2-3 days Date of Service: Jul 30, 2024 Billing Provider: MONE HARDY MD Common Visit Codes: 74976-[id number] CARE 30-74 MIN, [id number] CARE-EACH +30MIN Date of Service: Jul 30, 2024 Billing Provider: MONE HARDY MD Common Visit Codes: [id number]-[id number] CARE 30-74 MIN, [id number] CARE-EACH +30MIN MONE HARDY MD Jul 30, 2024 17:30
[2024-07-31] VITALS (108 sets, daily range): BP systolic 75–155; BP diastolic 37–85; PULSE 53–80; RESP 15–34; TEMP 95.5–99; O2SAT 98–100
[2024-07-31 03:55] LABS: Hematocrit 21.4 % (36.0-46.0); Red Blood Cells 2.35 10^6/uL (4.0-5.20)
[2024-07-31 03:56] LABS: Mean Corpuscular Hemoglobin 28.5 pg (28.0-32.0); Mean Corpuscular Hgb Conc. 31.4 g/dL (32.0-36.0); Mean Corpuscular Volume 90.8 fL (80.0-100.0); Platelet Count (auto) 211 10^3/uL (140-450); Red Cell Distribution Width 17.2 % (11.8-14.3); White Blood Cell 13.4 10^3/uL (4.4-10.8)
[2024-07-31 04:06] LABS: Potassium 4.3 mmol/L (3.5-5.1)
[2024-07-31 04:07] LABS: Anion Gap 10 (5-15); Calcium 9.3 mg/dL (8.7-10.4); Carbon Dioxide 24 mmol/L (20-31)
[2024-07-31 04:12] LABS: BUN/Creatinine Ratio 6.9 (10.0-20.0); Glucose 87 mg/dL (74-106)
[2024-07-31 04:29] LABS: Blood Urea Nitrogen 55 mg/dL (9-23); Chloride 113 mmol/L (98-107); Sodium 147 mmol/L (136-145)
[2024-07-31 04:48] LABS: Hemoglobin 6.7 g/dL (12.2-16.2)
[2024-07-31 04:49] LABS: Band Neutrophils % (manual) 0; Basophils % (manual) 0 (0.0-2.0); Blast Cells 0; Metamyelocytes % 0; Myelocytes % 0; Promyelocytes % 0; Reactive Lymphocytes 0
[2024-07-31 08:40] LABS: Eosinophils % (manual) 49 (0-7); Lymphocytes % (manual) 6 (10.0-50.0); Monocytes % (manual) 4 (0-12)
[2024-07-31 08:41] LABS: Platelet Estimate Adequate
--- NOTE | 2024-07-31 09:46 | DVHPN2 ---
Progress Note - Dictate Date Seen: Jul 31, 2024 Has the PT tested + for MRSA If YES, has PT been informed?: No Medical Necessity Reason Pt with a Central, PICC or Fol: Yes The following are medically ne: Central Line, Jones Catheter Reason for jones catheter: Strict I&O Subjective Ms. Wren is a 63 years old female with a history of asthma, COPD, paroxysmal atrial fibrillation, allergy to animal dander, smoking, she was brought to the [facility] on 07/08/2024 with a chief company of altered mental status. I have seen and examined the patient in the ICU, I have talked to her nurse, she remained nonresponsive to strong painful stimuli, she is intubated, the pupils are fixed, with left side bigger, no brainstem reflexes The case was discussed with Dr. Liang No change clinically and on physical examination Tele Neurology consult reaching, 07/24/2024: Severe anoxic brain injury Poor prognosis No chance of meaningful recovery UDS, 07/12/2024: Cannabinoids Urinalysis, 07/08/2024: WBC: 26, urine leukocyte esterase: Negative ABG, 07/08/2024: acidosis, WBC/HB/PLT/MCV, 07/15/2024: 11.5/75/80/89.3 PT/INR/PTT, 07/08/2024: 16/1.56/26.8 BUN/CR, 07/15/2024: 112/8.19 TBI/AST/ALT/AP, 07/15/2024: 0.8/68/45/31 EEG, 07/16/2024: Inadequate, but likely remarkably abnormal EEG Brain flow NM, 07/23/2024: No cerebral blood flow visualized. Findings may be seen with brain , however correlation with clinical findings is needed Nuclear medicine brain flow, 07/30/2024: Compared to 07/23/2024, there is still no evidence of internal carotid blood flow. CT head, 07/08/2024: 1. No acute intracranial hemorrhage. 2. No CT findings of territorial ischemia CT head, 07/12/2024: 1. Symmetric hypodensities in the lentiform nuclei, similar to prior study. Hypodensities in the bilateral thalami new since prior CT scan of the head from 07/10/2024. Additionally, there is subtle loss of mendoza-white matter differentiation since the prior CT from 07/08/2024 for which intracerebral edema is not excluded. Correlation for toxic metabolic or ischemic insult or other etiology is recommended. MRI of the brain without contrast is recommended for further evaluation. 2. No evidence of acute intracranial hemorrhag CT head, 07/19/2024: 1. Severe Generalized Hypoxia: Diffuse hypo-attenuation of the bilateral frontal, parietal and temporal lobes with loss of mendoza-white matter differentiation, probably secondary to generalized hypoxia. Diffuse cerebral edema with effacement of the sulci and basilar cisterns. Relative sparing of the cerebellar hemispheres. 2. No Evidence of Intraparenchymal hematoma, midline shift or hydrocephalus. 3. Soft Tissue Findings: Right periorbital soft tissue edema, with no evidence of calvarial fracture MRI head, 07/14/2024: There is T2/FLAIR hyperintensity involving the lentiform nucleus, hypothalamic region, cerebral peduncle, dorsal midbrain , dorsal liberty and dorsal medulla with symmetric bilateral dorsal medulla small focus of diffusion restriction. Findings are nonspecific and may be seen with hypoxic ischemic encephalopathy, metabolic or toxic disorders. Recommend clinical correlation vital signs Vital Sign Date Time Temp Pulse Resp B/P (MAP) Pulse Ox O2 Delivery O2 Flow Rate FiO2 07/31/24 09:20 87/49 07/31/24 08:03 61 18 100 30 07/31/24 07:00 96.1 205.0 07/31/24 06:00 Mechanical Ventilator+ Total Intake and Output 07/30/24 07/30/24 07/31/24 15:00 23:00 07:00 Intake Total 141.875 ml 213.35 ml 223.2 ml Output Total 175 ml 150 ml Balance 141.875 ml 38.35 ml 73.2 ml medications Current Medications Medications Dose Ordered Sig/Perez Route Start Time Stop Time Status Last Admin Dose Admin Acetaminophen 650 mg Q6HP PRN PO 07/08/24 22:45 07/09/24 22:29 650 MG Nitroglycerin 0.4 mg Q5MINP PRN SL 07/08/24 22:45 Acetaminophen 650 mg Q6HP PRN [place] 07/09/24 11:00 07/09/24 15:54 650 MG Pantoprazole Sodium 40 mg BID IV 07/11/24 22:00 07/30/24 21:34 40 MG Enteral Nutritional Formula 1,000 ml 30ML/HR GT 07/16/24 14:45 07/21/24 17:13 1,000 ML Norepinephrine Bitartrate 250 ml @ 1.875 mls/ hr Q24H IV 07/16/24 15:45 07/30/24 18:26 9.375 MLS/HR Levalbuterol HCl 1.25 mg Q6HR NEB 07/19/24 18:00 07/31/24 06:25 1.25 MG Ipratropium [employer] 0.5 mg Q4HR NEB 07/20/24 12:00 Cancel Ipratropium [employer] 0.5 mg Q6HR NEB 07/20/24 12:00 07/31/24 06:25 0.5 MG Artificial Tears 2 drop Q6HP PRN EACHEYE 07/22/24 17:00 Erythromycin 1 applic Q12HR OP 07/22/24 22:00 07/30/24 21:34 1 APPLIC Ergocalciferol 50,000 unit Q7D PO 07/23/24 09:30 07/23/24 11:16 50,000 UNIT Ceftriaxone Sodium 50 ml @ 100 mls/hr DAILY@09 IV 07/28/24 10:00 07/31/24 08:57 100 MLS/HR objective The patient is well-nourished and well-developed with no distress. The patient is intubated MENTAL STATUS: See subjective CRANIAL NERVES: Pupils are nonreactive, left side is bigger. There are no corneal reflexes and no doll's eyes phenomenon. No signs of facial weakness. There are no gagging or coughing reflexes SENSATION: No response to strong pain stimuli. MOTOR: Normal tone in the upper and lower extremity. Normal muscle bulk. No fasciculations. No spontaneous movement. REFLEXES: Deep tendon reflexes are symmetrical. No pathological reflexes. CEREBELLAR/COORDINATION: Deferred GAIT/STATION: deferred laboratory and microbiology Laboratory Tests 07/31/24 03:49 Test 07/31/24 03:49 Range/Units Serum Glucose 87 74-106 mg/dL Problem List Coma/diffuse brain edema Hypoxic encephalopathy Metabolic encephalopathy Cardiopulmonary arrest Acute respiratory failure Unequal pupil size/brain herniation Brain Assessment/Plan Monitoring Supportive treatment ICU care Stabilize vitals/pressor drip Respiratory support/vent management Oxygen Transferred to higher level care Social service on case More recommendation per clinical course I recommend comfort care/terminal wean This medical document was created using an electronic medical record system with [employer] dictation system. Although this document has been carefully reviewed, there may still be some phonetic and typographical errors. These areas are purely typographical due to imperfections of the software programs, and do not reflect any compromise in the patient's medical care Prognosis guarded Dietary Evaluation Review Comments: Patient is not receiving nutrition. If GI is accessible, consider EN nutrition - Jevity 1.2 @ 55 mL/hr as tolerated. If patient remains NPO for more than 7 days, initiate TPN to meet 75% of estimated needs. Advance patient diet when medically feasible to a cardiac diet if renal function is sufficient. Expected Outcomes/Goals: Patient to receive nutrition support within 7 days of NPO status. Patient diet to advance F/u in 2-3 days Plan discussed with: Other SUMAYA ALVAREZ MD Jul 31, 2024 09:46
[2024-07-31 10:19] LABS: Base Excess -1.7 mmol/L (-2.0-3.0)
--- NOTE | 2024-07-31 11:59 | DVHPN2 ---
Progress Note Date Seen: Jul 31, 2024 Has the PT tested + for MRSA If YES, has PT been informed?: No Medical Necessity Reason Pt with a Central, PICC or Fol: Yes The following are medically ne: Central Line, Jones Catheter Reason for jones catheter: Strict I&O Subjective Other Systems: Patient seen and examined by myself today in follow-up, patient remained intubated on ventilator Objective vital signs Vital Sign Date Time Temp Pulse Resp B/P (MAP) Pulse Ox O2 Delivery O2 Flow Rate FiO2 07/31/24 09:50 67 18 118/71 (87) 100 30 07/31/24 07:00 96.1 205.0 07/31/24 06:00 Mechanical Ventilator+ Total Intake and Output 07/30/24 07/30/24 07/31/24 15:00 23:00 07:00 Intake Total 141.875 ml 213.35 ml 223.2 ml Output Total 175 ml 150 ml Balance 141.875 ml 38.35 ml 73.2 ml medications Current Medications Medications Dose Ordered Sig/Perez Route Start Time Stop Time Status Last Admin Dose Admin Acetaminophen 650 mg Q6HP PRN PO 07/08/24 22:45 07/09/24 22:29 650 MG Nitroglycerin 0.4 mg Q5MINP PRN SL 07/08/24 22:45 Acetaminophen 650 mg Q6HP PRN MA 07/09/24 11:00 07/09/24 15:54 650 MG Pantoprazole Sodium 40 mg BID IV 07/11/24 22:00 07/31/24 11:12 40 MG Enteral Nutritional Formula 1,000 ml 30ML/HR GT 07/16/24 14:45 07/21/24 17:13 1,000 ML Norepinephrine Bitartrate 250 ml @ 1.875 mls/ hr Q24H IV 07/16/24 15:45 07/30/24 18:26 9.375 MLS/HR Levalbuterol HCl 1.25 mg Q6HR NEB 07/19/24 18:00 07/31/24 06:25 1.25 MG Ipratropium [employer] 0.5 mg Q4HR NEB 07/20/24 12:00 Cancel Ipratropium [employer] 0.5 mg Q6HR NEB 07/20/24 12:00 07/31/24 06:25 0.5 MG Artificial Tears 2 drop Q6HP PRN EACHEYE 07/22/24 17:00 Erythromycin 1 applic Q12HR OP 07/22/24 22:00 07/31/24 11:12 1 APPLIC Ergocalciferol 50,000 unit Q7D PO 07/23/24 09:30 07/23/24 11:16 50,000 UNIT Ceftriaxone Sodium 50 ml @ 100 mls/hr DAILY@09 IV 07/28/24 10:00 07/31/24 08:57 100 MLS/HR Examination: LUNGS:Normal, CVS:Normal, MSK:Normal laboratory and microbiology Laboratory Tests 07/31/24 03:49 Test 07/31/24 03:49 Range/Units Serum Glucose 87 74-106 mg/dL Microbiology Date/Time Source Procedure Growth Status 07/28/24 10:07 Blood Blood Culture - Preliminary NO GROWTH AFTER 72 HOURS OF INCUBATION. Resulted 07/28/24 09:45 Sputum Gram Stain - Final Complete 07/28/24 09:45 Respiratory Culture - Final Enterobacter cloacae Complete 07/28/24 09:25 Voided Urine Urine Culture - Preliminary Presumptive Jane albicans Resulted 07/16/24 17:02 Trachea Gram Stain - Final Complete 07/16/24 17:02 Respiratory Culture - Final Enterobacter cloacae Complete Problem List/Assessment/Plan Problem List/Assessment/Plan NAOMI secondary to hemodynamically mediated likely ischemic ATN Acute respiratory failure, patient intubated on ventilator Anoxic encephalopathy, patient declared brain Septic shock due to pneumonia Pneumonia NSTEMI type 2 likely due to above Cardiopulmonary arrest status post CPR with ROSC Paroxysmal atrial fibrillation Elevated liver function Anoxic brain injur Upper GI bleeding Recommendation Patient could not tolerate hemodialysis Jones catheter Fluid restrictions Family discussing compassionate extubation I will sign off this case please reconsult as needed Thank you for the consult Plan discussed with: Other (Nurse) Dietary Evaluation Review Comments: Patient is not receiving nutrition. If GI is accessible, consider EN nutrition - Jevity 1.2 @ 55 mL/hr as tolerated. If patient remains NPO for more than 7 days, initiate TPN to meet 75% of estimated needs. Advance patient diet when medically feasible to a cardiac diet if renal function is sufficient. Expected Outcomes/Goals: Patient to receive nutrition support within 7 days of NPO status. Patient diet to advance F/u in 2-3 days ASIF MAC MD Jul 31, 2024 11:59
--- NOTE | 2024-07-31 12:20 | DVHPN2 ---
Progress Note Date Seen: Jul 31, 2024 Has the PT tested + for MRSA If YES, has PT been informed?: No Medical Necessity Reason Pt with a Central, PICC or Fol: Yes The following are medically ne: Central Line, Jones Catheter Reason for jones catheter: Strict I&O Subjective Patient reports: No new complaints Review of Systems: HEENT:Normal, CVS:Normal, RESPIRATORY:Normal, GI:Normal, :Normal, MSK:Normal, NEURO:Normal Objective vital signs Vital Sign Date Time Temp Pulse Resp B/P (MAP) Pulse Ox O2 Delivery O2 Flow Rate FiO2 07/31/24 09:50 67 18 118/71 (87) 100 30 07/31/24 07:00 96.1 205.0 07/31/24 06:00 Mechanical Ventilator+ Total Intake and Output 07/30/24 07/30/24 07/31/24 15:00 23:00 07:00 Intake Total 141.875 ml 213.35 ml 223.2 ml Output Total 175 ml 150 ml Balance 141.875 ml 38.35 ml 73.2 ml medications Current Medications Medications Dose Ordered Sig/Perez Route Start Time Stop Time Status Last Admin Dose Admin Acetaminophen 650 mg Q6HP PRN PO 07/08/24 22:45 07/09/24 22:29 650 MG Nitroglycerin 0.4 mg Q5MINP PRN SL 07/08/24 22:45 Acetaminophen 650 mg Q6HP PRN SC 07/09/24 11:00 07/09/24 15:54 650 MG Pantoprazole Sodium 40 mg BID IV 07/11/24 22:00 07/31/24 11:12 40 MG Enteral Nutritional Formula 1,000 ml 30ML/HR GT 07/16/24 14:45 07/21/24 17:13 1,000 ML Norepinephrine Bitartrate 250 ml @ 1.875 mls/ hr Q24H IV 07/16/24 15:45 07/30/24 18:26 9.375 MLS/HR Levalbuterol HCl 1.25 mg Q6HR NEB 07/19/24 18:00 07/31/24 06:25 1.25 MG Ipratropium [place] 0.5 mg Q4HR NEB 07/20/24 12:00 Cancel Ipratropium [place] 0.5 mg Q6HR NEB 07/20/24 12:00 07/31/24 06:25 0.5 MG Artificial Tears 2 drop Q6HP PRN EACHEYE 07/22/24 17:00 Erythromycin 1 applic Q12HR OP 07/22/24 22:00 07/31/24 11:12 1 APPLIC Ergocalciferol 50,000 unit Q7D PO 07/23/24 09:30 07/23/24 11:16 50,000 UNIT Ceftriaxone Sodium 50 ml @ 100 mls/hr DAILY@09 IV 07/28/24 10:00 07/31/24 08:57 100 MLS/HR Examination: GENERAL:Normal, HEENT:Normal, NECK:Normal, LUNGS:Normal, LUNGS:Abnormal (intubated), CVS:Normal, ABDOMEN:Normal, MSK:Normal, SKIN:Normal, NEURO:Normal, NEURO:Abnormal (pupils fixed and dilated), :Normal laboratory and microbiology Laboratory Tests 07/31/24 03:49 Test 07/31/24 03:49 Range/Units Serum Glucose 87 74-106 mg/dL Microbiology Date/Time Source Procedure Growth Status 07/28/24 10:07 Blood Blood Culture - Preliminary NO GROWTH AFTER 72 HOURS OF INCUBATION. Resulted 07/28/24 09:45 Sputum Gram Stain - Final Complete 07/28/24 09:45 Respiratory Culture - Final Enterobacter cloacae Complete 07/28/24 09:25 Voided Urine Urine Culture - Preliminary Presumptive Jane albicans Resulted 07/16/24 17:02 Trachea Gram Stain - Final Complete 07/16/24 17:02 Respiratory Culture - Final Enterobacter cloacae Complete Problem List/Assessment/Plan Problem List/Assessment/Plan This is a 63-year-old female with past medical history of allergic asthma, COPD, hypertension, paroxysmal atrial fibrillation, repaired mitral valve, IBS, generalized anxiety, chronic pain and insomnia brought to the hospital after loss of consciousness. Patient had lost consciousness out of house, witnessed by the bystanders, found asystole by EMS, performed CPR for 20 minutes and retained ROSC. Admitted on 07/09/2024. NEURO: Acute metabolic encephalopathy, likely due to sepsis/possible anoxic brain injury due to cardiac arrest Patient is sedated, and on mechanical ventilation, place, and Status post cardiac arrest Possible Cerebral edema, likely due to cardiac arrest Possible cerebral herniation, Bilateral pupils are dilated, fixed, asymmetric and nonreactive to the light. Head CT scan shows less prominent sulci, likely due to cerebral edema We will consider head CT scan after 48 hour for the monitoring of possible cerebral edema Teleneurology consulted on 07/10 and has consulted the daughter of the patient regarding poor prognosis Head CT scan of 07/12/2024 shows changes but could not exclude brain edema Brain MRI shows nonspecific findings may be seen with hypoxic ischemic encephalopathy, metabolic or toxic disorders EEG shows severe cerebral dysfunction due to metabolic/hypoxic encephalopathy or medication effect Head CT scan from 07/19, shows effacement of sulci Neurology has consulted, and recommended that the patient have a poor prognosis for meaningful recovery and higher level care transfer is unlikely to change progresses. Brain perfusion test shows, no cerebral blood flow visualized and on site neurologist recommend comfort care, patients daughter requested a second opinion from another neurologist per second neurologist there is severe anoxic brain injury and no chance of meaningful recovery repeat brain flow test- no cerebral blood flow CARDIOVASCULAR: Status post cardiac arrest Patient has history of paroxysmal atrial fibrillation Non ST-elevation MO, type 2, likely due to cardiac arrest and CPR Circulation shock, likely septic likely due to pneumonia Patient has history of open heart surgery for mitral valve repair Sinus tachycardia Atrial fibrillation Troponin is raised EKG shows sinus tachycardia, with no significant ST or T-wave changes Cardiology on the board, recommended conservative management Echocardiogram shows Borderline Normal left ventricular systolic function estimated ejection [id number] Moderately elevated right ventricular systolic pressure 40 mm of mercury. 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 as well as mitral valve repair Cardiology is on the board, suggested conservative management Sinus tachycardia Due to paroxysmal atrial fibrillation and RVR, the Cardiology consulted back, recommended to use digoxin in case of atrial fibrillation recurrence PULMONARY: Patient is sedated, and on mechanical ventilator, RASS (-5, unresponsive) with ventilator setting of( Vt 450, RR 26, FiO2 30%, peep 5) Acute hypoxic respiratory failure likely due to pneumonia/COPD exacerbation/asthma exacerbation Pneumonia likely due to Gram-positive/Gram-negative Septic shock likely due to pneumonia/UTI Patient has history of multiple hospital admission, including intubated for 2 months in [place] in 2007, mitral valve repair and also has been admitted in [facility] MRSA nares screening negative and stopped vancomycin (given for 4 days) COVID-19 and influenza antigens are negative Discontinue Zosyn, use for 8 days Chest x-ray does not shows any acute cardiopulmonary abnormality ABGs shows parameters within normal limits Continue Albuterol and ipratropium nebulization every 6 hours Sputum culture shows Enterobacter cloacae, sensitive to meropenem Continue meropenem, started at 07/19 GI: Possible Upper GI bleeding, unspecified location Transaminitis, likely due to ischemia secondary to cardiac arrest NG tube showed black drainage on 06/29 and 06/30 likely due to upper GI bleeding GI consulted, recommended conservative management Continue Protonix b.i.d. Discontinue Lovenox due to severe anemia and possible upper GI bleeding Ammonia level is normal RENAL: NAOMI, no previous records available Nephrology on the board, unable to tolerated dialysis UTI, unspecified location UA shows UTI picture Urine culture showed no bacterial growth ID: Urine and blood culture from 07/08 shows no bacterial growth Blood culture from 07/09 shows no bacterial growth MRSA screening on 07/09 negative, and discontinued vancomycin COVID-19 and influenza screening from 07/09 negative Discontinue Zosyn, use for 8 days Sputum culture shows Enterobacter cloacae, sensitive to meropenem Start meropenem at 07/19 CRP is raised Cannabinoid use disorder UDS shows cannabis positive Metabolic: Hypokalemia, Supplemented Magnesium is within normal limits Hyperkalemia, normalized Mild Hypernatremia, improved Mild hyperkalemia, injection calcium gluconate given Vitamin B12 is normal Vitamin -D level is low, supplemented Cortisol a.m. is normal TSH is normal Gynecology Vaginal bleeding On 07/20 5-10 mL of vaginal bleeding noticed, with some clots on 07/18 Monitoring DVT prophylaxis Due to possible upper GI bleeding, Lovenox is not indicated SCD anemia: dw family regards transfusion LINES/DRAINS/ACCESS: ETT tube, intubated on 07/08/2024 Transurethral catheter, placed on 07/08/2024 IV Access Right femoral vein (CVC), placed on 07/08/2024 Left femoral vein catheter for HD, placed on 07/17 Drips: Levophed 6 Diet: Nepro 30 mL/hour on 07/16 Disposition: As per family request for the higher level of care transfer(preference [place]), child welfare social worker has been consulted. CODE STATUS: dnr Disposition: ICU status, kept in ICU Case discussed with the daughter and rest of family. wishes repeat blood flow imaging- no blood flow on repeat test Critical time spent more than 82 minutes, including patient care, chart review and updating the family, excluding any procedures. Plan discussed with: Other (rn) My Orders My Orders Orders - MONE HARDY MD Procedure Category Date Status Time Abg W/ Co-Ox RT 07/31/24 Logged 06:00 Dietary Evaluation Review Comments: Patient is not receiving nutrition. If GI is accessible, consider EN nutrition - Jevity 1.2 @ 55 mL/hr as tolerated. If patient remains NPO for more than 7 days, initiate TPN to meet 75% of estimated needs. Advance patient diet when medically feasible to a cardiac diet if renal function is sufficient. Expected Outcomes/Goals: Patient to receive nutrition support within 7 days of NPO status. Patient diet to advance F/u in 2-3 days Date of Service: Jul 31, 2024 Billing Provider: MONE HARDY MD Common Visit Codes: 96603-[id number] CARE 30-74 MIN, [id number] CARE-EACH +30MIN MONE HARDY MD Jul 31, 2024 12:20
[2024-08-01] VITALS (109 sets, daily range): BP systolic 78–161; BP diastolic 40–89; PULSE 58–78; RESP 15–19; TEMP 96.3–99.7; O2SAT 94–100
[2024-08-01 07:35] LABS: Base Excess -2.3 mmol/L (-2.0-3.0)
--- NOTE | 2024-08-01 10:45 | DVHPN2 ---
Progress Note - Dictate Date Seen: Aug 01, 2024 Has the PT tested + for MRSA If YES, has PT been informed?: No Medical Necessity Reason Pt with a Central, PICC or Fol: Yes The following are medically ne: Central Line, Jones Catheter Reason for jones catheter: Strict I&O Subjective Ms. Wren is a 63 years old female with a history of asthma, COPD, paroxysmal atrial fibrillation, allergy to animal dander, smoking, she was brought to the [facility] on 07/08/2024 with a chief company of altered mental status. I have seen and examined the patient in the ICU, I have talked to her nurse, she remained nonresponsive to strong painful stimuli, she is intubated, the pupils are fixed, with left side bigger, no brainstem reflexes Overall no changes Tele Neurology consult reaching, 07/24/2024: Severe anoxic brain injury Poor prognosis No chance of meaningful recovery UDS, 07/12/2024: Cannabinoids Urinalysis, 07/08/2024: WBC: 26, urine leukocyte esterase: Negative ABG, 07/08/2024: acidosis, WBC/HB/PLT/MCV, 07/15/2024: 11.5/75/80/89.3 PT/INR/PTT, 07/08/2024: 16/1.56/26.8 BUN/CR, 07/15/2024: 112/8.19 TBI/AST/ALT/AP, 07/15/2024: 0.8/68/45/31 EEG, 07/16/2024: Inadequate, but likely remarkably abnormal EEG Brain flow NM, 07/23/2024: No cerebral blood flow visualized. Findings may be seen with brain , however correlation with clinical findings is needed Nuclear medicine brain flow, 07/30/2024: Compared to 07/23/2024, there is still no evidence of internal carotid blood flow. CT head, 07/08/2024: 1. No acute intracranial hemorrhage. 2. No CT findings of territorial ischemia CT head, 07/12/2024: 1. Symmetric hypodensities in the lentiform nuclei, similar to prior study. Hypodensities in the bilateral thalami new since prior CT scan of the head from 07/10/2024. Additionally, there is subtle loss of mendoza-white matter differentiation since the prior CT from 07/08/2024 for which intracerebral edema is not excluded. Correlation for toxic metabolic or ischemic insult or other etiology is recommended. MRI of the brain without contrast is recommended for further evaluation. 2. No evidence of acute intracranial hemorrhag CT head, 07/19/2024: 1. Severe Generalized Hypoxia: Diffuse hypo-attenuation of the bilateral frontal, parietal and temporal lobes with loss of mendoza-white matter differentiation, probably secondary to generalized hypoxia. Diffuse cerebral edema with effacement of the sulci and basilar cisterns. Relative sparing of the cerebellar hemispheres. 2. No Evidence of Intraparenchymal hematoma, midline shift or hydrocephalus. 3. Soft Tissue Findings: Right periorbital soft tissue edema, with no evidence of calvarial fracture MRI head, 07/14/2024: There is T2/FLAIR hyperintensity involving the lentiform nucleus, hypothalamic region, cerebral peduncle, dorsal midbrain , dorsal liberty and dorsal medulla with symmetric bilateral dorsal medulla small focus of diffusion restriction. Findings are nonspecific and may be seen with hypoxic ischemic encephalopathy, metabolic or toxic disorders. Recommend clinical correlation vital signs Vital Sign Date Time Temp Pulse Resp B/P (MAP) Pulse Ox O2 Delivery O2 Flow Rate FiO2 08/01/24 10:00 30 08/01/24 10:00 18 100 Mechanical Ventilator+ 08/01/24 09:34 62 125/69 (87) 08/01/24 08:15 99.5 211.1 Total Intake and Output 07/31/24 07/31/24 08/01/24 15:00 23:00 07:00 Intake Total 121.280 ml 218.903 ml 323.59 ml Output Total 150 ml 200 ml Balance 121.280 ml 68.903 ml 123.59 ml medications Current Medications Medications Dose Ordered Sig/Perez Route Start Time Stop Time Status Last Admin Dose Admin Acetaminophen 650 mg Q6HP PRN PO 07/08/24 22:45 07/09/24 22:29 650 MG Nitroglycerin 0.4 mg Q5MINP PRN SL 07/08/24 22:45 Acetaminophen 650 mg Q6HP PRN SD 07/09/24 11:00 07/09/24 15:54 650 MG Pantoprazole Sodium 40 mg BID IV 07/11/24 22:00 08/01/24 10:02 40 MG Enteral Nutritional Formula 1,000 ml 30ML/HR GT 07/16/24 14:45 08/01/24 06:17 1,000 ML Norepinephrine Bitartrate 250 ml @ 1.875 mls/ hr Q24H IV 07/16/24 15:45 07/31/24 16:45 13.125 MLS/HR Levalbuterol HCl 1.25 mg Q6HR NEB 07/19/24 18:00 08/01/24 06:26 1.25 MG Ipratropium [place] 0.5 mg Q4HR NEB 07/20/24 12:00 Cancel Ipratropium [place] 0.5 mg Q6HR NEB 07/20/24 12:00 08/01/24 06:26 0.5 MG Artificial Tears 2 drop Q6HP PRN EACHEYE 07/22/24 17:00 Erythromycin 1 applic Q12HR OP 07/22/24 22:00 08/01/24 10:07 1 APPLIC Ergocalciferol 50,000 unit Q7D PO 07/23/24 09:30 07/23/24 11:16 50,000 UNIT Ceftriaxone Sodium 50 ml @ 100 mls/hr DAILY@09 IV 07/28/24 10:00 08/01/24 09:14 100 MLS/HR objective The patient is well-nourished and well-developed with no distress. The patient is intubated MENTAL STATUS: See subjective CRANIAL NERVES: Pupils are nonreactive, left side is bigger. There are no corneal reflexes and no doll's eyes phenomenon. No signs of facial weakness. There are no gagging or coughing reflexes SENSATION: No response to strong painful stimuli. MOTOR: Normal tone in the upper and lower extremity. Normal muscle bulk. No fasciculations. No spontaneous movement. REFLEXES: Deep tendon reflexes are symmetrical. No pathological reflexes. CEREBELLAR/COORDINATION: Deferred GAIT/STATION: deferred laboratory and microbiology Laboratory Tests 07/31/24 03:49 Test 07/31/24 03:49 Range/Units Serum Glucose 87 74-106 mg/dL Problem List Coma/diffuse brain edema Hypoxic encephalopathy Metabolic encephalopathy Cardiopulmonary arrest Acute respiratory failure Unequal pupil size/brain herniation Brain Assessment/Plan Monitoring Supportive treatment ICU care Stabilize vitals/pressor drip Respiratory support/vent management Oxygen Social service on case More recommendation per clinical course Family to decide to her code status I recommend comfort care/terminal wean This medical document was created using an electronic medical record system with [employer] dictation system. Although this document has been carefully reviewed, there may still be some phonetic and typographical errors. These areas are purely typographical due to imperfections of the software programs, and do not reflect any compromise in the patient's medical care Prognosis guarded Dietary Evaluation Review Comments: Follow TF portocol infused activated TF order while there is no residual issue Expected Outcomes/Goals: support minimum of 75% of pt's nutrition daily needs Plan discussed with: Other SUMAYA ALVAREZ MD Aug 01, 2024 10:45
--- NOTE | 2024-08-01 13:21 | DVHPN2 ---
Progress Note Date Seen: Aug 01, 2024 Has the PT tested + for MRSA If YES, has PT been informed?: No Medical Necessity Reason Pt with a Central, PICC or Fol: Yes The following are medically ne: Central Line, Jones Catheter Reason for jones catheter: Strict I&O Subjective Patient reports: No new complaints Review of Systems: HEENT:Normal, CVS:Normal, RESPIRATORY:Normal, GI:Normal, :Normal, MSK:Normal, NEURO:Normal Objective vital signs Vital Sign Date Time Temp Pulse Resp B/P (MAP) Pulse Ox O2 Delivery O2 Flow Rate FiO2 08/01/24 12:00 60 08/01/24 12:00 18 100 Mechanical Ventilator+ 30 30 08/01/24 11:31 101/50 (67) 08/01/24 10:30 99.0 210.2 Total Intake and Output 07/31/24 07/31/24 08/01/24 15:00 23:00 07:00 Intake Total 121.280 ml 218.903 ml 323.59 ml Output Total 150 ml 200 ml Balance 121.280 ml 68.903 ml 123.59 ml medications Current Medications Medications Dose Ordered Sig/Perez Route Start Time Stop Time Status Last Admin Dose Admin Acetaminophen 650 mg Q6HP PRN PO 07/08/24 22:45 07/09/24 22:29 650 MG Nitroglycerin 0.4 mg Q5MINP PRN SL 07/08/24 22:45 Acetaminophen 650 mg Q6HP PRN [place] 07/09/24 11:00 07/09/24 15:54 650 MG Pantoprazole Sodium 40 mg BID IV 07/11/24 22:00 08/01/24 10:02 40 MG Enteral Nutritional Formula 1,000 ml 30ML/HR GT 07/16/24 14:45 08/01/24 06:17 1,000 ML Norepinephrine Bitartrate 250 ml @ 1.875 mls/ hr Q24H IV 07/16/24 15:45 08/01/24 10:47 18.75 MLS/HR Levalbuterol HCl 1.25 mg Q6HR NEB 07/19/24 18:00 08/01/24 11:30 1.25 MG Ipratropium [place] 0.5 mg Q4HR NEB 07/20/24 12:00 Cancel Ipratropium [place] 0.5 mg Q6HR NEB 07/20/24 12:00 08/01/24 11:31 0.5 MG Artificial Tears 2 drop Q6HP PRN EACHEYE 07/22/24 17:00 Erythromycin 1 applic Q12HR OP 07/22/24 22:00 08/01/24 10:07 1 APPLIC Ceftriaxone Sodium 50 ml @ 100 mls/hr DAILY@09 IV 07/28/24 10:00 08/01/24 09:14 100 MLS/HR Examination: GENERAL:Normal, HEENT:Normal, NECK:Normal, LUNGS:Normal, LUNGS:Abnormal (intubated), CVS:Normal, ABDOMEN:Normal, MSK:Normal, SKIN:Normal, NEURO:Normal, NEURO:Abnormal (fixed and dilated), :Normal laboratory and microbiology Laboratory Tests 07/31/24 03:49 Test 07/31/24 03:49 Range/Units Serum Glucose 87 74-106 mg/dL Microbiology Date/Time Source Procedure Growth Status 07/28/24 10:07 Blood Blood Culture - Preliminary NO GROWTH AFTER 72 HOURS OF INCUBATION. Resulted 07/28/24 09:45 Sputum Gram Stain - Final Complete 07/28/24 09:45 Respiratory Culture - Final Enterobacter cloacae Complete 07/28/24 09:25 Voided Urine Urine Culture - Final Presumptive Jane albicans Complete 07/16/24 17:02 Trachea Gram Stain - Final Complete 07/16/24 17:02 Respiratory Culture - Final Enterobacter cloacae Complete Problem List/Assessment/Plan Problem List/Assessment/Plan This is a 63-year-old female with past medical history of allergic asthma, COPD, hypertension, paroxysmal atrial fibrillation, repaired mitral valve, IBS, generalized anxiety, chronic pain and insomnia brought to the hospital after loss of consciousness. Patient had lost consciousness out of house, witnessed by the bystanders, found asystole by EMS, performed CPR for 20 minutes and retained ROSC. Admitted on 07/09/2024. 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 Head CT scan shows less prominent sulci, likely due to cerebral edema We will consider head CT scan after 48 hour for the monitoring of possible cerebral edema Teleneurology consulted on 07/10 and has consulted the daughter of the patient regarding poor prognosis Head CT scan of 07/12/2024 shows changes but could not exclude brain edema Brain MRI shows nonspecific findings may be seen with hypoxic ischemic encephalopathy, metabolic or toxic disorders EEG shows severe cerebral dysfunction due to metabolic/hypoxic encephalopathy or medication effect Head CT scan from 07/19, shows effacement of sulci Neurology has consulted, and recommended that the patient have a poor prognosis for meaningful recovery and higher level care transfer is unlikely to change progresses. Brain perfusion test shows, no cerebral blood flow visualized and on site neurologist recommend comfort care, patients daughter requested a second opinion from another neurologist per second neurologist there is severe anoxic brain injury and no chance of meaningful recovery repeat brain flow test- no cerebral blood flow CARDIOVASCULAR: Status post cardiac arrest Patient has history of paroxysmal atrial fibrillation Non ST-elevation [place], type 2, likely due to cardiac arrest and CPR Circulation shock, likely septic likely due to pneumonia Patient has history of open heart surgery for mitral valve repair Sinus tachycardia Atrial fibrillation Troponin is raised EKG shows sinus tachycardia, with no significant ST or T-wave changes Cardiology on the board, recommended conservative management Echocardiogram shows Borderline Normal left ventricular systolic function estimated ejection %. Moderately elevated right ventricular systolic pressure 40 mm of mercury. 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 as well as mitral valve repair Cardiology is on the board, suggested conservative management Sinus tachycardia Due to paroxysmal atrial fibrillation and RVR, the Cardiology consulted back, recommended to use digoxin in case of atrial fibrillation recurrence PULMONARY: Patient is sedated, and on mechanical ventilator, RASS (-5, unresponsive) with ventilator setting of( Vt 450, RR 26, FiO2 30%, peep 5) Acute hypoxic respiratory failure likely due to pneumonia/COPD exacerbation/asthma exacerbation Pneumonia likely due to Gram-positive/Gram-negative Septic shock likely due to pneumonia/UTI Patient has history of multiple hospital admission, including intubated for 2 months in [place] in 2007, mitral valve repair and also has been admitted in [facility] MRSA nares screening negative and stopped vancomycin (given for 4 days) COVID-19 and influenza antigens are negative Discontinue Zosyn, use for 8 days Chest x-ray does not shows any acute cardiopulmonary abnormality ABGs shows parameters within normal limits Continue Albuterol and ipratropium nebulization every 6 hours Sputum culture shows Enterobacter cloacae, sensitive to meropenem Continue meropenem, started at 12/6 GI: Possible Upper GI bleeding, unspecified location Transaminitis, likely due to ischemia secondary to cardiac arrest NG tube showed black drainage on 06/29 and 06/30 likely due to upper GI bleeding GI consulted, recommended conservative management Continue Protonix b.i.d. Discontinue Lovenox due to severe anemia and possible upper GI bleeding Ammonia level is normal RENAL: NAOMI, no previous records available Nephrology on the board, unable to tolerated dialysis UTI, unspecified location UA shows UTI picture Urine culture showed no bacterial growth ID: Urine and blood culture from 07/08 shows no bacterial growth Blood culture from 07/09 shows no bacterial growth MRSA screening on 07/09 negative, and discontinued vancomycin COVID-19 and influenza screening from 07/09 negative Discontinue Zosyn, use for 8 days Sputum culture shows Enterobacter cloacae, sensitive to meropenem Start meropenem at 07/19 CRP is raised Cannabinoid use disorder UDS shows cannabis positive Metabolic: Hypokalemia, Supplemented Magnesium is within normal limits Hyperkalemia, normalized Mild Hypernatremia, improved Mild hyperkalemia, injection calcium gluconate given Vitamin B12 is normal Vitamin -D level is low, supplemented Cortisol a.m. is normal TSH is normal Gynecology Vaginal bleeding On 07/20 5-10 mL of vaginal bleeding noticed, with some clots on 07/18 Monitoring DVT prophylaxis Due to possible upper GI bleeding, Lovenox is not indicated SCD anemia: dw family regards transfusion LINES/DRAINS/ACCESS: ETT tube, intubated on 07/08/2024 Transurethral catheter, placed on 07/08/2024 IV Access Right femoral vein (CVC), placed on 07/08/2024 Left femoral vein catheter for HD, placed on 07/17 Drips: Levophed 6 Diet: Nepro 30 mL/hour on 07/16 Disposition: As per family request for the higher level of care transfer(preference [place]), clinical social work therapist has been consulted. CODE STATUS: dnr Disposition: ICU status, kept in ICU Case discussed with the daughter and rest of family. terminal wean tomorrow Critical time spent more than 82 minutes, including patient care, chart review and updating the family, excluding any procedures. Plan discussed with: Daughter My Orders My Orders Orders - MONE HARDY MD Procedure Category Date Status Time Modified Resuscitive CODE 07/31/24 Transmitted Measures 19:22 Abg W/ Co-Ox RT 08/01/24 Logged 05:35 Dietary Evaluation Review Comments: Follow TF portocol infused activated TF order while there is no residual issue Expected Outcomes/Goals: support minimum of 75% of pt's nutrition daily needs Date of Service: Aug 01, 2024 Billing Provider: MONE HARDY MD Common Visit Codes: [id number] CARE 30-74 MIN, [id number] CARE-EACH +30MIN Date of Service: Aug 01, 2024 Billing Provider: MONE HRADY MD Common Visit Codes: [id number] CARE 30-74 MIN, [id number] CARE-EACH +30MIN MONE HARDY MD Aug 01, 2024 13:21
[2024-08-02] VITALS (87 sets, daily range): BP systolic 56–163; BP diastolic 31–74; PULSE 35–74; RESP 0–20; TEMP 97.2–99.3; O2SAT 43–100
[2024-08-02 06:20] LABS: Base Excess -0.9 mmol/L (-2.0-3.0)
--- NOTE | 2024-08-02 14:56 | DVHPN2 ---
Progress Note Date Seen: Aug 02, 2024 Has the PT tested + for MRSA If YES, has PT been informed?: No Medical Necessity Reason Pt with a Central, PICC or Fol: Yes The following are medically ne: Central Line, Jones Catheter Reason for jones catheter: Strict I&O Subjective Patient reports: Other (Patient intubated ) Review of Systems: HEENT:Abnormal Objective vital signs Vital Sign Date Time Temp Pulse Resp B/P (MAP) Pulse Ox O2 Delivery O2 Flow Rate FiO2 08/02/24 13:52 60 18 109/48 (68) 100 30 08/02/24 13:00 98.6 209.5 08/02/24 12:00 Mechanical Ventilator+ Total Intake and Output 08/01/24 08/01/24 08/02/24 15:00 23:00 07:00 Intake Total 187.280 ml 353.900 ml 346.930 ml Output Total 200 ml 200 ml Balance 187.280 ml 153.900 ml 146.930 ml medications Current Medications Medications Dose Ordered Sig/Perez Route Start Time Stop Time Status Last Admin Dose Admin Acetaminophen 650 mg Q6HP PRN PO 07/08/24 22:45 07/09/24 22:29 650 MG Nitroglycerin 0.4 mg Q5MINP PRN [place] 07/08/24 22:45 Acetaminophen 650 mg Q6HP PRN [place] 07/09/24 11:00 07/09/24 15:54 650 MG Pantoprazole Sodium 40 mg BID IV 07/11/24 22:00 08/02/24 10:00 40 MG Enteral Nutritional Formula 1,000 ml 30ML/HR GT 07/16/24 14:45 08/01/24 06:17 1,000 ML Norepinephrine Bitartrate 250 ml @ 1.875 mls/ hr Q24H IV 07/16/24 15:45 08/02/24 00:46 15 MLS/HR Levalbuterol HCl 1.25 mg Q6HR NEB 07/19/24 18:00 08/02/24 12:02 1.25 MG Ipratropium [place] 0.5 mg Q4HR NEB 07/20/24 12:00 Cancel Ipratropium [place] 0.5 mg Q6HR NEB 07/20/24 12:00 08/02/24 12:02 0.5 MG Artificial Tears 2 drop Q6HP PRN EACHEYE 07/22/24 17:00 Erythromycin 1 applic Q12HR OP 07/22/24 22:00 08/02/24 10:00 1 APPLIC Ceftriaxone Sodium 50 ml @ 100 mls/hr DAILY@09 IV 07/28/24 10:00 08/02/24 09:00 100 MLS/HR Examination: GENERAL:Abnormal, LUNGS:Abnormal, SKIN:Normal, NEURO:Abnormal (absence of reflexes ) laboratory and microbiology Laboratory Tests 07/31/24 03:49 Test 07/31/24 03:49 Range/Units Serum Glucose 87 74-106 mg/dL Microbiology Date/Time Source Procedure Growth Status 07/28/24 10:07 Blood Blood Culture - Final NO GROWTH AFTER 5 DAYS OF INCUBATION. Complete 07/28/24 09:45 Sputum Gram Stain - Final Complete 07/28/24 09:45 Respiratory Culture - Final Enterobacter cloacae Complete 07/28/24 09:25 Voided Urine Urine Culture - Final Presumptive Jane albicans Complete 07/16/24 17:02 Trachea Gram Stain - Final Complete 07/16/24 17:02 Respiratory Culture - Final Enterobacter cloacae Complete Problem List/Assessment/Plan Problem List/Assessment/Plan This is a 63-year-old female with past medical history of allergic asthma, COPD, hypertension, paroxysmal atrial fibrillation, repaired mitral valve, IBS, generalized anxiety, chronic pain and insomnia brought to the hospital after loss of consciousness. Patient had lost consciousness out of house, witnessed by the bystanders, found asystole by EMS, performed CPR for 20 minutes and retained ROSC. Admitted on 07/09/2024. 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 Head CT scan shows less prominent sulci, likely due to cerebral edema We will consider head CT scan after 48 hour for the monitoring of possible cerebral edema Teleneurology consulted on 07/10 and has consulted the daughter of the patient regarding poor prognosis Head CT scan of 07/12/2024 shows changes but could not exclude brain edema Brain MRI shows nonspecific findings may be seen with hypoxic ischemic encephalopathy, metabolic or toxic disorders EEG shows severe cerebral dysfunction due to metabolic/hypoxic encephalopathy or medication effect Head CT scan from 07/19, shows effacement of sulci Neurology has consulted, and recommended that the patient have a poor prognosis for meaningful recovery and higher level care transfer is unlikely to change progresses. Brain perfusion test shows, no cerebral blood flow visualized and on site neurologist recommend comfort care, patients daughter requested a second opinion from another neurologist per second neurologist there is severe anoxic brain injury and no chance of meaningful recovery repeat brain flow test- no cerebral blood flow CARDIOVASCULAR: Status post cardiac arrest Patient has history of paroxysmal atrial fibrillation Non ST-elevation [place], type 2, likely due to cardiac arrest and CPR Circulation shock, likely septic likely due to pneumonia Patient has history of open heart surgery for mitral valve repair Sinus tachycardia Atrial fibrillation Troponin is raised EKG shows sinus tachycardia, with no significant ST or T-wave changes Cardiology on the board, recommended conservative management Echocardiogram shows Borderline Normal left ventricular systolic function estimated ejection [id number] Moderately elevated right ventricular systolic pressure 40 mm of mercury. 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 as well as mitral valve repair Cardiology is on the board, suggested conservative management Sinus tachycardia Due to paroxysmal atrial fibrillation and RVR, the Cardiology consulted back, recommended to use digoxin in case of atrial fibrillation recurrence PULMONARY: Patient is sedated, and on mechanical ventilator, RASS (-5, unresponsive) with ventilator setting of( Vt 450, RR 26, FiO2 30%, peep 5) Acute hypoxic respiratory failure likely due to pneumonia/COPD exacerbation/asthma exacerbation Pneumonia likely due to Gram-positive/Gram-negative Septic shock likely due to pneumonia/UTI Patient has history of multiple hospital admission, including intubated for 2 months in [place] in 2007, mitral valve repair and also has been admitted in [facility] MRSA nares screening negative and stopped vancomycin (given for 4 days) COVID-19 and influenza antigens are negative Discontinue Zosyn, use for 8 days Chest x-ray does not shows any acute cardiopulmonary abnormality ABGs shows parameters within normal limits Continue Albuterol and ipratropium nebulization every 6 hours Sputum culture shows Enterobacter cloacae, sensitive to meropenem Continue meropenem, started at 07/19 GI: Possible Upper GI bleeding, unspecified location Transaminitis, likely due to ischemia secondary to cardiac arrest NG tube showed black drainage on 06/29 and 06/30 likely due to upper GI bleeding GI consulted, recommended conservative management Continue Protonix b.i.d. Discontinue Lovenox due to severe anemia and possible upper GI bleeding Ammonia level is normal RENAL: NAOMI, no previous records available Nephrology on the board, unable to tolerated dialysis UTI, unspecified location UA shows UTI picture Urine culture showed no bacterial growth ID: Urine and blood culture from 07/08 shows no bacterial growth Blood culture from 07/09 shows no bacterial growth MRSA screening on 07/09 negative, and discontinued vancomycin COVID-19 and influenza screening from 07/09 negative Discontinue Zosyn, use for 8 days Sputum culture shows Enterobacter cloacae, sensitive to meropenem Start meropenem at 07/19 CRP is raised Cannabinoid use disorder UDS shows cannabis positive Metabolic: Hypokalemia, Supplemented Magnesium is within normal limits Hyperkalemia, normalized Mild Hypernatremia, improved Mild hyperkalemia, injection calcium gluconate given Vitamin B12 is normal Vitamin -D level is low, supplemented Cortisol a.m. is normal TSH is normal DVT prophylaxis Due to possible upper GI bleeding, Lovenox is not indicated SCD anemia: dw family regards transfusion LINES/DRAINS/ACCESS: ETT tube, intubated on 07/08/2024 Transurethral catheter, placed on 07/08/2024 IV Access Right femoral vein (CVC), placed on 07/08/2024 Left femoral vein catheter for HD, placed on 07/17 Drips: Levophed 6 Diet: Nepro 30 mL/hour on 07/16 Disposition: As per family request for the higher level of care transfer(preference [place]), social science teacher has been consulted. CODE STATUS: dnr Disposition: ICU status, kept in ICU Case discussed with the daughter and rest of family. terminal wean tomorrow Critical time spent more than 82 minutes, including patient care, chart review and updating the family, excluding any procedures. Plan to do terminal wean today at 6 pm Plan discussed with: Patient My Orders My Orders Orders - MARIE DE SOUZA MD Procedure Category Date Status Time Communication Order ORDERS 08/02/24 Transmitted 14:30 Dietary Evaluation Review Comments: Follow TF portocol infused activated TF order while there is no residual issue Expected Outcomes/Goals: support minimum of 75% of pt's nutrition daily needs Date of Service: Aug 02, 2024 Billing Provider: MARIE DE SOUZA MD Common Visit Codes: [id number] CARE 30-74 MIN MARIE DE SOUZA MD Aug 02, 2024 14:56
--- NOTE | 2024-08-02 16:25 | DVHPN2 ---
Progress Note - Dictate Date Seen: Aug 02, 2024 Has the PT tested + for MRSA If YES, has PT been informed?: No Medical Necessity Reason Pt with a Central, PICC or Fol: Yes The following are medically ne: Central Line, Jones Catheter Reason for jones catheter: Strict I&O Subjective Ms. Wren is a 63 years old female with a history of asthma, COPD, paroxysmal atrial fibrillation, allergy to animal dander, smoking, she was brought to the [facility] on 07/08/2024 with a chief company of altered mental status. I have seen and examined the patient in the ICU, I have talked to her nurse, family in the unit. she remained nonresponsive to strong painful stimuli, she is intubated, the pupils are fixed, with left side bigger, no brainstem reflexes Overall no changes Tele Neurology consult reaching, 07/24/2024: Severe anoxic brain injury Poor prognosis No chance of meaningful recovery UDS, 07/12/2024: Cannabinoids Urinalysis, 07/08/2024: WBC: 26, urine leukocyte esterase: Negative ABG, 07/08/2024: acidosis, WBC/HB/PLT/MCV, 07/15/2024: 11.5/75/80/89.3 PT/INR/PTT, 07/08/2024: 16/1.56/26.8 BUN/CR, 07/15/2024: 112/8.19 TBI/AST/ALT/AP, 07/15/2024: 0.8/68/45/31 EEG, 07/16/2024: Inadequate, but likely remarkably abnormal EEG Brain flow NM, 07/23/2024: No cerebral blood flow visualized. Findings may be seen with brain , however correlation with clinical findings is needed Nuclear medicine brain flow, 07/30/2024: Compared to 07/23/2024, there is still no evidence of internal carotid blood flow. CT head, 07/08/2024: 1. No acute intracranial hemorrhage. 2. No CT findings of territorial ischemia CT head, 07/12/2024: 1. Symmetric hypodensities in the lentiform nuclei, similar to prior study. Hypodensities in the bilateral thalami new since prior CT scan of the head from 07/10/2024. Additionally, there is subtle loss of mendoza-white matter differentiation since the prior CT from 07/08/2024 for which intracerebral edema is not excluded. Correlation for toxic metabolic or ischemic insult or other etiology is recommended. MRI of the brain without contrast is recommended for further evaluation. 2. No evidence of acute intracranial hemorrhag CT head, 07/19/2024: 1. Severe Generalized Hypoxia: Diffuse hypo-attenuation of the bilateral frontal, parietal and temporal lobes with loss of mendoza-white matter differentiation, probably secondary to generalized hypoxia. Diffuse cerebral edema with effacement of the sulci and basilar cisterns. Relative sparing of the cerebellar hemispheres. 2. No Evidence of Intraparenchymal hematoma, midline shift or hydrocephalus. 3. Soft Tissue Findings: Right periorbital soft tissue edema, with no evidence of calvarial fracture MRI head, 07/14/2024: There is T2/FLAIR hyperintensity involving the lentiform nucleus, hypothalamic region, cerebral peduncle, dorsal midbrain , dorsal liberty and dorsal medulla with symmetric bilateral dorsal medulla small focus of diffusion restriction. Findings are nonspecific and may be seen with hypoxic ischemic encephalopathy, metabolic or toxic disorders. Recommend clinical correlation vital signs Vital Sign Date Time Temp Pulse Resp B/P (MAP) Pulse Ox O2 Delivery O2 Flow Rate FiO2 08/02/24 16:09 58 18 89/45 (60) 100 30 08/02/24 13:00 98.6 209.5 08/02/24 12:00 Mechanical Ventilator+ Total Intake and Output 08/01/24 08/01/24 08/02/24 15:00 23:00 07:00 Intake Total 187.280 ml 353.900 ml 346.930 ml Output Total 200 ml 200 ml Balance 187.280 ml 153.900 ml 146.930 ml medications Current Medications Medications Dose Ordered Sig/Perez Route Start Time Stop Time Status Last Admin Dose Admin Acetaminophen 650 mg Q6HP PRN PO 07/08/24 22:45 07/09/24 22:29 650 MG Nitroglycerin 0.4 mg Q5MINP PRN SL 07/08/24 22:45 Acetaminophen 650 mg Q6HP PRN AK 07/09/24 11:00 07/09/24 15:54 650 MG Pantoprazole Sodium 40 mg BID IV 07/11/24 22:00 08/02/24 10:00 40 MG Enteral Nutritional Formula 1,000 ml 30ML/HR GT 07/16/24 14:45 08/01/24 06:17 1,000 ML Norepinephrine Bitartrate 250 ml @ 1.875 mls/ hr Q24H IV 07/16/24 15:45 08/02/24 00:46 15 MLS/HR Levalbuterol HCl 1.25 mg Q6HR NEB 07/19/24 18:00 08/02/24 12:02 1.25 MG Ipratropium [place] 0.5 mg Q4HR NEB 07/20/24 12:00 Cancel Ipratropium [place] 0.5 mg Q6HR NEB 07/20/24 12:00 08/02/24 12:02 0.5 MG Artificial Tears 2 drop Q6HP PRN EACHEYE 07/22/24 17:00 Erythromycin 1 applic Q12HR OP 07/22/24 22:00 08/02/24 10:00 1 APPLIC Ceftriaxone Sodium 50 ml @ 100 mls/hr DAILY@09 IV 07/28/24 10:00 08/02/24 09:00 100 MLS/HR objective The patient is well-nourished and well-developed with no distress. The patient is intubated MENTAL STATUS: See subjective CRANIAL NERVES: Pupils are nonreactive, left side is bigger. There are no corneal reflexes and no doll's eyes phenomenon. No signs of facial weakness. There are no gagging or coughing reflexes SENSATION: No response to strong painful stimuli. MOTOR: Normal tone in the upper and lower extremity. Normal muscle bulk. No fasciculations. No spontaneous movement. REFLEXES: Deep tendon reflexes are symmetrical. No pathological reflexes. CEREBELLAR/COORDINATION: Deferred GAIT/STATION: deferred laboratory and microbiology Laboratory Tests 07/31/24 03:49 Test 07/31/24 03:49 Range/Units Serum Glucose 87 74-106 mg/dL Problem List Coma/diffuse brain edema Hypoxic encephalopathy Metabolic encephalopathy Cardiopulmonary arrest Acute respiratory failure Unequal pupil size/brain herniation Brain Assessment/Plan Monitoring Supportive treatment ICU care Stabilize vitals/pressor drip Respiratory support/vent management Oxygen Social service on case More recommendation per clinical course Family to decide to her code status today I recommend comfort care/terminal wean This medical document was created using an electronic medical record system with [employer] dictation system. Although this document has been carefully reviewed, there may still be some phonetic and typographical errors. These areas are purely typographical due to imperfections of the software programs, and do not reflect any compromise in the patient's medical care Prognosis guarded Dietary Evaluation Review Comments: Follow TF portocol infused activated TF order while there is no residual issue Expected Outcomes/Goals: support minimum of 75% of pt's nutrition daily needs Plan discussed with: Henny Quevedo QUANWEI MD Aug 02, 2024 16:25
[2024-08-02] MEDS ORDERED: LORazepam 2MG/ML-1ML VIAL IV PRN (18:00)
[2024-08-02] MEDS ORDERED: MORPHINE SULFATE INJ 2 MG/ml SYRG IV PRN (18:00)
--- NOTE | 2024-08-06 13:49 | ECG ---
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
--- NOTE | 2024-08-06 13:49 | ECG ---
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
--- NOTE | 2024-08-06 13:57 | ECG ---
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
--- NOTE | 2024-08-07 16:18 | DVHDS ---
DATE OF DISCHARGE: 08/02/2024 SUMMARY DATE OF : 08/02/2024. HISTORY OF PRESENT ILLNESS: The patient is a 63-year-old lady, who was brought in after she had a code situation and was unresponsive. The patient had CPR done, and was subsequently intubated. The patient was noted to have pupils that were fixed and dilated in the Emergency Room. HOSPITAL COURSE: The patient was seen in Cardiology consult by Dr. Mg Blackwell. Echocardiogram done showed an ejection fraction of 50% with an old mitral annular ring as well as mitral valve repair. The patient was seen in Neurology consult by Dr. Iqbal. The patient had 3 head CTs and a brain MRI. The brain MRI showed a T2 changes involving multiple areas of the brain. The patient went into acute renal failure and was placed on dialysis initially, but subsequently could not tolerate dialysis. I had multiple discussions with the patient's daughter, Jerri about her poor prognosis. The patient had sputum cultures that were positive for Enterobacter cloacae. The patient had nuclear blood brain flow test that showed no cerebral blood flow, and it was done twice. The patient was eventually made a terminal wean and on 08/02/2024. FINAL DIAGNOSES: Therefore, * Anoxic brain injury, status post cardiac arrest. * Acute respiratory failure. * History of mitral valve repair. * Paroxysmal atrial fibrillation. * Acute renal failure/acute tubular necrosis. * Pneumonia due to Enterobacter bacteremia. * Transaminitis. * Septic shock due to pneumonia. * Terminal wean/comfort measures. MD HERMELINDO Vargas/JUAN TID: [id number] RECEIPT: [id number]
--- NOTE | 2024-08-14 13:05 | ECG ---
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
== END 2024-08-02 19:43 | DRG 870 ==
LOC: ER 17:43 → EDBD 17:43 → OVERFLOW 22:39 → ICU WEST 07-10 23:04
PROVIDERS: ADMIT Internal Medicine Pulmonary Disease; ATTEND Internal Medicine Pulmonary Disease
PROC: 5A1955Z Respiratory Ventilation, Greater than 96 Consecutive Hours (ICD-10-PCS; principal; 2024-07-08)
PROC: 0BH17EZ Insertion of Endotracheal Airway into Trachea, Via Natural or Artificial Opening (ICD-10-PCS; 2024-07-08)
PROC: 5A12012 Performance of Cardiac Output, Single, Manual (ICD-10-PCS; 2024-07-08)
PROC: 06HN33Z Insertion of Infusion Device into Left Femoral Vein, Percutaneous Approach (ICD-10-PCS; 2024-07-17)
PROC: B54CZZA Ultrasonography of Left Lower Extremity Veins, Guidance (ICD-10-PCS; 2024-07-17)
PROC: 5A1D70Z Performance of Urinary Filtration, Intermittent, Less than 6 Hours Per Day (ICD-10-PCS; 2024-07-17)
PROC: 5A1D70Z Performance of Urinary Filtration, Intermittent, Less than 6 Hours Per Day (ICD-10-PCS; 2024-07-18)
PROC: 06HN33Z Insertion of Infusion Device into Left Femoral Vein, Percutaneous Approach (ICD-10-PCS; 2024-07-19)
PROC: B54CZZA Ultrasonography of Left Lower Extremity Veins, Guidance (ICD-10-PCS; 2024-07-19)
PROC: 5A1D70Z Performance of Urinary Filtration, Intermittent, Less than 6 Hours Per Day (ICD-10-PCS; 2024-07-19)
PROC: 30233N1 Transfusion of Nonautologous Red Blood Cells into Peripheral Vein, Percutaneous Approach (ICD-10-PCS; 2024-07-21)
PROC: 5A1D70Z Performance of Urinary Filtration, Intermittent, Less than 6 Hours Per Day (ICD-10-PCS; 2024-07-21)
PROC: 5A1D70Z Performance of Urinary Filtration, Intermittent, Less than 6 Hours Per Day (ICD-10-PCS; 2024-07-23)
PROC: 5A1D70Z Performance of Urinary Filtration, Intermittent, Less than 6 Hours Per Day (ICD-10-PCS; 2024-07-24)
PROC: 5A1D70Z Performance of Urinary Filtration, Intermittent, Less than 6 Hours Per Day (ICD-10-PCS; 2024-07-25)
PROC: 5A1D70Z Performance of Urinary Filtration, Intermittent, Less than 6 Hours Per Day (ICD-10-PCS; 2024-07-29)
DX: A41.59 Other Gram-negative sepsis (principal); G93.41 Metabolic encephalopathy; J96.01 Acute respiratory failure with hypoxia; I21.A1 Myocardial infarction type 2; R65.21 Severe sepsis with septic shock; G93.5 Compression of brain; G93.6 Cerebral edema; J15.69 Pneumonia due to other Gram-negative bacteria; J15.9 Unspecified bacterial pneumonia; J44.1 Chronic obstructive pulmonary disease with (acute) exacerbation; N17.9 Acute kidney failure, unspecified; E87.20 Acidosis, unspecified; G93.1 Anoxic brain damage, not elsewhere classified; I44.2 Atrioventricular block, complete; J44.0 Chronic obstructive pulmonary disease with (acute) lower respiratory infection; K92.2 Gastrointestinal hemorrhage, unspecified; E87.0 Hyperosmolality and hypernatremia; E87.4 Mixed disorder of acid-base balance; J45.901 Unspecified asthma with (acute) exacerbation; N39.0 Urinary tract infection, site not specified; J90 Pleural effusion, not elsewhere classified; I46.9 Cardiac arrest, cause unspecified; Z20.822 Contact with and (suspected) exposure to COVID-19; Z66 Do not resuscitate; D64.9 Anemia, unspecified; E87.5 Hyperkalemia; E87.6 Hypokalemia; I48.0 Paroxysmal atrial fibrillation; F12.10 Cannabis abuse, uncomplicated; G93.89 Other specified disorders of brain; R74.01 Elevation of levels of liver transaminase levels; N93.9 Abnormal uterine and vaginal bleeding, unspecified; F41.1 Generalized anxiety disorder; G89.29 Other chronic pain; Z90.710 Acquired absence of both cervix and uterus; Z95.2 Presence of prosthetic heart valve; Z99.2 Dependence on renal dialysis; W18.39XA Other fall on same level, initial encounter; Y93.89 Activity, other specified; Y92.89 Other specified places as the place of occurrence of the external cause; Y99.8 Other external cause status; Z79.899 Other long term (current) drug therapy
CPT/HCPCS: 31500; 36415; 36556; 36600; 70450; 70486; 70551; 71045; 71250; 72125; 74018; 74176; 78606; 80048; 80053; 80061; 80074; 80202; 80307; 81001; 82140; 82306; 82533; 82550; 82565; 82607; 82728; 82805; 82962; 83036; 83540; 83550; 83605; 83615; 83735; 84132; 84443; 84484; 85007; 85025; 85027; 85610; 85652; 85730; 86141; 86850; 86900; 86901; 86920; 87040; 87070; 87077; 87081; 87086; 87088; 87186; 87205; 87426; 87804; 90935; 93005; 93306; 94002; 94003; 94640; 95819; 99291; 99292; G0378; J0171; J1642; J2185; J2470; J2543; J2704; J3480; J7060; P9047